=== PATIENT | male | born 1955 | race Caucasian/White ===

== ENCOUNTER 2016-10-01 14:26 | Emergency (ER) | payer MEDICARE ==
--- NOTE | 2016-10-01 15:13 | ED ---
General Adult HPI - General Chief complaint: Psychiatric Symptoms Stated complaint: Mental Health sent by PCP Time Seen by Provider: 10/01/16 14:55 Source: patient, family, RN notes reviewed Mode of arrival: ambulatory Limitations: no limitations - History of Present Illness Initial comments: Chief complaint and history of present illness this is a 61-year-old male here with his nephew. The patient reports he was sent here by his family doctor because of depression and thoughts of suicide. He also has a swollen left leg which is been recurrent this been ongoing for 1 week she's had multiple times in the past. Also had what appears to be some cellulitis on the anterior tibial surface. Denies significant pain or fever. - Related Data Home Medications Medication Instructions Recorded Confirmed Atorvastatin [Lipitor] 20 mg PO HS 10/01/16 10/01/16 Cephalexin [Keflex] 500 mg PO TID 10/01/16 10/01/16 Gabapentin [Neurontin] 300 mg PO TID 10/01/16 10/01/16 Insuln Asp Prt/Insulin Aspart 100 unit SQ DAILY@1500 10/01/16 10/01/16 [NovoLOG MIX 70-30 VIAL] Losartan Potassium [Cozaar] 100 mg PO DAILY 10/01/16 10/01/16 Metolazone [Zaroxolyn] 5 mg PO QAM 10/01/16 10/01/16 Potassium Chloride ER [K-Dur 10] 10 meq PO DAILY 10/01/16 10/01/16 Sertraline [Zoloft] 100 mg PO HS 10/01/16 10/01/16 Torsemide [Demadex] 20 mg PO DAILY 10/01/16 10/01/16 metFORMIN HCL [Metformin HCl] 500 mg PO TID 10/01/16 10/01/16 Previous Rx's Medication Instructions Recorded Sulfamethox-Tmp 800-160Mg [Bactrim 2 each PO Q12HR #56 tab 10/01/16 DS 800-160 mg] Allergies Allergy/AdvReac Type Severity Reaction Status Date / Time No Known Allergies Allergy Verified 10/01/16 14:38 Review of Systems ROS Statement: Those systems with pertinent positive or pertinent negative responses have been documented in the HPI. Review of systems no complaint of any headache or visual acuity changes no chest pain or shortness of breath denies any abdominal pain no nausea no vomiting no diarrhea. Does report that he is depressed and has been thinking about suicide no specific plan his reports he would probably never do it. No neuro deficits. All systems are reviewed. Past medical problems significant for insulin-dependent diabetes mellitus, [place] 7 years ago, orthopedic surgery includes right wrist plate which is been removed. Also quite bypass. Family history mother had breast cancer multiple family members have diabetes. Patient has seasonal ALLERGIES. Denies smoking denies drinking. Denies doing any drugs. He has been some time in psychiatric unit because of depression. States he used to see a psychiatrist because of the expense he could not follow- up. He does take a blood pressure pill. ROS Other: All systems not noted in ROS Statement are negative. Past Medical History Past Medical History: Diabetes Mellitus, Myocardial Infarction ([place]) Additional Past Medical History / Comment(s): Quad bipass History of Any Multi-Drug Resistant Organisms: None Reported Past Surgical History: Orthopedic Surgery Additional Past Surgical History / Comment(s): Quad Bipass Past Psychological History: No Psychological Hx Reported Smoking Status: Never smoker Past Alcohol Use History: None Reported Past Drug Use History: None Reported General Exam - General Exam Comments Initial Comments: General: The patient is awake and alert, in no distress, and does not appear acutely ill. Eye: Pupils are equal, round and reactive to light, extra-ocular movements are intact ; there is normal conjunctiva bilaterally. No signs of icterus. Ears, nose, mouth and throat: There are moist mucous membranes and no oral lesions. Neck: The neck is supple, there is no tenderness . Cardiovascular: There is a regular rate and rhythm. No murmur, rub or gallop is appreciated. Respiratory: Lungs are clear to auscultation, respirations are non-labored, breath sounds are equal. No wheezes, stridor, rales, or rhonchi. Gastrointestinal: Soft, non-distended, non-tender abdomen without masses or organomegaly noted. There is no rebound or guarding present. No CVA tenderness. Bowel sounds are unremarkable. Back: Musculoskeletal: Normal ROM, no tenderness,swollen left leg, cellulitis anterior surface, areas where he has scratched . Neurological: CN II-XII intact, There are no obvious motor or sensory deficits. Coordination appears grossly intact. Speech is normal. Skin: cellulitis ti ant left tibial surface. Psychiatric: Cooperative, appropriate mood & affect, states he is depressed but without a plan. Limitations: no limitations Course Vital Signs 10/01/16 14:35 Temperature 97.7 F Pulse Rate 96 Respiratory 20 Rate Blood Pressure 167/77 O2 Sat by Pulse 95 Oximetry Medical Decision Making - Medical Decision Making Medical decision-making. Patient's white count 8.8 hemoglobin 15 hematocrit 44 with a potassium 3.1. This will be supplemented orally. BUN 18 creatinine 1.06 with a GFR greater than 60. Glucose 212. Urine toxicology screen negative for drugs of abuse. Breath alcohol was 0. Ultrasound to rule out DVT was negative per administrative dietitian. The patient will be started on Bactrim 2 tablets twice a day for 2 weeks for cellulitis left lower extremity and potassium tablets 20 mEq The patient was evaluated by psychiatric nurse. She discussed the situation with the psychiatrist and the plan this size with the patient be discharged home to the care of his nephew. Also with referrals to outpatient [facility]. Patient will be advised to continue with his home potassium which did not take today. Also he'll be placed on Bactrim DS 2 tablets twice day for 14 days. Told to follow-up with his family physician. If the rash or cellulitis gets worse on his leg he is to return emergency room. - Lab Data Result diagrams: 10/01/16 15:15 10/01/16 15:15 Lab Results 10/01/16 10/01/16 10/01/16 Range/Units 15:15 15:15 15:15 WBC 8.8 (3.8-10.6) k/uL RBC 5.12 (4.30-5.90) m/uL Hgb 15.3 (13.0-17.5) gm/dL Hct 44.0 (39.0-53.0) % MCV 85.8 (80.0-100.0) fL MCH 29.9 (25.0-35.0) pg MCHC 34.9 (31.0-37.0) g/dL RDW 15.1 (11.5-15.5) % Plt Count 191 (150-450) k/uL Neutrophils % 78 % Lymphocytes % 15 % Monocytes % 4 % Eosinophils % 2 % Basophils % 1 % Neutrophils # 6.8 (1.3-7.7) k/uL Lymphocytes # 1.3 (1.0-4.8) k/uL Monocytes # 0.3 (0-1.0) k/uL Eosinophils # 0.2 (0-0.7) k/uL Basophils # 0.1 (0-0.2) k/uL Sodium 140 (137-145) mmol/L Potassium 3.1 L (3.5-5.1) mmol/L Chloride 100 (98-107) mmol/L Carbon Dioxide 28 (22-30) mmol/L Anion Gap 12 mmol/L BUN 18 (9-20) mg/dL Creatinine 1.06 (0.66-1.25) mg/dL Est GFR (MDRD) Af Amer >60 (>60 ml/min/1.73 sqM) Est GFR (MDRD) Non-Af >60 (>60 ml/min/1.73 sqM) Glucose 212 H (74-99) mg/dL Calcium 9.4 (8.4-10.2) mg/dL Total Bilirubin 0.7 (0.2-1.3) mg/dL AST 34 (17-59) U/L ALT 40 (21-72) U/L Alkaline Phosphatase 92 (38-126) U/L Total Protein 7.0 (6.3-8.2) g/dL Albumin 4.0 (3.5-5.0) g/dL Urine Opiates Screen Not Detected (NotDetected) Ur Oxycodone Screen Not Detected (NotDetected) Urine Methadone Screen Not Detected (NotDetected) Ur Propoxyphene Screen Not Detected (NotDetected) Ur Barbiturates Screen Not Detected (NotDetected) U Tricyclic Antidepress Not Detected (NotDetected) Ur Phencyclidine Scrn Not Detected (NotDetected) Ur Amphetamines Screen Not Detected (NotDetected) U Methamphetamines Scrn Not Detected (NotDetected) U Benzodiazepines Scrn Not Detected (NotDetected) Urine Cocaine Screen Not Detected (NotDetected) U Marijuana (THC) Screen Not Detected (NotDetected) Disposition Clinical Impression: Depression, Cellulitis of left leg without foot Disposition: HOME SELF-CARE Condition: Fair Instructions: Depression (ED), Cellulitis (ED) Additional Instructions: Keep legs elevated. Take Bactrim 2 tablets twice daily for 14 days. Return emergency room if the cellulitis gets worse. Follow-up family physician. Call or evaluation by community mental health. Continue with home medications including potassium daily. Prescriptions: Sulfamethox-Tmp 800-160Mg [Bactrim DS 800-160 mg] 2 each PO Q12HR #56 tab Referrals: None,Stated [REFERRING] - 1-2 days Time of Disposition: 17:25
[2016-10-01 15:32] LABS: Basophils # (A) 0.1 k/uL (0-0.2); Basophils % (A) 1 %; CH 31.1; CHCM 36.4; Eosinophils # (A) 0.2 k/uL (0-0.7); Eosinophils % (A) 2 %; HDW 3.24; HGB 15.3 gm/dL (13.0-17.5); Luc # (Auto) 0.13; Luc % (Auto) 1; Lymphocytes # (A) 1.3 k/uL (1.0-4.8); Lymphocytes % (A) 15 %; MCH 29.9 pg (25.0-35.0); MCHC 34.9 g/dL (31.0-37.0); MCV 85.8 fL (80.0-100.0); Mean Platelet Volume 8.5; Monocytes # (A) 0.3 k/uL (0-1.0); Monocytes % (A) 4 %; Neutrophils # (A) 6.8 k/uL (1.3-7.7); Neutrophils % (A) 78 %; RBC 5.12 m/uL (4.30-5.90); RDW 15.1 % (11.5-15.5); WBC 8.8 k/uL (3.8-10.6); WBC (Perox) 8.61
[2016-10-01 15:42] LABS: ALT 40 U/L (21-72); AST 34 U/L (17-59); Alkaline Phosphatase 92 U/L (38-126); Anion Gap 12 mmol/L; Blood Urea Nitrogen 18 mg/dL (9-20); Calcium 9.4 mg/dL (8.4-10.2); Carbon Dioxide 28 mmol/L (22-30); Chloride 100 mmol/L (98-107); Glucose 212 mg/dL (74-99); Non-African American GFR(MDRD) >60 (>60 ml/min/1.73 sqM); Potassium 3.1 mmol/L (3.5-5.1); Sodium 140 mmol/L (137-145); Total Bilirubin 0.7 mg/dL (0.2-1.3)
[2016-10-01] MEDS ORDERED: POTASSIUM CHLORIDE ER 20 MEQ TAB.ER PO STA (16:18)
[2016-10-01] MEDS ORDERED: SULFAMETH-TMP DS STARTER PACK 2 TAB BTL PO STA (16:19)
--- NOTE | 2016-10-01 16:19 | US ---
EXAMINATION TYPE: US venous doppler duplex LE LT DATE OF EXAM: 10/01/2016 3:55 PM COMPARISON: NONE CLINICAL HISTORY: Recurrent swelling left leg. Intermittent left leg edema SIDE PERFORMED: Left TECHNIQUE: The lower extremity deep venous system is examined utilizing real time linear array sonog nadine with graded compression, doppler sonography and color-flow sonography. VESSELS IMAGED: External Iliac Vein (EIV) Common Femoral Vein Deep Femoral Vein Greater Saphenous Vein * Femoral Vein Popliteal Vein Small Saphenous Vein * Proximal Calf Veins (* superficial vessels) Left Leg: No evidence of DVT IMPRESSION: Grayscale, color doppler, spectral doppler imaging performed of the deep veins of the lo wer extremities. There is normal flow, compressibility, vascular waveforms bilaterally. There is no evident deep venous thrombosis at or above the knee
[2016-10-01 17:39] VITALS: BP 155/89; PULSE 93; RESP 18; TEMP 97.9
== END 2016-10-01 17:39 | disposition home or self-care (01) ==
LOC: EC 14:26
DX: L03.116 Cellulitis of left lower limb (principal); F32.9 Major depressive disorder, single episode, unspecified; E11.9 Type 2 diabetes mellitus without complications; Z79.4 Long term (current) use of insulin; Z79.899 Other long term (current) drug therapy
CPT/HCPCS: 36415; 80053; 80306; 82075; 85025; 99284

== ENCOUNTER → 2017-03-03 | Outpatient (CLI) | payer MEDICARE, OTHER ==
[2017-03-03 10:57] LABS: CH 28.7; CHCM 34.6; HCT 41.4 % (39.0-53.0); HDW 3.34; HGB 14.2 gm/dL (13.0-17.5); MCH 28.5 pg (25.0-35.0); MCHC 34.2 g/dL (31.0-37.0); MCV 83.3 fL (80.0-100.0); Mean Platelet Volume 8.1; RBC 4.97 m/uL (4.30-5.90); RDW 15.4 % (11.5-15.5)
[2017-03-03 11:11] LABS: ALT 32 U/L (21-72); AST 25 U/L (17-59); Alkaline Phosphatase 66 U/L (38-126); Anion Gap 12 mmol/L; Blood Urea Nitrogen 24 mg/dL (9-20); Carbon Dioxide 33 mmol/L (22-30); Chloride 98 mmol/L (98-107); Glucose 116 mg/dL (74-99); Non-African American GFR(MDRD) >60 (>60 ml/min/1.73 sqM); Potassium 3.3 mmol/L (3.5-5.1); Sodium 143 mmol/L (137-145); Total Bilirubin 0.4 mg/dL (0.2-1.3); Total Protein 7.3 g/dL (6.3-8.2)
--- NOTE | 2017-03-03 15:26 | US ---
EXAMINATION TYPE: US venous doppler duplex LE BI DATE OF EXAM: 03/03/2017 1:30 PM COMPARISON: NONE CLINICAL HISTORY: 61-year-old male M79.604 PAIN IN RT LEG. 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 No DVT or SVT is noted . EIV Common Femoral Vein Deep Femoral Vein Femoral Vein Popliteal Vein Proximal Calf Veins Greater Saph Vein Upper Small Saph Vein 2) There is venous reflux noted at the following venous levels: right small saphenous vein, left femoral vein lower, left popliteal vein mid, left popliteal vein lower, left small saphenous vei n IMPRESSION: 1. No evidence for DVT within the bilateral lower extremities imaged from the groin to the upper calv es. 2. Venous reflux noted within the deep venous system on the left as outlined above and within the rig ht small saphenous vein.
--- NOTE | 2017-03-05 10:04 | P.ARTDOP ---
Arterial Doppler LOWER EXTREMITY ARTERIAL DOPPLER: DATE OF SERVICE: 03/03/2017 Reason for study: Preop CABG. Doppler waveforms: Multiphasic bilaterally throughout. Pulse volume recording: Blunting on the digital area on the right.. Pressure gradients: Only at the foot level. Ankle-brachial indices: . Cannot be occluded on either side.. Toe pressures: 70 on the right, 88 on the left Impression: Fairly normal flow bilaterally proximally. Low toe pressures and mild blunting, probably secondary to distal disease. Tissue perfusion probably adequate for healing. Clinical correlation recommended..
== END | disposition home or self-care (01) ==
LOC: RADUSWWP 10:15
PROVIDERS: ATTEND Thoracic Surgery (Cardiothoracic Vascular Surgery)
DX: I87.2 Venous insufficiency (chronic) (peripheral) (principal); E13.621 Other specified diabetes mellitus with foot ulcer; M79.604 Pain in right leg
CPT/HCPCS: 36415; 80053; 83036; 84134; 85027; 93923; 93970

== ENCOUNTER 2019-06-14 14:10 | Inpatient (IN) | payer MEDICARE, OTHER ==
[2019-06-14] MEDS ORDERED: FUROSEMIDE 10 MG/ML 4 ML VIAL IV STA (15:01)
[2019-06-14] MEDS ORDERED: IPRATROPIUM-ALBUTEROL 3 ML NEB INHALATION STA (15:01)
--- NOTE | 2019-06-14 15:19 | ED ---
General Adult HPI - General Chief complaint: Shortness of Breath Stated complaint: leg swelling/SOB Time Seen by Provider: 06/14/19 14:57 Source: patient, family, RN notes reviewed Mode of arrival: ambulatory Limitations: no limitations - History of Present Illness Initial comments: Patient is a pleasant 63-year-old male presenting to the emergency Department with complaints of dyspnea. Patient has had leg swelling for the past couple of weeks. Patient admits to being off his Lasix recently because it makes him feel dry. Patient has had progressive dyspnea over the past several days or weeks. Patient does have occasional cough with occasional clear sputum. No chest pain. Patient is easily fatigued and short of breath with exertion. Dyspnea also worsens with lying down - Related Data Home Medications Medication Instructions Recorded Confirmed Gabapentin [Neurontin] 300 mg PO TID 10/01/16 06/14/19 Insuln Asp Prt/Insulin Aspart 60 unit SQ DAILY 10/01/16 06/14/19 [NovoLOG MIX 70-30 VIAL] Metolazone [Zaroxolyn] 5 mg PO QAM 10/01/16 06/14/19 Sertraline [Zoloft] 100 mg PO HS 10/01/16 06/14/19 Acetaminophen-Codeine 300-30mg 1 tab PO Q6H PRN 02/20/17 06/14/19 [Tylenol #3] Allergies Allergy/AdvReac Type Severity Reaction Status Date / Time acetaminophen [From Vicodin] AdvReac Hallucinati Verified 06/14/19 16:19 ons hydrocodone [From Vicodin] AdvReac Hallucinati Verified 06/14/19 16:19 ons Review of Systems ROS Statement: Those systems with pertinent positive or pertinent negative responses have been documented in the HPI. ROS Other: All systems not noted in ROS Statement are negative. Constitutional: Denies: fever Eyes: Denies: eye pain ENT: Denies: ear pain Respiratory: Reports: cough, dyspnea Cardiovascular: Denies: chest pain Endocrine: Reports: fatigue Gastrointestinal: Denies: abdominal pain Genitourinary: Denies: dysuria Musculoskeletal: Denies: back pain Skin: Denies: rash Neurological: Denies: weakness 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 History of Any Multi-Drug Resistant Organisms: None Reported Past Surgical History: Coronary Bypass/CABG, Orthopedic Surgery Additional Past Surgical History / Comment(s): amputation toe rt foot, Past Anesthesia/Blood Transfusion Reactions: No Reported Reaction Past Psychological History: Depression Smoking Status: Never smoker - Past Family History Mother Family Medical History: Unable to Obtain General Exam Limitations: no limitations General appearance: alert, in no apparent distress Head exam: Present: normocephalic Eye exam: Present: normal appearance, PERRL ENT exam: Present: mucous membranes dry Neck exam: Present: normal inspection Respiratory exam: Present: wheezes Cardiovascular Exam: Present: regular rate, normal rhythm GI/Abdominal exam: Present: soft. Absent: tenderness Extremities exam: Present: pedal edema. Absent: calf tenderness Neurological exam: Present: alert Psychiatric exam: Present: normal affect, normal mood Skin exam: Present: normal color Course Vital Signs 06/14/19 06/14/19 06/14/19 14:17 15:09 15:18 Temperature 97.4 F L Pulse Rate 92 85 86 Respiratory 18 Rate Blood Pressure 185/104 O2 Sat by Pulse 95 Oximetry EKG Findings - EKG Comments: EKG Findings:: Sinus rhythm 86. Premature complexes present. ID 186. QRS 120. QT 396. QT 06/15/1972. Normal axis. Poor R-wave progression. No acute ST change. Medical Decision Making - Medical Decision Making Patient reevaluated. Patient and family updated. Patient is getting some improvement with Lasix. Case discussed with Dr. Alegria, who will admit covering for hospital call. There is questionable pneumonia and patient will be covered with antibiotics. Patient does not meet sepsis criteria. - Lab Data Result diagrams: 06/14/19 14:35 06/14/19 14:35 Lab Results 06/14/19 06/14/19 06/14/19 Range/Units 14:35 14:35 14:35 WBC 6.2 (3.8-10.6) k/uL RBC 5.82 (4.30-5.90) m/uL Hgb 16.6 (13.0-17.5) gm/dL Hct 50.0 (39.0-53.0) % MCV 85.8 (80.0-100.0) fL MCH 28.5 (25.0-35.0) pg MCHC 33.2 (31.0-37.0) g/dL RDW 13.9 (11.5-15.5) % Plt Count 118 L (150-450) k/uL Neutrophils % 81 % Lymphocytes % 9 % Monocytes % 6 % Eosinophils % 0 % Basophils % 1 % Neutrophils # 5.0 (1.3-7.7) k/uL Lymphocytes # 0.6 L (1.0-4.8) k/uL Monocytes # 0.4 (0-1.0) k/uL Eosinophils # 0.0 (0-0.7) k/uL Basophils # 0.0 (0-0.2) k/uL PT 11.2 (9.0-12.0) sec INR 1.1 (<1.2) APTT 25.9 (22.0-30.0) sec Sodium 137 (137-145) mmol/L Potassium 3.5 (3.5-5.1) mmol/L Chloride 103 (98-107) mmol/L Carbon Dioxide 23 (22-30) mmol/L Anion Gap 11 mmol/L BUN 18 (9-20) mg/dL Creatinine 0.81 (0.66-1.25) mg/dL Est GFR (CKD-EPI)AfAm >90 (>60 ml/min/1.73 sqM) Est GFR (CKD-EPI)NonAf >90 (>60 ml/min/1.73 sqM) Glucose 107 H (74-99) mg/dL Calcium 8.5 (8.4-10.2) mg/dL Total Bilirubin 0.5 (0.2-1.3) mg/dL AST 216 H (17-59) U/L ALT 194 H (4-49) U/L Alkaline Phosphatase 106 (38-126) U/L Troponin I (0.000-0.034) ng/mL NT-Pro-B Natriuret Pep pg/mL Total Protein 6.2 L (6.3-8.2) g/dL Albumin 3.6 (3.5-5.0) g/dL 06/14/19 06/14/19 Range/Units 14:35 14:35 WBC (3.8-10.6) k/uL RBC (4.30-5.90) m/uL Hgb (13.0-17.5) gm/dL Hct (39.0-53.0) % MCV (80.0-100.0) fL MCH (25.0-35.0) pg MCHC (31.0-37.0) g/dL RDW (11.5-15.5) % Plt Count (150-450) k/uL Neutrophils % % Lymphocytes % % Monocytes % % Eosinophils % % Basophils % % Neutrophils # (1.3-7.7) k/uL Lymphocytes # (1.0-4.8) k/uL Monocytes # (0-1.0) k/uL Eosinophils # (0-0.7) k/uL Basophils # (0-0.2) k/uL PT (9.0-12.0) sec INR (<1.2) APTT (22.0-30.0) sec Sodium (137-145) mmol/L Potassium (3.5-5.1) mmol/L Chloride (98-107) mmol/L Carbon Dioxide (22-30) mmol/L Anion Gap mmol/L BUN (9-20) mg/dL Creatinine (0.66-1.25) mg/dL Est GFR (CKD-EPI)AfAm (>60 ml/min/1.73 sqM) Est GFR (CKD-EPI)NonAf (>60 ml/min/1.73 sqM) Glucose (74-99) mg/dL Calcium (8.4-10.2) mg/dL Total Bilirubin (0.2-1.3) mg/dL AST (17-59) U/L ALT (4-49) U/L Alkaline Phosphatase (38-126) U/L Troponin I 0.057 H* (0.000-0.034) ng/mL NT-Pro-B Natriuret Pep 2880 pg/mL Total Protein (6.3-8.2) g/dL Albumin (3.5-5.0) g/dL - Radiology Data Radiology results: image reviewed (Chest x-ray concerning for CHF. Chronic changes. Possible infiltrate bibasilar.) Disposition Clinical Impression: Congestive heart failure Disposition: ADMITTED IP TO THIS HOSP Is patient prescribed a controlled substance at d/c from ED?: No Referrals: Shauna Teague MD [Primary Care Provider] - 1-2 days Decision Time: 16:40
[2019-06-14 15:20] LABS: Basophils % (A) 1 %; Eosinophils % (A) 0 %; HGB 16.6 gm/dL (13.0-17.5); Lymphocytes # (A) 0.6 k/uL (1.0-4.8); Lymphocytes % (A) 9 %; MCH 28.5 pg (25.0-35.0); MCHC 33.2 g/dL (31.0-37.0); MCV 85.8 fL (80.0-100.0); Mean Platelet Volume 9.2; Monocytes # (A) 0.4 k/uL (0-1.0); Monocytes % (A) 6 %; Neutrophils % (A) 81 %; Platelet Count 118 k/uL (150-450); RBC 5.82 m/uL (4.30-5.90); RDW 13.9 % (11.5-15.5); WBC 6.2 k/uL (3.8-10.6)
[2019-06-14 15:23] LABS: ALT 194 U/L (4-49); AST 216 U/L (17-59); African American GFR (CKD) >90 (>60 ml/min/1.73 sqM); Albumin 3.6 g/dL (3.5-5.0); Alkaline Phosphatase 106 U/L (38-126); Anion Gap 11 mmol/L; Blood Urea Nitrogen 18 mg/dL (9-20); Calcium 8.5 mg/dL (8.4-10.2); Carbon Dioxide 23 mmol/L (22-30); Chloride 103 mmol/L (98-107); Glucose 107 mg/dL (74-99); Non-African American GFR(CKD) >90 (>60 ml/min/1.73 sqM); Potassium 3.5 mmol/L (3.5-5.1); Sodium 137 mmol/L (137-145); Total Bilirubin 0.5 mg/dL (0.2-1.3); Total Protein 6.2 g/dL (6.3-8.2)
[2019-06-14 15:28] LABS: INR 1.1 (<1.2); Partial Thromboplastin Time 25.9 sec (22.0-30.0); Prothrombin Time 11.2 sec (9.0-12.0)
--- NOTE | 2019-06-14 16:05 | XR ---
EXAMINATION TYPE: XR chest 2V DATE OF EXAM: 06/14/2019 COMPARISON: NONE HISTORY: Dyspnea. TECHNIQUE: Frontal and lateral views of the chest are obtained. FINDINGS: Overlying sternal wires and mediastinal clips are present. There is cardiomegaly with ather osclerotic thoracic aorta. Chronic parenchymal changes with by lateral lower lung opacities. Osseous structures are intact. IMPRESSION: Correlate for CHF exacerbation on background chronic parenchymal change as there is car diomegaly with suspected small to tiny bilateral pleural effusions and mild interstitial edema. In ad dition there is bibasilar acute infiltrate and atelectasis thought present. Underlying pneumonia avery ot be excluded.
[2019-06-14] MEDS ORDERED: ASPIRIN 325 MG TAB PO STA (16:42)
[2019-06-14] MEDS ORDERED: PNEUMONIA PROTOCOL UTILIZED 1 EACH MISC PO PRN (16:42)
[2019-06-14] MEDS ORDERED: IPRATROPIUM-ALBUTEROL 3 ML NEB INHALATION PRN (16:42)
[2019-06-14] MEDS ORDERED: AZITHROMYCIN 500 MG in SODIUM CHLORIDE 0.9% 250 ML IVPB STA (16:42)
[2019-06-14] MEDS ORDERED: NALOXONE 0.4 MG/ML 1 ML VIAL IV PRN (18:43)
--- NOTE | 2019-06-14 18:53 | P.HPIM ---
History of Present Illness H&P Date: 06/14/19 Chief Complaint: Shortness of breath 63-year-old male with PMH of hypertension, diabetes mellitus patient states that the shortness of breath started on when he had symptoms of a viral URI. Patient reported symptoms of cough productive of white and yellow sputum, r hinorrhea and sore throat on . His URI symptoms improved but his breathing progressively got worse which prompted the patient to come to the ED. Patient also reported lower extremity swelling of unknown duration. Patient otherwise has no complaints. He denies any headaches, nausea or vomiting, fever or chills, chest pain, palpitations, changes in urination or bowel habits. No changes in appetite or weight. Patient does report some lightheadedness on Friday or Friday when he was using the washroom when he fell and hit the back of his head. He did not seek medical attention at this time. He has not experienced any dizziness since then. In the ED, vital signs were stable except for BP of 185/104. CBC showed low platelet count of 118. Coagulation panel was negative. CMP showed glucose 107, AST 216, ALT 194. Troponin was 0.057, EKG showing sinus rhythm with fusion complexes and PACs. BNP was 2880, chest x-ray showing CHF exacerbation unable to exclude pneumonia. Patient is admitted for CHF exacerbation with cardiology consulted. Review of Systems Pertinent positives and negatives as discussed in HPI, a complete review of systems was performed and all other systems are negative. 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 History of Any Multi-Drug Resistant Organisms: None Reported Past Surgical History: Coronary Bypass/CABG, Orthopedic Surgery Additional Past Surgical History / Comment(s): amputation toe rt foot, Past Anesthesia/Blood Transfusion Reactions: No Reported Reaction Past Psychological History: Depression Smoking Status: Never smoker - Past Family History Mother Family Medical History: Unable to Obtain Medications and Allergies Home Medications Medication Instructions Recorded Confirmed Type Gabapentin [Neurontin] 300 mg PO TID 10/01/16 06/14/19 History Insuln Asp Prt/Insulin Aspart 60 unit SQ DAILY 10/01/16 06/14/19 History [NovoLOG MIX 70-30 VIAL] Metolazone [Zaroxolyn] 5 mg PO QAM 10/01/16 06/14/19 History Sertraline [Zoloft] 100 mg PO HS 10/01/16 06/14/19 History Acetaminophen-Codeine 300-30mg 1 tab PO Q6H PRN 02/20/17 06/14/19 History [Tylenol #3] Aspirin EC [Ecotrin Low Dose] 81 mg PO DAILY 06/14/19 06/14/19 History Atorvastatin Calcium [Lipitor] 40 mg PO DAILY 06/14/19 06/14/19 History Furosemide [Lasix] 40 mg PO DAILY 06/14/19 06/14/19 History Ibuprofen 600 mg PO Q6H PRN 06/14/19 06/14/19 History Losartan Potassium [Cozaar] 100 mg PO DAILY 06/14/19 06/14/19 History Potassium Chloride ER [K-Dur 20] 20 meq PO BID 06/14/19 06/14/19 History amLODIPine [Norvasc] 10 mg PO DAILY 06/14/19 06/14/19 History busPIRone HCL [Buspar] 7.5 mg PO BID 06/14/19 06/14/19 History metFORMIN HCL 1,000 mg PO BID 06/14/19 06/14/19 History Allergies Allergy/AdvReac Type Severity Reaction Status Date / Time acetaminophen [From Vicodin] AdvReac Hallucinati Verified 06/14/19 16:19 ons hydrocodone [From Vicodin] AdvReac Hallucinati Verified 06/14/19 16:19 ons Physical Exam Vitals: Vital Signs Temp Pulse Resp BP Pulse Ox 06/14/19 15:18 86 06/14/19 15:09 85 06/14/19 14:17 97.4 F L 92 18 185/104 95 Intake and Output 06/14/19 06/14/19 06/14/19 06:59 14:59 22:59 Other: Weight 124.738 kg General: [non toxic], [no distress], [appears at stated age] Derm: [warm], [dry] Head: [atraumatic], [normocephalic], [symmetric] Eyes: [EOMI], [no lid lag], [anicteric sclera] Mouth: [no lip lesion], [mucus membranes moist] Cardiovascular: [S1S2 reg], [no murmur], [positive DP pulse bilateral], Lungs: [Good air entry bilaterally], [crackles bilaterally] , [no accessory muscle use] Abdominal: [soft], [ nontender to palpation], [no guarding], [no appreciable organomegaly] Ext: [no gross muscle atrophy], [2+ pitting lower extremity edema left greater than right edema], [no contractures] Neuro: [ CN II-XI grossly intact], [no focal neuro deficits] Psych: [Alert], [oriented], [appropriate affect] Results CBC & Chem 7: 06/14/19 14:35 06/14/19 14:35 Labs: Abnormal Lab Results - Last 24 Hours (Table) 06/14/19 06/14/19 06/14/19 Range/Units 14:35 14:35 14:35 Plt Count 118 L (150-450) k/uL Lymphocytes # 0.6 L (1.0-4.8) k/uL Glucose 107 H (74-99) mg/dL AST 216 H (17-59) U/L ALT 194 H (4-49) U/L Troponin I 0.057 H* (0.000-0.034) ng/mL Total Protein 6.2 L (6.3-8.2) g/dL Assessment and Plan Assessment: Acute CHF exacerbation Hypertensive urgency Community acquired pneumonia Troponin elevation Transaminitis Diabetes mellitus Patient has an elevated BNP along with chest x-ray findings suggesting CHF exacerbation. Patient will be started on Lasix 40 mg IV 3 times a day. Strict intake and output will be ordered along with daily weights. Echocardiogram has been ordered and cardiology has been consulted. Patient was noted to have an elevated BP of 185/104 on admission. We will restart his antihypertensive medication of amlodipine and add Coreg 3.125 mg by mouth twice a day. Given his symptoms of productive cough, patient has been empirically started on antibiotics for community acquired pneumonia. He will be continued on Rocephin and azithromycin at this time. Sputum and blood cultures have been ordered. Patient has a mild troponin elevation of 0.057. This is likely a troponin leak from CHF. Regardless, 2 troponins/EKG will be trended to rule out ACS. He has been placed on telemetry monitoring. Patient noted to have elevated liver enzymes of unknown etiology. CMP will be repeated tomorrow morning. Lipid panel and acute hepatitis panel will be ordered as well. Patient will be started on insulin sliding scale along with regular Accu-Cheks and hypoglycemic precautions for his diabetes. DVT prophylaxis: [Heparin] Discussed with: [Patient] Anticipated discharge: [2-3 days] Anticipated discharge place: [Home] A total of [45] minutes was spent on the care of this complex patient more than 50% of the time was spent in counseling and care coordination. Patient names his sister Monica decision maker if he can't make decisions for himself. Patient would like to be full code.
[2019-06-14] MEDS: NITROGLYCERIN OINT 1 INCH/GM PACKET TOPICAL SCH ×2 (19:04→21:59)
[2019-06-14] MEDS: IPRATROPIUM-ALBUTEROL 3 ML NEB INHALATION SCH (19:34)
[2019-06-14 20:34] LABS: Glucose,Whole Blood 141 mg/dL (75-99)
[2019-06-14] MEDS: HEPARIN SODIUM,PORCINE 5,000 UNIT/ML 1 ML VIAL SQ SCH (21:59)
[2019-06-14] MEDS: busPIRone HCl 5 MG TAB PO SCH (22:00)
[2019-06-14] MEDS: SERTRALINE 100 MG TAB PO SCH (22:00)
[2019-06-14] MEDS: CARVEDILOL 3.125 MG TAB PO SCH (22:00)
[2019-06-14] MEDS: INSULIN ASPART (NovoLOG) 100 UNIT/ML VIAL SQ SCH (22:01)
[2019-06-14] MEDS: GABAPENTIN 300 MG CAP PO SCH (22:09)
[2019-06-15] MEDS: FUROSEMIDE 10 MG/ML 4 ML VIAL IV SCH ×4 (00:03→23:33)
[2019-06-15 02:52] LABS: Glucose,Whole Blood 67 mg/dL (75-99)
[2019-06-15 03:07] LABS: Glucose,Whole Blood 59 mg/dL (75-99)
[2019-06-15 03:18] LABS: Glucose,Whole Blood 87 mg/dL (75-99)
[2019-06-15 03:23] LABS: ALT 178 U/L (4-49); AST 162 U/L (17-59); African American GFR (CKD) >90 (>60 ml/min/1.73 sqM); Albumin 3.6 g/dL (3.5-5.0); Alkaline Phosphatase 92 U/L (38-126); Anion Gap 13 mmol/L; Blood Urea Nitrogen 17 mg/dL (9-20); Calcium 8.6 mg/dL (8.4-10.2); Carbon Dioxide 25 mmol/L (22-30); Chloride 106 mmol/L (98-107); Cholesterol 142 mg/dL (<200); Glucose 72 mg/dL (74-99); HDL Cholesterol 35 mg/dL (40-60); LDL Cholesterol,Calculated 93 mg/dL (0-99); Non-African American GFR(CKD) >90 (>60 ml/min/1.73 sqM); Potassium 2.9 mmol/L (3.5-5.1); Sodium 144 mmol/L (137-145); Total Bilirubin 0.7 mg/dL (0.2-1.3); Total Protein 6.1 g/dL (6.3-8.2); Triglycerides 70 mg/dL (<150)
[2019-06-15] MEDS: POTASSIUM CHLORIDE 10 MEQ in WATER FOR INJECTION 1 100ML.BAG IVPB SCH (05:58)
[2019-06-15 06:06] LABS: Glucose,Whole Blood 179 mg/dL (75-99)
[2019-06-15] MEDS: INSULIN ASPART (NovoLOG) 100 UNIT/ML VIAL SQ SCH ×4 (06:09→21:14)
[2019-06-15] MEDS: CARVEDILOL 3.125 MG TAB PO SCH ×2 (07:02→17:15)
--- NOTE | 2019-06-15 08:05 | US ---
EXAMINATION TYPE: US venous doppler duplex LE BI DATE OF EXAM: 06/15/2019 7:51 AM COMPARISON: US 2017 CLINICAL HISTORY: LE swelling. Bilateral leg swelling, exam done portable. SIDE PERFORMED: Bilateral TECHNIQUE: The lower extremity deep venous system is examined utilizing real time linear array sonog nadine with graded compression, doppler sonography and color-flow sonography. VESSELS IMAGED: External Iliac Vein (EIV) Common Femoral Vein Deep Femoral Vein Greater Saphenous Vein * Femoral Vein Popliteal Vein Small Saphenous Vein * Proximal Calf Veins (* superficial vessels) Grayscale, color doppler, spectral doppler imaging performed of the deep veins of the lower extremiti es. There is normal flow, compressibility, vascular waveforms. Right Leg: Appears negative for DVT Left Leg: Appears negative for DVT IMPRESSION: No sonographic evidence of deep venous thrombosis within either of the visualized bilate ral lower extremities.
--- NOTE | 2019-06-15 08:09 | XR ---
EXAMINATION TYPE: XR chest 2V DATE OF EXAM: 06/15/2019 COMPARISON: 06/14/2019 HISTORY: Follow-up for pneumonia. Shortness of breath. TECHNIQUE: Frontal and lateral views of the chest are obtained. FINDINGS: Persistent patchy right lower lung peripheral opacity is seen as well as right infrahilar opacity. Platelike left basilar atelectasis. Old healed lateral right rib fractures. Enlarged cardiac mediastinal silhouette with post CABG change. No sizable pneumothorax or pleural effusion. IMPRESSION: Persistent right basilar patchy opacity and right infrahilar opacity. Findings likely re present pneumonia although follow-up to resolution is recommended to exclude nodule.
[2019-06-15] MEDS: IPRATROPIUM-ALBUTEROL 3 ML NEB INHALATION SCH ×4 (08:33→19:30)
[2019-06-15] MEDS ORDERED: Potassium Replacement Protocol 1 EACH MISC MISCELLANE PRN (08:52)
--- NOTE | 2019-06-15 09:16 | P.CRDCN ---
History of Present Illness Consult date: 06/15/19 Requesting physician: Susan Powell Consult reason: congestive heart failure Chief complaint: Bilateral lower extremity edema and shortness of breath History of present illness: This is a pleasant 63-year-old gentleman with history of diabetes, hypertension, hyperlipidemia, coronary artery disease with prior bypass surgery. Patient's unsure of how long ago his surgery was, but he states that it was at [facility]. He does have some memory loss, initially when I asked him if he had any heart problems he said no, on examination I noticed a scar in his chest and patient states that he had a triple bypass surgery. He presents to the hospital on this occasion with symptoms of significant lower extremity edema, PND and orthopnea, exertional shortness of breath as well. His sister convinced him to come to the emergency room for further evaluation and treatment. Patient was initiated on IV Lasix on arrival here, he continues to have significant lower extremity edema but states that they're half the size they were when he presented yesterday. Chest x-ray on presentation here shows CHF exacerbation on the background of chronic parenchymal change, cardiomegaly, tiny bilateral pleural effusions. Possible infiltrate so underlying pneumonia cannot be excluded. His EKG on presentation here showed a normal sinus rhythm with PVCs. Venous duplex study negative for DVT in either lower extremity. Repeat chest x-ray was performed this morning which showed persistent right basilar patchy obesity in the right infrahilar obesity. Likely pneumonia although follow-up to resolution is recommended to exclude a nodule. Blood pressure 135/82, heart rate in the 70s, 97% on 2 L of oxygen. White blood cell count 6.2, hemoglobin 16.6, platelet count 118. Sodium 137 on admission with a potassium of 3.5, BUN 18, creatinine 0.8. BNP level 2880. Troponin 0.05, 0.06, 0.06. At the time of my examination this morning, the patient continues to feel short of breath although he states it's better than on presentation here. Continues to have 3+ bilateral peripheral edema, however improving as well from admission here. Past Medical History Past Medical History: Coronary Artery Disease (CAD), Diabetes Mellitus, Hyperlipidemia, Hypertension Additional Past Medical History / Comment(s): Left heel cracked/ History of Any Multi-Drug Resistant Organisms: None Reported Past Surgical History: Coronary Bypass/CABG, Orthopedic Surgery Additional Past Surgical History / Comment(s): amputation toe rt foot, Past Anesthesia/Blood Transfusion Reactions: No Reported Reaction Past Psychological History: Anxiety, Depression Smoking Status: Never smoker Past Alcohol Use History: None Reported Past Drug Use History: None Reported - Past Family History Mother Family Medical History: Diabetes Mellitus Father Family Medical History: Congestive Heart Failure (CHF) Brother(s) Family Medical History: Diabetes Mellitus Sister(s) Family Medical History: Diabetes Mellitus Medications and Allergies Home Medications Medication Instructions Recorded Confirmed Type Gabapentin [Neurontin] 300 mg PO TID 10/01/16 06/14/19 History Insuln Asp Prt/Insulin Aspart 60 unit SQ DAILY 10/01/16 06/14/19 History [NovoLOG MIX 70-30 VIAL] Metolazone [Zaroxolyn] 5 mg PO QAM 10/01/16 06/14/19 History Sertraline [Zoloft] 100 mg PO HS 10/01/16 06/14/19 History Acetaminophen-Codeine 300-30mg 1 tab PO Q6H PRN 02/20/17 06/14/19 History [Tylenol #3] Aspirin EC [Ecotrin Low Dose] 81 mg PO DAILY 06/14/19 06/14/19 History Atorvastatin Calcium [Lipitor] 40 mg PO DAILY 06/14/19 06/14/19 History Furosemide [Lasix] 40 mg PO DAILY 06/14/19 06/14/19 History Ibuprofen 600 mg PO Q6H PRN 06/14/19 06/14/19 History Losartan Potassium [Cozaar] 100 mg PO DAILY 06/14/19 06/14/19 History Potassium Chloride ER [K-Dur 20] 20 meq PO BID 06/14/19 06/14/19 History amLODIPine [Norvasc] 10 mg PO DAILY 06/14/19 06/14/19 History busPIRone HCL [Buspar] 7.5 mg PO BID 06/14/19 06/14/19 History metFORMIN HCL 1,000 mg PO BID 06/14/19 06/14/19 History Allergies Allergy/AdvReac Type Severity Reaction Status Date / Time acetaminophen [From Vicodin] AdvReac Hallucinati Verified 06/14/19 16:19 ons hydrocodone [From Vicodin] AdvReac Hallucinati Verified 06/14/19 16:19 ons Physical Exam Vitals: Vital Signs Temp Pulse Pulse Resp BP BP Pulse Ox 06/15/19 08:43 84 06/15/19 08:35 80 96 06/15/19 07:57 98.1 F 71 24 135/83 97 06/15/19 03:20 70 20 06/15/19 03:08 98.4 F 70 20 134/72 97 06/15/19 00:00 98.0 F 75 20 130/75 93 L 06/14/19 22:10 97.5 F L 83 24 143/78 95 06/14/19 21:03 97.5 F L 83 24 143/78 95 06/14/19 20:06 98.2 F 85 20 155/88 94 L 06/14/19 20:00 83 24 06/14/19 19:48 78 06/14/19 19:37 78 06/14/19 19:03 78 17 157/81 95 06/14/19 15:18 86 06/14/19 15:09 85 06/14/19 14:17 97.4 F L 92 18 185/104 95 Intake and Output 06/14/19 06/15/19 06/15/19 22:59 06:59 14:59 Output Total 400 Balance -400 Output: Urine 400 Other: # Voids 2 Weight 124.738 kg 104.9 kg PHYSICAL EXAMINATION: GENERAL: 63-year-old gentleman in no acute distress at the time of my examination HEENT: Head is atraumatic, normocephalic. Pupils equal, round. Sclera anicteric. Conjunctiva are clear. Mucous membranes of the mouth are moist. Neck is supple. There is elevated jugular venous pressure up to the angle of the jaw. No carotid bruit is heard. HEART EXAMINATION: Heart S1 and S2 1 systolic murmur is heard CHEST EXAMINATION: Lungs reveal diminished air entry to the bases bilaterally, bilateral rales heard ABDOMEN: Soft, obese, nontender. Bowel sounds are heard. No organomegaly noted. EXTREMITIES:[ 2+ peripheral pulses with 3+ evidence of peripheral edema, bilateral erythema NEUROLOGIC patient is awake, alert and oriented 3 . . Results 06/14/19 14:35 06/15/19 02:55 Cardiac Enzymes 06/14/19 06/14/19 06/14/19 Range/Units 14:35 14:35 21:40 AST 216 H (17-59) U/L Troponin I 0.057 H* 0.069 H* (0.000-0.034) ng/mL 06/15/19 06/15/19 Range/Units 02:55 02:55 AST 162 H (17-59) U/L Troponin I 0.068 H* (0.000-0.034) ng/mL Coagulation 06/14/19 Range/Units 14:35 PT 11.2 (9.0-12.0) sec APTT 25.9 (22.0-30.0) sec Lipids 06/15/19 Range/Units 02:55 Triglycerides 70 (<150) mg/dL Cholesterol 142 (<200) mg/dL HDL Cholesterol 35 L (40-60) mg/dL CBC 06/14/19 Range/Units 14:35 WBC 6.2 (3.8-10.6) k/uL RBC 5.82 (4.30-5.90) m/uL Hgb 16.6 (13.0-17.5) gm/dL Hct 50.0 (39.0-53.0) % Plt Count 118 L (150-450) k/uL Comprehensive Metabolic Panel 06/14/19 06/15/19 Range/Units 14:35 02:55 Sodium 137 144 (137-145) mmol/L Potassium 3.5 2.9 L (3.5-5.1) mmol/L Chloride 103 106 (98-107) mmol/L Carbon Dioxide 23 25 (22-30) mmol/L BUN 18 17 (9-20) mg/dL Creatinine 0.81 0.84 (0.66-1.25) mg/dL Glucose 107 H 72 L (74-99) mg/dL Calcium 8.5 8.6 (8.4-10.2) mg/dL AST 216 H 162 H (17-59) U/L ALT 194 H 178 H (4-49) U/L Alkaline Phosphatase 106 92 (38-126) U/L Total Protein 6.2 L 6.1 L (6.3-8.2) g/dL Albumin 3.6 3.6 (3.5-5.0) g/dL Current Medications Generic Name Dose Route Start Last Admin Trade Name Freq PRN Reason Stop Dose Admin Albuterol/Ipratropium 3 ml 06/14/19 20:00 06/15/19 08:33 Duoneb 0.5 Mg-3 Mg/3 Ml Soln INHALATION 3 ml RT-QID MARYANN Administration Albuterol/Ipratropium 3 ml 06/14/19 16:42 Duoneb 0.5 Mg-3 Mg/3 Ml Soln INHALATION RT-Q4H PRN shortness of breath Amlodipine Besylate 10 mg 06/15/19 09:00 Norvasc PO DAILY [facility] Aspirin 81 mg 06/15/19 09:00 Aspirin PO DAILY [facility] Atorvastatin Calcium 40 mg 06/15/19 09:00 Lipitor PO DAILY [facility] Azithromycin 500 mg 06/15/19 17:00 Zithromax PO Q24H [facility] Buspirone HCl 7.5 mg 06/14/19 21:00 06/14/19 22:00 Buspar PO 7.5 mg BID [facility] Administration Carvedilol 3.125 mg 06/14/19 19:00 06/15/19 07:02 Coreg PO 3.125 mg BID-W/MEALS [facility] Administration Furosemide 40 mg 06/15/19 00:00 06/15/19 00:03 Lasix IV 40 mg Q8H [facility] Administration Gabapentin 300 mg 06/14/19 22:00 06/14/19 22:09 Neurontin PO 300 mg TID [facility] Administration Heparin Sodium (Porcine) 5,000 unit 06/14/19 21:00 06/14/19 21:59 Heparin SQ 5,000 unit Q12HR [facility] Administration Ceftriaxone Sodium 1 gm/ 50 mls @ 100 mls/hr 06/15/19 16:00 Sodium Chloride IVPB 06/18/19 16:01 Q24H [facility] Insulin Aspart 0 unit 06/14/19 21:00 06/15/19 06:09 Novolog SQ Not Given ACHS [facility] Protocol Losartan Potassium 100 mg 06/15/19 09:00 Cozaar PO DAILY [facility] Metolazone 5 mg 06/15/19 09:00 Zaroxolyn PO QAM [facility] Miscellaneous Information 1 each 06/14/19 16:42 Pneumonia Protocol Utilized PO ONCE PRN Per Protocol Naloxone HCl 0.2 mg 06/14/19 18:43 Narcan IV Q2M PRN Opioid Reversal Nitroglycerin 1 inch 06/14/19 18:00 06/14/19 21:59 Nitro-Bid Oint TOPICAL 1 inch QID MARYANN Administration Sertraline HCl 100 mg 06/14/19 21:00 06/14/19 22:00 Zoloft PO 100 mg HS MARYANN Administration Sodium Chloride 10 ml 06/14/19 21:00 06/14/19 22:09 Saline Flush IV 10 ml BID MARYANN Administration Intake and Output 06/14/19 06/15/19 06/15/19 22:59 06:59 14:59 Output Total 400 Balance -400 Output: Urine 400 Other: # Voids 2 Weight 124.738 kg 104.9 kg 06/14/19 14:35 06/15/19 02:55 EKG Interpretations (text) EKG shows normal sinus rhythm with PVCs. Nonspecific ST-T wave changes Assessment and Plan Plan: Assessment and plan #1 systolic congestive heart failure acute on chronic #2 known history of coronary artery disease with prior bypass surgery, exact details unknown #3 hypertension #4 diabetes #5 hyperlipidemia #6 hypokalemia Plan We will continue to diurese the patient with IV Lasix. We will also check to see if the patient has coverage for Entresto, if he does, we will hold the angiotensin nicky and initiate Entresto. We will obtain an echocardiogram with Doppler study. Obtain records from [facility] on the patient's prior bypass surgery. Replace potassium. Continue to monitor intake and output along with daily weights and daily lytes BUN and creatinine. DNP note has been reviewed, I agree with a documented findings and plan of care. Patient was seen and examined.
[2019-06-15] MEDS: busPIRone HCl 5 MG TAB PO SCH ×2 (09:18→19:51)
[2019-06-15] MEDS: ATORVASTATIN 40 MG TAB PO SCH (09:18)
[2019-06-15] MEDS: HEPARIN SODIUM,PORCINE 5,000 UNIT/ML 1 ML VIAL SQ SCH ×2 (09:18→19:50)
[2019-06-15] MEDS: POTASSIUM CHLORIDE ER 20 MEQ TAB.ER PO SCH ×5 (09:18→16:34)
[2019-06-15] MEDS: GABAPENTIN 300 MG CAP PO SCH ×3 (09:18→21:14)
[2019-06-15] MEDS: ASPIRIN 81 MG PO SCH (09:18)
[2019-06-15] MEDS: METOLAZONE 5 MG TAB PO SCH (09:19)
[2019-06-15] MEDS: NITROGLYCERIN OINT 1 INCH/GM PACKET TOPICAL SCH ×4 (09:22→21:14)
[2019-06-15 12:06] LABS: Glucose,Whole Blood 163 mg/dL (75-99)
--- NOTE | 2019-06-15 12:21 | P.CN ---
Psychiatric Consult - . Consult date: 06/15/19 Consult:: IDENTIFYING DATA: He is a 63-year-old single developmentally disabled male admitted to medicine service with complaints of increasing shortness of breath. The hospitalist consulted psychiatry regarding evaluation of depre ssion. HISTORY OF PRESENT ILLNESS: I reviewed the medical record and interviewed the patient. He described feelings of depression, hopelessness and helplessness that has been present since she was diagnosed with diabetes. He has intermittent thoughts of but denied suicidal ideation, intent or plan. His description of the suicidal thoughts were suggestive of an obsession where he feels a need to make the utterance "I wish I were ". Afterwards he experiences a sense of release and a decrease of stress. He described some symptoms of depression but denied persistent anhedonia, guilt or insomnia. His predominant complaint when we talked about depression was his feeling "uselessness" and "boredom". He complained that he has "nothing to do" since he stopped working 2 years ago. He wishes to return to work but is unable to because of his multiple medical problems. He described a persistent sense of anxiety that fluctuates in intensity that he feels that he is unable to control. He denied experiencing periods of increased anxiety consistent with panic attack. He denied compulsions or other obsessions or intrusive thoughts or ideas. He denied psychotic symptoms such as hallucinations, paranoia, confusion or thought disturbances. He does not use alcohol and denied history use of drugs. His primary care provider was prescribed sertraline and use for the treatment of symptoms of depression and anxiety and recommended a referral to a psychiatrist. PAST PSYCHIATRIC HISTORY: He has no history of mental health treatment. He denied a history of suicide attempts or gestures. He has no psychiatric hospitalizations.. PAST MEDICAL HISTORY: He has multiple medical problems including coronary artery disease, congestive heart failure, diabetes mellitus, hyperlipidemia and hyper tension. ALLERGIES: Acetaminophen, hydrocodone. SUBSTANCE USE HISTORY: . FAMILY PSYCHIATRIC/SUBSTANCE USE HISTORY: He denied a family history of mental health or substance use problems. SOCIAL HISTORY: He has 1 sister and 1 brother. 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 He graduated from high school. 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 He lives with his sister in a rented home. He describes strong family support and enjoys the time with his family. He has limited hobbies or social activities outside of family. MENTAL STATUS EXAM: He presented as a moderately obese 63-year-old male with male pattern balding. He made eye contact and attended to the interview. He no distinguishing features or prominent physical abnormalities. He had a depressed facial expression but smiled intermittently during interview. He is alert and oriented to person, place and time. He showed psychomotor retardation but no abnormal movements. Speech was spontaneous with decreased rate and rhythm. His affect was depressed but reactive. He described intermittent thoughts of but denied suicidal ideation, intent or plan. He denied homicidal ideation. He expressed feelings of hopelessness and helplessness. He ruminated about his medical problems, his inability to work and his lack of activities. He did not express ideas reference, paranoid ideation or delusions. His thinking was concrete but his associations were coherent and logical. He denied hallucinations and did not appear to be responding to internal stimuli. Global impression of intellect is below average. He is aware of his mental health issues and need for treatment. IMPRESSIONS: He is a 63-year-old single male who has history of a developmental disability. He presented to Hospital for the treatment of shortness of breath and was diagnosed with congestive heart failure. He has a history of depression and anxiety for which his primary care provider prescribing Zoloft and BuSpar. He describes intermittent thoughts of but denied suicide intent or plan. There is no evidence of psychosis is no history of substance use problems. There is no indication for inpatient psychiatric treatment at this time. However, he would benefit from outpatient mental health and/or social service manager. DIAGNOSIS: Major depressive disorder in partial remission, developmental disability PLAN: Continue sertraline 100 mg per day and BuSpar 7.5 mg twice a day. Consult social work for assistance with referral to community mental health and/or consultation. Thank you for this consult. 06/15/19 11:56 06/15/19 12:18
[2019-06-15] MEDS: LOSARTAN 50 MG TAB PO SCH (12:23)
--- NOTE | 2019-06-15 13:06 | P.PN ---
Subjective Progress Note Date: 06/15/19 Principal diagnosis: CHF exacerbation Patient was seen and examined. No acute events overnight. Patient reports slight improvement in his breathing since admission. Continues to complain of cough productive of clear sputum. Continues to complain of lower charis swelling. He denies any chest pain or palpitations. No nausea or vomiting. No fever or chills. Objective - Vital Signs Vital signs: Vital Signs Temp 98.2 F 06/15/19 12:00 Pulse 87 06/15/19 12:52 Resp 24 06/15/19 12:00 BP 135/75 06/15/19 12:00 Pulse Ox 94 L 06/15/19 12:00 Intake & Output 06/14/19 06/15/19 06/15/19 18:59 06:59 18:59 Intake Total 240 Output Total 1150 Balance -910 Weight 124.738 kg 104.9 kg Intake: Oral 240 Output: Urine 1150 Other: # Voids 2 1 # Bowel Movements 1 - Exam General: [non toxic], [no distress], [appears at stated age] Derm: [warm], [dry] Head: [atraumatic], [normocephalic], [symmetric] Eyes: [EOMI], [no lid lag], [anicteric sclera] Mouth: [no lip lesion], [mucus membranes moist] Cardiovascular: [S1S2 reg], [no murmur], [positive DP pulse bilateral], Lungs: [Good air entry bilaterally], [crackles bilaterally] , [no accessory muscle use] Abdominal: [soft], [ nontender to palpation], [no guarding], [no appreciable organomegaly] Ext: [no gross muscle atrophy], [2+ pitting lower extremity edema left greater than right edema], [no contractures] Neuro: [no focal neuro deficits] Psych: [Alert], [oriented], [appropriate affect] - Labs CBC & Chem 7: 06/14/19 14:35 06/15/19 02:55 Labs: Abnormal Lab Results - Last 24 Hours (Table) 06/14/19 06/14/19 06/14/19 Range/Units 14:35 14:35 14:35 Plt Count 118 L (150-450) k/uL Lymphocytes # 0.6 L (1.0-4.8) k/uL Potassium (3.5-5.1) mmol/L Glucose 107 H (74-99) mg/dL POC Glucose (mg/dL) (75-99) mg/dL AST 216 H (17-59) U/L ALT 194 H (4-49) U/L Troponin I 0.057 H* (0.000-0.034) ng/mL Total Protein 6.2 L (6.3-8.2) g/dL HDL Cholesterol (40-60) mg/dL 06/14/19 06/14/19 06/15/19 Range/Units 20:33 21:40 02:49 Plt Count (150-450) k/uL Lymphocytes # (1.0-4.8) k/uL Potassium (3.5-5.1) mmol/L Glucose (74-99) mg/dL POC Glucose (mg/dL) 141 H 67 L (75-99) mg/dL AST (17-59) U/L ALT (4-49) U/L Troponin I 0.069 H* (0.000-0.034) ng/mL Total Protein (6.3-8.2) g/dL HDL Cholesterol (40-60) mg/dL 06/15/19 06/15/19 06/15/19 Range/Units 02:55 02:55 03:05 Plt Count (150-450) k/uL Lymphocytes # (1.0-4.8) k/uL Potassium 2.9 L (3.5-5.1) mmol/L Glucose 72 L (74-99) mg/dL POC Glucose (mg/dL) 59 L (75-99) mg/dL AST 162 H (17-59) U/L ALT 178 H (4-49) U/L Troponin I 0.068 H* (0.000-0.034) ng/mL Total Protein 6.1 L (6.3-8.2) g/dL HDL Cholesterol 35 L (40-60) mg/dL 06/15/19 06/15/19 Range/Units 06:05 11:45 Plt Count (150-450) k/uL Lymphocytes # (1.0-4.8) k/uL Potassium (3.5-5.1) mmol/L Glucose (74-99) mg/dL POC Glucose (mg/dL) 179 H 163 H (75-99) mg/dL AST (17-59) U/L ALT (4-49) U/L Troponin I (0.000-0.034) ng/mL Total Protein (6.3-8.2) g/dL HDL Cholesterol (40-60) mg/dL Assessment and Plan Assessment: Acute CHF exacerbation Hypokalemia Hypertensive urgency Lower extremity swelling Community acquired pneumonia Troponin elevation Transaminitis Diabetes mellitus Patient has an elevated BNP along with chest x-ray findings suggesting CHF exacerbation. Patient has lost 20 kg since admission. Patient will be started on Lasix 40 mg IV 3 times a day. Strict intake and output will be ordered along with daily weights. Echocardiogram has been ordered and cardiology is following. Potassium 2.9. This will be replaced via protocol. Patient was noted to have an elevated BP of 185/104 on admission. His BP this morning is 135/75. We will restart his antihypertensive medication of amlodipine and continue Coreg 3.125 mg by mouth twice a day. His lower extremity swelling is likely related to CHF. Vascular duplex ruled out DVT. Given his symptoms of productive cough, patient has been empirically started on antibiotics for community acquired pneumonia. He will be continued on Rocephin and azithromycin at this time. Sputum and blood cultures have been ordered. Patient has a mild troponin elevation of 0.057, 0.69, 0.68. This is likely a troponin leak from CHF. ACS has been ruled out. He has been placed on telemetry monitoring. Patient noted to have elevated liver enzymes of unknown etiology. CMP will be repeated tomorrow morning. Lipid panel is within normal limits and hepatitis panel is currently pending. Patient will be started on insulin sliding scale along with regular Accu-Cheks and hypoglycemic precautions for his diabetes. [Symptoms are improving. Echocardiogram ordered. Continue IV Lasix. Cardiology following. Likely DC in 2-3 days.]
[2019-06-15 14:59] LABS: Hepatitis A Antibody IgM Non-Reactive (Non-Reactive); Hepatitis B Core IgM Non-Reactive (Non-Reactive); Hepatitis B Surface Antigen Non-Reactive (Non-Reactive); Hepatitis C IgG Antibody Non-Reactive (Non-Reactive)
[2019-06-15] MEDS ORDERED: ASPIRIN 325 MG TAB PO SCH (16:00)
[2019-06-15] MEDS: amLODIPine 10 MG TAB PO SCH (16:34)
[2019-06-15 16:59] LABS: Glucose,Whole Blood 199 mg/dL (75-99)
[2019-06-15] MEDS: AZITHROMYCIN 500 MG TAB PO SCH (17:15)
--- NOTE | 2019-06-15 17:58 | ECHOF ---
Referral Reason:SOB MEASUREMENTS -------- HEIGHT: 165.1 cm WEIGHT: 104.8 kg BP: 134/72 RVIDd: 3.4 cm (< 3.3) IVSd: 1.1 cm (0.6 - 1.1) LVIDd: 5.6 cm (3.9 - 5.3) LVPWd: 1.2 cm (0.6 - 1.1) IVSs: 1.3 cm LVIDs: 4.9 cm LVPWs: 1.5 cm LAESV Index (A-L): 46.56 ml/m Ao Diam: 3.5 cm (2.0 - 3.7) AV Cusp: 2.2 cm (1.5 - 2.6) LA Diam: 4.1 cm (2.7 - 3.8) MV EXCURSION: 14.230 mm (> 18.000) MV EF SLOPE: 97 mm/s (70 - 150) EPSS: 1.8 cm MV E Lucho: 0.84 m/s MV DecT: 206 ms MV A Lucho: 0.52 m/s MV E/A Ratio: 1.62 AR PHT: 268 ms RAP: 5.00 mmHg RVSP: 10.41 mmHg FINDINGS -------- Sinus rhythm. This was a technically good study. The left ventricular size is normal. There is mild concentric left ventricular hypertrophy. There is severe global hypokinesis of LV . Overall left ventricular systolic function is severely impair ed with, an EF between 20 - 25 %. Increased LAP Grade 3 Diastolic Dysfunction. The right ventricle is mildly enlarged. LA is severely dilated >40 ml/m2 The right atrial size is normal. The aortic valve is trileaflet and appears structurally normal. Trace amount of aortic regurgitatio n. The mitral valve is normal. The mitral valve leaflets are mildly thickened. Mild mitral regurgita tion is present. The tricuspid valve appears structurally normal. Mild tricuspid regurgitation present. Unable to estimate RVSP due to inadequate TR jet spectral doppler profile. Trace/mild (physiologic) pulmonic regurgitation. The aortic root size is normal. Normal inferior vena cava with normal inspiratory collapse consistent with estimated right atrial pre ssure of 5 mmHg. There is no pericardial effusion. CONCLUSIONS -------- 1. Sinus rhythm. 2. This was a technically good study. 3. The left ventricular size is normal. 4. There is mild concentric left ventricular hypertrophy. 5. There is severe global hypokinesis of LV . 6. Overall left ventricular systolic function is severely impaired with, an EF between 20 - 25 %. 7. Increased LAP Grade 3 Diastolic Dysfunction. 8. The right ventricle is mildly enlarged. 9. LA is severely dilated >40 ml/m2 10. The right atrial size is normal. 11. The aortic valve is trileaflet and appears structurally normal. 12. Trace amount of aortic regurgitation. 13. The mitral valve is normal. 14. The mitral valve leaflets are mildly thickened. 15. Mild mitral regurgitation is present. 16. The tricuspid valve appears structurally normal. 17. Mild tricuspid regurgitation present. 18. Unable to estimate RVSP due to inadequate TR jet spectral doppler profile. 19. Trace/mild (physiologic) pulmonic regurgitation. 20. The aortic root size is normal. 21. Normal inferior vena cava with normal inspiratory collapse consistent with estimated right atrial pressure of 5 mmHg. 22. There is no pericardial effusion. HOSPICE LIAISON: Lynn Leahy RDCS
[2019-06-15] MEDS: SERTRALINE 100 MG TAB PO SCH (19:51)
[2019-06-15 20:46] LABS: Glucose,Whole Blood 220 mg/dL (75-99)
[2019-06-16 03:21] LABS: Glucose,Whole Blood 152 mg/dL (75-99)
[2019-06-16 06:01] LABS: Glucose,Whole Blood 125 mg/dL (75-99)
[2019-06-16] MEDS: INSULIN ASPART (NovoLOG) 100 UNIT/ML VIAL SQ SCH ×4 (06:05→21:47)
[2019-06-16] MEDS: CARVEDILOL 3.125 MG TAB PO SCH (06:27)
[2019-06-16 06:58] LABS: Calcium 8.8 mg/dL (8.4-10.2)
[2019-06-16] MEDS: IPRATROPIUM-ALBUTEROL 3 ML NEB INHALATION SCH ×4 (07:46→20:00)
[2019-06-16] MEDS: busPIRone HCl 5 MG TAB PO SCH ×2 (08:46→19:51)
[2019-06-16] MEDS: NITROGLYCERIN OINT 1 INCH/GM PACKET TOPICAL SCH (08:47)
[2019-06-16] MEDS: HEPARIN SODIUM,PORCINE 5,000 UNIT/ML 1 ML VIAL SQ SCH ×2 (08:47→19:50)
[2019-06-16] MEDS: LOSARTAN 50 MG TAB PO SCH (08:47)
[2019-06-16] MEDS: FUROSEMIDE 10 MG/ML 4 ML VIAL IV SCH ×2 (08:47→19:50)
[2019-06-16] MEDS: METOLAZONE 5 MG TAB PO SCH (08:48)
[2019-06-16] MEDS: ASPIRIN 81 MG PO SCH (08:48)
[2019-06-16] MEDS: amLODIPine 10 MG TAB PO SCH (08:48)
[2019-06-16] MEDS: ATORVASTATIN 40 MG TAB PO SCH (08:48)
[2019-06-16] MEDS: GABAPENTIN 300 MG CAP PO SCH ×3 (08:48→21:48)
[2019-06-16 10:29] VITALS: BMI 38.0
[2019-06-16 11:39] LABS: Glucose,Whole Blood 185 mg/dL (75-99)
--- NOTE | 2019-06-16 12:18 | P.PN ---
Subjective Progress Note Date: 06/16/19 This is a pleasant 63-year-old gentleman with history of diabetes, hypertension, hyperlipidemia, coronary artery disease with prior bypass surgery. Patient's unsure of how long ago his surgery was, but he states that it was at [facility]. He does have some memory loss, initially when I asked him if he had any heart problems he said no, on examination I noticed a scar in his chest and patient states that he had a triple bypass surgery. He presents to the hospital on this occasion with symptoms of significant lower extremity edema, PND and orthopnea, exertional shortness of breath as well. His sister convinced him to come to the emergency room for further evaluation and treatm ent. Patient was initiated on IV Lasix on arrival here, he continues to have significant lower extremity edema but states that they're half the size they were when he presented yesterday. Chest x-ray on presentation here shows CHF exacerbation on the background of chronic parenchymal change, cardiomegaly, tiny bilateral pleural effusions. Possible infiltrate so underlying pneumonia cannot be excluded. His EKG on presentation here showed a normal sinus rhythm with PVCs. Venous duplex study negative for DVT in either lower extremity. Repeat chest x-ray was performed this morning which showed persistent right basilar patchy obesity in the right infrahilar obesity. Likely pneumonia although follow-up to resolution is recommended to exclude a nodule. Blood pressure 135/82, heart rate in the 70s, 97% on 2 L of oxygen. White blood cell count 6.2, hemoglobin 16.6, platelet count 118. Sodium 137 on admission with a potassium of 3.5, BUN 18, creatinine 0.8. BNP level 2880. Troponin 0.05, 0.06, 0.06. At the time of my examination this morning, the patient continues to feel short of breath although he states it's better than on presentation here. Continues to have 3+ bilateral peripheral edema, however improving as well from admission here. 06/16/2019 Patient was seen and examined this morning, he diuresed well through the night last night. Sodium 140, potassium 4.0, BUN 26, creatinine 1.4. We will discontinue the Zaroxolyn, decrease the dose of IV Lasix. Increase the Coreg dose today. We will also hold the patient's angiotensin nicky and initiate Entresto. B/P110/60 heart rate in the 70's. Objective - Vital Signs Vital signs: Vital Signs Temp 97.2 F L 06/16/19 11:30 Pulse 73 06/16/19 11:30 Resp 18 06/16/19 11:30 BP 110/68 06/16/19 11:30 Pulse Ox 95 06/16/19 11:30 Intake & Output 06/15/19 06/16/19 06/16/19 18:59 06:59 18:59 Intake Total 480 360 240 Output Total 1150 300 Balance -670 60 240 Weight 103.5 kg 103.5 kg Intake: Oral 480 360 240 Output: Urine 1150 300 Other: # Voids 1 # Bowel Movements 1 - Exam PHYSICAL EXAMINATION: GENERAL: 63-year-old gentleman in no acute distress at the time of my examination HEENT: Head is atraumatic, normocephalic. Pupils equal, round. Sclera anicteric. Conjunctiva are clear. Mucous membranes of the mouth are moist. Nec k is supple. There is elevated jugular venous pressure up to the angle of the jaw. No carotid bruit is heard. HEART EXAMINATION: Heart S1 and S2 1 systolic murmur is heard CHEST EXAMINATION: Lungs reveal diminished air entry to the bases bilaterally, bilateral rales heard ABDOMEN: Soft, obese, nontender. Bowel sounds are heard. No organomegaly noted. EXTREMITIES:[ 2+ peripheral pulses with 1+ evidence of peripheral edema, bilateral erythema NEUROLOGIC patient is awake, alert and oriented 3 . - Labs CBC & Chem 7: 06/14/19 14:35 06/16/19 05:42 Labs: Abnormal Lab Results - Last 24 Hours (Table) 06/15/19 06/15/19 06/15/19 Range/Units 11:45 14:14 16:51 Potassium 3.2 L (3.5-5.1) mmol/L Carbon Dioxide (22-30) mmol/L BUN (9-20) mg/dL Creatinine (0.66-1.25) mg/dL Glucose (74-99) mg/dL POC Glucose (mg/dL) 163 H 199 H (75-99) mg/dL 06/15/19 06/16/19 06/16/19 Range/Units 20:45 03:20 05:42 Potassium (3.5-5.1) mmol/L Carbon Dioxide 32 H (22-30) mmol/L BUN 26 H (9-20) mg/dL Creatinine 1.41 H (0.66-1.25) mg/dL Glucose 132 H (74-99) mg/dL POC Glucose (mg/dL) 220 H 152 H (75-99) mg/dL 06/16/19 06/16/19 Range/Units 05:59 11:38 Potassium (3.5-5.1) mmol/L Carbon Dioxide (22-30) mmol/L BUN (9-20) mg/dL Creatinine (0.66-1.25) mg/dL Glucose (74-99) mg/dL POC Glucose (mg/dL) 125 H 185 H (75-99) mg/dL Microbiology - Last 24 Hours (Table) 06/14/19 17:40 Blood Culture - Preliminary Blood No Growth after 24 hours Assessment and Plan Plan: Assessment and plan #1 systolic congestive heart failure acute on chronic #2 known history of coronary artery disease with prior bypass surgery, exact details unknown #3 hypertension #4 diabetes #5 hyperlipidemia #6 hypokalemia Plan From cardiology's perspective, we will discontinue the Zaroxolyn, decrease the dose of IV Lasix. Increase the Coreg. Continue to monitor intake and output along with daily weights and daily lytes BUN and creatinine. Echocardiogram with Doppler study that was performed revealed an ejection fraction of 20-25%. 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 Patient may need a full workup with cardiac catheterization etc.,possible AICD implantation. DNP note has been reviewed, I agree with a documented findings and plan of care. Patient was seen and examined.
[2019-06-16] MEDS: AZITHROMYCIN 500 MG TAB PO SCH (16:25)
[2019-06-16] MEDS: CARVEDILOL 6.25 MG TAB PO SCH (16:25)
[2019-06-16] MEDS ORDERED: BENZOCAINE/MENTHOL LOZENG 1 EACH LOZENGE MUCOUS MEM PRN (16:28)
[2019-06-16] MEDS ORDERED: guaiFENesin SYRUP 100MG/5ML 200 MG/10 ML CUP PO PRN (16:30)
[2019-06-16] MEDS ORDERED: guaiFENesin SYRUP 100MG/5ML 200 MG/10 ML CUP PO STA (16:30)
[2019-06-16 16:32] LABS: Glucose,Whole Blood 228 mg/dL (75-99)
--- NOTE | 2019-06-16 16:45 | P.PN ---
Subjective Progress Note Date: 06/16/19 Principal diagnosis: CHF exacerbation Patient was seen and examined. No acute events overnight. Patient reports significant improvement in his breathing since admission. Continues to complain of cough productive of clear sputum. Continues to complain of lower extremity swelling. He denies any chest pain or palpitations. No nausea or vomiting. No fever or chills. Objective - Vital Signs Vital signs: Vital Signs Temp 97.2 F L 06/16/19 11:30 Pulse 80 06/16/19 15:25 Resp 18 06/16/19 11:30 BP 110/68 06/16/19 11:30 Pulse Ox 95 06/16/19 11:30 Intake & Output 06/15/19 06/16/19 06/16/19 18:59 06:59 18:59 Intake Total 480 360 600 Output Total 1150 300 250 Balance -670 60 350 Weight 103.5 kg 103.5 kg Intake: Oral 480 360 600 Output: Urine 1150 300 250 Other: # Voids 1 # Bowel Movements 1 - Exam General: [non toxic], [no distress], [appears at stated age] Derm: [warm], [dry] Head: [atraumatic], [normocephalic], [symmetric] Eyes: [EOMI], [no lid lag], [anicteric sclera] Mouth: [no lip lesion], [mucus membranes moist] Cardiovascular: [S1S2 reg], [no murmur], [positive DP pulse bilateral], Lungs: [Good air entry bilaterally], [crackles bilaterally, improved] , [no accessory muscle use] Abdominal: [soft], [ nontender to palpation], [no guarding], [no appreciable organomegaly] Ext: [no gross muscle atrophy], [2+ pitting lower extremity edema left greater than right edema], [no contractures] Neuro: [no focal neuro deficits] Psych: [Alert], [oriented], [appropriate affect] - Labs CBC & Chem 7: 06/14/19 14:35 06/16/19 05:42 Labs: Abnormal Lab Results - Last 24 Hours (Table) 06/15/19 06/15/19 06/16/19 Range/Units 16:51 20:45 03:20 Carbon Dioxide (22-30) mmol/L BUN (9-20) mg/dL Creatinine (0.66-1.25) mg/dL Glucose (74-99) mg/dL POC Glucose (mg/dL) 199 H 220 H 152 H (75-99) mg/dL 06/16/19 06/16/19 06/16/19 Range/Units 05:42 05:59 11:38 Carbon Dioxide 32 H (22-30) mmol/L BUN 26 H (9-20) mg/dL Creatinine 1.41 H (0.66-1.25) mg/dL Glucose 132 H (74-99) mg/dL POC Glucose (mg/dL) 125 H 185 H (75-99) mg/dL Microbiology - Last 24 Hours (Table) 06/14/19 17:40 Blood Culture - Preliminary Blood No Growth after 24 hours Assessment and Plan Assessment: Acute CHF exacerbation Acute kidney injury Hypertensive urgency Lower extremity swelling Community acquired pneumonia Troponin elevation Transaminitis Diabetes mellitus Patient has an elevated BNP along with chest x-ray findings suggesting CHF exacerbation. Echocardiogram shows EF 20-25% with grade 3 diastolic dysfunction and global hypokinesis. Patient has lost 20 kg since admission. Decrease Lasix from 40 mg IV 3 times a day to twice a day. Strict intake and output will be ordered along with daily weights. 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 Creatinine 1.41. Likely due to Lasix. We will attempt to avoid further nephrotoxins and repeat BMP tomorrow morning. Patient was noted to have an elevated BP of 185/104 on admission. His BP this morning is 135/75. We will restart his antihypertensive medication of amlodipine. Coreg has been increased from 3.125-6.25 mg by mouth twice a day. His lower extremity swelling is likely related to CHF. Vascular duplex ruled out DVT. Given his symptoms of productive cough, patient has been empirically started on antibiotics for community acquired pneumonia. Blood cultures are negative at 24 hours. He will be continued on Rocephin and azithromycin at this time. Sputum and blood cultures have been ordered. Patient has a mild troponin elevation of 0.057, 0.69, 0.68. This is likely a troponin leak from CHF. ACS has been ruled out. He has been placed on telemetry monitoring. Patient noted to have elevated liver enzymes of unknown etiology. CMP will be repeated tomorrow morning. Lipid panel is within normal limits and hepatitis panel is negative. Patient will be started on insulin sliding scale along with regular Accu-Cheks and hypoglycemic precautions for his diabetes. [Symptoms are improving. Continue IV Lasix. Cardiology following, will need to obtain records from primary fiberglass boat assembly supervisor . Likely DC in 1-2 days.]
[2019-06-16] MEDS: SERTRALINE 100 MG TAB PO SCH (19:51)
[2019-06-16 20:31] LABS: Glucose,Whole Blood 289 mg/dL (75-99)
[2019-06-16 21:47] LABS: Glucose,Whole Blood 266 mg/dL (75-99)
[2019-06-17 02:31] LABS: Glucose,Whole Blood 171 mg/dL (75-99)
[2019-06-17 05:56] LABS: Glucose,Whole Blood 209 mg/dL (75-99)
[2019-06-17] MEDS: INSULIN ASPART (NovoLOG) 100 UNIT/ML VIAL SQ SCH ×4 (06:29→21:40)
[2019-06-17 06:30] LABS: Calcium 8.7 mg/dL (8.4-10.2); Magnesium 1.9 mg/dL (1.6-2.3); Potassium 4.1 mmol/L (3.5-5.1)
[2019-06-17] MEDS: CARVEDILOL 6.25 MG TAB PO SCH ×2 (06:30→16:04)
[2019-06-17] MEDS: IPRATROPIUM-ALBUTEROL 3 ML NEB INHALATION SCH ×4 (07:29→21:00)
[2019-06-17] MEDS: HEPARIN SODIUM,PORCINE 5,000 UNIT/ML 1 ML VIAL SQ SCH ×2 (09:02→21:38)
[2019-06-17] MEDS: FUROSEMIDE 10 MG/ML 4 ML VIAL IV SCH ×2 (09:02→21:39)
[2019-06-17] MEDS: busPIRone HCl 5 MG TAB PO SCH ×2 (09:03→21:39)
[2019-06-17] MEDS: GABAPENTIN 300 MG CAP PO SCH ×3 (09:03→21:39)
[2019-06-17] MEDS: SACUBITRIL/VALSARTAN 24 MG-26 MG TABLET PO SCH ×2 (09:03→21:38)
[2019-06-17] MEDS: ATORVASTATIN 40 MG TAB PO SCH (09:04)
[2019-06-17] MEDS: ASPIRIN 81 MG PO SCH (09:04)
[2019-06-17 11:55] LABS: Glucose,Whole Blood 199 mg/dL (75-99)
--- NOTE | 2019-06-17 12:35 | P.PN ---
Subjective Progress Note Date: 06/17/19 This is a pleasant 63-year-old gentleman with history of diabetes, hypertension, hyperlipidemia, coronary artery disease with prior bypass surgery. Patient's unsure of how long ago his surgery was, but he states that it was at [facility]. He does have some memory loss, initially when I asked him if he had any heart problems he said no, on examination I noticed a scar in his chest and patient states that he had a triple bypass surgery. He presents to the hospital on this occasion with symptoms of significant lower extremity edema, PND and orthopnea, exertional shortness of breath as well. His sister convinced him to come to the emergency room for further evaluation and treatm ent. Patient was initiated on IV Lasix on arrival here, he continues to have significant lower extremity edema but states that they're half the size they were when he presented yesterday. Chest x-ray on presentation here shows CHF exacerbation on the background of chronic parenchymal change, cardiomegaly, tiny bilateral pleural effusions. Possible infiltrate so underlying pneumonia cannot be excluded. His EKG on presentation here showed a normal sinus rhythm with PVCs. Venous duplex study negative for DVT in either lower extremity. Repeat chest x-ray was performed this morning which showed persistent right basilar patchy obesity in the right infrahilar obesity. Likely pneumonia although follow-up to resolution is recommended to exclude a nodule. Blood pressure 135/82, heart rate in the 70s, 97% on 2 L of oxygen. White blood cell count 6.2, hemoglobin 16.6, platelet count 118. Sodium 137 on admission with a potassium of 3.5, BUN 18, creatinine 0.8. BNP level 2880. Troponin 0.05, 0.06, 0.06. At the time of my examination this morning, the patient continues to feel short of breath although he states it's better than on presentation here. Continues to have 3+ bilateral peripheral edema, however improving as well from admission here. 06/16/2019 Patient was seen and examined this morning, he diuresed well through the night last night. Sodium 140, potassium 4.0, BUN 26, creatinine 1.4. We will discontinue the Zaroxolyn, decrease the dose of IV Lasix. Increase the Coreg dose today. We will also hold the patient's angiotensin nicky and initiate Entresto. B/P110/60 heart rate in the 70's. 06/17/2019 Patient was seen and examined this morning, continues to diurese well. Sodium 139, potassium 4.1, BUN 32, creatinine 1.3. Magnesium 1.9. Objective - Vital Signs Vital signs: Vital Signs Temp 97.4 F L 06/17/19 03:17 Pulse 78 06/17/19 11:23 Resp 18 06/17/19 07:15 BP 127/69 06/17/19 09:19 Pulse Ox 93 L 06/17/19 07:15 Intake & Output 06/16/19 06/17/19 06/17/19 18:59 06:59 18:59 Intake Total 840 360 120 Output Total 800 900 600 Balance 40 -540 -480 Weight 103.5 kg 102.9 kg Intake: Oral 840 360 120 Output: Urine 800 900 600 Other: Voiding Method Toilet Urinal # Voids 0 # Bowel Movements 1 - Exam PHYSICAL EXAMINATION: GENERAL: 63-year-old gentleman in no acute distress at the time of my examination HEENT: Head is atraumatic, normocephalic. Pupils equal, round. Sclera anicteric. Conjunctiva are clear. Mucous membranes of the mouth are moist. Neck is supple. There is elevated jugular venous pressure up to the angle of the jaw. No carotid bruit is heard. HEART EXAMINATION: Heart S1 and S2 1 systolic murmur is heard CHEST EXAMINATION: Lungs reveal diminished air entry to the bases bilaterally, bilateral rales heard ABDOMEN: Soft, obese, nontender. Bowel sounds are heard. No organomegaly noted. EXTREMITIES:[ 2+ peripheral pulses with 1+ evidence of peripheral edema, bilateral erythema NEUROLOGIC patient is awake, alert and oriented 3 . - Labs CBC & Chem 7: 06/14/19 14:35 06/17/19 05:50 Labs: Abnormal Lab Results - Last 24 Hours (Table) 06/16/19 06/16/19 06/16/19 Range/Units 16:30 20:30 21:45 Carbon Dioxide (22-30) mmol/L BUN (9-20) mg/dL Creatinine (0.66-1.25) mg/dL Glucose (74-99) mg/dL POC Glucose (mg/dL) 228 H 289 H 266 H (75-99) mg/dL 06/17/19 06/17/19 06/17/19 Range/Units 02:29 05:50 05:55 Carbon Dioxide 35 H (22-30) mmol/L BUN 32 H (9-20) mg/dL Creatinine 1.30 H (0.66-1.25) mg/dL Glucose 215 H (74-99) mg/dL POC Glucose (mg/dL) 171 H 209 H (75-99) mg/dL 06/17/19 Range/Units 11:53 Carbon Dioxide (22-30) mmol/L BUN (9-20) mg/dL Creatinine (0.66-1.25) mg/dL Glucose (74-99) mg/dL POC Glucose (mg/dL) 199 H (75-99) mg/dL Microbiology - Last 24 Hours (Table) 06/14/19 17:40 Blood Culture - Preliminary Blood No Growth after 48 hours Assessment and Plan Plan: Assessment and plan #1 systolic congestive heart failure acute on chronic #2 known history of coronary artery disease with prior bypass surgery, exact details unknown #3 hypertension #4 diabetes #5 hyperlipidemia #6 hypokalemia Plan We will continue current dose of Lasix, schedule the patient to undergo a Persantine Cardiolite tomorrow. DNP note has been reviewed, I agree with a documented findings and plan of care. Patient was seen and examined.
--- NOTE | 2019-06-17 14:14 | P.PN ---
Subjective Progress Note Date: 06/17/19 Principal diagnosis: CHF exacerbation Patient was seen and examined. No acute events overnight. Patient reports significant improvement in his breathing since admission. Continues to complain of cough productive of clear sputum. Continues to complain of lower extremity swelling. He denies any chest pain or palpitations. No nausea or vomiting. No fever or chills. Objective - Vital Signs Vital signs: Vital Signs Temp 97.4 F L 06/17/19 03:17 Pulse 78 06/17/19 11:23 Resp 18 06/17/19 07:15 BP 127/69 06/17/19 09:19 Pulse Ox 93 L 06/17/19 07:15 Intake & Output 06/16/19 06/17/19 06/17/19 18:59 06:59 18:59 Intake Total 840 360 240 Output Total 800 900 600 Balance 40 -540 -360 Weight 103.5 kg 102.9 kg Intake: Oral 840 360 240 Output: Urine 800 900 600 Other: Voiding Method Toilet Urinal # Voids 0 # Bowel Movements 1 - Exam General: [non toxic], [no distress], [appears at stated age] Derm: [warm], [dry] Head: [atraumatic], [normocephalic], [symmetric] Eyes: [EOMI], [no lid lag], [anicteric sclera] Mouth: [no lip lesion], [mucus membranes moist] Cardiovascular: [S1S2 reg], [no murmur], [positive DP pulse bilateral], Lungs: [Good air entry bilaterally], [crackles bilaterally, improved from yesterday] , [no accessory muscle use] Abdominal: [soft], [ nontender to palpation], [no guarding], [no appreciable organomegaly] Ext: [no gross muscle atrophy], [2+ pitting lower extremity edema left greater than right edema], [no contractures] Neuro: [no focal neuro deficits] Psych: [Alert], [oriented], [appropriate affect] - Labs CBC & Chem 7: 06/14/19 14:35 06/17/19 05:50 Labs: Abnormal Lab Results - Last 24 Hours (Table) 06/16/19 06/16/19 06/16/19 Range/Units 16:30 20:30 21:45 Carbon Dioxide (22-30) mmol/L BUN (9-20) mg/dL Creatinine (0.66-1.25) mg/dL Glucose (74-99) mg/dL POC Glucose (mg/dL) 228 H 289 H 266 H (75-99) mg/dL 06/17/19 06/17/19 06/17/19 Range/Units 02:29 05:50 05:55 Carbon Dioxide 35 H (22-30) mmol/L BUN 32 H (9-20) mg/dL Creatinine 1.30 H (0.66-1.25) mg/dL Glucose 215 H (74-99) mg/dL POC Glucose (mg/dL) 171 H 209 H (75-99) mg/dL 06/17/19 Range/Units 11:53 Carbon Dioxide (22-30) mmol/L BUN (9-20) mg/dL Creatinine (0.66-1.25) mg/dL Glucose (74-99) mg/dL POC Glucose (mg/dL) 199 H (75-99) mg/dL Microbiology - Last 24 Hours (Table) 06/14/19 17:40 Blood Culture - Preliminary Blood No Growth after 48 hours Assessment and Plan Assessment: Acute systolic CHF exacerbation Acute kidney injury Hypertensive urgency Lower extremity swelling Acute bronchitis Troponin elevation Transaminitis Diabetes mellitus Patient has an elevated BNP along with chest x-ray findings suggesting CHF exacerbation. Echocardiogram shows EF 20-25% with grade 3 diastolic dysfunction and global hypokinesis. Patient has lost 20 kg since admission. Decrease Lasix from 40 mg IV 3 times a day to twice a day. Strict intake and output will be ordered along with daily weights. 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 Plans for stress test tomorrow. Creatinine 1.30. Likely due to Lasix. We will attempt to avoid further nephrotoxins and repeat BMP tomorrow morning. Patient was noted to have an elevated BP of 185/104 on admission. His BP this morning is 127/69. We will restart his antihypertensive medication of amlodipine. Coreg has been increased from 3.125-6.25 mg by mouth twice a day. His lower extremity swelling is likely related to CHF. Vascular duplex ruled out DVT. Given his symptoms of productive cough, patient has been empirically started on antibiotics for community acquired pneumonia. Blood cultures are negative at 48 hours. Discontinue Rocephin and continue azithromycin for 1 more day to complete a total of 3 days. Sputum and blood cultures have been ordered. Patient has a mild troponin elevation of 0.057, 0.69, 0.68. This is likely a troponin leak from CHF. ACS has been ruled out. He has been placed on telemetry monitoring. Patient noted to have elevated liver enzymes of unknown etiology. CMP will be repeated tomorrow morning. Lipid panel is within normal limits and hepatitis panel is negative. Patient will be started on insulin sliding scale along with regular Accu-Cheks and hypoglycemic precautions for his diabetes. [Symptoms are improving. Continue IV Lasix. Cardiology following, will need to obtain records from primary flame brazing machine operator, plans for stress test tomorrow . Likely DC in 1-2 days.]
[2019-06-17] MEDS: AZITHROMYCIN 500 MG TAB PO SCH (16:04)
[2019-06-17 17:20] LABS: Glucose,Whole Blood 264 mg/dL (75-99)
[2019-06-17 20:10] LABS: Glucose,Whole Blood 341 mg/dL (75-99)
[2019-06-17] MEDS: SERTRALINE 100 MG TAB PO SCH (21:39)
[2019-06-18] MEDS ORDERED: CAFFEINE CITRATE 60 MG/3 ML VIAL IV PRN (06:00)
[2019-06-18] MEDS ORDERED: AMINOPHYLLINE 500 MG/20 ML VIAL IV PRN (06:00)
[2019-06-18 06:17] LABS: African American GFR (CKD) >90 (>60 ml/min/1.73 sqM); Anion Gap 4 mmol/L; Blood Urea Nitrogen 25 mg/dL (9-20); Calcium 8.9 mg/dL (8.4-10.2); Carbon Dioxide 34 mmol/L (22-30); Chloride 98 mmol/L (98-107); Glucose 210 mg/dL (74-99); Non-African American GFR(CKD) 89 (>60 ml/min/1.73 sqM); Sodium 136 mmol/L (137-145)
[2019-06-18 06:20] LABS: Glucose,Whole Blood 183 mg/dL (75-99)
[2019-06-18] MEDS: INSULIN ASPART (NovoLOG) 100 UNIT/ML VIAL SQ SCH ×4 (06:54→22:34)
[2019-06-18] MEDS: CARVEDILOL 6.25 MG TAB PO SCH ×2 (06:56→17:05)
[2019-06-18] MEDS ORDERED: Potassium Replacement Protocol 1 EACH MISC MISCELLANE PRN (07:27)
[2019-06-18] MEDS: POTASSIUM CHLORIDE 10 MEQ in WATER FOR INJECTION 1 100ML.BAG IVPB SCH ×6 (08:07→22:36)
[2019-06-18] MEDS: FUROSEMIDE 10 MG/ML 4 ML VIAL IV SCH ×3 (08:07→20:02)
[2019-06-18] MEDS: HEPARIN SODIUM,PORCINE 5,000 UNIT/ML 1 ML VIAL SQ SCH ×2 (08:07→20:02)
[2019-06-18] MEDS ORDERED: DIPYRIDAMOLE IV ONE (09:00)
[2019-06-18] MEDS ORDERED: SODIUM CHLORIDE 0.9% IV ONE (09:00)
[2019-06-18] MEDS: IPRATROPIUM-ALBUTEROL 3 ML NEB INHALATION SCH ×4 (09:17→21:28)
[2019-06-18] MEDS: ASPIRIN 81 MG PO SCH (11:09)
[2019-06-18] MEDS: ATORVASTATIN 40 MG TAB PO SCH (11:09)
[2019-06-18] MEDS: busPIRone HCl 5 MG TAB PO SCH ×3 (11:10→20:02)
[2019-06-18 11:44] LABS: Glucose,Whole Blood 198 mg/dL (75-99)
[2019-06-18] MEDS: GABAPENTIN 300 MG CAP PO SCH ×3 (11:46→20:02)
[2019-06-18] MEDS: SACUBITRIL/VALSARTAN 24 MG-26 MG TABLET PO SCH ×2 (11:47→20:02)
--- NOTE | 2019-06-18 12:10 | NM ---
EXAMINATION TYPE: NM stress persantine cardiolit DATE OF EXAM: 06/18/2019 COMPARISON: NONE HISTORY: Chest pain TECHNIQUE: After the intravenous administration of 10.6 mCi Tc 99m Sestamibi - Cardiolite resting SP ECT images acquired 90 minutes post injection. The patient received 58 mg Persantine, 27.3 mCi Tc 99m Sestamibi - Stress images obtained 30 minutes post injection . Patient was stressed with Yonis protocol. FINDINGS: There is diminished radiotracer accumulation along the distal inferior wall near the cardiac apex on the stress images. This is slightly improved on the resting images.. Polar maps suggest a more fixed type defect at the cardiac apex. Correlate for any EKG changes. There is global hypokinesia. The ejection fraction of 23% is low. There is some akinesia of the dista l anterior wall. IMPRESSION: 1. Fixed defect at the cardiac apex. Some conor-infarct stress-induced ischemic change may be present along the inferior wall near the cardiac apex. Correlate with EKG changes. 2. Very low ejection fraction of 23%. There is akinesia of the distal anterior wall and global hypoki nesia within the remaining bell.
--- NOTE | 2019-06-18 12:12 | EST ---
EXERCISE STRESS AGE: 63 SEX: M HT: 65" WT: 226 PROTOCOL: Persantine Cardiolite Stress Test HEART RATE REST: 67 BLOOD PRESSURE REST: 148/79 MAXIMUM HEART RATE ACHIEVED: 74 MAXIMUM BLOOD PRESSURE: 148/71 85% MPHR: 133 100% MPHR: 157 INDICATIONS: Chest pain. CLINICAL INFORMATION: Baseline EKG shows sinus rhythm with nonspecific ST wave changes. The patient was given intravenous Persantine as per protocol, did not have chest pain or diagnostic ST- segment depression. CONCLUSION: 1. Negative stress test by EKG criteria. 2. Cardiolite portion of the stress test will be reported separately. MMODL / IJN: [id number] /
--- NOTE | 2019-06-18 13:12 | P.PN ---
Subjective Progress Note Date: 06/18/19 Principal diagnosis: CHF exacerbation Patient was seen and examined. No acute events overnight. Patient reports significant improvement in his breathing since admission. He continues to complain of lower extremity swelling, unchanged from yesterday. He denies any chest pain or palpitations. No nausea or vomiting. No fever or chills. Objective - Vital Signs Vital signs: Vital Signs Temp 97.8 F 06/18/19 12:00 Pulse 74 06/18/19 12:00 Resp 20 06/18/19 12:00 BP 173/88 06/18/19 12:00 Pulse Ox 94 L 06/18/19 12:00 Intake & Output 06/17/19 06/18/19 06/18/19 18:59 06:59 18:59 Intake Total 240 400 550 Output Total 600 950 250 Balance -360 -550 300 Weight 102.9 kg 102.9 kg Intake: Oral 240 400 550 Output: Urine 600 950 250 Other: Voiding Method Toilet Urinal # Voids 2 2 # Bowel Movements 0 0 - Exam General: [non toxic], [no distress], [appears at stated age] Derm: [warm], [dry] Head: [atraumatic], [normocephalic], [symmetric] Eyes: [EOMI], [no lid lag], [anicteric sclera] Mouth: [no lip lesion], [mucus membranes moist] Cardiovascular: [S1S2 reg], [no murmur], [positive DP pulse bilateral], Lungs: [Good air entry bilaterally], [crackles bilaterally, improved from yesterday] , [no accessory muscle use] Abdominal: [soft], [ nontender to palpation], [no guarding], [no appreciable organomegaly] Ext: [no gross muscle atrophy], [2+ pitting lower extremity edema left greater than right edema], [no contractures] Neuro: [no focal neuro deficits] Psych: [Alert], [oriented], [appropriate affect] - Labs CBC & Chem 7: 06/14/19 14:35 06/18/19 05:38 Labs: Abnormal Lab Results - Last 24 Hours (Table) 06/17/19 06/17/19 06/18/19 Range/Units 17:19 20:09 05:38 Sodium 136 L (137-145) mmol/L Potassium 3.0 L (3.5-5.1) mmol/L Carbon Dioxide 34 H (22-30) mmol/L BUN 25 H (9-20) mg/dL Glucose 210 H (74-99) mg/dL POC Glucose (mg/dL) 264 H 341 H (75-99) mg/dL 06/18/19 06/18/19 Range/Units 06:18 11:42 Sodium (137-145) mmol/L Potassium (3.5-5.1) mmol/L Carbon Dioxide (22-30) mmol/L BUN (9-20) mg/dL Glucose (74-99) mg/dL POC Glucose (mg/dL) 183 H 198 H (75-99) mg/dL Microbiology - Last 24 Hours (Table) 06/14/19 17:40 Blood Culture - Preliminary Blood No Growth after 72 hours Assessment and Plan Assessment: Acute systolic CHF exacerbation Hypokalemia Hypertensive urgency Lower extremity swelling Acute bronchitis Troponin elevation Transaminitis Diabetes mellitus Patient has an elevated BNP along with chest x-ray findings suggesting CHF exacerbation. Echocardiogram shows EF 20-25% with grade 3 diastolic dysfunction and global hypokinesis. Patient has lost 20 kg since admission. Decrease Lasix from 40 mg IV 3 times a day to twice a day. CHELI wrap lower extremities. Strict intake and output will be ordered along with daily weights. Cardiology is follow ing. Stress test shows fixed defect with EF of 23%. Entresto has been started along with Aldactone. Potassium 3.0. Likely due to diuresis. Plans to replace via protocol. Repeat BMP tomorrow morning. Patient was noted to have an elevated BP of 185/104 on admission. His BP this morning is 173/88. Discontinue Amlodipine due to lower extremity swelling. Coreg has been increased from 3.125-6.25-12.5 mg by mouth twice a day. His lower extremity swelling is likely related to CHF. Vascular duplex ruled out DVT. Start CHELI wraps as above. Given his symptoms of productive cough, patient has been empirically started on antibiotics for community acquired pneumonia. Blood cultures are negative at 72 hours. Completed 3 days of Azithromycin. Sputum and blood cultures have been ordered. Patient has a mild troponin elevation of 0.057, 0.69, 0.68. This is likely a troponin leak from CHF. ACS has been ruled out. He has been placed on telemetry monitoring. Patient noted to have elevated liver enzymes of unknown etiology. CMP will be repeated tomorrow morning. Lipid panel is within normal limits and hepatitis panel is negative. Patient will be started on insulin sliding scale along with regular Accu-Cheks and hypoglycemic precautions for his diabetes. [Symptoms are improving. Continue IV Lasix. Cardiology following, Entresto and Aldactone added, Coreg increased. Will need AICD in outpatient setting. Likely DC in 1-2 days.]
[2019-06-18] MEDS: SPIRONOLACTONE 25 MG TAB PO SCH (14:15)
[2019-06-18 17:01] LABS: Glucose,Whole Blood 266 mg/dL (75-99)
[2019-06-18] MEDS: AZITHROMYCIN 500 MG TAB PO SCH (17:05)
[2019-06-18] MEDS: SERTRALINE 100 MG TAB PO SCH (20:02)
[2019-06-18 20:50] LABS: Glucose,Whole Blood 269 mg/dL (75-99)
--- NOTE | 2019-06-18 22:28 | PN ---
PROGRESS NOTE Mr. Bean is a 63-year-old male, status post coronary artery bypass grafting, severe ischemic cardiomyopathy, who presented with symptoms of congestive heart failure. He is feeling better overall. His breathing is better. He is denying any chest pain. No dizziness. No palpitations. He denies any nausea. I reviewed the report of his coronary artery bypass grafting. The patient had an ejection fraction of 25% presurgically. He continues on aspirin once a day, Lipitor 40 mg daily, Coreg 6.25 mg twice a day, Lasix 40 mg IV q.12 hours, Entresto 24-26 mg daily. PHYSICAL EXAMINATION: Blood pressure still running in the 130s to 170 with a heart rate in the 70s. LUNGS: Clear. HEART: Regular rate and rhythm. S1, S2. No S3, with systolic murmur. No diastolic murmur. ABDOMEN: Soft, nontender, obese. EXTREMITIES: Plus 2 to 3 edema bilaterally. LAB DATA: Lab data revealed BUN and creatinine of 25 and 0.91. Potassium is 3.0, sodium 136. IMAGING: He had myocardial perfusion imaging that revealed a predominantly fixed defect with severely impaired left ventricular systolic function consistent with his prior ischemic cardiomyopathy with no significant ischemia. IMPRESSION: 1. Congestive heart failure with severe ischemic cardiomyopathy. 2. Status post coronary artery bypass grafting. 3. Hyperlipidemia. 4. Diabetes. RECOMMENDATIONS: From the cardiac standpoint, I will continue IV Lasix. I will add spironolactone to his regimen. I will increase the dose of the Coreg. If needed, will give him metolazone, but will see his response. The patient will require an ICD implantation. That can be evaluated as an outpatient once he is stabilized. I have discussed with him those findings and recommendations. MMODL / IJN: [id number] /
[2019-06-19 06:12] LABS: Glucose,Whole Blood 210 mg/dL (75-99)
[2019-06-19 06:20] VITALS: RESP 18
[2019-06-19] MEDS: INSULIN ASPART (NovoLOG) 100 UNIT/ML VIAL SQ SCH ×2 (06:26→12:43)
[2019-06-19] MEDS: CARVEDILOL 6.25 MG TAB PO SCH (06:26)
[2019-06-19 06:40] LABS: African American GFR (CKD) >90 (>60 ml/min/1.73 sqM); Anion Gap 3 mmol/L; Blood Urea Nitrogen 18 mg/dL (9-20); Calcium 8.7 mg/dL (8.4-10.2); Carbon Dioxide 32 mmol/L (22-30); Chloride 99 mmol/L (98-107); Glucose 224 mg/dL (74-99); Non-African American GFR(CKD) >90 (>60 ml/min/1.73 sqM); Potassium 3.5 mmol/L (3.5-5.1); Sodium 134 mmol/L (137-145)
[2019-06-19] MEDS: FUROSEMIDE 10 MG/ML 4 ML VIAL IV SCH (08:17)
[2019-06-19] MEDS: ATORVASTATIN 40 MG TAB PO SCH (08:18)
[2019-06-19] MEDS: busPIRone HCl 5 MG TAB PO SCH (08:18)
[2019-06-19] MEDS: SACUBITRIL/VALSARTAN 24 MG-26 MG TABLET PO SCH (08:18)
[2019-06-19] MEDS: ASPIRIN 81 MG PO SCH (08:18)
[2019-06-19] MEDS: SPIRONOLACTONE 25 MG TAB PO SCH (08:18)
[2019-06-19] MEDS: HEPARIN SODIUM,PORCINE 5,000 UNIT/ML 1 ML VIAL SQ SCH (08:18)
[2019-06-19] MEDS: GABAPENTIN 300 MG CAP PO SCH (08:18)
[2019-06-19] MEDS: IPRATROPIUM-ALBUTEROL 3 ML NEB INHALATION SCH ×2 (08:26→12:10)
--- NOTE | 2019-06-19 10:15 | P.DS ---
Providers Date of admission: 06/14/19 16:42 Expected date of discharge: 06/19/19 Attending physician: Susan Poewll MD Consults: 06/14/19 16:42 Consult Physician Routine Consulting Provider: Aditya Jean Consult Reason/Comments: chf Do you want consulting provider notified?: Yes 06/15/19 00:58 Consult Physician Routine Consulting Provider: Mauricio Ulrich Consult Reason/Comments: depression Do you want consulting provider notified?: Yes, Notify in am Primary care physician: Shauna Teague MD Hospital Course: 63-year-old male with PMH of hypertension, diabetes mellitus patient states that the shortness of breath started on when he had symptoms of a viral URI. Patient reported symptoms of cough productive of white and yellow sputum, rhinorrhea and sore throat on . His URI symptoms improved but his breathing progressively got worse which prompted the patient to come to the ED. Patient also reported lower extremity swelling of unknown duration. Patient otherwise has no complaints. He denies any headaches, nausea or vomiting, fever or chills, chest pain, palpitations, changes in urination or bowel habits. No changes in appetite or weight. Patient does report some lightheadedness on Friday or Friday when he was using the washroom when he fell and hit the back of his head. He did not seek medical attention at this time. He has not experienced any dizziness since then. In the ED, vital signs were stable except for BP of 185/104. CBC showed low platelet count of 118. Coagulation panel was negative. CMP showed glucose 107, AST 216, ALT 194. Troponin was 0.057, EKG showing sinus rhythm with fusion complexes and PACs. BNP was 2880, chest x-ray showing CHF exacerbation unable to exclude pneumonia. Patient is admitted for CHF exacerbation with cardiology consulted. Patient had an elevated BNP along with chest x-ray findings suggesting CHF exacerbation. Patient will be started on Lasix 40 mg IV 3 times a day. Strict intake and output was ordered along with daily weights. Venous duplex was negative for DVT. Cardiology was consulted and recommended stress test. Stress test showed fixed wall defect with EF of 23%. Entresto and Aldactone was added to the patient's regimen. Patient was noted to have an elevated BP of 185/104 on admission. His antihypertensive medication of amlodipine was restarted and Coreg 3.125 mg by mouth twice a day was added. Coreg was titrated to 12.5 mg at the time of discharge, patient did also have runs of VTach during his hospitalization. Given his symptoms of productive cough, patient was treated with 4 days of Azithromycin. Blood cultures were negative at 96 hours. Patient has a mild troponin elevation of 0.057, 0.069, 0.068. This was thought to be likely a troponin leak from CHF. As noted above, stress test did show a fixed wall defect. Patient was seen and examined. No acute events overnight. Patient reports significant improvement in his breathing since admission. He also reports improvement in his lower extremity swelling since wrapped. He denies any chest pain or palpitations. No nausea or vomiting. No fever or chills. General: [non toxic], [no distress], [appears at stated age] Derm: [warm], [dry] Head: [atraumatic], [normocephalic], [symmetric] Eyes: [EOMI], [no lid lag], [anicteric sclera] Mouth: [no lip lesion], [mucus membranes moist] Cardiovascular: [S1S2 reg], [no murmur], [positive DP pulse bilateral], Lungs: [Good air entry bilaterally], [no rales or ronchi] , [no accessory muscle use] Abdominal: [soft], [ nontender to palpation], [no guarding], [no appreciable organomegaly] Ext: [no gross muscle atrophy], [1+ pitting lower extremity edema CHELI wrapped], [no contractures] Neuro: [no focal neuro deficits] Psych: [Alert], [oriented], [appropriate affect] Acute systolic CHF exacerbation Vtach Hypertensive urgency Lower extremity swelling Acute bronchitis Troponin elevation Transaminitis Diabetes mellitus Patient has an elevated BNP along with chest x-ray findings suggesting CHF exacerbation. Echocardiogram shows EF 20-25% with grade 3 diastolic dysfunction and global hypokinesis. Patient has lost 20 kg since admission. Decrease Lasix from 40 mg IV 3 times a day to twice a day, will change to oral on discharge. CHELI wrap lower extremities. Strict intake and output will be ordered along with daily weights. Cardiology is following. Stress test shows fixed defect with EF of 23%. Entresto has been started along with Aldactone. As seen on Telemetry strip. We have increased Coreg and will continue Telemetry monitoring. He will need AICD placed in the outpatient setting as per Cardiology, discussed with Dr. Jean. Patient was noted to have an elevated BP of 185/104 on admission. His BP this morning is 129/59. Discontinue Amlodipine due to lower extremity swelling. Coreg has been increased from 3.125-6.25-12.5 mg by mouth twice a day. His lower extremity swelling is likely related to CHF. Vascular duplex ruled out DVT. Start CHELI wraps as above. Given his symptoms of productive cough, patient has been empirically started on antibiotics for community acquired pneumonia. Blood cultures are negative at 96 hours. Completed 3 days of Azithromycin. Sputum and blood cultures have been ordered. Patient has a mild troponin elevation of 0.057, 0.69, 0.68. This is likely a troponin leak from CHF. ACS has been ruled out. He has been placed on telemetry monitoring. Patient noted to have elevated liver enzymes of unknown etiology. CMP will be repeated tomorrow morning. Lipid panel is within normal limits and hepatitis panel is negative. Patient will be started on insulin sliding scale along with regular Accu-Cheks and hypoglycemic precautions for his diabetes. [Symptoms are improving. Will need AICD in outpatient setting. DC today if cleared by Cardiology.] Pertinent Studies: Chest x-ray, stress test, echocardiogram Patient Condition at Discharge: Stable Plan - Discharge Summary Discharge Rx Participant: Yes New Discharge Prescriptions: New Spironolactone [Aldactone] 25 mg PO DAILY #30 tab Carvedilol [Coreg] 12.5 mg PO BID-W/MEALS #120 tab Sacubitril/Valsartan [Entresto 24 mg-26 mg Tablet] 1 each PO BID #60 tablet Furosemide [Lasix] 40 mg PO BID #60 tablet Continue Sertraline [Zoloft] 100 mg PO HS Gabapentin [Neurontin] 300 mg PO TID Insuln Asp Prt/Insulin Aspart [NovoLOG MIX 70-30 VIAL] 60 unit SQ DAILY Acetaminophen-Codeine 300-30mg [Tylenol w/codeine #3] 1 tab PO Q6H PRN PRN Reason: Pain busPIRone HCL [Buspar] 7.5 mg PO BID Ibuprofen 600 mg PO Q6H PRN PRN Reason: Pain metFORMIN HCL 1,000 mg PO BID Potassium Chloride ER [K-Dur 20] 20 meq PO BID Aspirin EC [Ecotrin Low Dose] 81 mg PO DAILY #30 tab Atorvastatin Calcium [Lipitor] 40 mg PO DAILY #30 tab Discontinued Metolazone [Zaroxolyn] 5 mg PO QAM amLODIPine [Norvasc] 10 mg PO DAILY Furosemide [Lasix] 40 mg PO DAILY Losartan Potassium [Cozaar] 100 mg PO DAILY Discharge Medication List Gabapentin [Neurontin] 300 mg PO TID 10/01/16 [History] Insuln Asp Prt/Insulin Aspart [NovoLOG MIX 70-30 VIAL] 60 unit SQ DAILY 10/01/16 [History] Sertraline [Zoloft] 100 mg PO HS 10/01/16 [History] Acetaminophen-Codeine 300-30mg [Tylenol w/codeine #3] 1 tab PO Q6H PRN 02/20/17 [History] Ibuprofen 600 mg PO Q6H PRN 06/14/19 [History] Potassium Chloride ER [K-Dur 20] 20 meq PO BID 06/14/19 [History] busPIRone HCL [Buspar] 7.5 mg PO BID 06/14/19 [History] metFORMIN HCL 1,000 mg PO BID 06/14/19 [History] Aspirin EC [Ecotrin Low Dose] 81 mg PO DAILY #30 tab 06/19/19 [Rx] Atorvastatin Calcium [Lipitor] 40 mg PO DAILY #30 tab 06/19/19 [Rx] Carvedilol [Coreg] 12.5 mg PO BID-W/MEALS #120 tab 06/19/19 [Rx] Furosemide [Lasix] 40 mg PO BID #60 tablet 06/19/19 [Rx] Sacubitril/Valsartan [Entresto 24 mg-26 mg Tablet] 1 each PO BID #60 tablet 06/19/19 [Rx] Spironolactone [Aldactone] 25 mg PO DAILY #30 tab 06/19/19 [Rx] Follow up Appointment(s)/Referral(s): Aditya Jean MD [STAFF PHYSICIAN] - 1 Week (Office will call with a follow up appointment. ) Shauna Teague MD [Primary Care Provider] - 06/25/19 9:[address] [facility], [NON-STAFF] - Patient Instructions/Handouts: Heart Failure (DC), Heart Healthy Diet (DC), Nuclear Stress Test (DC) Activity/Diet/Wound Care/Special Instructions: Entresto filled at [facility] with free 30 day coupon - copay after that will be $9.95/month Discharge Disposition: HOME SELF-CARE Care Plan Goals (MU): CHF 1. Weigh yourself every morning after you urinate. If you gain 2-3 pounds overnight or 5 pounds in one week, call your primary physician for guidance on your medications. Keep a log of your weights. 2. Avoid salt, or foods with hidden salt. Extra salt makes your heart work harder and traps the fluid in your body for longer. 3. Take all of your medications as directed, especially your water pills. NEVER skip a dose. 4. Elevate your legs when you are not up moving around to help with circulation and prevent swelling. 5. Call your physician if you notice any extra swelling in your legs, ankles, feet or abdomen, if you have a new dry cough, if your shortness of breath worsens with activity or at rest, or if you feel more fatigued.
[2019-06-19 11:09] VITALS: BP 116/77; TEMP 98
[2019-06-19 11:55] LABS: Glucose,Whole Blood 228 mg/dL (75-99)
[2019-06-19 12:19] VITALS: PULSE 76
--- NOTE | 2019-06-19 12:58 | P.PN ---
Subjective This is a pleasant 63-year-old male past medical history significant for coronary artery disease status post bypass grafting and severe ischemic cardiomyopathy. He is seen and examined sitting up in the chair in no acute distress. He states his breathing has greatly improved since admission. He denies any chest pain, dizziness or palpitations. Laboratory data reviewed, sodium 134, potassium 3.5, creatinine 0.8. Blood pressure 129/59 heart rate 69 afebrile maintaining oxygen saturation on room air. Currently maintained on aspirin 81 mg daily, atorvastatin 40 mg daily, carvedilol 12.5 mg twice a day, Lasix 40 mg IV twice a day, entresto 24/26 mg daily and Aldactone 25 mg daily. Telemetry tracings reviewed and unremarkable. Significant artifact but no ventricular tachycardia. GENERAL: Well-appearing, well-nourished and in no acute distress. NECK: Supple without JVD or thyromegaly. LUNGS: Breath sounds clear to auscultation bilaterally. Respiration equal and unlabored. No wheezes, rales or rhonchi. HEART: Regular rate and rhythm with soft sytolic ejection murmur at the left sternal border, no rubs or gallops. S1 and S2 heard. EXTREMITIES: Normal range of motion, ongoing bilateral lower extremity edema with CHELI wraps in place. No clubbing or cyanosis. Peripheral pulses intact. ASSESSMENT Acute on chronic systolic heart failure History of coronary artery disease status post bypass grafting Dyslipidemia Hypertension PLAN Stable for discharge from a cardiac perspective. Follow-up in the office with Dr. Jean in 2 weeks. ICD consideration as an outpatient. Nurse Practitioner note has been reviewed, I agree with a documented findings and plan of care. Patient was seen and examined. Objective - Vital Signs Vital signs: Vital Signs Temp 97.7 F 06/19/19 08:00 Pulse 70 06/19/19 08:43 Resp 18 06/19/19 08:00 BP 129/59 06/19/19 08:00 Pulse Ox 93 L 06/19/19 08:29 Intake & Output 06/18/19 06/19/19 06/19/19 18:59 06:59 18:59 Intake Total 780 600 720 Output Total 950 720 Balance -170 -120 720 Weight 102.9 kg 102.9 kg Intake: Intake, IV Titration 100 Amount Potassium Chloride 10 meq 100 In Water For Injection 1 100ml.bag @ 100 mls/hr IVPB Q1HR [facility], [facility] Rx#: [id number] Oral 780 500 720 Output: Urine 950 720 Other: Voiding Method Toilet Urinal # Voids 1 1 1 - Labs CBC & Chem 7: 06/14/19 14:35 06/19/19 05:41 Labs: Abnormal Lab Results - Last 24 Hours (Table) 06/18/19 06/18/19 06/18/19 Range/Units 11:42 16:59 20:49 Sodium (137-145) mmol/L Carbon Dioxide (22-30) mmol/L Glucose (74-99) mg/dL POC Glucose (mg/dL) 198 H 266 H 269 H (75-99) mg/dL 06/19/19 06/19/19 Range/Units 05:41 06:11 Sodium 134 L (137-145) mmol/L Carbon Dioxide 32 H (22-30) mmol/L Glucose 224 H (74-99) mg/dL POC Glucose (mg/dL) 210 H (75-99) mg/dL Microbiology - Last 24 Hours (Table) 06/14/19 17:40 Blood Culture - Preliminary Blood No Growth after 96 hours
== END 2019-06-19 13:52 | disposition home health service (06) | DRG 291 ==
LOC: EC 14:10 → 3SCARD 16:42
PROVIDERS: ADMIT Internal Medicine; ATTEND Internal Medicine
DX: I11.0 Hypertensive heart disease with heart failure (principal); J18.9 Pneumonia, unspecified organism; N17.9 Acute kidney failure, unspecified; I47.2 Ventricular tachycardia; I50.23 Acute on chronic systolic (congestive) heart failure; E11.649 Type 2 diabetes mellitus with hypoglycemia without coma; I25.10 Atherosclerotic heart disease of native coronary artery without angina pectoris; E78.5 Hyperlipidemia, unspecified; F32.9 Major depressive disorder, single episode, unspecified; I16.0 Hypertensive urgency; R74.0 Nonspecific elevation of levels of transaminase and lactic acid dehydrogenase [LDH]; E66.9 Obesity, unspecified; F41.9 Anxiety disorder, unspecified; E87.6 Hypokalemia; J20.9 Acute bronchitis, unspecified; R79.89 Other specified abnormal findings of blood chemistry; I25.5 Ischemic cardiomyopathy; R74.8 Abnormal levels of other serum enzymes; F79 Unspecified intellectual disabilities; T50.1X5A Adverse effect of loop [high-ceiling] diuretics, initial encounter; Z68.37 Body mass index [BMI] 37.0-37.9, adult; Z79.899 Other long term (current) drug therapy; Z79.82 Long term (current) use of aspirin; Z79.4 Long term (current) use of insulin; Z95.1 Presence of aortocoronary bypass graft; Z89.421 Acquired absence of other right toe(s); Z91.81 History of falling; Z88.6 Allergy status to analgesic agent; Z88.5 Allergy status to narcotic agent; Z83.3 Family history of diabetes mellitus; Z82.49 Family history of ischemic heart disease and other diseases of the circulatory system
CPT/HCPCS: 36415; 71046; 78452; 80048; 80053; 80061; 80074; 83735; 83880; 84132; 84484; 85025; 85610; 85730; 87040; 93005; 93017; 93306; 93970; 94640; 94760; 96365; 96367; 96375; 99285

== ENCOUNTER 2023-03-19 14:40 | Inpatient (IN) | payer MEDICARE, OTHER ==
[2023-03-19] MEDS: SODIUM CHLORIDE 0.9% 500 ML 500 ML IV SCH ×2 (15:50→16:20)
--- NOTE | 2023-03-19 16:05 | ED ---
General Adult HPI - General Chief complaint: Recheck/Abnormal Lab/Rx Stated complaint: right wet gangrene foot-brought down from woundcar Time Seen by Provider: 03/19/23 14:55 Source: patient, RN notes reviewed, old records reviewed Mode of arrival: ambulatory Limitations: no limitations - History of Present Illness Initial comments: This is a 67-year-old male who has had multiple toes amputated on his right foot. The areas become necrotic and black. He went to the wound care center today and they sent him down to the emergency department to get him admitted for IV antibiotics and consult to Dr. Solorzano. Dr. Spears saw the patient in the wound care center. Patient denies any fever chills. Patient states she's only noticed it recently. Patient denies any fever chills per patient denies any shortness of breath or difficulty breathing. Patient denies chest pain. Patient denies any headache patient denies numbness weakness - Related Data Home Medications Medication Instructions Recorded Confirmed Sacubitril/Valsartan [Entresto 49 1 tab PO BID 09/23/19 03/19/23 mg-51 mg Tablet] ARIPiprazole [Abilify] 20 mg PO DAILY 03/19/23 03/19/23 Amoxic-Pot Clav 875-125Mg 1 tab PO BID 03/19/23 03/19/23 [Augmentin 875-125] Clopidogrel [Plavix] 75 mg PO DAILY 03/19/23 03/19/23 Doxycycline Monohydrate 100 mg PO BID 03/19/23 03/19/23 FLUoxetine HCL [PROzac] 40 mg PO DAILY 03/19/23 03/19/23 Finasteride [Proscar] 5 mg PO DAILY 03/19/23 03/19/23 Insulin Aspart [NovoLOG Flexpen] 5 units SQ AC-TID 03/19/23 03/19/23 Insulin Glargine,Hum.rec.anlog 35 units SQ HS 03/19/23 03/19/23 [Lantus Solostar Pen] Potassium Chloride ER [K-Dur 20] 20 meq PO BID 03/19/23 03/19/23 Semaglutide [Rybelsus] 7 mg PO DAILY 03/19/23 03/19/23 Tamsulosin HCl [Flomax] 0.4 mg PO DAILY 03/19/23 03/19/23 Previous Rx's Medication Instructions Recorded Atorvastatin Calcium [Lipitor] 40 mg PO DAILY #30 tab 06/19/19 Furosemide [Lasix] 40 mg PO BID #60 tablet 06/19/19 Allergies Allergy/AdvReac Type Severity Reaction Status Date / Time acetaminophen [From Vicodin] AdvReac Hallucinati Verified 03/19/23 18:48 ons hydrocodone [From Vicodin] AdvReac Hallucinati Verified 03/19/23 18:48 ons Review of Systems ROS Statement: Those systems with pertinent positive or pertinent negative responses have been documented in the HPI. ROS Other: All systems not noted in ROS Statement are negative. Past Medical History Past Medical History: Coronary Artery Disease (CAD), Diabetes Mellitus, Hyperlipidemia, Hypertension Additional Past Medical History / Comment(s): Left heel cracked/ History of Any Multi-Drug Resistant Organisms: None Reported Past Surgical History: Coronary Bypass/CABG, Orthopedic Surgery Additional Past Surgical History / Comment(s): amputation toe rt foot, Past Anesthesia/Blood Transfusion Reactions: No Reported Reaction Past Psychological History: Anxiety, Depression Past Alcohol Use History: None Reported Past Drug Use History: None Reported - Past Family History Mother Family Medical History: Diabetes Mellitus Father Family Medical History: Congestive Heart Failure (CHF) Brother(s) Family Medical History: Diabetes Mellitus Sister(s) Family Medical History: Diabetes Mellitus General Exam - General Exam Comments Initial Comments: GENERAL: Patient is well-developed and well-nourished. Patient is nontoxic and well- hydrated and is in mild distress. ENT: Neck is soft and supple. No significant lymphadenopathy is noted. Oropharynx is clear. Moist mucous membranes. Neck has full range of motion without eliciting any pain. EYES: The sclera were anicteric and conjunctiva were pink and moist. Extraocular movements were intact and pupils were equal round and reactive to light. Eyelids were unremarkable. PULMONARY: Unlabored respirations. Good breath sounds bilaterally. No audible rales rhonchi or wheezing was noted. CARDIOVASCULAR: There is a regular rate and rhythm without any murmurs gallops or rubs. ABDOMEN: Soft and nontender with normal bowel sounds. SKIN: She has an open wound on the where the second toe used to be. Patient also has a necrotic fifth toe. NEUROLOGIC: Patient is alert and oriented x3. Cranial nerves II through XII are grossly intact. Motor and sensory are also intact. Normal speech, volume and content. Symmetrical smile. MUSCULOSKELETAL: Normal extremities with adequate strength and full range of motion. No lower extremity swelling or edema. No calf tenderness. LYMPHATICS: No significant lymphadenopathy is noted PSYCHIATRIC: Normal psychiatric evaluation. Limitations: no limitations Course Vital Signs 03/19/23 03/19/23 14:44 19:27 Temperature 97.8 F 97.9 F Pulse Rate 82 68 Respiratory 16 18 Rate Blood Pressure 161/95 154/80 O2 Sat by Pulse 96 98 Oximetry Medical Decision Making - Medical Decision Making EKG interpreted by myself. EKG shows a paced rhythm at 66 bpm GA interval 200 9706 270 Q-T intervals 486 QTC is 500. Patient's EKG shows no ST segment elevation or depression Was pt. sent in by a medical professional or institution (, PA, [employer], urgent care, hospital, or residential...) When possible be specific @ -Patient was sent in by Dr. Spears Did you speak to anyone other than the patient for history (EMS, parent, family, police, friend...)? What history was obtained from this source @ -No Did you review nursing and triage notes (agree or disagree)? Why? @ -I reviewed and agree with nursing and triage notes Were old charts reviewed (outside hosp., previous admission, EMS record, old EKG, old radiological studies, urgent care reports/EKG's, residential records)? Report findings @ -I reviewed old charts or old lab work on this patient Differential Diagnosis (chest pain, altered mental status, abdominal pain women, abdominal pain men, vaginal bleeding, weakness, fever, dyspnea, syncope, headache, dizziness, GI bleed, back pain, seizure, CVA, palpatations, mental health, musculoskeletal)? @ -not applicable EKG interpreted by me (3pts min.). @ -As above X-rays interpreted by me (1pt min.). @ -The foot shows probable osteomyelitis at the second metatarsal CT interpreted by me (1pt min.). @ -None done U/S interpreted by me (1pt. min.). @ -None done What testing was considered but not performed or refused? (CT, X-rays, U/S, labs)? Why? @ -None What meds were considered but not given or refused? Why? @ -None Did you discuss the management of the patient with other professionals (professionals i.e. DrFred, PA, [employer], lab, RT, psych nurse, social media community manager, family practice doctor, teacher, officer captain, rn case mgr)? Give summary @ -I spoke with [facility] hospitalist and they agreed to admit the patient. Was smoking cessation discussed for >3mins.? @ -No Was critical care preformed (if so, how long)? @ -No Were there social determinants of health that impacted care today? How? (Homelessness, low income, unemployed, alcoholism, drug addiction, transportation, low edu. Level, literacy, decrease access to med. care, half-way, rehab)? @ -No Was there de-escalation of care discussed even if they declined (Discuss DNR or withdrawal of care, Hospice)? DNR status @ -No What co-morbidities impacted this encounter? (DM, HTN, Smoking, COPD, CAD, Cancer, CVA, ARF, Chemo, Hep., AIDS, mental health diagnosis, sleep apnea, morbid obesity)? @ -None Was patient admitted / discharged? Hospital course, mention meds given and route, prescriptions, significant lab abnormalities, going to OR and other pertinent info. @ -Patient came in with a necrotic fifth toe and an opened wound at the distal aspect of the second metatarsal area did look infected. X-ray showed osteomyelitis. Patient was started on vancomycin and Rocephin. [facility] spitalist agreed to admit the patient wrote admitting orders I consulted Dr. Solorzano and vascular surgery Undiagnosed new problem with uncertain prognosis? @ -No Drug Therapy requiring intensive monitoring for toxicity (Heparin, Nitro, Insulin, Cardizem)? @ -No Were any procedures done? @ -No Diagnosis/symptom? @ -Osteomyelitis metatarsal Acute, or Chronic, or Acute on Chronic? @ -Acute Uncomplicated (without systemic symptoms) or Complicated (systemic symptoms)? @ -Complicated Side effects of treatment? @ -No Exacerbation, Progression, or Severe Exacerbation? @ -No Poses a threat to life or bodily function? How? (Chest pain, [place], VA, pneumonia, PE, COPD, DKA, ARF, appy, cholecystitis, CVA, Diverticulitis, Homicidal, Suicidal, threat to staff... and all critical care pts) @ -Yes this could lead to sepsis - Lab Data Result diagrams: 03/19/23 15:43 03/19/23 15:43 Lab Results 03/19/23 03/19/23 03/19/23 Range/Units 15:43 15:43 15:43 WBC 5.7 (3.8-10.6) k/uL RBC 4.69 (4.30-5.90) m/uL Hgb 13.2 (13.0-17.5) gm/dL Hct 39.6 (39.0-53.0) % MCV 84.5 (80.0-100.0) fL MCH 28.1 (25.0-35.0) pg MCHC 33.3 (31.0-37.0) g/dL RDW 16.2 H (11.5-15.5) % Plt Count 142 L (150-450) k/uL MPV 8.6 Neutrophils % 80 % Lymphocytes % 14 % Monocytes % 4 % Eosinophils % 1 % Basophils % 0 % Neutrophils # 4.6 (1.3-7.7) k/uL Lymphocytes # 0.8 L (1.0-4.8) k/uL Monocytes # 0.2 (0-1.0) k/uL Eosinophils # 0.1 (0-0.7) k/uL Basophils # 0.0 (0-0.2) k/uL Anisocytosis Slight PT 12.3 (10.0-12.5) sec INR 1.2 H (<1.2) APTT 27.1 (22.0-30.0) sec Sodium 140 (137-145) mmol/L Potassium 3.8 (3.5-5.1) mmol/L Chloride 101 (98-107) mmol/L Carbon Dioxide 27 (22-30) mmol/L Anion Gap 12 mmol/L BUN 14 (9-20) mg/dL Creatinine 0.85 (0.66-1.25) mg/dL Est GFR (CKD-EPI)AfAm >90 (>60 ml/min/1.73 sqM) Est GFR (CKD-EPI)NonAf >90 (>60 ml/min/1.73 sqM) Glucose 143 H (74-99) mg/dL Lactic Ac Sepsis Rflx Plasma Lactic Acid Ludin (0.7-2.0) mmol/L Calcium 8.8 (8.4-10.2) mg/dL Total Bilirubin 0.6 (0.2-1.3) mg/dL AST 24 (17-59) U/L ALT 18 (4-49) U/L Alkaline Phosphatase 89 (38-126) U/L Total Protein 6.9 (6.3-8.2) g/dL Albumin 3.7 (3.5-5.0) g/dL 03/19/23 03/19/23 Range/Units 15:43 16:55 WBC (3.8-10.6) k/uL RBC (4.30-5.90) m/uL Hgb (13.0-17.5) gm/dL Hct (39.0-53.0) % MCV (80.0-100.0) fL MCH (25.0-35.0) pg MCHC (31.0-37.0) g/dL RDW (11.5-15.5) % Plt Count (150-450) k/uL MPV Neutrophils % % Lymphocytes % % Monocytes % % Eosinophils % % Basophils % % Neutrophils # (1.3-7.7) k/uL Lymphocytes # (1.0-4.8) k/uL Monocytes # (0-1.0) k/uL Eosinophils # (0-0.7) k/uL Basophils # (0-0.2) k/uL Anisocytosis PT (10.0-12.5) sec INR (<1.2) APTT (22.0-30.0) sec Sodium (137-145) mmol/L Potassium (3.5-5.1) mmol/L Chloride (98-107) mmol/L Carbon Dioxide (22-30) mmol/L Anion Gap mmol/L BUN (9-20) mg/dL Creatinine (0.66-1.25) mg/dL Est GFR (CKD-EPI)AfAm (>60 ml/min/1.73 sqM) Est GFR (CKD-EPI)NonAf (>60 ml/min/1.73 sqM) Glucose (74-99) mg/dL Lactic Ac Sepsis Rflx Y Plasma Lactic Acid Ludin 2.1 H* (0.7-2.0) mmol/L Calcium (8.4-10.2) mg/dL Total Bilirubin (0.2-1.3) mg/dL AST (17-59) U/L ALT (4-49) U/L Alkaline Phosphatase (38-126) U/L Total Protein (6.3-8.2) g/dL Albumin (3.5-5.0) g/dL Disposition Clinical Impression: Osteomyelitis of metatarsal Disposition: ADMITTED IP TO THIS [facility] Time of Disposition: 17:51
[2023-03-19 16:08] LABS: Anisocytosis Slight; Basophils % (A) 0 %; Eosinophils # (A) 0.1 k/uL (0-0.7); Eosinophils % (A) 1 %; HCT 39.6 % (39.0-53.0); HGB 13.2 gm/dL (13.0-17.5); Lymphocytes # (A) 0.8 k/uL (1.0-4.8); Lymphocytes % (A) 14 %; MCH 28.1 pg (25.0-35.0); MCHC 33.3 g/dL (31.0-37.0); MCV 84.5 fL (80.0-100.0); Mean Platelet Volume 8.6; Monocytes # (A) 0.2 k/uL (0-1.0); Monocytes % (A) 4 %; Neutrophils # (A) 4.6 k/uL (1.3-7.7); Neutrophils % (A) 80 %; Platelet Count 142 k/uL (150-450); RBC 4.69 m/uL (4.30-5.90); RDW 16.2 % (11.5-15.5); WBC 5.7 k/uL (3.8-10.6)
--- NOTE | 2023-03-19 16:22 | XR ---
EXAMINATION TYPE: XR foot complete RT DATE OF EXAM: 03/19/2023 CLINICAL HISTORY: Osteomyelitis. TECHNIQUE: Frontal, lateral, and oblique images of the right foot are obtained. COMPARISON: None FINDINGS: Amputation defect involving second through fourth toes is seen. There is suspicious lucency an ill definition involving the second metatarsal head. This area concerning for acute osteomyelitis . Vascular calcification overlying soft tissue is seen. Joint spaces at midfoot and hindfoot level ar e maintained. IMPRESSION: There is suspected acute osteomyelitis involving the head of the second metatarsal. Cons ider MRI follow-up to evaluate extent and possibility of involvement in the adjacent metatarsal heads .
[2023-03-19 16:25] LABS: ALT 18 U/L (4-49); AST 24 U/L (17-59); African American GFR (CKD) >90 (>60 ml/min/1.73 sqM); Albumin 3.7 g/dL (3.5-5.0); Alkaline Phosphatase 89 U/L (38-126); Anion Gap 12 mmol/L; Blood Urea Nitrogen 14 mg/dL (9-20); Calcium 8.8 mg/dL (8.4-10.2); Carbon Dioxide 27 mmol/L (22-30); Chloride 101 mmol/L (98-107); Glucose 143 mg/dL (74-99); Non-African American GFR(CKD) >90 (>60 ml/min/1.73 sqM); Potassium 3.8 mmol/L (3.5-5.1); Sodium 140 mmol/L (137-145); Total Bilirubin 0.6 mg/dL (0.2-1.3); Total Protein 6.9 g/dL (6.3-8.2)
[2023-03-19 16:37] LABS: INR 1.2 (<1.2); Partial Thromboplastin Time 27.1 sec (22.0-30.0); Prothrombin Time 12.3 sec (10.0-12.5)
[2023-03-19] MEDS ORDERED: VANCOMYCIN IV PER PHARMACY 1 EACH MISC MISCELLANE PRN (17:39)
[2023-03-19] MEDS ORDERED: SODIUM CHLORIDE 0.9% 1,000 ML IV ONE (17:51)
[2023-03-19] MEDS ORDERED: cefTRIAXone IN SWFI 1,000 MG/10 ML SYRINGE IVP STA (17:54)
[2023-03-19] MEDS ORDERED: VANCOMYCIN 1,500 MG in SODIUM CHLORIDE 0.9% 500 ML 500 ML IVPB ONE (18:00)
[2023-03-20] MEDS ORDERED: DEXTROSE 50% SYRINGE 50 ML IVP PRN ×2 (04:40)
[2023-03-20] MEDS: VANCOMYCIN 1,500 MG in SODIUM CHLORIDE 0.9% 500 ML 500 ML IVPB SCH ×2 (06:17→18:23)
[2023-03-20] MEDS: INSULIN ASPART (NovoLOG) 100 UNIT/ML VIAL SQ SCH ×7 (07:57→21:24)
[2023-03-20 07:58] LABS: Glucose,Whole Blood 106 mg/dL (70-110)
[2023-03-20] MEDS: FLUoxetine HCL 20 MG CAP PO SCH (09:24)
[2023-03-20] MEDS: POTASSIUM CHLORIDE ER 20 MEQ TAB.ER PO SCH ×2 (09:24→21:24)
[2023-03-20] MEDS: FINASTERIDE 5 MG TAB PO SCH (09:24)
[2023-03-20] MEDS: FUROSEMIDE 40 MG TAB PO SCH ×2 (09:24→21:24)
[2023-03-20] MEDS: TAMSULOSIN 0.4 MG CAP.ER.24H PO SCH (09:24)
[2023-03-20] MEDS: ATORVASTATIN 40 MG TAB PO SCH (09:24)
[2023-03-20] MEDS: SACUBITRIL/VALSARTAN 49 MG-51 MG TABLET PO SCH ×2 (09:35→21:24)
[2023-03-20] MEDS: NON FORMULARY DRUG (Semaglutide [Rybelsus] 7 MG Tablet) PO SCH (09:42)
[2023-03-20 11:31] LABS: Glucose,Whole Blood 131 mg/dL (70-110)
[2023-03-20 11:54] LABS: African American GFR (CKD) >90 (>60 ml/min/1.73 sqM); Anion Gap 9 mmol/L; Blood Urea Nitrogen 10 mg/dL (9-20); Calcium 8.7 mg/dL (8.4-10.2); Carbon Dioxide 30 mmol/L (22-30); Chloride 103 mmol/L (98-107); Glucose 121 mg/dL (74-99); Non-African American GFR(CKD) 90 (>60 ml/min/1.73 sqM); Potassium 3.6 mmol/L (3.5-5.1); Sodium 142 mmol/L (137-145)
[2023-03-20 16:33] LABS: Glucose,Whole Blood 98 mg/dL (70-110)
[2023-03-20 19:36] LABS: Glucose,Whole Blood 243 mg/dL (70-110)
[2023-03-20 20:08] LABS: Glucose,Whole Blood 189 mg/dL (70-110)
[2023-03-20] MEDS: INSULIN DETEMIR (LEVEMIR) 100 UNIT/ML SYR SQ SCH (21:24)
--- NOTE | 2023-03-20 21:55 | P.CONS ---
History of Present Illness - Reason for Consult Consult date: 03/20/23 Osteomyelitis Requesting physician: Flaquito Braswell - Chief Complaint Discoloration of right foot and fifth toe x few days - History of Present Illness Patient is a 67-year-old male with a past medical history significant for coronary disease diabetes mellitus hypertension hyperlipidemia patient did have a previous history of diabetic foot infection and amputation presented to hospital with areas of swelling black discoloration on the last hospital of the right foot and right fifth toe patient mention his symptom has been going on for the last few weeks denies any history of any trauma patient did have diabetic neuropathy denies significant pain to the right foot to feel some pressure patient mention did have associated swelling redness but no foul-smelling drainage and denies high-grade fever patient did went to the wound care patient was subsequently sent to the hospital for admission and IV antibiotic therapy patient on presentation to the hospital was afebrile and no fever has been called subsequently patient was not tachycardic hypotensive or hypoxic patient did have a white count of 5.7 creatinine 0.86 liver enzymes are normal lactic acid was high cultures obtained which are currently pending patient was started on ceftriaxone and vancomycin infectious disease was consulted for further management of antibiotic therapy Review of Systems Positive point and negatives has been mentioned in the HPI, complete review of systems was performed and all other systems are negative Past Medical History Past Medical History: Coronary Artery Disease (CAD), Diabetes Mellitus, Hyperlipidemia, Hypertension Additional Past Medical History / Comment(s): Left heel cracked/ History of Any Multi-Drug Resistant Organisms: None Reported Past Surgical History: Coronary Bypass/CABG, Orthopedic Surgery Additional Past Surgical History / Comment(s): amputation toe rt foot, Past Anesthesia/Blood Transfusion Reactions: No Reported Reaction Past Psychological History: Anxiety, Depression Past Alcohol Use History: None Reported Past Drug Use History: None Reported - Past Family History Mother Family Medical History: Diabetes Mellitus Father Family Medical History: Congestive Heart Failure (CHF) Brother(s) Family Medical History: Diabetes Mellitus Sister(s) Family Medical History: Diabetes Mellitus Medications and Allergies Home Medications Medication Instructions Recorded Confirmed Type Atorvastatin Calcium [Lipitor] 40 mg PO DAILY #30 tab 06/19/19 03/19/23 Rx Furosemide [Lasix] 40 mg PO BID #60 tablet 06/19/19 03/19/23 Rx Sacubitril/Valsartan [Entresto 49 1 tab PO BID 09/23/19 03/19/23 History mg-51 mg Tablet] ARIPiprazole [Abilify] 20 mg PO DAILY 03/19/23 03/19/23 History Amoxic-Pot Clav 875-125Mg 1 tab PO BID 03/19/23 03/19/23 History [Augmentin 875-125] Clopidogrel [Plavix] 75 mg PO DAILY 03/19/23 03/19/23 History Doxycycline Monohydrate 100 mg PO BID 03/19/23 03/19/23 History FLUoxetine HCL [PROzac] 40 mg PO DAILY 03/19/23 03/19/23 History Finasteride [Proscar] 5 mg PO DAILY 03/19/23 03/19/23 History Insulin Aspart [NovoLOG Flexpen] 5 units SQ AC-TID 03/19/23 03/19/23 History Insulin Glargine,Hum.rec.anlog 35 units SQ HS 03/19/23 03/19/23 History [Lantus Solostar Pen] Potassium Chloride ER [K-Dur 20] 20 meq PO BID 03/19/23 03/19/23 History Semaglutide [Rybelsus] 7 mg PO DAILY 03/19/23 03/19/23 History Tamsulosin HCl [Flomax] 0.4 mg PO DAILY 03/19/23 03/19/23 History Allergies Allergy/AdvReac Type Severity Reaction Status Date / Time acetaminophen [From Vicodin] AdvReac Hallucinati Verified 03/19/23 18:48 ons hydrocodone [From Vicodin] AdvReac Hallucinati Verified 03/19/23 18:48 ons Physical Exam Vitals: Vital Signs Temp Pulse Pulse Resp BP BP Pulse Ox 03/20/23 09:20 83 18 174/92 95 03/20/23 06:00 173/90 03/20/23 03:00 97.7 F 97 18 149/94 98 03/19/23 20:51 98.2 F 61 20 150/72 98 03/19/23 19:27 97.9 F 68 18 154/80 98 03/19/23 14:44 97.8 F 82 16 161/95 96 GENERAL DESCRIPTION: Elderly male lying in bed, no distress. No tachypnea or accessory muscle of respiration use. HEENT: Shows Pallor , no scleral icterus. Oral mucous membrane is dry. No pharyngeal erythema or thrush NECK: Trachea central, no thyromegaly. LUNGS: Unlabored breathing. Clear to auscultation anteriorly. No wheeze or crackle. HEART: S1, S2, regular rate and rhythm. No loud murmur ABDOMEN: Soft, no tenderness , guarding or rigidity, no organomegaly EXTREMITIES: Right foot did have necrotic wounds on the dorsal aspect is some swelling redness and right fifth toe is necrotic SKIN: No rash, no masses palpable. NEUROLOGICAL: The patient is awake, alert, oriented x3, mood and affect normal. Results CBC & Chem 7: 03/19/23 15:43 03/20/23 11:15 Labs: Abnormal Lab Results - Last 24 Hours (Table) 03/19/23 03/19/23 03/19/23 Range/Units 15:43 15:43 15:43 RDW 16.2 H (11.5-15.5) % Plt Count 142 L (150-450) k/uL Lymphocytes # 0.8 L (1.0-4.8) k/uL INR 1.2 H (<1.2) Glucose 143 H (74-99) mg/dL Plasma Lactic Acid Ludin (0.7-2.0) mmol/L 03/19/23 Range/Units 15:43 RDW (11.5-15.5) % Plt Count (150-450) k/uL Lymphocytes # (1.0-4.8) k/uL INR (<1.2) Glucose (74-99) mg/dL Plasma Lactic Acid Ludin 2.1 H* (0.7-2.0) mmol/L Microbiology - Last 24 Hours (Table) 03/19/23 15:43 Gram Stain - Preliminary Foot - Right Assessment and Plan (1) Gangrene of right foot Current Visit: Yes Status: Acute Code(s): I96 - GANGRENE, NOT ELSEWHERE CLASSIFIED SNOMED Code(s): 60938739468552659 (2) 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, with necrosis of bone Current Visit: No Status: Acute Code(s): E11.621 - TYPE 2 DIABETES MELLITUS WITH FOOT ULCER; L97.514 - NON-PRS CHRONIC ULCER OTH PRT RIGHT FOOT W NECROSIS OF BONE SNOMED Code(s): 65644269718131570 Plan: 1-Patient presented to hospital with discoloration swelling and redness to the right foot and did have a discoloration of the right fifth toe did have evidence of diabetic foot infection with gangrene and associated cellulitis we will need to cover for both gram-positive skin anne as well as gram-negative pathogen 2-await vascular surgery evaluation for debridement and deep culture 3-patient to continue vancomycin watching his kidney function closely along with Rocephin We will follow on clinical condition and cultures to further adjust medication if needed Thank you for this consultation we will follow the patient along with you Dictation was produced using [employer] dictation software. please excuse any gra mmatical, word or spelling errors. Time with Patient: Greater than 30
--- NOTE | 2023-03-21 00:06 | P.HPIM ---
History of Present Illness H&P Date: 03/20/23 Chief Complaint: Discoloration of the toes Patient is a 67-year-old male with a known history of peripheral vascular disease with prior history of right foot toe amputation, diabetes type 2 insulin-dependent, hypertension, coronary artery disease with prior history of CABG at [facility], chronic CHF with systolic function, ischemic cardiomyopathy, hyperlipidemia and history of bilateral lower extremity vascular procedure/angio plasty by Dr. Castillo at [facility] was sent from wound care center to ER where she presented with discoloration of the right fourth and fifth toe and dark discoloration on the dorsum of the foot. Patient was seen by Dr. Rivera at the wound care center. Patient otherwise denies any complaints of fever or chills. He did have some surrounding redness around the necrotic area. No complaints of chest pain or shortness of breath. No complaints or leg swelling. Denies any recent trauma. Laboratory data showed WBC 5.7 hemoglobin 13.1 platelets 142 Sodium 140 potassium 3.8 chloride 101 bicarb is 27 BUN 14 and creatinine 0.85 and lactic acid 2.1 X-ray foot showed osteomyelitis/acute involving the head of the second metatarsal Review of Systems Constitutional: Patient denies any fever or chills . no Generalized weakness. Abdomen: Patient denied any nausea or vomiting or abd. pain Cardiovascular: Patient denies any chest pain or short of breath no palpitations. Respiratory: patient denied any cough . no sputum production. No shortness of breath Neurologic: Patient denied any numbness or tingling or headache. Musculoskeletal: Patient denies any complaints of joint swelling or deformity. Discoloration of the toes. Skin: Negative Psychiatric: Negative Endocrine: No heat or cold intolerance. No recent weight gain. Genitourinary: No dysuria or hematuria. All other 14 point ROS negative except the above Past Medical History Past Medical History: Coronary Artery Disease (CAD), Diabetes Mellitus, Hyperlipidemia, Hypertension Additional Past Medical History / Comment(s): Left heel cracked/ History of Any Multi-Drug Resistant Organisms: None Reported Past Surgical History: Coronary Bypass/CABG, Orthopedic Surgery Additional Past Surgical History / Comment(s): amputation toe rt foot, Past Anesthesia/Blood Transfusion Reactions: No Reported Reaction Past Psychological History: Anxiety, Depression Past Alcohol Use History: None Reported Past Drug Use History: None Reported - Past Family History Mother Family Medical History: Diabetes Mellitus Father Family Medical History: Congestive Heart Failure (CHF) Brother(s) Family Medical History: Diabetes Mellitus Sister(s) Family Medical History: Diabetes Mellitus Medications and Allergies Home Medications Medication Instructions Recorded Confirmed Type Atorvastatin Calcium [Lipitor] 40 mg PO DAILY #30 tab 06/19/19 03/19/23 Rx Furosemide [Lasix] 40 mg PO BID #60 tablet 06/19/19 03/19/23 Rx Sacubitril/Valsartan [Entresto 49 1 tab PO BID 09/23/19 03/19/23 History mg-51 mg Tablet] ARIPiprazole [Abilify] 20 mg PO DAILY 03/19/23 03/19/23 History Amoxic-Pot Clav 875-125Mg 1 tab PO BID 03/19/23 03/19/23 History [Augmentin 875-125] Clopidogrel [Plavix] 75 mg PO DAILY 03/19/23 03/19/23 History Doxycycline Monohydrate 100 mg PO BID 03/19/23 03/19/23 History FLUoxetine HCL [PROzac] 40 mg PO DAILY 03/19/23 03/19/23 History Finasteride [Proscar] 5 mg PO DAILY 03/19/23 03/19/23 History Insulin Aspart [NovoLOG Flexpen] 5 units SQ AC-TID 03/19/23 03/19/23 History Insulin Glargine,Hum.rec.anlog 35 units SQ HS 03/19/23 03/19/23 History [Lantus Solostar Pen] Potassium Chloride ER [K-Dur 20] 20 meq PO BID 03/19/23 03/19/23 History Semaglutide [Rybelsus] 7 mg PO DAILY 03/19/23 03/19/23 History Tamsulosin HCl [Flomax] 0.4 mg PO DAILY 03/19/23 03/19/23 History Allergies Allergy/AdvReac Type Severity Reaction Status Date / Time acetaminophen [From Vicodin] AdvReac Hallucinati Verified 03/19/23 18:48 ons hydrocodone [From Vicodin] AdvReac Hallucinati Verified 03/19/23 18:48 ons Physical Exam Vitals: Vital Signs Temp Pulse Pulse Resp BP BP Pulse Ox 03/20/23 09:20 83 18 174/92 95 03/20/23 06:00 173/90 03/20/23 03:00 97.7 F 97 18 149/94 98 03/19/23 20:51 98.2 F 61 20 150/72 98 03/19/23 19:27 97.9 F 68 18 154/80 98 03/19/23 14:44 97.8 F 82 16 161/95 96 PHYSICAL EXAMINATION: Patient is lying in the bed comfortably, no acute distress, awake alert and oriented.. HEENT: Normocephalic. Neck is supple. Pupils reactive. Nostrils clear. Oral cavity is moist. Neck reveals no JVD, carotid bruits, or thyromegaly. CHEST EXAMINATION: Trachea is central. Symmetrical expansion. Lung stevens clear to auscultation and percussion. CARDIAC: Normal S1, S2 with no gallops. No murmurs ABDOMEN: Soft. Bowel sounds present. Nontender. No organomegaly. No abdominal bruits. Extremities: reveal no edema. Patient has gangrenous changes to the fifth right toe with surrounding redness and dark gangrenous patch over the dorsum of the foot. No clubbing or cyanosis Neurologically awake, alert, oriented x3 with well-coordinated movements. No focal deficits noted Skin: No rash or skin lesions. Psychiatric: Coperative. Nonsuicidal, Musculoskeletal: No joint swelling or deformity. Normal range of motion. Results CBC & Chem 7: 03/21/23 05:23 03/23/23 05:35 Labs: Abnormal Lab Results - Last 24 Hours (Table) 03/19/23 03/19/23 03/19/23 Range/Units 15:43 15:43 15:43 RDW 16.2 H (11.5-15.5) % Plt Count 142 L (150-450) k/uL Lymphocytes # 0.8 L (1.0-4.8) k/uL INR 1.2 H (<1.2) Glucose 143 H (74-99) mg/dL POC Glucose (mg/dL) (70-110) mg/dL Plasma Lactic Acid Ludin (0.7-2.0) mmol/L 03/19/23 03/20/23 03/20/23 Range/Units 15:43 11:15 11:30 RDW (11.5-15.5) % Plt Count (150-450) k/uL Lymphocytes # (1.0-4.8) k/uL INR (<1.2) Glucose 121 H (74-99) mg/dL POC Glucose (mg/dL) 131 H (70-110) mg/dL Plasma Lactic Acid Ludin 2.1 H* (0.7-2.0) mmol/L Microbiology - Last 24 Hours (Table) 03/19/23 15:43 Gram Stain - Preliminary Foot - Right Thrombosis Risk Factor Assmnt - DVT/VTE Prophylaxis DVT/VTE Prophylaxis: Pharmacologic Prophylaxis ordered Assessment and Plan Assessment: Right 5th toe dry gangrene with surrounding cellulitis/diabetic foot infection Possible acute osteomyelitis involving the head of the second metatarsal Diabetes type 2 insulin-dependent Coronary artery disease with history of CABG Chronic HFrEF Peripheral vascular disease with history of bilateral lower extremity balloon angioplasty Anxiety/depression BPH DVT prophylaxis with heparin subcu Plan: Patient will be continued on antibiotics, vancomycin and ceftriaxone. Follow-up wound cultures. ID and vascular surgery is on board. Continue with home medications including insulin regimen and titrate dose as needed. Follow-up closely. Continue pain management. Time with Patient: Greater than 30
[2023-03-21] MEDS: HEPARIN SODIUM,PORCINE 5,000 UNIT/ML 1 ML VIAL SQ SCH ×4 (00:17→23:45)
[2023-03-21] MEDS: VANCOMYCIN 1,500 MG in SODIUM CHLORIDE 0.9% 500 ML 500 ML IVPB SCH ×2 (05:38→18:31)
[2023-03-21 05:51] LABS: African American GFR (CKD) >90 (>60 ml/min/1.73 sqM); Anion Gap 11 mmol/L; Blood Urea Nitrogen 11 mg/dL (9-20); Carbon Dioxide 26 mmol/L (22-30); Chloride 105 mmol/L (98-107); Non-African American GFR(CKD) >90 (>60 ml/min/1.73 sqM); Potassium 3.2 mmol/L (3.5-5.1); Sodium 142 mmol/L (137-145)
[2023-03-21 06:50] LABS: Glucose 46 mg/dL (74-99)
[2023-03-21 06:54] LABS: Glucose,Whole Blood 65 mg/dL (70-110)
[2023-03-21 07:14] LABS: Glucose,Whole Blood 59 mg/dL (70-110)
[2023-03-21 07:45] LABS: Glucose,Whole Blood 113 mg/dL (70-110)
[2023-03-21 08:36] LABS: Basophils # (A) 0.07 X 10*3/uL (0.00-0.10); Eosinophils # (A) 0.21 X 10*3/uL (0.04-0.35); HCT 41.1 % (39.6-50.0); HGB 13.4 g/dL (13.0-17.0); Lymphocytes # (A) 1.51 X 10*3/uL (0.90-5.00); Lymphocytes % (A) 21.9 %; MCH 27.9 pg (27.0-32.0); MCHC 32.6 g/dL (32.0-37.0); MCV 85.6 FL (80.0-97.0); Mean Platelet Volume 11.1 FL (9.5-12.2); Monocytes # (A) 0.52 X 10*3/uL (0.20-1.00); Monocytes % (A) 7.5 %; NRBC Per 100 WBC 0 X 10*3/uL (0.00-0.01); Neutrophils # (A) 4.57 X 10*3/uL (1.80-7.70); Neutrophils % (A) 66.3 %; Platelet Count 155 X 10*3/uL (140-440); RDW 16.2 % (11.5-14.5)
[2023-03-21] MEDS: INSULIN ASPART (NovoLOG) 100 UNIT/ML VIAL SQ SCH ×7 (09:03→20:59)
[2023-03-21] MEDS: NON FORMULARY DRUG (Semaglutide [Rybelsus] 7 MG Tablet) PO SCH (09:55)
[2023-03-21] MEDS: FLUoxetine HCL 20 MG CAP PO SCH (09:57)
[2023-03-21] MEDS: TAMSULOSIN 0.4 MG CAP.ER.24H PO SCH (09:57)
[2023-03-21] MEDS: POTASSIUM CHLORIDE ER 20 MEQ TAB.ER PO SCH ×2 (09:57→19:59)
[2023-03-21] MEDS: FUROSEMIDE 40 MG TAB PO SCH ×2 (09:57→19:59)
[2023-03-21] MEDS: FINASTERIDE 5 MG TAB PO SCH (09:57)
[2023-03-21] MEDS: ATORVASTATIN 40 MG TAB PO SCH (09:57)
[2023-03-21] MEDS: SACUBITRIL/VALSARTAN 49 MG-51 MG TABLET PO SCH ×2 (09:57→19:59)
[2023-03-21 11:57] LABS: Glucose,Whole Blood 126 mg/dL (70-110)
[2023-03-21 17:07] LABS: Glucose,Whole Blood 130 mg/dL (70-110)
[2023-03-21 20:31] LABS: Glucose,Whole Blood 197 mg/dL (70-110)
[2023-03-21] MEDS: INSULIN DETEMIR (LEVEMIR) 100 UNIT/ML SYR SQ SCH (20:59)
[2023-03-22] MEDS ORDERED: VANCOMYCIN TROUGH DUE 1 EACH MISC MISCELLANE ONE (05:00)
[2023-03-22] MEDS: VANCOMYCIN 1,500 MG in SODIUM CHLORIDE 0.9% 500 ML 500 ML IVPB SCH ×2 (05:29→17:51)
[2023-03-22 06:51] LABS: African American GFR (CKD) >90 (>60 ml/min/1.73 sqM); Anion Gap 9 mmol/L; Blood Urea Nitrogen 15 mg/dL (9-20); Calcium 8.4 mg/dL (8.4-10.2); Carbon Dioxide 26 mmol/L (22-30); Chloride 106 mmol/L (98-107); Glucose 87 mg/dL (74-99); Non-African American GFR(CKD) 84 (>60 ml/min/1.73 sqM); Potassium 3.8 mmol/L (3.5-5.1); Sodium 141 mmol/L (137-145)
[2023-03-22 07:39] LABS: Glucose,Whole Blood 131 mg/dL (70-110)
[2023-03-22] MEDS: TAMSULOSIN 0.4 MG CAP.ER.24H PO SCH (09:36)
[2023-03-22] MEDS: POTASSIUM CHLORIDE ER 20 MEQ TAB.ER PO SCH ×2 (09:36→20:19)
[2023-03-22] MEDS: SACUBITRIL/VALSARTAN 49 MG-51 MG TABLET PO SCH ×2 (09:36→20:19)
[2023-03-22] MEDS: INSULIN ASPART (NovoLOG) 100 UNIT/ML VIAL SQ SCH ×7 (09:36→20:24)
[2023-03-22] MEDS: FLUoxetine HCL 20 MG CAP PO SCH (09:37)
[2023-03-22] MEDS: FUROSEMIDE 40 MG TAB PO SCH ×2 (09:37→20:19)
[2023-03-22] MEDS: ATORVASTATIN 40 MG TAB PO SCH (09:37)
[2023-03-22] MEDS: HEPARIN SODIUM,PORCINE 5,000 UNIT/ML 1 ML VIAL SQ SCH ×3 (09:37→23:34)
[2023-03-22] MEDS: FINASTERIDE 5 MG TAB PO SCH (09:37)
[2023-03-22] MEDS: NON FORMULARY DRUG (Semaglutide [Rybelsus] 7 MG Tablet) PO SCH (09:38)
[2023-03-22 11:39] LABS: Glucose,Whole Blood 93 mg/dL (70-110)
[2023-03-22 17:43] LABS: Glucose,Whole Blood 101 mg/dL (70-110)
[2023-03-22] MEDS: INSULIN DETEMIR (LEVEMIR) 100 UNIT/ML SYR SQ SCH (20:19)
[2023-03-22 20:23] LABS: Glucose,Whole Blood 167 mg/dL (70-110)
--- NOTE | 2023-03-23 00:24 | P.PN ---
Subjective Progress Note Date: 03/21/23 Patient is a 67-year-old male with a known history of peripheral vascular disease with prior history of right foot toe amputation, diabetes type 2 insulin-dependent, hypertension, coronary artery disease with prior history of CABG at [facility], chronic CHF with systolic function, ischemic cardio myopathy, hyperlipidemia and history of bilateral lower extremity vascular procedure/angio plasty by Dr. Castillo at [facility] was sent from wound care center to ER where she presented with discoloration of the right fourth and fifth toe and dark discoloration on the dorsum of the foot. Patient was seen by Dr. Rivera at the wound care center. Patient otherwise denies any complaints of fever or chills. He did have some surrounding redness around the necrotic area. No complaints of chest pain or shortness of breath. No complaints or leg swelling. Denies any recent trauma. Laboratory data showed WBC 5.7 hemoglobin 13.1 platelets 142 Sodium 140 potassium 3.8 chloride 101 bicarb is 27 BUN 14 and creatinine 0.85 and lactic acid 2.1 X-ray foot showed osteomyelitis/acute involving the head of the second metatarsal 03/21/2023 Patient is currently sitting in the recliner. Awake alert and oriented x 3. States that his right foot pain is better and is also swelling is also improving. Patient is maintained on IV antibiotics Zosyn. ID is on board. Afebrile. Patient would like to follow-up with vascular surgery in the area. Patient was following vascular surgeon was at [facility]. Otherwise denies any chest pain or shortness of breath. No nausea vomiting abdominal pain or diarrhea. No cough or sputum production. Laboratory data reviewed. Patient did have episode of hypoglycemia this morning at 59. Will lower insulin dose to 27 units at bedtime from 35 units. Continue with insulin sliding scale. Current medications reviewed. Objective - Vital Signs Vital signs: Vital Signs Temp 97.3 F L 03/21/23 19:11 Pulse 71 03/21/23 19:11 Resp 16 03/21/23 19:11 BP 146/77 03/21/23 19:11 Pulse Ox 99 03/21/23 19:11 FiO2 Intake & Output 03/21/23 03/21/23 03/22/23 06:59 18:59 06:59 Intake Total 2120 Balance 212 Weight 95.254 kg Intake: Intake, IV Titration 1041 Amount Sodium Chloride 0.9% 1, 875 000 ml @ 75 mls/hr IV . [id number] Rx#:[id number] Vancomycin 1,500 mg In 166 Sodium Chloride 0.9% 500 ml 500 ml @ 167 mls/hr IVPB Q12H [facility] Rx#: [id number] Oral 1080 Other: Voiding Method Toilet Toilet Urinal Urinal # Voids 2 1 # Bowel Movements 1 - Exam PHYSICAL EXAMINATION: Patient is lying in the bed comfortably, no acute distress, awake alert and oriented.. HEENT: Normocephalic. Neck is supple. Pupils reactive. Nostrils clear. Oral cavity is moist. Neck reveals no JVD, carotid bruits, or thyromegaly. CHEST EXAMINATION: Trachea is central. Symmetrical expansion. Lung stevens clear to auscultation and percussion. CARDIAC: Normal S1, S2 with no gallops. No murmurs ABDOMEN: Soft. Bowel sounds present. Nontender. No organomegaly. No abdominal bruits. Extremities: reveal no edema. Patient has gangrenous changes to the fourth and fifth right toes with surrounding redness and dark gangrenous patch over the dorsum of the foot. No clubbing or cyanosis Neurologically awake, alert, oriented x3 with well-coordinated movements. No focal deficits noted Skin: No rash or skin lesions. Psychiatric: Coperative. Nonsuicidal, Musculoskeletal: No joint swelling or deformity. Normal range of motion. - Labs CBC & Chem 7: 03/21/23 05:23 03/22/23 06:16 Labs: Abnormal Lab Results - Last 24 Hours (Table) 03/21/23 03/21/23 03/21/23 Range/Units 05:23 05:23 05:23 RDW 16.2 H (11.5-14.5) % Potassium 3.2 L (3.5-5.1) mmol/L Glucose 46 L* (74-99) mg/dL POC Glucose (mg/dL) (70-110) mg/dL Hemoglobin A1c 6.5 H (<=6.0) % 03/21/23 03/21/23 03/21/23 Range/Units 06:53 07:12 07:43 RDW (11.5-14.5) % Potassium (3.5-5.1) mmol/L Glucose (74-99) mg/dL POC Glucose (mg/dL) 65 L 59 L 113 H (70-110) mg/dL Hemoglobin A1c (<=6.0) % 03/21/23 03/21/23 03/21/23 Range/Units 11:56 17:05 20:29 RDW (11.5-14.5) % Potassium (3.5-5.1) mmol/L Glucose (74-99) mg/dL POC Glucose (mg/dL) 126 H 130 H 197 H (70-110) mg/dL Hemoglobin A1c (<=6.0) % Microbiology - Last 24 Hours (Table) 03/19/23 15:43 Gram Stain - Final Foot - Right Wound Culture - Final 03/19/23 15:30 Blood Culture - Preliminary Blood 03/19/23 15:45 Blood Culture - Preliminary Blood Assessment and Plan Assessment: Right second and fourth toe dry gangrene with surrounding cellulitis/diabetic foot infection Possible acute osteomyelitis involving the head of the second metatarsal Diabetes type 2 insulin-dependent Coronary artery disease with history of CABG Chronic HFrEF Peripheral vascular disease with history of bilateral lower extremity balloon a ngioplasty Anxiety/depression BPH DVT prophylaxis with heparin subcu Plan: Patient will be continued on antibiotics, vancomycin and ceftriaxone. Follow-up wound cultures. ID and vascular surgery is on board. Continue with home medications including insulin regimen and titrate dose as needed. Follow-up closely. Continue pain management. Time with Patient: Greater than 30
--- NOTE | 2023-03-23 00:25 | P.PN ---
Subjective Progress Note Date: 03/22/23 Patient is a 67-year-old male with a known history of peripheral vascular disease with prior history of right foot toe amputation, diabetes type 2 insulin-dependent, hypertension, coronary artery disease with prior history of CABG at [facility], chronic CHF with systolic function, ischemic cardio myopathy, hyperlipidemia and history of bilateral lower extremity vascular procedure/angio plasty by Dr. Castillo at [facility] was sent from wound care center to ER where she presented with discoloration of the right fourth and fifth toe and dark discoloration on the dorsum of the foot. Patient was seen by Dr. Rivera at the wound care center. Patient otherwise denies any complaints of fever or chills. He did have some surrounding redness around the necrotic area. No complaints of chest pain or shortness of breath. No complaints or leg swelling. Denies any recent trauma. Laboratory data showed WBC 5.7 hemoglobin 13.1 platelets 142 Sodium 140 potassium 3.8 chloride 101 bicarb is 27 BUN 14 and creatinine 0.85 and lactic acid 2.1 X-ray foot showed osteomyelitis/acute involving the head of the second metatarsal 03/21/2023 Patient is currently sitting in the recliner. Awake alert and oriented x 3. States that his right foot pain is better and is also swelling is also improving. Patient is maintained on IV antibiotics Zosyn. ID is on board. Afebrile. Patient would like to follow-up with vascular surgery in the area. Patient was following vascular surgeon was at [facility]. Otherwise denies any chest pain or shortness of breath. No nausea vomiting abdominal pain or diarrhea. No cough or sputum production. Laboratory data reviewed. Patient did have episode of hypoglycemia this morning at 59. Will lower insulin dose to 27 units at bedtime from 35 units. Continue with insulin sliding scale. 03/22/2023 Patient is sitting in the chair. Awake alert and oriented x 3. Currently on room air. Right foot pain and swelling is much improved. Continue IV antibiotics. Vascular surgery and ID is on board. Arterial duplex was ordered. Wound cultures showed moderate normal skin anne. Patient has been afebrile. No complaints of chest pain or shortness of breath. No headache.. Blood sugar is fairly controlled. Current medications reviewed. Objective - Vital Signs Vital signs: Vital Signs Temp 97.6 F 03/22/23 11:35 Pulse 73 12/09/23 11:35 Resp 16 03/22/23 08:35 BP 146/79 03/22/23 11:35 Pulse Ox 98 03/22/23 11:35 FiO2 Intake & Output 03/22/23 03/22/23 03/23/23 06:59 18:59 06:59 Intake Total 1146 240 Output Total 400 Balance 1146 -160 Intake: Intake, IV Titration 166 Amount Vancomycin 1,500 mg In 166 Sodium Chloride 0.9% 500 ml 500 ml @ 167 mls/hr IVPB Q12H [facility] Rx#: [id number] Oral 980 240 Output: Urine 400 Other: Voiding Method Toilet Toilet Urinal Urinal # Voids 2 # Bowel Movements 1 - Exam PHYSICAL EXAMINATION: Patient is lying in the bed comfortably, no acute distress, awake alert and oriented.. HEENT: Normocephalic. Neck is supple. Pupils reactive. Nostrils clear. Oral cavity is moist. Neck reveals no JVD, carotid bruits, or thyromegaly. CHEST EXAMINATION: Trachea is central. Symmetrical expansion. Lung stevens clear to auscultation and percussion. CARDIAC: Normal S1, S2 with no gallops. No murmurs ABDOMEN: Soft. Bowel sounds present. Nontender. No organomegaly. No abdominal bruits. Extremities: reveal no edema. Patient has gangrenous changes to the fifth right toe with surrounding redness and dark gangrenous patch over the dorsum of the foot. No clubbing or cyanosis Neurologically awake, alert, oriented x3 with well-coordinated movements. No focal deficits noted Skin: No rash or skin lesions. Psychiatric: Coperative. Nonsuicidal, Musculoskeletal: No joint swelling or deformity. Normal range of motion. - Labs CBC & Chem 7: 03/21/23 05:23 03/23/23 05:35 Labs: Abnormal Lab Results - Last 24 Hours (Table) 03/22/23 03/22/23 Range/Units 07:25 20:16 POC Glucose (mg/dL) 131 H 167 H (70-110) mg/dL Microbiology - Last 24 Hours (Table) 03/19/23 15:30 Blood Culture - Preliminary Blood 03/19/23 15:45 Blood Culture - Preliminary Blood 03/19/23 15:43 Gram Stain - Final Foot - Right Wound Culture - Final Assessment and Plan Assessment: Right 5th toe dry gangrene with surrounding cellulitis/diabetic foot infection Possible acute osteomyelitis involving the head of the second metatarsal Diabetes type 2 insulin-dependent Coronary artery disease with history of CABG Chronic HFrEF Peripheral vascular disease with history of bilateral lower extremity balloon angioplasty Anxiety/depression BPH DVT prophylaxis with heparin subcu Plan: Patient will be continued on antibiotics, vancomycin and ceftriaxone. Follow-up wound cultures. ID and vascular surgery is on board. Continue with home medications including insulin regimen and titrate dose as needed. Follow-up closely. Continue pain management.
[2023-03-23] MEDS ORDERED: VANCOMYCIN TROUGH DUE 1 EACH MISC MISCELLANE ONE (05:00)
[2023-03-23] MEDS: VANCOMYCIN 1,500 MG in SODIUM CHLORIDE 0.9% 500 ML 500 ML IVPB SCH ×2 (05:39→20:42)
[2023-03-23 06:52] LABS: African American GFR (CKD) >90 (>60 ml/min/1.73 sqM); Non-African American GFR(CKD) >90 (>60 ml/min/1.73 sqM)
[2023-03-23 07:29] LABS: Glucose,Whole Blood 61 mg/dL (70-110)
[2023-03-23 07:54] LABS: Glucose,Whole Blood 82 mg/dL (70-110)
[2023-03-23] MEDS: FLUoxetine HCL 20 MG CAP PO SCH (09:31)
[2023-03-23] MEDS: TAMSULOSIN 0.4 MG CAP.ER.24H PO SCH (09:31)
[2023-03-23] MEDS: FUROSEMIDE 40 MG TAB PO SCH ×2 (09:31→20:41)
[2023-03-23] MEDS: HEPARIN SODIUM,PORCINE 5,000 UNIT/ML 1 ML VIAL SQ SCH ×2 (09:31→16:47)
[2023-03-23] MEDS: FINASTERIDE 5 MG TAB PO SCH (09:31)
[2023-03-23] MEDS: POTASSIUM CHLORIDE ER 20 MEQ TAB.ER PO SCH ×2 (09:31→20:41)
[2023-03-23] MEDS: ATORVASTATIN 40 MG TAB PO SCH (09:31)
[2023-03-23] MEDS: SACUBITRIL/VALSARTAN 49 MG-51 MG TABLET PO SCH ×2 (09:32→20:41)
[2023-03-23] MEDS: INSULIN ASPART (NovoLOG) 100 UNIT/ML VIAL SQ SCH ×7 (09:33→20:41)
[2023-03-23] MEDS: NON FORMULARY DRUG (Semaglutide [Rybelsus] 7 MG Tablet) PO SCH (09:39)
--- NOTE | 2023-03-23 10:58 | US ---
EXAMINATION TYPE: US arterial LE single level DATE OF EXAM: 03/22/2023 4:24 PM CLINICAL INDICATION: Male, 67 years old with history of PVD; patient poor historian. Wounds right sowmya t. pacemaker History of: Smoker: no Hypertension: no Diabetic: yes Hyperlipidemia: no TIA/CVA: no Previous Vascular Surgery: yes [place]: no Vascular Ulcers: yes Claudication: no Doppler Waveforms: Right: Multiphasic Left: Multiphasic Right Brachial Pressure: 133 Left Brachial Pressure: deferred due to IV Ankle-Brachial Indices: Right: 1.24 Left: Noncompressible Toe Brachial Indices: Right: 0.35 Left: 0.71 IMPRESSION: There is evidence of moderate to severe peripheral vascular disease by toe brachial inde x. Normal right ankle-brachial indices. Noncompressibility on the left.
[2023-03-23 11:44] LABS: Glucose,Whole Blood 85 mg/dL (70-110)
--- NOTE | 2023-03-23 12:34 | P.GSCN ---
History of Present Illness Consult date: 03/23/23 Reason for Consult: Diabetic foot wound. History of present illness: Patient is a 67-year-old male with a long-standing history of diabetes mellitus who is status post amputation of second, third and fourth toes of the right foot. This was performed approximately 2-3 weeks ago at a facility in [facility]. Patient recently moved to this area. In follow-up after surgery the patient's operating surgeon indicated he felt the patient would be best served by hospitalization and further therapy. Patient recently moved to the [facility] and instead of being admitted due to a facility near or in the [facility] elected to present to the emergency room at [facility]. Patient denies any ischemic rest pain type symptoms. There is no history of tobacco use. Past Medical History Past Medical History: Coronary Artery Disease (CAD), Diabetes Mellitus, Hyperlipidemia, Hypertension Additional Past Medical History / Comment(s): Left heel cracked/ History of Any Multi-Drug Resistant Organisms: None Reported Past Surgical History: Coronary Bypass/CABG, Orthopedic Surgery Additional Past Surgical History / Comment(s): amputation toe rt foot, Past Anesthesia/Blood Transfusion Reactions: No Reported Reaction Past Psychological History: Anxiety, Depression Past Alcohol Use History: None Reported Past Drug Use History: None Reported - Past Family History Mother Family Medical History: Diabetes Mellitus Father Family Medical History: Congestive Heart Failure (CHF) Brother(s) Family Medical History: Diabetes Mellitus Sister(s) Family Medical History: Diabetes Mellitus Medications and Allergies Home Medications Medication Instructions Recorded Confirmed Type Atorvastatin Calcium [Lipitor] 40 mg PO DAILY #30 tab 06/19/19 03/19/23 Rx Furosemide [Lasix] 40 mg PO BID #60 tablet 06/19/19 03/19/23 Rx Sacubitril/Valsartan [Entresto 49 1 tab PO BID 09/23/19 03/19/23 History mg-51 mg Tablet] ARIPiprazole [Abilify] 20 mg PO DAILY 03/19/23 03/19/23 History Amoxic-Pot Clav 875-125Mg 1 tab PO BID 03/19/23 03/19/23 History [Augmentin 875-125] Clopidogrel [Plavix] 75 mg PO DAILY 03/19/23 03/19/23 History Doxycycline Monohydrate 100 mg PO BID 03/19/23 03/19/23 History FLUoxetine HCL [PROzac] 40 mg PO DAILY 03/19/23 03/19/23 History Finasteride [Proscar] 5 mg PO DAILY 03/19/23 03/19/23 History Insulin Aspart [NovoLOG Flexpen] 5 units SQ AC-TID 03/19/23 03/19/23 History Insulin Glargine,Hum.rec.anlog 35 units SQ HS 03/19/23 03/19/23 History [Lantus Solostar Pen] Potassium Chloride ER [K-Dur 20] 20 meq PO BID 03/19/23 03/19/23 History Semaglutide [Rybelsus] 7 mg PO DAILY 03/19/23 03/19/23 History Tamsulosin HCl [Flomax] 0.4 mg PO DAILY 03/19/23 03/19/23 History Allergies Allergy/AdvReac Type Severity Reaction Status Date / Time acetaminophen [From Vicodin] AdvReac Hallucinati Verified 03/19/23 18:48 ons hydrocodone [From Vicodin] AdvReac Hallucinati Verified 03/19/23 18:48 ons Surgical - Exam Osteopathic Statement: *. No significant issues noted on an osteopathic structural exam other than those noted in the History and Physical/Consult. Vital Signs Temp Pulse Resp BP Pulse Ox 97.8 F 82 16 161/95 96 03/19/23 14:44 03/19/23 14:44 03/19/23 14:44 03/19/23 14:44 03/19/23 14:44 - Cardiovascular Rhythm: regular Heart Sounds: normal: S1 Examination lower extremity demonstrates femoral popliteal pulses are intact bilaterally. I cannot appreciate DP or PT pulses on either lower extremity. The right foot is status post amputation of the second, third and fourth toes. Esch R is identified on the anterior medial aspect of the right foot. Small piece of the sessile was removed revealing normal healthy-appearing/healing tissue. The second third and fourth toe amputation site demonstrates approximately a 1 cm skin edge dehiscence medially. The middle and lateral aspects of this incision and healed normally. There is a large Esch R over the fifth toe which was removed revealing good healthy-appearing tissue and brisk bleeding characteristics. The plantar surface of the wound demonstrates no evidence of deep space abscess. There is no evidence of cellulitis. Results - Labs 03/21/23 05:23 03/23/23 05:35 Abnormal Lab Results - Last 24 Hours (Table) 03/22/23 03/23/23 Range/Units 20:16 07:13 POC Glucose (mg/dL) 167 H 61 L (70-110) mg/dL Microbiology - Last 24 Hours (Table) 03/19/23 15:30 Blood Culture - Preliminary Blood 03/19/23 15:45 Blood Culture - Preliminary Blood Diabetes panel 03/23/23 Range/Units 05:35 Creatinine 0.83 (0.66-1.25) mg/dL Pituitary panel 03/23/23 Range/Units 05:35 Creatinine 0.83 (0.66-1.25) mg/dL Adrenal panel 03/23/23 Range/Units 05:35 Creatinine 0.83 (0.66-1.25) mg/dL - Imaging Additional studies: Arterial Doppler study as well as radiographs of the right foot were reviewed. Assessment and Plan Assessment: 1: Diabetic vascular disease. 2: Status post transmetatarsal amputation second third fourth digits right foot. 3: Healing wound right foot anterior medial area. 4: Healing right fifth toe. Plan: 1: The /necrotic tissue was removed at bedside revealing the fifth toe to be pink and healthy with good bleeding characteristics. 2: The transmetatarsal amputation wound was debrided of loose tissue. It is anticipated this wound she'll also be able to heal without significant issue. 3: Arterial Doppler study reviewed. I do anticipate the wound to be able to heal with local wound care appropriately administered. Time with Patient: Greater than 30
[2023-03-23 17:08] LABS: Glucose,Whole Blood 121 mg/dL (70-110)
[2023-03-23 20:23] LABS: Glucose,Whole Blood 181 mg/dL (70-110)
[2023-03-23] MEDS: INSULIN DETEMIR (LEVEMIR) 100 UNIT/ML SYR SQ SCH (20:41)
--- NOTE | 2023-03-23 22:45 | P.PN ---
Subjective Progress Note Date: 03/23/23 Patient is a 67-year-old male with a known history of peripheral vascular disease with prior history of right foot toe amputation, diabetes type 2 insulin-dependent, hypertension, coronary artery disease with prior history of CABG at [facility], chronic CHF with systolic function, ischemic cardio myopathy, hyperlipidemia and history of bilateral lower extremity vascular procedure/angio plasty by Dr. Castillo at [facility] was sent from wound care center to ER where she presented with discoloration of the right fourth and fifth toe and dark discoloration on the dorsum of the foot. Patient was seen by Dr. Rivera at the wound care center. Patient otherwise denies any complaints of fever or chills. He did have some surrounding redness around the necrotic area. No complaints of chest pain or shortness of breath. No complaints or leg swelling. Denies any recent trauma. Laboratory data showed WBC 5.7 hemoglobin 13.1 platelets 142 Sodium 140 potassium 3.8 chloride 101 bicarb is 27 BUN 14 and creatinine 0.85 and lactic acid 2.1 X-ray foot showed osteomyelitis/acute involving the head of the second metatarsal 03/21/2023 Patient is currently sitting in the recliner. Awake alert and oriented x 3. States that his right foot pain is better and is also swelling is also improving. Patient is maintained on IV antibiotics Zosyn. ID is on board. Afebrile. Patient would like to follow-up with vascular surgery in the area. Patient was following vascular surgeon was at [facility]. Otherwise denies any chest pain or shortness of breath. No nausea vomiting abdominal pain or diarrhea. No cough or sputum production. Laboratory data reviewed. Patient did have episode of hypoglycemia this morning at 59. Will lower insulin dose to 27 units at bedtime from 35 units. Continue with insulin sliding scale. 03/22/2023 Patient is sitting in the chair. Awake alert and oriented x 3. Currently on room air. Right foot pain and swelling is much improved. Continue IV antibiotics. Vascular surgery and ID is on board. Arterial duplex was ordered. Wound cultures showed moderate normal skin anne. Patient has been afebrile. No complaints of chest pain or shortness of breath. No headache.. Blood sugar is fairly controlled. 03/23/2023 Patient is sitting in the chair. Awake alert and oriented x 3. No complaints of chest pain or shortness of breath. Leg swelling is much improved. No headache or dizziness or lightheadedness. Patient is being current on antibiotics ceftriaxone and vancomycin. Was seen by vascular surgery and is status post debridement of the necrotic tissue over the right fifth toe and dorsum of the foot. Lower extremity arterial duplex showed there is evidence of moderate to severe peripheral vascular disease by toe brachial index. Normal right ankle-brachial indicis. Noncompressibility on the left. Current medications reviewed. Objective - Vital Signs Vital signs: Vital Signs Temp 97.4 F L 03/23/23 11:18 Pulse 72 03/23/23 11:18 Resp 16 03/23/23 11:18 BP 153/74 03/23/23 11:18 Pulse Ox 98 03/23/23 11:18 FiO2 Intake & Output 03/22/23 03/23/23 03/23/23 18:59 06:59 18:59 Intake Total 240 Output Total 400 3 Balance -160 -3 Intake: Oral 240 Output: Urine 400 3 Other: Voiding Method Toilet Toilet Toilet Urinal Urinal Urinal - Exam PHYSICAL EXAMINATION: Patient is lying in the bed comfortably, no acute distress, awake alert and cornelia ented.. HEENT: Normocephalic. Neck is supple. Pupils reactive. Nostrils clear. Oral cavity is moist. Neck reveals no JVD, carotid bruits, or thyromegaly. CHEST EXAMINATION: Trachea is central. Symmetrical expansion. Lung stevens clear to auscultation and percussion. CARDIAC: Normal S1, S2 with no gallops. No murmurs ABDOMEN: Soft. Bowel sounds present. Nontender. No organomegaly. No abdominal bruits. Extremities: reveal no edema. Patient has gangrenous changes to the fifth right toe with surrounding redness and dark gangrenous patch over the dorsum of the foot. No clubbing or cyanosis Neurologically awake, alert, oriented x3 with well-coordinated movements. No focal deficits noted Skin: No rash or skin lesions. Psychiatric: Coperative. Nonsuicidal, Musculoskeletal: No joint swelling or deformity. Normal range of motion. - Labs CBC & Chem 7: 03/21/23 05:23 03/23/23 05:35 Labs: Abnormal Lab Results - Last 24 Hours (Table) 12/09/23 12/10/23 Range/Units 20:16 07:13 POC Glucose (mg/dL) 167 H 61 L (70-110) mg/dL Microbiology - Last 24 Hours (Table) 03/19/23 15:30 Blood Culture - Preliminary Blood 03/19/23 15:45 Blood Culture - Preliminary Blood Assessment and Plan Assessment: Right 5th toe dry gangrene with surrounding cellulitis/diabetic foot infection. Status post debridement. Possible acute osteomyelitis involving the head of the second metatarsal Diabetes type 2 insulin-dependent Coronary artery disease with history of CABG Chronic HFrEF Peripheral vascular disease with history of bilateral lower extremity balloon angioplasty Anxiety/depression BPH DVT prophylaxis with heparin subcu Plan: Patient will be continued on antibiotics, vancomycin and ceftriaxone. Follow-up wound cultures. ID and vascular surgery is on board. Patient is status post debridement on the fifth toe and wound on the dorsum of the foot. Normal ankle-brachial indicis as per arterial duplex. Wound should be able to heal without issues as per vascular surgery recommendations. Anticipate discharge with final ID recommendations. Continue with home medications including insulin regimen and titrate dose as needed. Follow-up closely. Continue pain management. Time with Patient: Greater than 30
[2023-03-24] MEDS: HEPARIN SODIUM,PORCINE 5,000 UNIT/ML 1 ML VIAL SQ SCH ×4 (00:22→23:43)
[2023-03-24 07:20] LABS: Glucose,Whole Blood 58 mg/dL (70-110)
[2023-03-24] MEDS: INSULIN ASPART (NovoLOG) 100 UNIT/ML VIAL SQ SCH ×5 (07:36→20:18)
[2023-03-24 07:41] LABS: African American GFR (CKD) >90 (>60 ml/min/1.73 sqM); Anion Gap 8 mmol/L; Blood Urea Nitrogen 17 mg/dL (9-20); Calcium 8.6 mg/dL (8.4-10.2); Carbon Dioxide 29 mmol/L (22-30); Chloride 105 mmol/L (98-107); Non-African American GFR(CKD) 86 (>60 ml/min/1.73 sqM); Potassium 3.6 mmol/L (3.5-5.1); Sodium 142 mmol/L (137-145)
[2023-03-24 08:44] LABS: Glucose 48 mg/dL (74-99)
[2023-03-24 08:50] LABS: Glucose,Whole Blood 137 mg/dL (70-110)
[2023-03-24] MEDS: ATORVASTATIN 40 MG TAB PO SCH (10:12)
[2023-03-24] MEDS: TAMSULOSIN 0.4 MG CAP.ER.24H PO SCH (10:13)
[2023-03-24] MEDS: FINASTERIDE 5 MG TAB PO SCH (10:13)
[2023-03-24] MEDS: SACUBITRIL/VALSARTAN 49 MG-51 MG TABLET PO SCH ×2 (10:13→20:16)
[2023-03-24] MEDS: NON FORMULARY DRUG (Semaglutide [Rybelsus] 7 MG Tablet) PO SCH (10:13)
[2023-03-24] MEDS: POTASSIUM CHLORIDE ER 20 MEQ TAB.ER PO SCH ×2 (10:13→20:16)
[2023-03-24] MEDS: FLUoxetine HCL 20 MG CAP PO SCH (10:13)
[2023-03-24] MEDS: FUROSEMIDE 40 MG TAB PO SCH ×2 (10:21→20:16)
[2023-03-24 11:03] LABS: Basophils # (A) 0.04 X 10*3/uL (0.00-0.10); Basophils % (A) 0.8 %; Eosinophils # (A) 0.15 X 10*3/uL (0.04-0.35); Eosinophils % (A) 2.8 %; HCT 38.6 % (39.6-50.0); HGB 12.2 g/dL (13.0-17.0); Lymphocytes # (A) 0.99 X 10*3/uL (0.90-5.00); Lymphocytes % (A) 18.7 %; MCH 27.4 pg (27.0-32.0); MCHC 31.6 g/dL (32.0-37.0); MCV 86.5 FL (80.0-97.0); Mean Platelet Volume 11.2 FL (9.5-12.2); Monocytes # (A) 0.35 X 10*3/uL (0.20-1.00); Monocytes % (A) 6.6 %; NRBC Per 100 WBC 0 X 10*3/uL (0.00-0.01); Neutrophils # (A) 3.75 X 10*3/uL (1.80-7.70); Neutrophils % (A) 70.9 %; Platelet Count 125 X 10*3/uL (140-440); RBC 4.46 X 10*6/uL (4.40-5.60); RDW 16.7 % (11.5-14.5); WBC 5.29 X 10*3/uL (4.50-10.00)
[2023-03-24 12:04] LABS: Glucose,Whole Blood 108 mg/dL (70-110)
--- NOTE | 2023-03-24 12:47 | P.CONS ---
History of Present Illness - Reason for Consult Consult date: 03/24/23 wound care - History of Present Illness This is a 67-year-old patient who was seen in the wound care center last week and sent to the emergency department for evaluation of foot gangrene. Patient underwent a surgical debridement resulting in a nonhealing ulceration to the left fifth digit. Patient has eschar nonviable tissue and slough present with minimal granulation. Patient also has open ulcerations to the second and third digit of previously amputation. Original cause of wound was Not Known. The date acquired was: 02/12/2023. The wound is currently classified as a Unable to visualize wound bed wound with etiology of Diabetic Wound/Ulcer of the Lower Extremity and is located on the Right,Medial Foot. The wound measures 3.8cm length x 4.1cm width x 0.1cm depth; 12.237cm^2 area and 1.224cm^3 volume. There is no tunneling or undermining noted. There is a medium amount of drainage noted. The wound margin is distinct with the outline attached to the wound base. There is small (1-33%) granulation within the wound bed. There is a large (67- 100%) amount of necrotic tissue within the wound bed including Eschar. The periwound skin appearance exhibited: Dry/Scaly, Erythema. The periwound skin appearance did not exhibit: Callus, Crepitus, Induration, Rash, Scarring, Maceration, Atrophie [place], Cyanosis, Ecchymosis, Hemosiderin Staining, Mottled, Pallor, Rubor. The surrounding wound skin color is noted with erythema. Periwound temperature was noted as No Abnormality.Original cause of wound was Not Known. The date acquired was: 02/12/2023. The wound is currently classified as a Unable to visualize wound bed wound with etiology of Diabetic Wound/Ulcer of the Lower Extremity and is located on the Right,Distal,Medial Foot. The wound measures 2.3cm length x 2.3cm width x 0.1cm depth; 4.155cm^2 area and 0.415cm^3 volume. There is no tunneling or undermining noted. There is a medium amount of drainage noted. The wound margin is indistinct and nonvisible. There is no granulation within the wound bed. There is a large (67-100%) amount of necrotic tissue within the wound bed including Eschar. The periwound skin appearance exhibited: Dry/Scaly, Erythema. The periwound skin appearance did not exhibit: Callus, Crepitus, Excoriation, Induration, Rash, Scarring, Maceration, Atrophie [place], Cyanosis, Ecchymosis, Hemosiderin Staining, Mottled, Pallor, Rubor. The surrounding wound skin color is noted with erythema. Periwound temperature was noted as No Abnormality.Original cause of wound was Gradually Appeared. The date acquired was: 02/12/2023. The wound is currently classified as a Partial Thickness wound with etiology of Abrasion and is located on the Right,Medial Ankle. The wound measures 1cm length x 1.9cm width x 0.1cm depth; 1.492cm^2 area and 0.149cm^3 volume. There is no tunneling or undermining noted. There is a medium amount of drainage noted. The wound margin is distinct with the outline attached to the wound base. There is no granulation within the wound bed. There is a small (1-33%) amount of necrotic tissue within the wound bed including Eschar. The periwound skin appearance exhibited: Dry/Scaly. The periwound skin appearance did not exhibit: Callus, Crepitus, Excoriation, Induration, Rash, Scarring, Maceration, Atrophie [place], Cyanosis, Ecchymosis, Hemosiderin Staining, Mottled, Pallor, Rubor, Erythema. Periwound temperature was noted as No Abnormality. Original cause of wound was Gradually Appeared. The date acquired was: 03/12/2023. The wound is currently classified as a Full Thickness With Exposed Support Structures wound with etiology of Arterial Insufficiency Ulcer and is located on the Right Toe Second. The wound measures 2.3cm length x 1.6cm width x 0.3cm depth; 2.89cm^2 area and 0.867cm^3 volume. There is no tunneling or undermining noted. There is a medium amount of drainage noted. The wound margin is distinct with the outline attached to the wound base. There is small (1-33%) granulation within the wound bed. There is a large (67-100%) amount of necrotic tissue within the wound bed including Adherent Slough. The periwound skin appearance exhibited: Dry/Scaly, Erythema. The periwound skin appearance did not exhibit: Callus, Crepitus, Excoriation, Induration, Rash, Scarring, Maceration, Atrophie [place], Cyanosis, Ecchymosis, Hemosiderin [place], Mottled, Pallor, Rubor. The surrounding wound skin color is noted with erythema. Periwound temperature was noted as No Abnormality. Original cause of wound was Surgical Injury. The date acquired was: 03/05/2023. The wound is currently classified as a Unclassifiable wound with etiologies of Arterial Insufficiency Ulcer and Open Surgical Wound and is located on the Right Toe - Web between 4th and 5th. The wound measures 4.1cm length x 4.3cm width x 0.1cm depth; 13.847cm^2 area and 1.385cm^3 volume. There is no tunneling or undermining noted. There is a medium amount of drainage noted. The wound margin is indistinct and nonvisible. There is no granulation within the wound bed. There is a large (67-100%) amount of necrotic tissue within the wound bed including Eschar. The periwound skin appearance exhibited: Dry/Scaly, Ecchymosis, Erythema. The periwound skin appearance did not exhibit: Callus, Crepitus, Excoriation, Induration, Rash, Scarring, Maceration, Atrophie [place], Cyanosis, Hemosiderin Staining, Mottled, Pallor, Rubor. The surrounding wound skin color is noted with erythema. Periwound temperature was noted as No Abnormality. Review Of Systems: Constitutional: No fever, no chills, no night sweats. No weight change. No weakness, fatigue or lethargy. No daytime sleepiness. Integumentary:reports wounds, no lesions. No rash or pruritus. No unusual bruising. No change in hair or nails. Physical exam: General Appearance: Alert, cooperative, no distress, appears stated age. Skin: See HPI all other Skin color, texture, tugor normal, no rashes or lesions. Neurologic: Alert oriented x3 Assessment: 1. 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 Osteomyelitis 3. Type 2 diabetes mellitus with foot ulcer 4. Atherosclerosis of [place] arteries of right leg with ulceration of other part of foot Plan: 1. Apply Santyl, saline moistened gauze, dry gauze, rolled gauze and secure with paper tape. Change daily. Patient returned to the wound care center on March 26 at 1:15. Thank you for the consultation any questions to contact the wound care center DNP note has been reviewed and discussed with Dr. Spears and the impression and plan of care has been directed as dictated. Past Medical History Past Medical History: Coronary Artery Disease (CAD), Diabetes Mellitus, Hyperlip idemia, Hypertension Additional Past Medical History / Comment(s): Left heel cracked/ History of Any Multi-Drug Resistant Organisms: None Reported Past Surgical History: Coronary Bypass/CABG, Orthopedic Surgery Additional Past Surgical History / Comment(s): amputation toe rt foot, Past Anesthesia/Blood Transfusion Reactions: No Reported Reaction Past Psychological History: Anxiety, Depression Past Alcohol Use History: None Reported Past Drug Use History: None Reported - Past Family History Mother Family Medical History: Diabetes Mellitus Father Family Medical History: Congestive Heart Failure (CHF) Brother(s) Family Medical History: Diabetes Mellitus Sister(s) Family Medical History: Diabetes Mellitus Medications and Allergies Home Medications Medication Instructions Recorded Confirmed Type Atorvastatin Calcium [Lipitor] 40 mg PO DAILY #30 tab 06/19/19 03/19/23 Rx Furosemide [Lasix] 40 mg PO BID #60 tablet 06/19/19 03/19/23 Rx Sacubitril/Valsartan [Entresto 49 1 tab PO BID 09/23/19 03/19/23 History mg-51 mg Tablet] ARIPiprazole [Abilify] 20 mg PO DAILY 03/19/23 03/19/23 History Amoxic-Pot Clav 875-125Mg 1 tab PO BID 03/19/23 03/19/23 History [Augmentin 875-125] Clopidogrel [Plavix] 75 mg PO DAILY 03/19/23 03/19/23 History Doxycycline Monohydrate 100 mg PO BID 03/19/23 03/19/23 History FLUoxetine HCL [PROzac] 40 mg PO DAILY 03/19/23 03/19/23 History Finasteride [Proscar] 5 mg PO DAILY 03/19/23 03/19/23 History Insulin Aspart [NovoLOG Flexpen] 5 units SQ AC-TID 03/19/23 03/19/23 History Insulin Glargine,Hum.rec.anlog 35 units SQ HS 03/19/23 03/19/23 History [Lantus Solostar Pen] Potassium Chloride ER [K-Dur 20] 20 meq PO BID 03/19/23 03/19/23 History Semaglutide [Rybelsus] 7 mg PO DAILY 03/19/23 03/19/23 History Tamsulosin HCl [Flomax] 0.4 mg PO DAILY 03/19/23 03/19/23 History Allergies Allergy/AdvReac Type Severity Reaction Status Date / Time acetaminophen [From Vicodin] AdvReac Hallucinati Verified 03/19/23 18:48 ons hydrocodone [From Vicodin] AdvReac Hallucinati Verified 03/19/23 18:48 ons Physical Exam Vitals: Vital Signs Temp Pulse Resp BP Pulse Ox 03/24/23 07:14 97.6 F 61 16 147/89 98 03/24/23 00:48 97.5 F L 68 15 146/75 96 03/23/23 20:00 18 03/23/23 19:08 97.5 F L 71 18 144/77 97 Intake and Output 03/23/23 03/24/23 03/24/23 22:59 06:59 14:59 Intake Total 684 240 Output Total 600 400 Balance 84 240 -400 Intake: Oral 684 240 Output: Urine 600 400 Other: Voiding Method Toilet Urinal # Voids 2 Results CBC & Chem 7: 03/24/23 05:40 03/24/23 05:40 Labs: Abnormal Lab Results - Last 24 Hours (Table) 03/23/23 03/23/23 03/24/23 Range/Units 17:03 20:21 05:40 Hgb (13.0-17.0) g/dL Hct (39.6-50.0) % MCHC (32.0-37.0) g/dL RDW (11.5-14.5) % Plt Count (140-440) X 10*3/uL Glucose 48 L* (74-99) mg/dL POC Glucose (mg/dL) 121 H 181 H (70-110) mg/dL 03/24/23 03/24/23 03/24/23 Range/Units 05:40 07:18 08:38 Hgb 12.2 L (13.0-17.0) g/dL Hct 38.6 L (39.6-50.0) % MCHC 31.6 L (32.0-37.0) g/dL RDW 16.7 H (11.5-14.5) % Plt Count 125 L (140-440) X 10*3/uL Glucose (74-99) mg/dL POC Glucose (mg/dL) 58 L 137 H (70-110) mg/dL Assessment and Plan (1) Non-pressure chronic ulcer of other part of right foot with necrosis of bone Current Visit: Yes Status: Acute Code(s): L97.514 - NON-PRS CHRONIC ULCER OTH PRT RIGHT FOOT W NECROSIS OF BONE SNOMED Code(s): 33596936356967521 (2) Type 2 diabetes mellitus with foot ulcer Current Visit: Yes Status: Acute Code(s): E11.621 - TYPE 2 DIABETES MELLITUS WITH FOOT ULCER; L97.509 - NON-PRESSURE CHRONIC ULCER OTH PRT UNSP FOOT W UNSP SEVERITY SNOMED Code(s): 492015909 (3) Osteomyelitis of metatarsal Current Visit: Yes Status: Acute Code(s): M86.9 - OSTEOMYELITIS, UNSPECIFIED SNOMED Code(s): 414334864
[2023-03-24] MEDS: COLLAGENASE 250 UNIT/GM OINTMENT 30 GM TUBE TOPICAL SCH (13:35)
[2023-03-24] MEDS: VANCOMYCIN 1,500 MG in SODIUM CHLORIDE 0.9% 500 ML 500 ML IVPB SCH (14:24)
[2023-03-24 14:51] VITALS: BMI 36.0
--- NOTE | 2023-03-24 15:16 | P.PN ---
Subjective Progress Note Date: 03/24/23 Principal diagnosis: Right foot wounds Patient seen and examined today as a follow-up for right foot wounds. No acute changes through the night. No acute changes through the night. Objective - Vital Signs Vital signs: Vital Signs Temp 97.6 F 03/24/23 07:14 Pulse 61 03/24/23 07:14 Resp 16 03/24/23 07:14 BP 147/89 03/24/23 07:14 Pulse Ox 98 03/24/23 07:14 FiO2 Intake & Output 03/23/23 03/24/23 03/24/23 18:59 06:59 18:59 Intake Total 240 684 Output Total 600 Balance -360 684 Intake: Oral 240 684 Output: Urine 600 Other: Voiding Method Toilet Toilet Urinal Urinal # Voids 2 - Exam General appearance: The patient is alert, oriented, appears in no acute distress. HET: Head is normocephalic and atraumatic. Pupils are equal and reactive. Neck: Supple. Extremities: Areas of eschar on medial and lateral side of right foot. Second, third and fourth toe amputation. Fifth toe with pink viable skin with bleeding noted with dressing change. Neurological: No focal deficits. - Labs CBC & Chem 7: 03/24/23 05:40 03/24/23 05:40 Labs: Abnormal Lab Results - Last 24 Hours (Table) 03/23/23 03/23/23 03/24/23 Range/Units 17:03 20:21 05:40 Glucose 48 L* (74-99) mg/dL POC Glucose (mg/dL) 121 H 181 H (70-110) mg/dL 03/24/23 03/24/23 Range/Units 07:18 08:38 Glucose (74-99) mg/dL POC Glucose (mg/dL) 58 L 137 H (70-110) mg/dL Assessment and Plan Assessment: 1. Right foot diabetic wounds 2. Status post transmetatarsal amputation second, third, fourth digits right foot 3. Diabetic vascular disease 4. Plan: 1. Consult to wound clinic 2. There is no need for surgical debridement at this time. Local wound care per recommendations from wound clinic 3. Patient can follow-up with vascular surgery in 2 weeks Thank you for this consultation, we will sign off at this time. The impression and plan of care has been dictated as directed. I performed a history and examination of this patient, discussed the same with the dictator. I agree with the dictator's note ,documented as a scribe. Any additional findings or plans will be noted.
[2023-03-24 17:13] LABS: Glucose,Whole Blood 161 mg/dL (70-110)
[2023-03-24 20:08] LABS: Glucose,Whole Blood 197 mg/dL (70-110)
[2023-03-24] MEDS ORDERED: INSULIN DETEMIR (LEVEMIR) 100 UNIT/ML SYR SQ SCH (21:00)
[2023-03-25] MEDS: VANCOMYCIN 1,500 MG in SODIUM CHLORIDE 0.9% 500 ML 500 ML IVPB SCH (05:26)
--- NOTE | 2023-03-25 05:29 | P.PN ---
Subjective Progress Note Date: 03/24/23 Patient is a 67-year-old male with a known history of peripheral vascular disease with prior history of right foot toe amputation, diabetes type 2 insulin-dependent, hypertension, coronary artery disease with prior history of CABG at [facility], chronic CHF with systolic function, ischemic card iomyopathy, hyperlipidemia and history of bilateral lower extremity vascular procedure/angio plasty by Dr. Castillo at [facility] was sent from wound care center to ER where she presented with discoloration of the right fourth and fifth toe and dark discoloration on the dorsum of the foot. Patient was seen by Dr. Rivera at the wound care center. Patient otherwise denies any complaints of fever or chills. He did have some surrounding redness around the necrotic area. No complaints of chest pain or shortness of breath. No complaints or leg swelling. Denies any recent trauma. Laboratory data showed WBC 5.7 hemoglobin 13.1 platelets 142 Sodium 140 potassium 3.8 chloride 101 bicarb is 27 BUN 14 and creatinine 0.85 and lactic acid 2.1 X-ray foot showed osteomyelitis/acute involving the head of the second metatarsal 03/21/2023 Patient is currently sitting in the recliner. Awake alert and oriented x 3. States that his right foot pain is better and is also swelling is also improving. Patient is maintained on IV antibiotics Zosyn. ID is on board. Afebrile. Patient would like to follow-up with vascular surgery in the area. Patient was following vascular surgeon was at [facility]. Otherwise denies any chest pain or shortness of breath. No nausea vomiting abdominal pain or diarrhea. No cough or sputum production. Laboratory data reviewed. Patient did have episode of hypoglycemia this morning at 59. Will lower insulin dose to 27 units at bedtime from 35 units. Continue with insulin sliding scale. 03/22/2023 Patient is sitting in the chair. Awake alert and oriented x 3. Currently on room air. Right foot pain and swelling is much improved. Continue IV antibiotics. Vascular surgery and ID is on board. Arterial duplex was ordered. Wound cultures showed moderate normal skin anne. Patient has been afebrile. No complaints of chest pain or shortness of breath. No headache.. Blood sugar is fairly controlled. 03/23/2023 Patient is sitting in the chair. Awake alert and oriented x 3. No complaints of chest pain or shortness of breath. Leg swelling is much improved. No headache or dizziness or lightheadedness. Patient is being current on antibiotics ceftriaxone and vancomycin. Was seen by vascular surgery and is status post debridement of the necrotic tissue over the right fifth toe and dorsum of the foot. Lower extremity arterial duplex showed there is evidence of moderate to severe peripheral vascular disease by toe brachial index. Normal right ankle-brachial indicis. Noncompressibility on the left. 03/24/2023 Patient is seen in follow-up today vascular surgery and infectious disease following. Vascular surgery no plans for surgical intervention and underwent debridement of the necrotic tissue recommending wound care evaluation. Patient is continued on antibiotics with infectious disease following an wounds appear to be improved status post debridement with no cultures obtained. Will discuss further with infectious disease on discharge planning about antibiotics patient will be requiring IV. Patient with significant weakness will have PT/OT therapy evaluated the patient as patient would likely benefit from rehab. Social work to follow this patient would like to return home with his brother. Patient is afebrile denies any chest pain or shortness of breath. Blood sugars have been on the lower side and will adjust the dosing and discontinue pre-meal insulin. Encouraged oral intake and encouraged to increase activity as tolerated. Patient also instructed to elevate lower extremity swelling rest. Review of systems: Constitutional: No reports of fatigue, fever, or chills Cardiovascular: No reports of chest pain or palpitations Respiratory: No reports of shortness of breath or cough GI: No reports of nausea, vomiting, or diarrhea : No reports of dysuria or retention Neurovascular: reports of generalized weakness All medications have been reviewed Current medications reviewed. PHYSICAL EXAMINATION: Patient is sitting up in the chair, no acute distress, awake alert and orient ed.. Elderly-appearing HEENT: Normocephalic. Neck is supple. Pupils reactive. Nostrils clear. Oral c avity is moist. Neck reveals no JVD, carotid bruits, or thyromegaly. CHEST EXAMINATION: Trachea is central. Symmetrical expansion. Lung stevens clear to auscultation and percussion. CARDIAC: Normal S1, S2 with no gallops. No murmurs ABDOMEN: Soft. Bowel sounds present. Nontender. No organomegaly. No abdominal bruits. Extremities: reveal no edema. Patient had gangrenous changes to the fifth right toe with surrounding redness and dark gangrenous patch over the dorsum of the foot and is status post debridement at bedside, appears improved No clubbing or cyanosis Neurologically awake, alert, oriented x3 with well-coordinated movements. No focal deficits noted. Diffusely weak Skin: No rash or skin lesions. Psychiatric: Cooperative. Non-suicidal, Musculoskeletal: No joint swelling or deformity. Normal range of motion. Assessment: Right 5th toe dry gangrene with surrounding cellulitis/diabetic foot infection. Status post debridement with vascular surgery at bedside Possible acute osteomyelitis involving the head of the second metatarsal Diabetes type 2 insulin-dependent, uncontrolled with hyper and hypoglycemia Coronary artery disease with history of CABG Chronic HFrEF Peripheral vascular disease with history of bilateral lower extremity balloon angioplasty Anxiety/depression Generalized weakness BPH DVT prophylaxis with heparin subcu Plan: Patient will be continued on antibiotics, vancomycin and ceftriaxone. Follow-up wound cultures. ID and vascular surgery following his patient is status post debridement at the bedside and recommend wound care consult which is pending Patient is status post debridement on the fifth toe and wound on the dorsum of the foot. Normal ankle-brachial indicis as per arterial duplex. Wound should be able to heal without issues as per vascular surgery recommendations. Patient with significant weakness will have PT/OT therapy evaluate patient. Social work consulted in the event patient may need ECF. Patient would like to return home with family and have home care. Will await PT/OT therapy evaluation Discuss further with infectious disease about discharge planning with antibiotics as there were no cultures obtained Continue monitoring blood sugars closely as blood sugars have been on the lower side and will adjust the doses and discontinue pre-meal insulins. Encouraged oral intake Possible discharge in the next 24-48 hours The impression and plan of care has been dictated by Inez Means, Nurse Pr actitioner as directed. Dr. Joyce MD I have performed a history and examination and MDM of this patient, discussed the same with the dictator, and agree with the dictator's assessment and plan as written ,documented as a scribe. Based on total visit time, I have performed more than 50% of the visit. Objective - Vital Signs Vital signs: Vital Signs Temp 97.6 F 03/24/23 07:14 Pulse 61 03/24/23 07:14 Resp 16 03/24/23 07:14 BP 147/89 03/24/23 07:14 Pulse Ox 98 03/24/23 07:14 FiO2 Intake & Output 03/23/23 03/24/23 03/24/23 18:59 06:59 18:59 Intake Total 240 684 Output Total 600 Balance -360 684 Intake: Oral 240 684 Output: Urine 600 Other: Voiding Method Toilet Toilet Urinal Urinal # Voids 2 - Labs CBC & Chem 7: 03/24/23 05:40 03/24/23 05:40 Labs: Abnormal Lab Results - Last 24 Hours (Table) 03/23/23 03/23/23 03/24/23 Range/Units 17:03 20:21 05:40 Glucose 48 L* (74-99) mg/dL POC Glucose (mg/dL) 121 H 181 H (70-110) mg/dL 03/24/23 03/24/23 Range/Units 07:18 08:38 Glucose (74-99) mg/dL POC Glucose (mg/dL) 58 L 137 H (70-110) mg/dL
[2023-03-25 07:31] LABS: Glucose,Whole Blood 132 mg/dL (70-110)
[2023-03-25 07:33] LABS: African American GFR (CKD) >90 (>60 ml/min/1.73 sqM); Anion Gap 10 mmol/L; Blood Urea Nitrogen 18 mg/dL (9-20); Calcium 8.6 mg/dL (8.4-10.2); Carbon Dioxide 28 mmol/L (22-30); Chloride 104 mmol/L (98-107); Glucose 137 mg/dL (74-99); Magnesium 1.8 mg/dL (1.6-2.3); Non-African American GFR(CKD) >90 (>60 ml/min/1.73 sqM); Potassium 3.4 mmol/L (3.5-5.1); Sodium 142 mmol/L (137-145)
[2023-03-25] MEDS: INSULIN ASPART (NovoLOG) 100 UNIT/ML VIAL SQ SCH ×2 (07:33→12:20)
[2023-03-25 07:42] VITALS: RESP 17
[2023-03-25] MEDS: ATORVASTATIN 40 MG TAB PO SCH (08:44)
[2023-03-25] MEDS: FUROSEMIDE 40 MG TAB PO SCH (08:44)
[2023-03-25] MEDS: FINASTERIDE 5 MG TAB PO SCH (08:44)
[2023-03-25] MEDS: FLUoxetine HCL 20 MG CAP PO SCH (08:44)
[2023-03-25] MEDS: TAMSULOSIN 0.4 MG CAP.ER.24H PO SCH (08:44)
[2023-03-25] MEDS: HEPARIN SODIUM,PORCINE 5,000 UNIT/ML 1 ML VIAL SQ SCH (08:44)
[2023-03-25] MEDS: POTASSIUM CHLORIDE ER 20 MEQ TAB.ER PO SCH ×4 (08:44→14:25)
[2023-03-25] MEDS: COLLAGENASE 250 UNIT/GM OINTMENT 30 GM TUBE TOPICAL SCH (08:45)
[2023-03-25] MEDS: SACUBITRIL/VALSARTAN 49 MG-51 MG TABLET PO SCH (08:45)
[2023-03-25] MEDS: NON FORMULARY DRUG (Semaglutide [Rybelsus] 7 MG Tablet) PO SCH (08:45)
[2023-03-25] MEDS ORDERED: MAGNESIUM SULFATE-D5W PMX 1 GM in DEXTROSE/WATER 1 100ML.BAG IVPB ONE (09:58)
[2023-03-25] MEDS ORDERED: Potassium Replacement Protocol 1 EACH MISC MISCELLANE PRN (09:58)
[2023-03-25] MEDS ORDERED: Magnesium Replacement Protocol 1 EACH MISC MISCELLANE PRN (09:58)
[2023-03-25 11:19] LABS: Basophils # (A) 0.05 X 10*3/uL (0.00-0.10); Eosinophils # (A) 0.17 X 10*3/uL (0.04-0.35); Eosinophils % (A) 3.2 %; HCT 39.6 % (39.6-50.0); HGB 12.6 g/dL (13.0-17.0); Lymphocytes # (A) 0.94 X 10*3/uL (0.90-5.00); Lymphocytes % (A) 17.9 %; MCH 27.1 pg (27.0-32.0); MCHC 31.8 g/dL (32.0-37.0); MCV 85.2 FL (80.0-97.0); Monocytes # (A) 0.35 X 10*3/uL (0.20-1.00); Monocytes % (A) 6.7 %; NRBC Per 100 WBC 0 X 10*3/uL (0.00-0.01); Neutrophils # (A) 3.71 X 10*3/uL (1.80-7.70); Neutrophils % (A) 70.8 %; Platelet Count 118 X 10*3/uL (140-440); RBC 4.65 X 10*6/uL (4.40-5.60); WBC 5.24 X 10*3/uL (4.50-10.00)
[2023-03-25 12:15] LABS: Glucose,Whole Blood 120 mg/dL (70-110)
[2023-03-25] MEDS ORDERED: MAGNESIUM OXIDE 400 MG TAB PO STA (12:53)
[2023-03-25 14:51] VITALS: BP 154/78; PULSE 67; TEMP 97.4
[2023-03-25] MEDS ORDERED: INSULIN DETEMIR (LEVEMIR) 100 UNIT/ML SYR SQ SCH (21:00)
== END 2023-03-25 15:52 | disposition home health service (06) | DRG 300 ==
LOC: EC 14:40 → SUPCPDRO 14:40 → 5NMEDONC 17:56
PROVIDERS: ADMIT Hospitalist; ATTEND Hospitalist
DX: E11.52 Type 2 diabetes mellitus with diabetic peripheral angiopathy with gangrene (principal); I50.22 Chronic systolic (congestive) heart failure; I70.261 Atherosclerosis of native arteries of extremities with gangrene, right leg; M86.171 Other acute osteomyelitis, right ankle and foot; E11.621 Type 2 diabetes mellitus with foot ulcer; E11.628 Type 2 diabetes mellitus with other skin complications; E11.649 Type 2 diabetes mellitus with hypoglycemia without coma; E78.5 Hyperlipidemia, unspecified; F32.A Depression, unspecified; F41.9 Anxiety disorder, unspecified; I11.0 Hypertensive heart disease with heart failure; I25.10 Atherosclerotic heart disease of native coronary artery without angina pectoris; T87.81 Dehiscence of amputation stump; I25.5 Ischemic cardiomyopathy; L03.031 Cellulitis of right toe; L97.514 Non-pressure chronic ulcer of other part of right foot with necrosis of bone; N40.0 Benign prostatic hyperplasia without lower urinary tract symptoms; Z79.02 Long term (current) use of antithrombotics/antiplatelets; Z79.4 Long term (current) use of insulin; Z79.899 Other long term (current) drug therapy; Z82.49 Family history of ischemic heart disease and other diseases of the circulatory system; Z83.3 Family history of diabetes mellitus; Z89.421 Acquired absence of other right toe(s); Z95.1 Presence of aortocoronary bypass graft; Z98.62 Peripheral vascular angioplasty status
CPT/HCPCS: 36415; 80048; 80053; 80202; 82565; 83036; 83605; 83735; 85025; 85610; 85730; 87040; 87070; 87205; 93005; 93922; 96365; 96366; 96368; 99285

== ENCOUNTER 2023-04-17 17:28 | Emergency (ER) | payer MEDICARE, OTHER ==
[2023-04-17 18:17] VITALS: BP 157/92; PULSE 84; RESP 18; TEMP 97.2
--- NOTE | 2023-04-17 18:34 | ED ---
General Adult HPI - General Chief complaint: Psychiatric Symptoms Stated complaint: Mental Health Time Seen by Provider: 04/17/23 17:37 Source: patient, RN notes reviewed, old records reviewed Mode of arrival: EMS - History of Present Illness Initial comments: Patient is a 67-year-old male presents emergency department for psychiatric evaluation. Patient does have a history of toe amputations and sees wound care clinic for this. Endorses a history of diabetes, psychiatric history including recurrent suicidal thoughts presents emergency department for suicidal ideations. Has noticed this is occurring more frequently. States he currently is not having clots but on mostly daily basis for the last few weeks he has been having increased thoughts of wanting to hurt himself. Home nursing called EMS and had him brought here for further evaluation. States he currently does not have these thoughts. Denies any thoughts of wanting to hurt others. Denies any hallucinations. His no other acute complaints at this time. - Related Data Home Medications Medication Instructions Recorded Confirmed Sacubitril/Valsartan [Entresto 49 1 tab PO BID 09/23/19 03/19/23 mg-51 mg Tablet] ARIPiprazole [Abilify] 20 mg PO DAILY 03/19/23 03/19/23 Clopidogrel [Plavix] 75 mg PO DAILY 03/19/23 03/19/23 Doxycycline Monohydrate 100 mg PO BID 03/19/23 03/19/23 FLUoxetine HCL [PROzac] 40 mg PO DAILY 03/19/23 03/19/23 Finasteride [Proscar] 5 mg PO DAILY 03/19/23 03/19/23 Insulin Aspart [NovoLOG Flexpen] 5 units SQ AC-TID 03/19/23 03/19/23 Potassium Chloride ER [K-Dur 20] 20 meq PO BID 03/19/23 03/19/23 Semaglutide [Rybelsus] 7 mg PO DAILY 03/19/23 03/19/23 Tamsulosin HCl [Flomax] 0.4 mg PO DAILY 03/19/23 03/19/23 Previous Rx's Medication Instructions Recorded Atorvastatin Calcium [Lipitor] 40 mg PO DAILY #30 tab 06/19/19 Furosemide [Lasix] 40 mg PO BID #60 tablet 06/19/19 Amoxic-Pot Clav 875-125Mg 1 tab PO BID 10 Days #20 tab 03/25/23 [Augmentin 875-125] Collagenase [Santyl Ointment] 1 applic TOPICAL DAILY 30 Days #1 03/25/23 each Insulin Glargine,Hum.rec.anlog 15 units SQ HS #0 03/25/23 [Lantus Solostar Pen] traZODone HCL [Desyrel] 50 mg PO HS 7 Days #7 tab 04/17/23 Allergies Allergy/AdvReac Type Severity Reaction Status Date / Time acetaminophen [From Vicodin] AdvReac Hallucinati Verified 03/19/23 18:48 ons hydrocodone [From Vicodin] AdvReac Hallucinati Verified 03/19/23 18:48 ons Review of Systems ROS Statement: Those systems with pertinent positive or pertinent negative responses have been documented in the HPI. Review of Systems: CONST: Denies fever EYES: Denies blurry vision ENT: Denies nasal congestion C/V: Denies Chest pain RESP: Denies shortness of breath GI: Denies abdominal pain : Denies dysuria SKIN: Denies rash. MSK: Denies joint pain. NEURO: Denies headache ROS Other: All systems not noted in ROS Statement are negative. Past Medical History Past Medical History: Coronary Artery Disease (CAD), Diabetes Mellitus, Hyperlipidemia, Hypertension Additional Past Medical History / Comment(s): Left heel cracked/ History of Any Multi-Drug Resistant Organisms: None Reported Past Surgical History: Coronary Bypass/CABG, Orthopedic Surgery Additional Past Surgical History / Comment(s): amputation toe rt foot, Past Anesthesia/Blood Transfusion Reactions: No Reported Reaction Past Psychological History: Anxiety, Depression Smoking Status: Never smoker - Past Family History Mother Family Medical History: Diabetes Mellitus Father Family Medical History: Congestive Heart Failure (CHF) Brother(s) Family Medical History: Diabetes Mellitus Sister(s) Family Medical History: Diabetes Mellitus General Exam - General Exam Comments Initial Comments: General: Appears in no acute distress. HEAD: Normal with no signs of head trauma. EYES: EOMI ENT: Hearing grossly intact, normal oropharynx. RESPIRATORY: Clear breath sounds bilaterally. No wheezes, rales, or rhonchi. C/V: Regular rate and rhythm. S1 and S2 auscultated, peripheral pulses 2+ and intact throughout ABD: Abd is soft, nontender, nondistended EXT: Normal range of motion, no obvious deformity SKIN: No rashes or lesions observed on exposed skin. NEURO: Alert and oriented x 4. Course Vital Signs 04/17/23 17:45 Temperature 97.2 F L Pulse Rate 84 Respiratory 18 Rate Blood Pressure 157/92 O2 Sat by Pulse 99 Oximetry Medical Decision Making - Medical Decision Making Was pt. sent in by a medical professional or institution (, PA, TOP LIFT TRIMMER, urgent care, hospital, or care home...) When possible be specific @ -No Did you speak to anyone other than the patient for history (EMS, parent, family, police, friend...)? What history was obtained from this source @ -No Did you review nursing and triage notes (agree or disagree)? Why? @ -I reviewed and agree with nursing and triage notes Were old charts reviewed (outside hosp., previous admission, EMS record, old EKG, old radiological studies, urgent care reports/EKG's, care home records)? Report findings @ -Old charts revealed Differential Diagnosis (chest pain, altered mental status, abdominal pain women, abdominal pain men, vaginal bleeding, weakness, fever, dyspnea, syncope, headache, dizziness, GI bleed, back pain, seizure, CVA, palpatations, mental health, musculoskeletal)? @ -Differential Mental Health Depression, anxiety, bipolar, psychosis, schizophrenia, borderline personality, situational depression, adjustment disorder, behavioral disorder, brain tumor, malingering, substance abuse, encephalopathy, medication reaction, dementia, hypothyroidism, degenerative neurologic disorder, lupus.... This is not meant to be all-inclusive list EKG interpreted by me (3pts min.). @ -As above X-rays interpreted by me (1pt min.). @ -None done CT interpreted by me (1pt min.). @ -None done U/S interpreted by me (1pt. min.). @ -None done What testing was considered but not performed or refused? (CT, X-rays, U/S, labs)? Why? @ -None What meds were considered but not given or refused? Why? @ -None Did you discuss the management of the patient with other professionals (professionals i.e. , RUDDY, TOP LIFT TRIMMER, lab, RT, psych nurse, social research assistant, refinery operator alkylation, teacher, banking officer, case advocate)? Give summary @ -EPS notified of the consult Was smoking cessation discussed for >3mins.? @ -No Was critical care preformed (if so, how long)? @ -No Were there social determinants of health that impacted care today? How? (Homelessness, low income, unemployed, alcoholism, drug addiction, transportation, low edu. Level, literacy, decrease access to med. care, snf, rehab)? @ -No Was there de-escalation of care discussed even if they declined (Discuss DNR or withdrawal of care, Hospice)? DNR status @ -No What co-morbidities impacted this encounter? (DM, HTN, Smoking, COPD, CAD, Cancer, CVA, ARF, Chemo, Hep., AIDS, mental health diagnosis, sleep apnea, morbid obesity)? @ -None Was patient admitted / discharged? Hospital course, mention meds given and route, prescriptions, significant lab abnormalities, going to OR and other pertinent info. @ -Based on the patient's presentation and physical exam, presents emergency Department complaining of suicidal ideations. Patient is placed in a green gown, sitter was ordered., Suicide precautions ordered. Due to his age, we will obtain a screening EKG and basic labs. Patient was in agreement this plan. BAT is 0. UDS is pending. Vital signs within acceptable limits. EKG shows no signs of acute ischemia. Patient's laboratory studies unremarkable. Patient is cleared for EPS evaluation. Disposition pending psychiatric evaluation. Patient is medically cleared. EPS evaluated the patient, determined that he is stable for discharge home. I'm in agreement this plan. He'll be given a short-term prescription for trazodone. Patient discharged with a safety plan. Undiagnosed new problem with uncertain prognosis? @ -No Drug Therapy requiring intensive monitoring for toxicity (Heparin, Nitro, In sulin, Cardizem)? @ -No Were any procedures done? @ -No Diagnosis/symptom? @ -Encounter for psychiatric evaluation Acute, or Chronic, or Acute on Chronic? @ -Acute Uncomplicated (without systemic symptoms) or Complicated (systemic symptoms)? @ -uncomplicated Side effects of treatment? @ -none Exacerbation, Progression, or Severe Exacerbation] @ -no Poses a threat to life or bodily function? @ -no - Lab Data Result diagrams: 04/17/23 18:54 04/17/23 18:54 Lab Results 04/17/23 04/17/23 Range/Units 18:54 18:54 WBC 5.4 (3.8-10.6) k/uL RBC 4.70 (4.30-5.90) m/uL Hgb 13.3 (13.0-17.5) gm/dL Hct 40.9 (39.0-53.0) % MCV 86.9 (80.0-100.0) fL MCH 28.3 (25.0-35.0) pg MCHC 32.6 (31.0-37.0) g/dL RDW 16.8 H (11.5-15.5) % Plt Count 199 (150-450) k/uL MPV 8.2 Neutrophils % 76 % Lymphocytes % 13 % Monocytes % 8 % Eosinophils % 1 % Basophils % 0 % Neutrophils # 4.1 (1.3-7.7) k/uL Lymphocytes # 0.7 L (1.0-4.8) k/uL Monocytes # 0.4 (0-1.0) k/uL Eosinophils # 0.1 (0-0.7) k/uL Basophils # 0.0 (0-0.2) k/uL Hypochromasia Slight Anisocytosis Slight Sodium 141 (137-145) mmol/L Potassium 3.6 (3.5-5.1) mmol/L Chloride 106 (98-107) mmol/L Carbon Dioxide 20 L (22-30) mmol/L Anion Gap 15 mmol/L BUN 17 (9-20) mg/dL Creatinine 0.76 (0.66-1.25) mg/dL Est GFR (CKD-EPI)AfAm >90 (>60 ml/min/1.73 sqM) Est GFR (CKD-EPI)NonAf >90 (>60 ml/min/1.73 sqM) Glucose 81 (74-99) mg/dL Calcium 8.9 (8.4-10.2) mg/dL - EKG Data -: EKG Interpreted by Me EKG Comments: 12-lead Electrocardiogram Interpretation Note EKG was reviewed and interpreted by myself. 12-lead ECG performed at 1910 is interpreted by me as revealing ventricular paced rhythm at a rate of at 72 beats per minute. Right axis deviation. HI interval is 199 ms, QRS duration is 176 seconds, EDC is 483 ms.. There were no obvious acute ST or T wave abnormalities to suggest myocardial ischemia or injury. . By my interpretation this EKG is non-diagnostic for acute ischemia. Disposition Clinical Impression: Encounter for psychiatric assessment Disposition: HOME SELF-CARE Condition: Good Additional Instructions: follow safety plan. Prescriptions: traZODone HCL [Desyrel] 50 mg PO HS 7 Days #7 tab Is patient prescribed a controlled substance at d/c from ED?: No Referrals: Fracisco Claros [Primary Care Provider] - 1-2 days Time of Disposition: 21:35
[2023-04-17 19:42] LABS: Anisocytosis Slight; Basophils % (A) 0 %; Eosinophils # (A) 0.1 k/uL (0-0.7); Eosinophils % (A) 1 %; HCT 40.9 % (39.0-53.0); HGB 13.3 gm/dL (13.0-17.5); Hypochromasia Slight; Lymphocytes # (A) 0.7 k/uL (1.0-4.8); Lymphocytes % (A) 13 %; MCH 28.3 pg (25.0-35.0); MCHC 32.6 g/dL (31.0-37.0); MCV 86.9 fL (80.0-100.0); Mean Platelet Volume 8.2; Monocytes # (A) 0.4 k/uL (0-1.0); Monocytes % (A) 8 %; Neutrophils # (A) 4.1 k/uL (1.3-7.7); Neutrophils % (A) 76 %; Platelet Count 199 k/uL (150-450); RDW 16.8 % (11.5-15.5); WBC 5.4 k/uL (3.8-10.6)
[2023-04-17 19:54] LABS: African American GFR (CKD) >90 (>60 ml/min/1.73 sqM); Anion Gap 15 mmol/L; Blood Urea Nitrogen 17 mg/dL (9-20); Calcium 8.9 mg/dL (8.4-10.2); Carbon Dioxide 20 mmol/L (22-30); Chloride 106 mmol/L (98-107); Glucose 81 mg/dL (74-99); Non-African American GFR(CKD) >90 (>60 ml/min/1.73 sqM); Sodium 141 mmol/L (137-145)
[2023-04-17 19:57] LABS: Potassium 3.6 mmol/L (3.5-5.1)
== END 2023-04-17 22:51 | disposition home or self-care (01) ==
LOC: EC 17:28
DX: Z13.39 Encounter for screening examination for other mental health and behavioral disorders (principal); E11.9 Type 2 diabetes mellitus without complications; I10 Essential (primary) hypertension; I25.10 Atherosclerotic heart disease of native coronary artery without angina pectoris; F32.A Depression, unspecified; F41.9 Anxiety disorder, unspecified; Z79.4 Long term (current) use of insulin; Z79.84 Long term (current) use of oral hypoglycemic drugs; Z79.899 Other long term (current) drug therapy; Z88.5 Allergy status to narcotic agent; Z88.6 Allergy status to analgesic agent; Z95.1 Presence of aortocoronary bypass graft
CPT/HCPCS: 36415; 80048; 82075; 85025; 93005; 99285

== ENCOUNTER 2023-04-23 14:08 | Inpatient (IN) | payer MEDICARE, OTHER ==
--- NOTE | 2023-04-23 14:49 | ED ---
General Adult HPI - General Source: patient Mode of arrival: ambulatory Limitations: no limitations <Fuad Oliveira - Last Filed: 04/23/23 14:56> - General Source: RN notes reviewed, old records reviewed <Flaquito Gold - Last Filed: 05/03/23 18:07> - General Chief complaint: Skin/Abscess/Foreign Body Stated complaint: Cellulitis in both Legs, pcp wants ADMIT Time Seen by Provider: 04/23/23 14:22 - History of Present Illness Initial comments: Dictation was produced using [employer] dictation software. please excuse any grammatical, word or spelling errors. Chief Complaint: 67-year-old male presents to emergency part for one clinic for admission for inpatient care of wound History of Present Illness: 67-year-old male recently admitted to the hospital for leg wound. He was seen at wound care clinic by Dr. Spears. Dr. Spears did notify me states that patient has a wound to his leg that he's not been caring for. Patient allegedly has very poor social situation. Pearly is not been taking his antibiotics. Patient states he lives at home with his siblings. He does not have any assistance. Patient otherwise denies any fever chills or night sweats. The ROS documented in this emergency department record has been reviewed and confirmed by me. Those systems with pertinent positive or negative responses h ave been documented in the HPI. All other systems are other negative and/or noncontributory. (Fuad Oliveira) - Related Data Home Medications Medication Instructions Recorded Confirmed Sacubitril/Valsartan [Entresto 49 1 tab PO BID 09/23/19 04/23/23 mg-51 mg Tablet] ARIPiprazole [Abilify] 20 mg PO DAILY 03/19/23 04/23/23 Clopidogrel [Plavix] 75 mg PO DAILY 03/19/23 04/23/23 FLUoxetine HCL [PROzac] 40 mg PO DAILY 03/19/23 04/23/23 Finasteride [Proscar] 5 mg PO DAILY 03/19/23 04/23/23 Insulin Aspart [NovoLOG Flexpen] 5 units SQ AC-TID 03/19/23 04/23/23 Potassium Chloride ER [K-Dur 20] 20 meq PO BID 03/19/23 04/23/23 Semaglutide [Rybelsus] 7 mg PO DAILY 03/19/23 04/23/23 Aspirin EC [Ecotrin Low Dose] 81 mg PO DAILY 04/23/23 04/23/23 Previous Rx's Medication Instructions Recorded Atorvastatin Calcium [Lipitor] 40 mg PO DAILY #30 tab 06/19/19 Furosemide [Lasix] 40 mg PO BID #60 tablet 06/19/19 Collagenase [Santyl Ointment] 1 applic TOPICAL DAILY 30 Days #1 03/25/23 each Insulin Glargine,Hum.rec.anlog 15 units SQ HS #0 03/25/23 [Lantus Solostar Pen] Ampicillin-Sulbactam [Unasyn 3 gm 3 gm IVPB Q6HR #112 each 04/30/23 vial] amLODIPine [Norvasc] 2.5 mg PO DAILY tab 05/01/23 Allergies Allergy/AdvReac Type Severity Reaction Status Date / Time hydrocodone AdvReac Hallucinati Verified 04/23/23 15:37 ons Review of Systems ROS Other: All systems not noted in ROS Statement are negative. <Fuad Oliveira - Last Filed: 04/23/23 14:56> ROS Other: All systems not noted in ROS Statement are negative. <Flaquito Gold - Last Filed: 05/03/23 18:07> ROS Statement: Those systems with pertinent positive or pertinent negative responses have been documented in the HPI. Past Medical History Past Medical History: Coronary Artery Disease (CAD), Diabetes Mellitus, Hyperlipidemia, Hypertension Additional Past Medical History / Comment(s): Left heel cracked/ History of Any Multi-Drug Resistant Organisms: None Reported Past Surgical History: Coronary Bypass/CABG, Orthopedic Surgery Additional Past Surgical History / Comment(s): amputation toe rt foot, Past Anesthesia/Blood Transfusion Reactions: No Reported Reaction Past Psychological History: Anxiety, Depression Smoking Status: Never smoker - Past Family History Mother Family Medical History: Diabetes Mellitus Father Family Medical History: Congestive Heart Failure (CHF) Brother(s) Family Medical History: Diabetes Mellitus Sister(s) Family Medical History: Diabetes Mellitus <Fuad Oliveira - Last Filed: 04/23/23 14:56> General Exam Limitations: no limitations <Fuad Oliveira - Last Filed: 04/23/23 14:56> General appearance: alert, in no apparent distress Head exam: Present: atraumatic, normocephalic, normal inspection Eye exam: Present: normal appearance, PERRL, EOMI. Absent: scleral icterus, conjunctival injection, periorbital swelling ENT exam: Present: normal exam, mucous membranes moist Neck exam: Present: normal inspection. Absent: tenderness, meningismus, lymphadenopathy Respiratory exam: Present: normal lung sounds bilaterally. Absent: respiratory distress, wheezes, rales, rhonchi, stridor Cardiovascular Exam: Present: regular rate, normal rhythm, normal heart sounds. Absent: systolic murmur, diastolic murmur, rubs, gallop, clicks GI/Abdominal exam: Present: soft, normal bowel sounds. Absent: distended, tenderness, guarding, rebound, rigid Extremities exam: Present: normal inspection, full ROM, normal capillary refill. Absent: tenderness, pedal edema, joint swelling, calf tenderness Back exam: Present: normal inspection Neurological exam: Present: alert, oriented X3, CN II-XII intact Psychiatric exam: Present: normal affect, normal mood Skin exam: Present: warm, dry, intact, normal color. Absent: rash <Flaquito Gold - Last Filed: 05/03/23 18:07> - General Exam Comments Initial Comments: PHYSICAL EXAM: General Impression: Alert and oriented x3, not in acute distress HEENT: Normocephalic atraumatic, extra-ocular movements intact, pupils equal and reactive to light bilaterally, mucous membranes moist. Cardiovascular: Heart regular rate and rhythm Chest: Able to complete full sentences, no retractions, no tachypnea Abdomen: abdomen soft, non-tender, non-distended, no organomegaly Musculoskeletal: Pulses present and equal in all extremities, no peripheral edema Motor: no focal deficits noted Neurological: CN II-XII grossly intact, no focal motor or sensory deficits noted Skin: Multiple erythematous ulcerative wounds to the right lower leg Psych: Normal affect and mood (Fuad Oliveira) Course <Fuad Oliveira - Last Filed: 04/23/23 14:56> <Flaquito Gold - Last Filed: 05/03/23 18:07> Vital Signs 04/23/23 04/23/23 04/23/23 14:17 18:10 19:05 Temperature 97.7 F Pulse Rate 90 68 89 Respiratory 18 18 17 Rate Blood Pressure 186/87 141/82 156/86 O2 Sat by Pulse 97 97 96 Oximetry - Reevaluation(s) Reevaluation #1: 04/23/23 14:49 Chart review was performed. Discharge summary from 03/25/2023 was reviewed showing the patient was diagnosed osteomyelitis. At time he did get a debridement of the right fifth toe. (Fuad Oliveira) Reevaluation #2: 04/23/23 20:57 Patient has no change in symptoms here in the ER (Flaquito Gold) Reevaluation #3: 04/23/23 20:57 Patient informed results and questions answered (Flaquito Gold) - Consultations Consultation #1: [facility] agrees to admit this patient (Flaquito Gold) Medical Decision Making <Fuad Oliveira - Last Filed: 04/23/23 14:56> - Lab Data Result diagrams: 04/30/23 04:19 05/01/23 05:22 - Radiology Data Radiology results: report reviewed (X-ray left foot is negative for significant acute disease), image reviewed <Flaquito Gold - Last Filed: 05/03/23 18:07> - Medical Decision Making Was pt. sent in by a medical professional or institution (RUDDY Desir, MECHANICAL PRODUCT ENGINEER, urgent care, hospital, or usp...) When possible be specific @ -No Did you speak to anyone other than the patient for history (EMS, parent, family, police, friend...)? What history was obtained from this source @ -No Did you review nursing and triage notes (agree or disagree)? Why? @ -I reviewed and agree with nursing and triage notes Were old charts reviewed (outside hosp., previous admission, EMS record, old EKG, old radiological studies, urgent care reports/EKG's, usp records)? Report findings @ -See above Differential Diagnosis (chest pain, altered mental status, abdominal pain women, abdominal pain men, vaginal bleeding, musculoskeletal, weakness, fever, dyspnea, syncope, headache, dizziness, GI bleed, back pain, seizure, CVA, palpatations, mental health)? @ -not applicable EKG interpreted by me (3pts min.). @ -None done X-rays interpreted by me (1pt min.). @ -None done CT interpreted by me (1pt min.). @ -None done U/S interpreted by me (1pt. min.). @ -None done What testing was considered but not performed or refused? (CT, X-rays, U/S, labs)? Why? @ -None What meds were considered but not given or refused? Why? @ -None Did you discuss the management of the patient with other professionals (pr ofessionals i.e. , PA, MECHANICAL PRODUCT ENGINEER, lab, RT, psych nurse, geriatric social work professor, ash kier boiler, teacher, agricultural extension officer, outpatient case manager)? Give summary @ -No Was smoking cessation discussed for >3mins.? @ -No Was critical care preformed (if so, how long)? @ -No Were there social determinants of health that impacted care today? How? (Homelessness, low income, unemployed, alcoholism, drug addiction, transport ation, low edu. Level, literacy, decrease access to med. care, care home, rehab)? @ -No Was there de-escalation of care discussed even if they declined (Discuss DNR or withdrawal of care, Hospice)? DNR status @ -No What co-morbidities impacted this encounter? (DM, HTN, Smoking, COPD, CAD, Cancer, CVA, ARF, Chemo, Hep., AIDS, mental health diagnosis, sleep apnea, morbid obesity)? @ -None Was patient admitted / discharged? Hospital course, mention meds given and route, prescriptions, significant lab abnormalities, going to OR and other pertinent info. @ -67-year-old male with chronic wound to the right lower extremity. Is recently diagnosed with osteomyelitis along with cellulitis. Vital signs stable. According to art therapy specialist patient has not been receiving care. Apparently he has a poor social situation and will require inpatient treatment and likely usp rehab placement. And imaging studies ordered. Patient's signout to Dr. Sorensen At 3:00 PM (Fuad Oliveira) 67 male from wound. Patient will be admitted for right lower extremity cellulitis with possible increasing osteomyelitis and need for IV antibiotics (Flaquito Gold) - Lab Data Lab Results 04/23/23 04/23/23 04/23/23 Range/Units 16:03 16:03 16:03 WBC 7.2 (3.8-10.6) k/uL RBC 5.08 (4.30-5.90) m/uL Hgb 14.1 (13.0-17.5) gm/dL Hct 43.8 (39.0-53.0) % MCV 86.2 (80.0-100.0) fL MCH 27.7 (25.0-35.0) pg MCHC 32.1 (31.0-37.0) g/dL RDW 16.3 H (11.5-15.5) % Plt Count 191 (150-450) k/uL MPV 7.9 Neutrophils % 84 % Lymphocytes % 9 % Monocytes % 5 % Eosinophils % 1 % Basophils % 1 % Neutrophils # 6.1 (1.3-7.7) k/uL Lymphocytes # 0.6 L (1.0-4.8) k/uL Monocytes # 0.4 (0-1.0) k/uL Eosinophils # 0.0 (0-0.7) k/uL Basophils # 0.0 (0-0.2) k/uL Hypochromasia Slight Anisocytosis Slight Sodium 144 (137-145) mmol/L Potassium 3.4 L (3.5-5.1) mmol/L Chloride 101 (98-107) mmol/L Carbon Dioxide 33 H (22-30) mmol/L Anion Gap 10 mmol/L BUN 14 (9-20) mg/dL Creatinine 0.81 (0.66-1.25) mg/dL Est GFR (CKD-EPI)AfAm >90 (>60 ml/min/1.73 sqM) Est GFR (CKD-EPI)NonAf >90 (>60 ml/min/1.73 sqM) Glucose 154 H (74-99) mg/dL Plasma Lactic Acid Ludin 1.0 (0.7-2.0) mmol/L Calcium 9.0 (8.4-10.2) mg/dL Magnesium 1.6 (1.6-2.3) mg/dL Disposition <Fuad Oliveira - Last Filed: 04/23/23 14:56> Is patient prescribed a controlled substance at d/c from ED?: No Time of Disposition: 17:00 <Flaquito Gold - Last Filed: 05/03/23 18:07> Clinical Impression: Osteomyelitis of metatarsal, Type 2 diabetes mellitus with foot ulcer, 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
--- NOTE | 2023-04-23 15:36 | XR ---
EXAMINATION TYPE: XR foot complete RT DATE OF EXAM: 04/23/2023 COMPARISON: 03/19/2023 HISTORY: 67-year-old male follow-up wounds right foot TECHNIQUE: 3 views FINDINGS: Amputation of the second through fourth toes. There appears to be a worsening wound along t he medial midfoot. Hammertoe of the fifth toe. Diffuse soft tissue swelling persists. Vascular calcif ications suggest underlying diabetes and her chronic kidney disease. Bipartite tibial sesamoid. Focal marginal erosions on either side of the second metatarsal head are more defined now. Small eros ion at the third metatarsal head are unchanged. IMPRESSION: 1. Previous amputations of the second through fourth toes. 2. Wound at the stump soft tissues. Additional deepening wound medial midfoot. 3. Focal erosions at the second metatarsal head appear to have deepened compared to 03/19/2023. Unable to exclude contiguous osteomyelitis here.
[2023-04-23 16:26] LABS: Anisocytosis Slight; Basophils % (A) 1 %; Eosinophils % (A) 1 %; HCT 43.8 % (39.0-53.0); HGB 14.1 gm/dL (13.0-17.5); Hypochromasia Slight; Lymphocytes # (A) 0.6 k/uL (1.0-4.8); Lymphocytes % (A) 9 %; MCH 27.7 pg (25.0-35.0); MCHC 32.1 g/dL (31.0-37.0); MCV 86.2 fL (80.0-100.0); Mean Platelet Volume 7.9; Monocytes # (A) 0.4 k/uL (0-1.0); Monocytes % (A) 5 %; Neutrophils # (A) 6.1 k/uL (1.3-7.7); Neutrophils % (A) 84 %; Platelet Count 191 k/uL (150-450); RBC 5.08 m/uL (4.30-5.90); RDW 16.3 % (11.5-15.5); WBC 7.2 k/uL (3.8-10.6)
[2023-04-23 16:42] LABS: African American GFR (CKD) >90 (>60 ml/min/1.73 sqM); Anion Gap 10 mmol/L; Blood Urea Nitrogen 14 mg/dL (9-20); Carbon Dioxide 33 mmol/L (22-30); Chloride 101 mmol/L (98-107); Glucose 154 mg/dL (74-99); Magnesium 1.6 mg/dL (1.6-2.3); Non-African American GFR(CKD) >90 (>60 ml/min/1.73 sqM); Potassium 3.4 mmol/L (3.5-5.1); Sodium 144 mmol/L (137-145)
[2023-04-23] MEDS ORDERED: MORPHINE SULFATE 4 MG/ML SYRINGE IV PRN (16:43)
[2023-04-23] MEDS ORDERED: NALOXONE 0.4 MG/ML 1 ML VIAL IV PRN (16:43)
[2023-04-23] MEDS ORDERED: ONDANSETRON 4 MG/2 ML VIAL IVP PRN (16:43)
[2023-04-23] MEDS ORDERED: VANCOMYCIN IV PER PHARMACY 1 EACH MISC MISCELLANE PRN (16:46)
[2023-04-23] MEDS ORDERED: VANCOMYCIN 1,750 MG in SODIUM CHLORIDE 0.9% 500 ML 500 ML IVPB STA (16:53)
[2023-04-23] MEDS: SODIUM CHLORIDE 0.9% 1,000 ML IV SCH (18:02)
[2023-04-23 22:09] LABS: Glucose,Whole Blood 178 mg/dL (70-110)
[2023-04-24] MEDS: SODIUM CHLORIDE 0.9% 1,000 ML IV SCH ×3 (00:30→16:58)
[2023-04-24 05:42] LABS: Glucose,Whole Blood 200 mg/dL (70-110)
[2023-04-24] MEDS ORDERED: VANCOMYCIN 1,750 MG in SODIUM CHLORIDE 0.9% 500 ML 500 ML IVPB SCH (06:00)
[2023-04-24 09:09] LABS: ALT 47 U/L (10-49); AST 63 U/L (14-35); Albumin/Globulin Ratio 1.48 Ratio (1.60-3.17); Alkaline Phosphatase 178 U/L (41-126); BUN/Creat Ratio 13.18 Ratio (12.00-20.00); Blood Urea Nitrogen 14.5 mg/dL (9.0-27.0); Calcium 9.3 mg/dL (8.7-10.3); Carbon Dioxide 26.2 mmol/L (21.6-31.8); Chloride 103 mmol/L (96-109); Globulin 2.7 g/dL (1.6-3.3); Glucose 215 mg/dL (70-110); Magnesium 1.7 mg/dL (1.5-2.4); Phosphorus 2.9 mg/dL (2.4-5.1); Potassium 3.7 mmol/L (3.5-5.5); Sodium 144 mmol/L (135-145); Total Bilirubin 0.6 mg/dL (0.3-1.2); Total Protein 6.7 g/dL (6.2-8.2)
[2023-04-24 09:25] LABS: Basophils # (A) 0.05 X 10*3/uL (0.00-0.10); Basophils % (A) 0.5 %; Eosinophils # (A) 0.08 X 10*3/uL (0.04-0.35); Eosinophils % (A) 0.8 %; HCT 45.3 % (39.6-50.0); Lymphocytes # (A) 0.95 X 10*3/uL (0.90-5.00); Lymphocytes % (A) 8.9 %; MCH 26.8 pg (27.0-32.0); MCHC 30.9 g/dL (32.0-37.0); MCV 86.6 FL (80.0-97.0); Mean Platelet Volume 10.9 FL (9.5-12.2); Monocytes # (A) 0.73 X 10*3/uL (0.20-1.00); Monocytes % (A) 6.8 %; NRBC Per 100 WBC 0 X 10*3/uL (0.00-0.01); Neutrophils # (A) 8.79 X 10*3/uL (1.80-7.70); Neutrophils % (A) 82.4 %; Platelet Count 212 X 10*3/uL (140-440); RBC 5.23 X 10*6/uL (4.40-5.60); RDW 16.3 % (11.5-14.5); WBC 10.66 X 10*3/uL (4.50-10.00)
[2023-04-24] MEDS ORDERED: DEXTROSE 50% SYRINGE 50 ML IVP PRN ×2 (10:01)
[2023-04-24 11:52] LABS: Glucose,Whole Blood 159 mg/dL (70-110)
[2023-04-24] MEDS: INSULIN ASPART (NovoLOG) 100 UNIT/ML VIAL SQ SCH ×3 (12:08→20:56)
--- NOTE | 2023-04-24 13:26 | P.GSCN ---
History of Present Illness Consult date: 04/24/23 Reason for Consult: right foot wounds Requesting physician: Lokesh Hogan History of present illness: This is a 67-year-old male who presented to the emergency department for right foot wounds. He was recently seen last month on 03/23/2023 by vascular surgery with the foot wounds and recommended outpatient follow-up with wound care. He states he has been seen here at our [facility] wound care clinic. HE was seen yes terday in the clinic by Dr. Spears and was sent here for further evaluation. He had increased redness to his right foot, not taking his antibiotics as scheduled. Patient has poor social history. No good support. He has a past medical history of coronary artery disease status post CABG, diabetes mellitus, hyperlipidemia, hypertension, chronic wound with amputation of second through third toes of the right foot, anxiety and depression. During his last admission he had ABIs with good waveforms and patient should be able to heal wounds without any vascular intervention. Foot x-ray during this admission which reported previous amputation, wound at the stump soft tissues, additional deepen ing wound medial midfoot focal erosions at the second metatarsal head appeared to have deep and compared to 03/19/2023. Unable to exclude contagious osteomyelitis. Patient's admitted with leukocytosis, he is afebrile. Vascular surgery consulted for right foot wounds. Patient apparently has not been taking care of his wound at home or taking his antibiotics as prescribed. Review of Systems A 14 point review systems was completed all pertinent positives and negatives as stated in the HPI. Past Medical History Past Medical History: Coronary Artery Disease (CAD), Diabetes Mellitus, Hyperlipidemia, Hypertension Additional Past Medical History / Comment(s): Left heel cracked/ History of Any Multi-Drug Resistant Organisms: None Reported Past Surgical History: Coronary Bypass/CABG, Orthopedic Surgery, Pacemaker Additional Past Surgical History / Comment(s): amputation 3 medial toes rt foot, one toe amp on left Past Anesthesia/Blood Transfusion Reactions: No Reported Reaction Type of Cardiac Device: Unknown Device Placement Date:: unknown Past Psychological History: Anxiety, Depression Smoking Status: Never smoker Past Alcohol Use History: None Reported Past Drug Use History: None Reported - Past Family History Mother Family Medical History: Diabetes Mellitus Father Family Medical History: Congestive Heart Failure (CHF) Brother(s) Family Medical History: Diabetes Mellitus Sister(s) Family Medical History: Diabetes Mellitus Medications and Allergies Home Medications Medication Instructions Recorded Confirmed Type Atorvastatin Calcium [Lipitor] 40 mg PO DAILY #30 tab 06/19/19 04/23/23 Rx Furosemide [Lasix] 40 mg PO BID #60 tablet 06/19/19 04/23/23 Rx Sacubitril/Valsartan [Entresto 49 1 tab PO BID 09/23/19 04/23/23 History mg-51 mg Tablet] ARIPiprazole [Abilify] 20 mg PO DAILY 03/19/23 04/23/23 History Clopidogrel [Plavix] 75 mg PO DAILY 03/19/23 04/23/23 History FLUoxetine HCL [PROzac] 40 mg PO DAILY 03/19/23 04/23/23 History Finasteride [Proscar] 5 mg PO DAILY 03/19/23 04/23/23 History Insulin Aspart [NovoLOG Flexpen] 5 units SQ AC-TID 03/19/23 04/23/23 History Potassium Chloride ER [K-Dur 20] 20 meq PO BID 03/19/23 04/23/23 History Semaglutide [Rybelsus] 7 mg PO DAILY 03/19/23 04/23/23 History Collagenase [Santyl Ointment] 1 applic TOPICAL DAILY 30 Days #1 03/25/23 0 04/23/23 Rx each Insulin Glargine,Hum.rec.anlog 15 units SQ HS #0 03/25/23 04/23/23 Rx [Lantus Solostar Pen] Aspirin EC [Ecotrin Low Dose] 81 mg PO DAILY 04/23/23 04/23/23 History Allergies Allergy/AdvReac Type Severity Reaction Status Date / Time hydrocodone AdvReac Hallucinati Verified 04/23/23 15:37 ons Surgical - Exam Vital Signs Temp Pulse Resp BP Pulse Ox 97.7 F 90 18 186/87 97 04/23/23 14:17 04/23/23 14:17 04/23/23 14:17 04/23/23 14:17 04/23/23 14:17 General appearance: The patient is alert, oriented, appears in no acute distress. HET: Head is normocephalic and atraumatic. Pupils are equal and reactive. Neck: Supple. Heart: Regular. Lungs: Equal expansion, normal respiratory effort. Abdomen: Soft, nontender, nondistended. Extremities: Right foot with multiple wounds with eschar including dorsal aspect of foot, medial apsect and fifth toe. Edema to the right foot, cellulitis. Area of increased redness on the plantar surface as well. Neurological: No focal deficits. Results - Labs 04/24/23 05:20 04/24/23 05:20 Abnormal Lab Results - Last 24 Hours (Table) 04/23/23 04/23/23 04/23/23 Range/Units 16:03 16:03 22:07 WBC (4.50-10.00) X 10*3/uL MCH (27.0-32.0) pg MCHC (32.0-37.0) g/dL RDW 16.3 H (11.5-15.5) % Immature Gran # (0.00-0.04) X 10*3/uL Neutrophils # (1.80-7.70) X 10*3/uL Lymphocytes # 0.6 L (1.0-4.8) k/uL Potassium 3.4 L (3.5-5.1) mmol/L Carbon Dioxide 33 H (22-30) mmol/L Anion Gap (4.00-12.00) mmol/L Glucose 154 H (74-99) mg/dL POC Glucose (mg/dL) 178 H (70-110) mg/dL AST (14-35) U/L Alkaline Phosphatase (41-126) U/L Albumin/Globulin Ratio (1.60-3.17) Ratio 04/24/23 04/24/23 04/24/23 Range/Units 05:20 05:20 05:40 WBC 10.66 H (4.50-10.00) X 10*3/uL MCH 26.8 L (27.0-32.0) pg MCHC 30.9 L (32.0-37.0) g/dL RDW 16.3 H (11.5-15.5) % Immature Gran # 0.06 H (0.00-0.04) X 10*3/uL Neutrophils # 8.79 H (1.80-7.70) X 10*3/uL Lymphocytes # (1.0-4.8) k/uL Potassium (3.5-5.1) mmol/L Carbon Dioxide (22-30) mmol/L Anion Gap 14.80 H (4.00-12.00) mmol/L Glucose 215 H (74-99) mg/dL POC Glucose (mg/dL) 200 H (70-110) mg/dL AST 63 H (14-35) U/L Alkaline Phosphatase 178 H (41-126) U/L Albumin/Globulin Ratio 1.48 L (1.60-3.17) Ratio 04/24/23 Range/Units 11:50 WBC (4.50-10.00) X 10*3/uL MCH (27.0-32.0) pg MCHC (32.0-37.0) g/dL RDW (11.5-15.5) % Immature Gran # (0.00-0.04) X 10*3/uL Neutrophils # (1.80-7.70) X 10*3/uL Lymphocytes # (1.0-4.8) k/uL Potassium (3.5-5.1) mmol/L Carbon Dioxide (22-30) mmol/L Anion Gap (4.00-12.00) mmol/L Glucose (74-99) mg/dL POC Glucose (mg/dL) 159 H (70-110) mg/dL AST (14-35) U/L Alkaline Phosphatase (41-126) U/L Albumin/Globulin Ratio (1.60-3.17) Ratio Diabetes panel 04/23/23 04/24/23 Range/Units 16:03 05:20 Sodium 144 144 (137-145) mmol/L Potassium 3.4 L 3.7 (3.5-5.1) mmol/L Chloride 101 103 (98-107) mmol/L Carbon Dioxide 33 H 26.2 (22-30) mmol/L BUN 14 14.5 (9-20) mg/dL Creatinine 0.81 1.1 (0.66-1.25) mg/dL Glucose 154 H 215 H (74-99) mg/dL Calcium 9.0 9.3 (8.4-10.2) mg/dL AST 63 H (14-35) U/L ALT 47 (10-49) U/L Alkaline Phosphatase 178 H (41-126) U/L Total Protein 6.7 (6.2-8.2) g/dL Albumin 4.0 (3.8-4.9) g/dL Calcium panel 04/23/23 04/24/23 Range/Units 16:03 05:20 Calcium 9.0 9.3 (8.4-10.2) mg/dL Phosphorus 2.9 (2.4-5.1) mg/dL Albumin 4.0 (3.8-4.9) g/dL Pituitary panel 04/23/23 04/24/23 Range/Units 16:03 05:20 Sodium 144 144 (137-145) mmol/L Potassium 3.4 L 3.7 (3.5-5.1) mmol/L Chloride 101 103 (98-107) mmol/L Carbon Dioxide 33 H 26.2 (22-30) mmol/L BUN 14 14.5 (9-20) mg/dL Creatinine 0.81 1.1 (0.66-1.25) mg/dL Glucose 154 H 215 H (74-99) mg/dL Calcium 9.0 9.3 (8.4-10.2) mg/dL Adrenal panel 04/23/23 04/24/23 Range/Units 16:03 05:20 Sodium 144 144 (137-145) mmol/L Potassium 3.4 L 3.7 (3.5-5.1) mmol/L Chloride 101 103 (98-107) mmol/L Carbon Dioxide 33 H 26.2 (22-30) mmol/L BUN 14 14.5 (9-20) mg/dL Creatinine 0.81 1.1 (0.66-1.25) mg/dL Glucose 154 H 215 H (74-99) mg/dL Calcium 9.0 9.3 (8.4-10.2) mg/dL Total Bilirubin 0.6 (0.3-1.2) mg/dL AST 63 H (14-35) U/L ALT 47 (10-49) U/L Alkaline Phosphatase 178 H (41-126) U/L Total Protein 6.7 (6.2-8.2) g/dL Albumin 4.0 (3.8-4.9) g/dL Assessment and Plan Assessment: 1. Chronic right foot wounds 2. Cellulitis 3. History of coronary artery disease status post CABG 4. Medical noncompliance Plan: 1. CT right foot, rule out abscess 2. Continue antibiotic recommendations from infectious disease 3. Keep nothing by mouth after midnight for possible intervention 4. Continue local wound care 5. Consult to rn social work to evaluate home situation and financial resources 6. Further recommendations forthcoming based on clinical course Thank you for this consultation, we will continue to follow. The impression and plan of care has been dictated as directed. I performed a history and examination of this patient, discussed the same with the dictator. I agree with the dictator's note ,documented as a scribe. Any additional findings or plans will be noted.
[2023-04-24] MEDS ORDERED: ACETAMINOPHEN TAB 325 MG TAB PO PRN (16:20)
[2023-04-24] MEDS ORDERED: ONDANSETRON 4 MG/2 ML VIAL IVP PRN (16:20)
--- NOTE | 2023-04-24 16:26 | P.HPIM ---
History of Present Illness H&P Date: 04/24/23 This is a very pleasant 67-year-old male who presented to the emergency department for cellulitis of bilateral lower extremities. Patient was evaluated by Dr. Spears in the outpatient setting as he has chronic lower extremity wounds and has failed to follow-up with any providers in the outpatient setting. Patient was recently admitted and hospitalized with concerns of osteomyelitis of the right lower extremity and was sent home on antibiotics and per patient along with brother does not currently have a primary care provider. Patient has a significant past medical history of coronary artery disease, diabetes mellitus, hyperlipidemia, hypertension, previous CABG with pacemaker, previous amputation of the medial toes on the right foot and one toe indication on the left with also history of anxiety and depression. Patient had imaging in the ER including x-ray of the right foot showing previous amputations along with wounds at the stump with additional deepening wound along with focal erosions at the second metatarsal head that appeared to be worse than previous and Ben. ID consulted and appreciate input and recommendations. Vascular surgery consulted for further evaluation as well. On admission patient denied any fevers although did report having some increased redness and swelling to his right lower extremity that has been traveling up his leg. White count this morning shows 10.66 with hemoglobin of 14.0 and platelets are 212, sodium is 144 with a potassium of 3.7 and current creatinine is 1.1. Magnesium 1.7 and blood sugars 150s- 200s. Patient is insulin-dependent and reports he checks his blood sugars and provides insulin to himself. Patient has a severely poor social support and lives with brother in the home. Patient was admitted for bilateral lower extremity cellulitis. Review Of Systems: Constitutional: No fever, no chills, no night sweats. No weight change. No weakness, fatigue or lethargy. No daytime sleepiness. EENT: No headache. No blurred vision or double vision, no loss of vision. No loss of Hearing, no ringing in the ears, no dizziness. No nasal drainage or congestion. No epistaxis. No sore throat. Lungs: No shortness of breath, cough, no sputum production. No wheezing. Cardiovascular: No chest pain, no lower extremity edema. No palpitations. No paroxysmal nocturnal dyspnea. No orthopnea. No lightheadedness or dizziness. No syncopal episodes. Abdominal: No abdominal pain. No nausea, vomiting. No diarrhea. No c onstipation. No bloody or tarry stools.. No loss of appetite. Genitourinary: No dysuria, increased frequency, urgency. No urinary retention. Musculoskeletal: No myalgias. No muscle weakness, no gait dysfunction, no frequent falls. No back pain. No neck pain. Integumentary: No wounds, no lesions. No rash or pruritus. No unusual bruising. No change in hair or nails. Neurologic: No aphasia. No facial droop. No change in mentation. No head injury. No headache. No paralysis. No paresthesia. Psychiatric: No depression. No anxiety. No mood swings. Endocrine: No abnormal blood sugars. No weight change. No excessive sweating or thirst. No cold intolerance. PHYSICAL EXAMINATION: GENERAL: The patient is alert and oriented x4, Well developed, well nourished. HEENT: Pupils are round and equally reacting to light. EOMI. no scleral icterus. No conjunctival pallor. Normocephalic, atraumatic. No pharyngeal erythema. No thyromegaly. CARDIOVASCULAR: S1 and S2 muffled PULMONARY: diminished breath sounds bilaterally with no wheezing or rhonchi noted. ABDOMEN: soft. Nontender on exam. obese. non-distended, normoactive bowel sounds. No palpable organomegaly. MUSCULOSKELETAL: No joint swelling or deformity. EXTREMITIES: No cyanosis, clubbing, or pedal edema. NEUROLOGICAL: Gross neurological examination did not reveal any focal deficits. Diffuse weakness SKIN: No rashes. Assessment: Chronic right foot wounds with history of osteomyelitis Bilateral lower extremity cellulitis, present on admission Mild leukocytosis, secondary to above diabetes mellitus, insulin-dependent, uncontrolled with hyper and hypoglycemia history of coronary artery disease with CABG Gait dysfunction Poor social support History of hyperlipidemia History of hypertension history of anxiety/depression GI prophylaxis DVT prophylaxis Full code Plan: Recommend to continue with current medications and management and will continue on antibiotic therapy with infectious disease following appreciate input and recommendations. Vascular surgery was consulted and CT foot ordered Continue monitoring Accu-Cheks before meals and at bedtime as well as 2 AM as patient is a brittle diabetic and experiences hypo-glycemia frequently. Home medications reviewed and resumed as appropriate PT/OT therapy consulted Case management consulted as well this patient would likely benefit from ECF for continued wound care with possible need for antibiotics. Patient has an extremely poor social support and lives with brother and is not providing adequate care and is noncompliant with medications and follow-up. Patient currently has no primary care provider and has been instructed to establish with one on previous visits. Will provide resources on discharge is as well. The impression and plan of care has been dictated by Inez Means nurse practitioner as directed. Dr. Joyce MD I have performed a history and examination and MDM of this patient, discussed the same with the dictator, and agree with the dictator's assessment and plan as written ,documented as a scribe. Based on total visit time, I have performed more than 50% of the visit. Any additional findings or plans will be noted. Past Medical History Past Medical History: Coronary Artery Disease (CAD), Diabetes Mellitus, Hyperlipidemia, Hypertension Additional Past Medical History / Comment(s): Left heel cracked/ History of Any Multi-Drug Resistant Organisms: None Reported Past Surgical History: Coronary Bypass/CABG, Orthopedic Surgery, Pacemaker Additional Past Surgical History / Comment(s): amputation 3 medial toes rt foot, one toe amp on left Past Anesthesia/Blood Transfusion Reactions: No Reported Reaction Type of Cardiac Device: Unknown Device Placement Date:: unknown Past Psychological History: Anxiety, Depression Smoking Status: Never smoker Past Alcohol Use History: None Reported Past Drug Use History: None Reported - Past Family History Mother Family Medical History: Diabetes Mellitus Father Family Medical History: Congestive Heart Failure (CHF) Brother(s) Family Medical History: Diabetes Mellitus Sister(s) Family Medical History: Diabetes Mellitus Medications and Allergies Home Medications Medication Instructions Recorded Confirmed Type Atorvastatin Calcium [Lipitor] 40 mg PO DAILY #30 tab 06/19/19 04/23/23 Rx Furosemide [Lasix] 40 mg PO BID #60 tablet 06/19/19 04/23/23 Rx Sacubitril/Valsartan [Entresto 49 1 tab PO BID 09/23/19 04/23/23 History mg-51 mg Tablet] ARIPiprazole [Abilify] 20 mg PO DAILY 03/19/23 04/23/23 History Clopidogrel [Plavix] 75 mg PO DAILY 03/19/23 04/23/23 History FLUoxetine HCL [PROzac] 40 mg PO DAILY 03/19/23 04/23/23 History Finasteride [Proscar] 5 mg PO DAILY 03/19/23 04/23/23 History Insulin Aspart [NovoLOG Flexpen] 5 units SQ AC-TID 03/19/23 04/23/23 History Potassium Chloride ER [K-Dur 20] 20 meq PO BID 03/19/23 04/23/23 History Semaglutide [Rybelsus] 7 mg PO DAILY 03/19/23 04/23/23 History Collagenase [Santyl Ointment] 1 applic TOPICAL DAILY 30 Days #1 03/25/23 04/23/23 Rx each Insulin Glargine,Hum.rec.anlog 15 units SQ HS #0 03/25/23 04/23/23 Rx [Lantus Solostar Pen] Aspirin EC [Ecotrin Low Dose] 81 mg PO DAILY 04/23/23 04/23/23 History Allergies Allergy/AdvReac Type Severity Reaction Status Date / Time hydrocodone AdvReac Hallucinati Verified 04/23/23 15:37 ons Physical Exam Vitals: Vital Signs Temp Pulse Pulse Resp BP BP Pulse Ox 04/24/23 07:16 97.9 F 94 18 167/97 93 L 04/24/23 01:22 97.4 F L 85 18 179/99 94 L 04/23/23 19:05 89 17 156/86 96 04/23/23 18:10 68 18 141/82 97 04/23/23 14:17 97.7 F 90 18 186/87 97 Intake and Output 04/23/23 04/24/23 04/24/23 22:59 06:59 14:59 Other: # Voids 3 # Bowel Movements 1 Weight 106.141 kg Results CBC & Chem 7: 04/24/23 05:20 04/24/23 05:20 Labs: Abnormal Lab Results - Last 24 Hours (Table) 04/23/23 04/23/23 04/23/23 Range/Units 16:03 16:03 22:07 WBC (4.50-10.00) X 10*3/uL MCH (27.0-32.0) pg MCHC (32.0-37.0) g/dL RDW 16.3 H (11.5-15.5) % Immature Gran # (0.00-0.04) X 10*3/uL Neutrophils # (1.80-7.70) X 10*3/uL Lymphocytes # 0.6 L (1.0-4.8) k/uL Potassium 3.4 L (3.5-5.1) mmol/L Carbon Dioxide 33 H (22-30) mmol/L Anion Gap (4.00-12.00) mmol/L Glucose 154 H (74-99) mg/dL POC Glucose (mg/dL) 178 H (70-110) mg/dL AST (14-35) U/L Alkaline Phosphatase (41-126) U/L Albumin/Globulin Ratio (1.60-3.17) Ratio 04/24/23 04/24/23 04/24/23 Range/Units 05:20 05:20 05:40 WBC 10.66 H (4.50-10.00) X 10*3/uL MCH 26.8 L (27.0-32.0) pg MCHC 30.9 L (32.0-37.0) g/dL RDW 16.3 H (11.5-15.5) % Immature Gran # 0.06 H (0.00-0.04) X 10*3/uL Neutrophils # 8.79 H (1.80-7.70) X 10*3/uL Lymphocytes # (1.0-4.8) k/uL Potassium (3.5-5.1) mmol/L Carbon Dioxide (22-30) mmol/L Anion Gap 14.80 H (4.00-12.00) mmol/L Glucose 215 H (74-99) mg/dL POC Glucose (mg/dL) 200 H (70-110) mg/dL AST 63 H (14-35) U/L Alkaline Phosphatase 178 H (41-126) U/L Albumin/Globulin Ratio 1.48 L (1.60-3.17) Ratio Thrombosis Risk Factor Assmnt - DVT/VTE Prophylaxis DVT/VTE Prophylaxis: Mechanical Prophylaxis ordered - Choose All That Apply Any of the Below Risk Factors Present?: Yes Each Factor Represents 1 point: Heart failure (<1month), Obesity (BMI >25) Each Risk Factor Represents 2 Points: Age 61-74 years Thrombosis Risk Factor Assessment Total Risk Factor Score: 4 Thrombosis Risk Factor Assessment Level: Moderate Risk Assessment and Plan Time with Patient: Greater than 30
[2023-04-24 16:53] LABS: Glucose,Whole Blood 187 mg/dL (70-110)
[2023-04-24 20:18] LABS: Glucose,Whole Blood 187 mg/dL (70-110)
[2023-04-24] MEDS: VANCOMYCIN 1,750 MG in SODIUM CHLORIDE 0.9% 500 ML 500 ML IVPB SCH (20:56)
--- NOTE | 2023-04-24 21:06 | CT ---
EXAMINATION TYPE: CT foot RT w con CT DLP: 296.5 mGycm, Automated exposure control for dose reduction was used. DATE OF EXAM: 04/24/2023 1:43 PM COMPARISON: . Extremity radiograph 04/23/2023. CLINICAL INDICATION:Male, 67 years old with history of right foot wound, evaluate for abscess; PHH, r ight foot pain TECHNIQUE: Axial images were obtained of the right foot after IV contrast administration . Additiona l coronal and sagittal reformatted images in soft tissue and bone window were obtained for review. 3- D reconstruction was created on a separate workstation. Contrast used:100 mL of Isovue 300 with IV Contrast, Oral contrast used: None FINDINGS: Osseous structures appear intact and normally aligned. Mild chronic degenerative changes throughout t he foot. Status post amputation of the second third and fourth digits distal to the metatarsal heads. These metatarsal heads have a somewhat wavy appearance but appear rather well-corticated, favoring c hronic deformities (either from trauma, surgery, or previous osteomyelitis) however superimposed acut e or smoldering ongoing infection cannot be absolutely excluded. No clearly acute appearing osseous e rosive/destructive change, periostitis, fracture or dislocation. Review of soft tissues shows diffuse atherosclerotic calcifications throughout the calf with multifoc al narrowings and at least a two-vessel runoff to the level of the ankle. There is diffuse soft tissu e edema throughout the visualized leg and foot, with loss of the normal tissue planes. No focal fluid collection is seen to suggest abscess. No soft tissue gas or radiopaque foreign body. Additional ext ensive arterial vascular calcifications throughout the foot. IMPRESSION: 1. Edema and cellulitis throughout the soft tissues of the leg and foot. No focal collection demonst rated to suggest abscess. 2. Moderate chronic/degenerative changes as described above. 3. No convincing radiographic evidence of osteomyelitis. If there is persistent clinical concern, fu rther evaluation with MRI over 3 phase bone scan would be recommended. 4. Extensive arterial vascular calcifications, nonspecific but often seen in diabetics.
[2023-04-25] MEDS: MELATONIN 5 MG TABLET PO PRN ×2 (00:19→20:45)
[2023-04-25 02:12] LABS: Glucose,Whole Blood 122 mg/dL (70-110)
[2023-04-25 06:22] LABS: Glucose,Whole Blood 133 mg/dL (70-110)
[2023-04-25] MEDS: INSULIN ASPART (NovoLOG) 100 UNIT/ML VIAL SQ SCH ×4 (06:24→20:45)
[2023-04-25 07:17] LABS: African American GFR (CKD) >90 (>60 ml/min/1.73 sqM); Anion Gap 9 mmol/L; Blood Urea Nitrogen 16 mg/dL (9-20); Calcium 8.5 mg/dL (8.4-10.2); Carbon Dioxide 25 mmol/L (22-30); Chloride 107 mmol/L (98-107); Glucose 131 mg/dL (74-99); Magnesium 1.6 mg/dL (1.6-2.3); Non-African American GFR(CKD) >90 (>60 ml/min/1.73 sqM); Potassium 3.5 mmol/L (3.5-5.1); Sodium 141 mmol/L (137-145)
[2023-04-25] MEDS: SODIUM CHLORIDE 0.9% 1,000 ML IV SCH ×2 (07:48→23:12)
--- NOTE | 2023-04-25 09:19 | P.CONS ---
History of Present Illness - Reason for Consult Consult date: 04/24/23 Cellulitis lower extremity Requesting physician: Inez Means - Chief Complaint Worsening right foot wound x days - History of Present Illness Patient is a 67-year-old male with a past medical history significant for diabetes mellitus hypertension hyperlipidemia coronary artery disease patient did have a right foot wound that was debrided at the bedside last month by vascular surgery at the patient was advised to follow-up in the wound care center with the patient has been following patient was noticed to have increased redness to the right foot and worsening of the wound and more necrotic changes for the patient was advised to go to the hospital patient denies any high-grade fever or any chills he had diabetic neuropathy has denies significant pain to the right foot wound area more of a pressure-like and some dull sensation patient did have multiple wounds to the right foot with some foul-smelling drainage patient on presentation to the hospital was afebrile and no fever has been recorded subsequently patient did have a white count of 10.66 with a left shift creatinine is normal liver enzymes are normal patient did have a x-ray of the foot previous amputation of second through fourth toes wound at the stump soft tissue focal erosion at the second metatarsal head appears to have developed unable to exclude osteomyelitis patient was admitted to the hospital infectious disease was consulted for further management of antibiotic therapy Review of Systems Positive point and negatives has been mentioned in the HPI, complete review of systems was performed and all other systems are negative Past Medical History Past Medical History: Coronary Artery Disease (CAD), Diabetes Mellitus, Hyperlipidemia, Hypertension Additional Past Medical History / Comment(s): Left heel cracked/ History of Any Multi-Drug Resistant Organisms: None Reported Past Surgical History: Coronary Bypass/CABG, Orthopedic Surgery, Pacemaker Additional Past Surgical History / Comment(s): amputation 3 medial toes rt foot, one toe amp on left Past Anesthesia/Blood Transfusion Reactions: No Reported Reaction Type of Cardiac Device: Unknown Device Placement Date:: unknown Past Psychological History: Anxiety, Depression Smoking Status: Never smoker Past Alcohol Use History: None Reported Past Drug Use History: None Reported - Past Family History Mother Family Medical History: Diabetes Mellitus Father Family Medical History: Congestive Heart Failure (CHF) Brother(s) Family Medical History: Diabetes Mellitus Sister(s) Family Medical History: Diabetes Mellitus Medications and Allergies Home Medications Medication Instructions Recorded Confirmed Type Atorvastatin Calcium [Lipitor] 40 mg PO DAILY #30 tab 06/19/19 04/23/23 Rx Furosemide [Lasix] 40 mg PO BID #60 tablet 06/19/19 04/23/23 Rx Sacubitril/Valsartan [Entresto 49 1 tab PO BID 09/23/19 04/23/23 History mg-51 mg Tablet] ARIPiprazole [Abilify] 20 mg PO DAILY 03/19/23 04/23/23 History Clopidogrel [Plavix] 75 mg PO DAILY 03/19/23 04/23/23 History FLUoxetine HCL [PROzac] 40 mg PO DAILY 03/19/23 04/23/23 History Finasteride [Proscar] 5 mg PO DAILY 03/19/23 04/23/23 History Insulin Aspart [NovoLOG Flexpen] 5 units SQ AC-TID 03/19/23 04/23/23 History Potassium Chloride ER [K-Dur 20] 20 meq PO BID 03/19/23 04/23/23 History Semaglutide [Rybelsus] 7 mg PO DAILY 03/19/23 04/23/23 History Collagenase [Santyl Ointment] 1 applic TOPICAL DAILY 30 Days #1 03/25/23 04/23/23 Rx each Insulin Glargine,Hum.rec.anlog 15 units SQ HS #0 03/25/23 04/23/23 Rx [Lantus Solostar Pen] Aspirin EC [Ecotrin Low Dose] 81 mg PO DAILY 04/23/23 04/23/23 History Ampicillin-Sulbactam [Unasyn 3 gm 3 gm IVPB Q6HR #112 each 04/30/23 Rx vial] amLODIPine [Norvasc] 2.5 mg PO DAILY tab 05/01/23 Rx Allergies Allergy/AdvReac Type Severity Reaction Status Date / Time hydrocodone AdvReac Hallucinati Verified 04/23/23 15:37 ons Physical Exam Vitals: Vital Signs Temp Pulse Pulse Resp BP BP Pulse Ox 04/24/23 07:16 97.9 F 94 18 167/97 93 L 04/24/23 01:22 97.4 F L 85 18 179/99 94 L 04/23/23 19:05 89 17 156/86 96 04/23/23 18:10 68 18 141/82 97 04/23/23 14:17 97.7 F 90 18 186/87 97 Intake and Output 04/23/23 04/24/23 04/24/23 22:59 06:59 14:59 Other: # Voids 3 2 # Bowel Movements 1 Weight 106.141 kg GENERAL DESCRIPTION: Elderly male lying in bed, no distress. No tachypnea or accessory muscle of respiration use. HEENT: Shows Pallor , no scleral icterus. Oral mucous membrane is dry. No pharyngeal erythema or thrush NECK: Trachea central, no thyromegaly. LUNGS: Unlabored breathing. Clear to auscultation anteriorly. No wheeze or crackle. HEART: S1, S2, regular rate and rhythm. No loud murmur ABDOMEN: Soft, no tenderness , guarding or rigidity, no organomegaly EXTREMITIES: Right foot wound with some skin necrosis did have significant maceration and drainage along with redness SKIN: No rash, no masses palpable. NEUROLOGICAL: The patient is awake, alert, oriented x3, mood and affect normal. Results CBC & Chem 7: 04/30/23 04:19 05/01/23 05:22 Labs: Abnormal Lab Results - Last 24 Hours (Table) 04/23/23 04/23/23 04/23/23 Range/Units 16:03 16:03 22:07 WBC (4.50-10.00) X 10*3/uL MCH (27.0-32.0) pg MCHC (32.0-37.0) g/dL RDW 16.3 H (11.5-15.5) % Immature Gran # (0.00-0.04) X 10*3/uL Neutrophils # (1.80-7.70) X 10*3/uL Lymphocytes # 0.6 L (1.0-4.8) k/uL Potassium 3.4 L (3.5-5.1) mmol/L Carbon Dioxide 33 H (22-30) mmol/L Anion Gap (4.00-12.00) mmol/L Glucose 154 H (74-99) mg/dL POC Glucose (mg/dL) 178 H (70-110) mg/dL AST (14-35) U/L Alkaline Phosphatase (41-126) U/L Albumin/Globulin Ratio (1.60-3.17) Ratio 04/24/23 04/24/2304/24/24 Range/Units 05:20 05:20 05:40 WBC 10.66 H (4.50-10.00) X 10*3/uL MCH 26.8 L (27.0-32.0) pg MCHC 30.9 L (32.0-37.0) g/dL RDW 16.3 H (11.5-15.5) % Immature Gran # 0.06 H (0.00-0.04) X 10*3/uL Neutrophils # 8.79 H (1.80-7.70) X 10*3/uL Lymphocytes # (1.0-4.8) k/uL Potassium (3.5-5.1) mmol/L Carbon Dioxide (22-30) mmol/L Anion Gap 14.80 H (4.00-12.00) mmol/L Glucose 215 H (74-99) mg/dL POC Glucose (mg/dL) 200 H (70-110) mg/dL AST 63 H (14-35) U/L Alkaline Phosphatase 178 H (41-126) U/L Albumin/Globulin Ratio 1.48 L (1.60-3.17) Ratio Assessment and Plan (1) 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, with necrosis of bone Status: Acute Code(s): E11.621 - TYPE 2 DIABETES MELLITUS WITH FOOT ULCER; L97.514 - NON-PRS CHRONIC ULCER OTH PRT RIGHT FOOT W NECROSIS OF BONE SNOMED Code(s): 53407562403336690 Plan: 1patient with a right diabetic foot infection in this patient who did have a previous amputation of right 2nd-4th toe now with multiple wounds to the right foot with skin necrosis and also having cellulitis and foul-smelling drainage we will need to cover for the polymicrobial anne associated with diabetic foot infection, plain x-rays were also suspicious for osteomyelitis 2-local culture has been obtained to guide further antibiotic therapy 3-vascular surgery evaluation for debridement and deep culture 4-patient has been empirically started on vancomycin and Rocephin pending culture finalization We will follow on clinical condition and cultures to further adjust medication if needed Thank you for this consultation we will follow the patient along with you Dictation was produced using [employer] software. please excuse any grammatical, word or spelling errors. Time with Patient: Greater than 30
[2023-04-25 11:06] LABS: Basophils # (A) 0.06 X 10*3/uL (0.00-0.10); Basophils % (A) 0.9 %; Eosinophils # (A) 0.06 X 10*3/uL (0.04-0.35); Eosinophils % (A) 0.9 %; HCT 40.1 % (39.6-50.0); HGB 12.6 g/dL (13.0-17.0); Lymphocytes # (A) 0.87 X 10*3/uL (0.90-5.00); Lymphocytes % (A) 12.8 %; MCH 26.9 pg (27.0-32.0); MCHC 31.4 g/dL (32.0-37.0); MCV 85.7 FL (80.0-97.0); Mean Platelet Volume 10.3 FL (9.5-12.2); Monocytes # (A) 0.42 X 10*3/uL (0.20-1.00); Monocytes % (A) 6.2 %; NRBC Per 100 WBC 0 X 10*3/uL (0.00-0.01); Neutrophils # (A) 5.37 X 10*3/uL (1.80-7.70); Neutrophils % (A) 78.9 %; Platelet Count 171 X 10*3/uL (140-440); RBC 4.68 X 10*6/uL (4.40-5.60); RDW 16.3 % (11.5-14.5)
--- NOTE | 2023-04-25 11:38 | P.PN ---
Subjective Progress Note Date: 04/25/23 Principal diagnosis: Right foot wounds, cellulitis Patient seen and examined today as a follow-up. He had a CT of the right lower extremity that shows no evidence of abscess. No convincing radiographic evidence of osteomyelitis. He is without any acute changes through the night. He is afebrile. Objective - Vital Signs Vital signs: Vital Signs Temp 97.9 F 04/25/23 07:10 Pulse 71 04/25/23 07:10 Resp 17 04/25/23 07:10 BP 146/81 04/25/23 07:10 Pulse Ox 95 04/25/23 07:10 FiO2 Intake & Output 04/24/23 04/25/23 04/25/23 18:59 06:59 18:59 Other: # Voids 2 2 - Exam General appearance: The patient is alert, oriented, appears in no acute distress. HET: Head is normocephalic and atraumatic. Pupils are equal and reactive. Neck: Supple. Heart: Regular. Lungs: Equal expansion, normal respiratory effort. Abdomen: Soft, nontender, nondistended. Extremities: Right foot with multiple wounds with eschar including dorsal aspect of foot, medial apsect and fifth toe. Edema to the right foot, cellulitis. Area of increased redness on the plantar surface as well. The left lower extremity swelling, dry scaly skin. Venous stasis. Neurological: No focal deficits. Strength and sensation are grossly intact. - Labs CBC & Chem 7: 04/25/23 06:39 04/25/23 06:39 Labs: Abnormal Lab Results - Last 24 Hours (Table) 04/24/23 04/24/23 04/24/23 Range/Units 11:50 16:52 20:17 Hgb (13.0-17.0) g/dL MCH (27.0-32.0) pg MCHC (32.0-37.0) g/dL RDW (11.5-14.5) % Lymphocytes # (0.90-5.00) X 10*3/uL Glucose (74-99) mg/dL POC Glucose (mg/dL) 159 H 187 H 187 H (70-110) mg/dL 04/25/23 04/25/23 04/25/23 Range/Units 02:11 06:21 06:39 Hgb (13.0-17.0) g/dL MCH (27.0-32.0) pg MCHC (32.0-37.0) g/dL RDW (11.5-14.5) % Lymphocytes # (0.90-5.00) X 10*3/uL Glucose 131 H (74-99) mg/dL POC Glucose (mg/dL) 122 H 133 H (70-110) mg/dL 04/25/23 Range/Units 06:39 Hgb 12.6 L (13.0-17.0) g/dL MCH 26.9 L (27.0-32.0) pg MCHC 31.4 L (32.0-37.0) g/dL RDW 16.3 H (11.5-14.5) % Lymphocytes # 0.87 L (0.90-5.00) X 10*3/uL Glucose (74-99) mg/dL POC Glucose (mg/dL) (70-110) mg/dL Microbiology - Last 24 Hours (Table) 04/23/23 16:03 Blood Culture - Preliminary Blood Assessment and Plan Assessment: 1. Chronic right foot wounds 2. Cellulitis 3. History of coronary artery disease status post CABG 4. Medical noncompliance Plan: 1. CT right foot ordered and reviewed 2. Continue antibiotic recommendations from infectious disease 3. Keep nothing by mouth 4. Plan for excisional debridement this afternoon 5. Consult to social human services assistants to evaluate home situation and financial resources Thank you for this consultation, we will continue to follow. The impression and plan of care has been dictated as directed. Dr. Marrero I performed a history and examination of this patient, discussed the same with the dictator. I agree with the dictator's note ,documented as a scribe. Any additional findings or plans will be noted.
[2023-04-25 11:43] LABS: Glucose,Whole Blood 121 mg/dL (70-110)
--- NOTE | 2023-04-25 12:21 | XR ---
EXAM: XR chest 1V portable CLINICAL INDICATION:Male, 67 years old with history of shortness of breath; [facility] COMPARISON: 07/12/2019 TECHNIQUE: Chest single view. FINDINGS: Lines/tubes/devices: Left chest multilead AICD/pacemaker with lead tips over the RA, RV, coronary sin us. Multiple sternotomy wires. No indwelling support lines/tubes. Cardiomediastinum: Cardiac silhouette appears mildly enlarged. Atherosclerotic calcifications of the aorta with mild tortuosity. Vasculature: Mild central vascular congestion. Mildly increased interstitial markings. Lungs/pleura: Suspect small bilateral pleural effusions, with bibasilar opacities right more than left. No visualiz ed pneumothorax. Bones/soft tissues: No acute osseous abnormality seen. Regional soft tissues appear unremarkable. IMPRESSION: 1. Mild cardiomegaly with left chest AICD/pacemaker in place. 2. Mild central vascular congestion. Increased interstitial markings could relate to edema and/or ch ronic changes. 3. Small bilateral pleural effusions. Bibasilar opacities likely relate to atelectasis, with infecti ous process not excluded in the proper clinical scenario.
[2023-04-25] MEDS: AMPICILLIN-SULBACTAM 3 GM in SODIUM CHLORIDE 0.9% 100 ML IVPB SCH ×3 (12:31→23:12)
--- NOTE | 2023-04-25 15:10 | P.PN ---
Subjective Progress Note Date: 04/25/23 Principal diagnosis: Reason for follow-up is right diabetic foot wound and question of osteomyelitis Patient is a 67-year-old male with a past medical history significant for diabetes mellitus hypertension hyperlipidemia coronary artery disease patient did have a right foot wound, patient noticed to have worsening of his wound for the patient was advised to go to the hospital. On today's evaluation that is 04/25/2023, the patient denies having any fever or any chills, the patient is breathing comfortably on room air no chest pain shortness with or cough no nausea vomiting no abdominal pain and denies any worsening pain to his right foot wound. Patient white count of 6.80, creatinine 0.77 cultures currently pending Objective - Vital Signs Vital signs: Vital Signs Temp 97.9 F 04/25/23 07:10 Pulse 71 04/25/23 07:10 Resp 17 04/25/23 07:10 BP 146/81 04/25/23 07:10 Pulse Ox 95 04/25/23 07:10 FiO2 Intake & Output 04/24/23 04/25/23 04/25/23 18:59 06:59 18:59 Other: # Voids 2 2 - Exam GENERAL DESCRIPTION: An elderly male lying in bed in no distress RESPIRATORY SYSTEM: Unlabored breathing , decreased breath sounds at bases HEART: S1 S2 regular rate and rhythm , ABDOMEN: Soft , no tenderness EXTREMITIES: Right foot did have multiple wounds with some skin necrosis slough tissue redness slightly decreased - Labs CBC & Chem 7: 04/25/23 06:39 04/25/23 06:39 Labs: Abnormal Lab Results - Last 24 Hours (Table) 04/24/23 04/24/23 04/25/23 Range/Units 16:52 20:17 02:11 Hgb (13.0-17.0) g/dL MCH (27.0-32.0) pg MCHC (32.0-37.0) g/dL RDW (11.5-14.5) % Lymphocytes # (0.90-5.00) X 10*3/uL Glucose (74-99) mg/dL POC Glucose (mg/dL) 187 H 187 H 122 H (70-110) mg/dL Hemoglobin A1c (<=6.0) % 04/25/23 04/25/23 04/25/23 Range/Units 06:21 06:39 06:39 Hgb (13.0-17.0) g/dL MCH (27.0-32.0) pg MCHC (32.0-37.0) g/dL RDW (11.5-14.5) % Lymphocytes # (0.90-5.00) X 10*3/uL Glucose 131 H (74-99) mg/dL POC Glucose (mg/dL) 133 H (70-110) mg/dL Hemoglobin A1c 6.2 H (<=6.0) % 04/25/23 04/25/23 Range/Units 06:39 11:42 Hgb 12.6 L (13.0-17.0) g/dL MCH 26.9 L (27.0-32.0) pg MCHC 31.4 L (32.0-37.0) g/dL RDW 16.3 H (11.5-14.5) % Lymphocytes # 0.87 L (0.90-5.00) X 10*3/uL Glucose (74-99) mg/dL POC Glucose (mg/dL) 121 H (70-110) mg/dL Hemoglobin A1c (<=6.0) % Microbiology - Last 24 Hours (Table) 04/23/23 16:03 Blood Culture - Preliminary Blood Assessment and Plan (1) Non-pressure chronic ulcer of other part of right foot with necrosis of bone Current Visit: Yes Status: Acute Code(s): L97.514 - NON-PRS CHRONIC ULCER OTH PRT RIGHT FOOT W NECROSIS OF BONE SNOMED Code(s): 18684927058669121 (2) Osteomyelitis of metatarsal Current Visit: Yes Status: Acute Code(s): M86.9 - OSTEOMYELITIS, UNSPECIFIED SNOMED Code(s): 483301003 (3) 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, with necrosis of bone Current Visit: No Status: Acute Code(s): E11.621 - TYPE 2 DIABETES MELLITUS WITH FOOT ULCER; L97.514 - NON-PRS CHRONIC ULCER OTH PRT RIGHT FOOT W NECROSIS OF BONE SNOMED Code(s): 39618386865243958 Plan: 1patient with a right diabetic foot infection in this patient who did have a previous amputation of right 2nd-4th toe now with multiple wounds to the right foot with skin necrosis and also having cellulitis and foul-smelling drainage we will need to cover for the polymicrobial anne associated with diabetic foot infection, plain x-rays were also suspicious for osteomyelitis 2-local culture has been obtained to guide further antibiotic therapy 3-patient has been evaluated by vascular surgery currently waiting for debridement and deep culture 4-patient to continue with vancomycin, will switch Rocephin to Unasyn while waiting for the culture to finalize Dictation was produced using [employer] dictation software. please excuse any grammatical, word or spelling errors. Time with Patient: Less than 30
[2023-04-25] MEDS: VANCOMYCIN 1,750 MG in SODIUM CHLORIDE 0.9% 500 ML 500 ML IVPB SCH (15:37)
[2023-04-25 16:26] LABS: Glucose,Whole Blood 160 mg/dL (70-110)
[2023-04-25 20:30] LABS: Glucose,Whole Blood 130 mg/dL (70-110)
[2023-04-26 05:03] LABS: Glucose,Whole Blood 148 mg/dL (70-110)
[2023-04-26] MEDS: INSULIN ASPART (NovoLOG) 100 UNIT/ML VIAL SQ SCH ×4 (05:05→20:17)
[2023-04-26] MEDS ORDERED: VANCOMYCIN TROUGH DUE 1 EACH MISC MISCELLANE ONE (05:30)
[2023-04-26] MEDS: AMPICILLIN-SULBACTAM 3 GM in SODIUM CHLORIDE 0.9% 100 ML IVPB SCH ×3 (05:48→17:10)
[2023-04-26] MEDS: VANCOMYCIN 1,750 MG in SODIUM CHLORIDE 0.9% 500 ML 500 ML IVPB SCH ×2 (06:33→21:07)
--- NOTE | 2023-04-26 06:37 | P.PN ---
Subjective Progress Note Date: 04/25/23 This is a very pleasant 67-year-old male who presented to the emergency department for cellulitis of bilateral lower extremities. Patient was evaluated by Dr. Spears in the outpatient setting as he has chronic lower extremity wounds and has failed to follow-up with any providers in the outpatient setting. Patient was recently admitted and hospitalized with concerns of osteomyelitis of the right lower extremity and was sent home on antibiotics and per patient along with brother does not currently have a primary care provider. Patient has a significant past medical history of coronary artery disease, diabetes mellitus, hyperlipidemia, hypertension, previous CABG with pacemaker, previous amputation of the medial toes on the right foot and one toe indication on the left with also history of anxiety and depression. Patient had imaging in the ER including x-ray of the right foot showing previous amputations along with wounds at the stump with additional deepening wound along with focal erosions at the second metatarsal head that appeared to be worse than previous and March. ID consulted and appreciate input and recommendations. Vascular surgery consulted for further evaluation as well. On admission patient denied any fevers although did report having some increased redness and swelling to his right lower extremity that has been traveling up his leg. White count this morning shows 10.66 with hemoglobin of 14.0 and platelets are 212, sodium is 144 with a potassium of 3.7 and current creatinine is 1.1. Magnesium 1.7 and blood sugars 150s- 200s. Patient is insulin-dependent and reports he checks his blood sugars and provides insulin to himself. Patient has a severely poor social support and lives with brother in the home. Patient was admitted for bilateral lower extrem ity cellulitis. 04/25/2023 Patient is seen and evaluated in follow-up currently sitting up in the chair. Patient continued on antibiotics with infectious disease following and vascular surgery has been consulted. There is some purulent drainage noted on the right foot upper aspect with a large wound noted as well as purulent drainage and swelling with redness noted at the previous amputation site and fifth digit. Vascular surgery with plans to debride the area. Hopefully for deep cultures to determine appropriate discharge antibiotics. Patient is a diabetic and poorly controlled recommend Accu-Cheks before meals and at bedtime and will continue current regimen. Discussed with nursing staff about monitoring blood sugars closely especially in the evening as patient does have history of being hypoglycemic as well. Patient was continued on large dose of IV fluids and we'll decrease the rate is patient is reporting some shortness of breath. Patient is maintaining oxygen saturations above 90% on room air. Patient does have a component of anxiety as well. Will have PT/OT therapy follow the patient and also discussed with case management and discharge planning this patient would benefit from ECF for continued wound care and medication compliance. Patient currently lives with brother at the home and reports he manages his medications by himself. Review of systems: Constitutional: No reports of fatigue, fever, or chills Cardiovascular: No reports of chest pain or palpitations Respiratory: reports of mild shortness of breath GI: No reports of nausea, vomiting, or diarrhea : No reports of dysuria or retention Neurovascular: No reports of weakness or numbness PHYSICAL EXAMINATION: GENERAL: The patient is alert and oriented x3, Well developed, well nourished. Obese HEENT: Pupils are round and equally reacting to light. EOMI. no scleral icterus. No conjunctival pallor. Normocephalic, atraumatic. No pharyngeal erythema. No thyromegaly. CARDIOVASCULAR: S1 and S2 muffled PULMONARY: diminished breath sounds bilaterally with no wheezing or rhonchi noted. ABDOMEN: soft. Nontender on exam. obese. non-distended, normoactive bowel sounds. No palpable organomegaly. MUSCULOSKELETAL: No joint swelling or deformity. EXTREMITIES: No cyanosis, clubbing, or pedal edema. Right foot with purulent drainage noted with some mild redness and swelling noted as well NEUROLOGICAL: Gross neurological examination did not reveal any focal deficits. Diffuse weakness SKIN: No rashes. Assessment: Chronic right foot wounds with history of osteomyelitis Bilateral lower extremity cellulitis, present on admission, more so on the right Mild leukocytosis, secondary to above diabetes mellitus, insulin-dependent, uncontrolled with hyper and hypoglycemia history of coronary artery disease with CABG Gait dysfunction Poor social support History of hyperlipidemia History of hypertension history of anxiety/depression GI prophylaxis DVT prophylaxis Full code Plan: Recommend to continue with current medications and management and will continue on antibiotic therapy with infectious disease following Vascular surgery following an underwent foot CT with no obvious signs of osteomyelitis. Patient to undergo debridement of the right foot and hopeful for deep tissue cultures Continue monitoring Accu-Cheks before meals and at bedtime as well as 2 AM as patient is a brittle diabetic and experiences hypo-glycemia frequently. Home medications reviewed and resumed as appropriate Patient was continued on normal saline at 130 mL per hour per ED and patient reporting some shortness of breath. Chest x-ray obtained showing some mild pulmonary congestion and will resume Lasix and decrease the rate of normal saline. PT/OT therapy to evaluate Case management consulted as well this patient would likely benefit from ECF for continued wound care with possible need for IV antibiotics. Patient has an extremely poor social support and lives with brother and is not providing adequate care and is noncompliant with medications and follow-up. Patient currently has no primary care provider and has been instructed to establish with one on previous visits. Will provide resources on discharge is as well. Will await surgical report and finalized cultures to determine discharge antibiotics The impression and plan of care has been dictated by Inez Means, nurse practitioner as directed. Dr. Joyce MD I have performed a history and examination and MDM of this patient, discussed the same with the dictator, and agree with the dictator's assessment and plan as written ,documented as a scribe. Based on total visit time, I have performed more than 50% of the visit. Any additional findings or plans will be noted. Objective - Vital Signs Vital signs: Vital Signs Temp 97.5 F L 04/26/23 01:25 Pulse 77 04/26/23 01:25 Resp 18 04/26/23 01:25 BP 174/95 04/26/23 01:25 Pulse Ox 96 04/26/23 01:25 FiO2 Intake & Output 04/25/23 04/25/23 04/26/23 06:59 18:59 06:59 Other: # Voids 2 3 3 - Labs CBC & Chem 7: 04/25/23 06:39 04/25/23 06:39 Labs: Abnormal Lab Results - Last 24 Hours (Table) 04/25/23 04/25/23 04/25/23 Range/Units 06:21 06:39 06:39 Hgb (13.0-17.0) g/dL MCH (27.0-32.0) pg MCHC (32.0-37.0) g/dL RDW (11.5-14.5) % Lymphocytes # (0.90-5.00) X 10*3/uL Glucose 131 H (74-99) mg/dL POC Glucose (mg/dL) 133 H (70-110) mg/dL Hemoglobin A1c 6.2 H (<=6.0) % 04/25/23 04/25/23 04/25/23 Range/Units 06:39 11:42 16:25 Hgb 12.6 L (13.0-17.0) g/dL MCH 26.9 L (27.0-32.0) pg MCHC 31.4 L (32.0-37.0) g/dL RDW 16.3 H (11.5-14.5) % Lymphocytes # 0.87 L (0.90-5.00) X 10*3/uL Glucose (74-99) mg/dL POC Glucose (mg/dL) 121 H 160 H (70-110) mg/dL Hemoglobin A1c (<=6.0) % 04/25/23 04/26/23 Range/Units 20:29 05:02 Hgb (13.0-17.0) g/dL MCH (27.0-32.0) pg MCHC (32.0-37.0) g/dL RDW (11.5-14.5) % Lymphocytes # (0.90-5.00) X 10*3/uL Glucose (74-99) mg/dL POC Glucose (mg/dL) 130 H 148 H (70-110) mg/dL Hemoglobin A1c (<=6.0) % Microbiology - Last 24 Hours (Table) 04/23/23 16:03 Blood Culture - Preliminary Blood 04/24/23 13:00 Gram Stain - Preliminary Foot - Right
[2023-04-26 06:53] LABS: African American GFR (CKD) >90 (>60 ml/min/1.73 sqM); Anion Gap 14 mmol/L; Blood Urea Nitrogen 17 mg/dL (9-20); C Reactive Protein 0.7 mg/dL (<1.0); Calcium 8.9 mg/dL (8.4-10.2); Carbon Dioxide 21 mmol/L (22-30); Chloride 106 mmol/L (98-107); Glucose 147 mg/dL (74-99); Non-African American GFR(CKD) >90 (>60 ml/min/1.73 sqM); Sodium 141 mmol/L (137-145)
[2023-04-26 06:59] LABS: NT-Pro-B-Type Natriuretic Pept 9830 pg/mL
[2023-04-26 07:19] LABS: Potassium 3.2 mmol/L (3.5-5.1)
[2023-04-26 07:53] LABS: Magnesium 1.7 mg/dL (1.6-2.3)
[2023-04-26] MEDS: FLUoxetine HCL 20 MG CAP PO SCH (08:42)
[2023-04-26] MEDS: SACUBITRIL/VALSARTAN 49 MG-51 MG TABLET PO SCH ×2 (08:43→19:41)
[2023-04-26] MEDS: POTASSIUM CHLORIDE ER 20 MEQ TAB.ER PO SCH ×2 (08:43→19:41)
[2023-04-26] MEDS: FINASTERIDE 5 MG TAB PO SCH (08:43)
[2023-04-26] MEDS: ATORVASTATIN 40 MG TAB PO SCH (08:43)
[2023-04-26] MEDS: FUROSEMIDE 40 MG TAB PO SCH ×2 (08:44→15:25)
[2023-04-26] MEDS: Semaglutide [Rybelsus] 7 MG Tablet PO SCH ×2 (08:45→09:08)
[2023-04-26 11:41] LABS: Glucose,Whole Blood 123 mg/dL (70-110)
[2023-04-26] MEDS: SODIUM CHLORIDE 0.9% 1,000 ML IV SCH (11:49)
--- NOTE | 2023-04-26 12:18 | P.PN ---
Subjective Progress Note Date: 04/26/23 Principal diagnosis: Reason for follow-up is right diabetic foot wound and question of osteomyelitis Patient is a 67-year-old male with a past medical history significant for diabetes mellitus hypertension hyperlipidemia coronary artery disease patient did have a right foot wound, patient noticed to have worsening of his wound for the patient was advised to go to the hospital. On today's evaluation that is 04/26/2023, the patient remains to be afebrile, the patient is breathing comfortably on room air, the patient denies chest pain shortness with or cough, no nausea vomiting no abdominal pain and the patient pain to his right foot wound is currently controlled. Patient white count of 6.80 as of yesterday, creatinine 0.78 cultures currently pending Objective - Vital Signs Vital signs: Vital Signs Temp 97.2 F L 04/26/23 07:24 Pulse 78 04/26/23 07:24 Resp 18 04/26/23 07:24 BP 181/93 04/26/23 07:24 Pulse Ox 93 L 04/26/23 07:24 FiO2 Intake & Output 04/25/23 04/26/23 04/26/23 18:59 06:59 18:59 Other: # Voids 3 3 1 # Bowel Movements 1 - Exam GENERAL DESCRIPTION: An elderly male lying in bed in no distress RESPIRATORY SYSTEM: Unlabored breathing , decreased breath sounds at bases HEART: S1 S2 regular rate and rhythm , ABDOMEN: Soft , no tenderness EXTREMITIES: Right foot did have multiple wounds with some skin necrosis slough tissue redness slightly decreased - Labs CBC & Chem 7: 04/25/23 06:39 04/26/23 05:42 Labs: Abnormal Lab Results - Last 24 Hours (Table) 04/25/23 04/25/23 04/26/23 Range/Units 16:25 20:29 05:02 Potassium (3.5-5.1) mmol/L Carbon Dioxide (22-30) mmol/L Glucose (74-99) mg/dL POC Glucose (mg/dL) 160 H 130 H 148 H (70-110) mg/dL 04/26/23 04/26/23 Range/Units 05:42 11:40 Potassium 3.2 L (3.5-5.1) mmol/L Carbon Dioxide 21 L (22-30) mmol/L Glucose 147 H (74-99) mg/dL POC Glucose (mg/dL) 123 H (70-110) mg/dL Microbiology - Last 24 Hours (Table) 04/23/23 16:03 Blood Culture - Preliminary Blood 04/24/23 13:00 Gram Stain - Preliminary Foot - Right Assessment and Plan (1) Non-pressure chronic ulcer of other part of right foot with necrosis of bone Current Visit: Yes Status: Acute Code(s): L97.514 - NON-PRS CHRONIC ULCER OTH PRT RIGHT FOOT W NECROSIS OF BONE SNOMED Code(s): 26544597215857973 (2) Osteomyelitis of metatarsal Current Visit: Yes Status: Acute Code(s): M86.9 - OSTEOMYELITIS, UNSPECIFIED SNOMED Code(s): 497755173 (3) 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, with necrosis of bone Current Visit: No Status: Acute Code(s): E11.621 - TYPE 2 DIABETES MELLITUS WITH FOOT ULCER; L97.514 - NON-PRS CHRONIC ULCER OTH PRT RIGHT FOOT W NECROSIS OF BONE SNOMED Code(s): 99139055426784703 Plan: 1patient with a right diabetic foot infection in this patient who did have a previous amputation of right 2nd-4th toe now with multiple wounds to the right foot with skin necrosis and also having cellulitis and foul-smelling drainage we will need to cover for the polymicrobial anne associated with diabetic foot infection, plain x-rays were also suspicious for osteomyelitis 2-local culture has been obtained to guide further antibiotic therapy 3-patient has been evaluated by vascular surgery and is scheduled for debridement and deep culture this afternoon 4-patient to continue with vancomycin and Unasyn while waiting for the culture to finalize Dictation was produced using [employer] dictation software. please excuse any grammatical, word or spelling errors. Time with Patient: Less than 30
[2023-04-26] MEDS ORDERED: PROPOFOL 10 MG/ML 20 ML VIAL IV ONE (13:12)
[2023-04-26] MEDS ORDERED: KETAMINE HCL IN 0.9 % NACL 50 MG/5 ML SYRINGE ONE (13:12)
[2023-04-26] MEDS ORDERED: MIDAZOLAM 2 MG/2 ML VIAL ONE (13:12)
[2023-04-26] MEDS ORDERED: SODIUM CHLORIDE 0.9% 1,000 ML IV ONE (13:17)
--- NOTE | 2023-04-26 14:01 | P.OP ---
Date of Procedure: 04/26/23 Description of Procedure: Preoperative diagnosis: Right lower extremity wounds, previous toe amputations Postoperative diagnosis: Same Procedure: Sharp excisional debridement of right foot wounds Dorsal foot wound 3.9 x 2.5 x 0.3 cm to subcutaneous tissue Medial great toe wound 1.3 x 0.8 x 0.3 cm the subcutaneous tissue Second toe amputation site 2 x 1.0 x 0.4 cm to subcutaneous tissue Fifth toe and wound 5 x 2 x 0.3 cm to subcutaneous tissue Surgeon: Fariba Clemente D.O. EBL: 10 mL IV fluids: See records Urine output: Not measured Drains: None Complications: None immediately apparent Condition: Stable to recovery Operative indication and findings: Patient is a 67-year-old male with right lower extremity wounds and evidence of cellulitis and drainage from his fifth toe. History is undergone toe amputations and bedside debridements. His most recent ABIs showed multiphasic appearance in waveforms and likely inability to heal wounds. He is brought today for deep debridements. Risks and benefits were discussed. He seemingly understood and was willing to proceed. Procedure in detail: Patient was taken to the operative suite and placed in supine position. The right lower extremity is prepped and draped in usual sterile fashion. A preprocedure timeout was performed, all parties were in agreement. Using a scalpel the eschar of the wounds was excised. Scalpel and curet were used at all wound sites to debrided to healthy-appearing granulation tissue. At the level of fifth toe there was significant old drainage in appearance and a scrub was utilized throughout in order to improve the epidermal layer. Measurements at completion are as above. The wound was dressed and a compression wrap was placed in the lower extremity. The patient was transferred to recovery in stable condition having tolerated the procedure well.
--- NOTE | 2023-04-26 16:32 | P.PN ---
Subjective Progress Note Date: 04/26/23 * 67-year-old male who presented to the emergency department for cellulitis of bilateral lower extremities. Patient was evaluated by Dr. Spears in the outpatient setting as he has chronic lower extremity wounds and has failed to follow-up with any providers in the outpatient setting. Patient was recently admitted and hospitalized with concerns of osteomyelitis of the right lower extremity and was sent home on antibiotics and per patient along with brother does not currently have a primary care provider. Patient has a significant past medical history of coronary artery disease, diabetes mellitus, hyperlipidemia, hypertension, previous CABG with pacemaker, previous amputation of the medial toes on the right foot and one toe indication on the left with also history of anxiety and depression. Patient had imaging in the ER including x-ray of the right foot showing previous amputations along with wounds at the stump with additional deepening wound along with focal erosions at the second metatarsal head that appeared to be worse than previous and Ben. ID consulted and appreciate input and recommendations. Vascular surgery consulted for further evaluation as well. On admission patient denied any fevers although did report having some increased redness and swelling to his right lower extremity that has been traveling up his leg. White count this morning shows 10.66 with hemoglobin of 14.0 and platelets are 212, sodium is 144 with a potassium of 3.7 and current creatinine is 1.1. Magnesium 1.7 and blood sugars 150s- 200s. Patient is insulin-dependent and reports he checks his blood sugars and provides insulin to himself. Patient has a severely poor social support and lives with brother in the home. Patient was admitted for bilateral lower extremity cellulitis. * 04/25/2023 Patient is seen and evaluated in follow-up currently sitting up in the chair. Patient continued on antibiotics with infectious disease following and vascular surgery has been consulted. There is some purulent drainage noted on the right foot upper aspect with a large wound noted as well as puru lent drainage and swelling with redness noted at the previous amputation site and fifth digit. Vascular surgery with plans to debride the area. Hopefully for deep cultures to determine appropriate discharge antibiotics. Patient is a diabetic and poorly controlled recommend Accu-Cheks before meals and at bedtime and will continue current regimen. Discussed with nursing staff about monitoring blood sugars closely especially in the evening as patient does have history of being hypoglycemic as well. Patient was continued on large dose of IV fluids and we'll decrease the rate is patient is reporting some shortness of breath. Patient is maintaining oxygen saturations above 90% on room air. Patient does have a component of anxiety as well. Will have PT/OT therapy follow the patient and also discussed with case management and discharge planning this patient would benefit from ECF for continued wound care and medication compliance. Patient currently lives with brother at the home and r eports he manages his medications by himself. * 04/26/23: Patient was taken to overall patient patient has right lower extremity wound. Patient is status post excisional debridement of right foot wounds PHYSICAL EXAMINATION: GENERAL: The patient is alert and oriented x3, Well developed, well nourished. Obese HEENT: Pupils are round and equally reacting to light. EOMI. no scleral icterus. No conjunctival pallor. Normocephalic, atraumatic. No pharyngeal erythema. No thyromegaly. CARDIOVASCULAR: S1 and S2 muffled PULMONARY: diminished breath sounds bilaterally with no wheezing or rhonchi noted. ABDOMEN: soft. Nontender on exam. obese. non-distended, normoactive bowel sounds. No palpable organomegaly. MUSCULOSKELETAL: No joint swelling or deformity. EXTREMITIES: No cyanosis, clubbing, or pedal edema. Right foot bandage NEUROLOGICAL: Gross neurological examination did not reveal any focal deficits. Diffuse weakness SKIN: No rashes. Objective - Vital Signs Vital signs: Vital Signs Temp 97.2 F L 04/26/23 13:49 Pulse 70 04/26/23 14:49 Resp 16 04/26/23 14:49 BP 163/89 04/26/23 14:49 Pulse Ox 95 04/26/23 14:49 FiO2 Intake & Output 04/25/23 04/26/23 04/26/23 18:59 06:59 18:59 Intake Total 350 Output Total 502 Balance -152 Weight 106.141 kg Intake: IV 350 Output: Urine 500 Estimated Blood Loss 2 Other: # Voids 3 3 1 # Bowel Movements 1 - Labs CBC & Chem 7: 04/25/23 06:39 04/26/23 05:42 Labs: Abnormal Lab Results - Last 24 Hours (Table) 04/25/23 04/25/23 04/26/23 Range/Units 16:25 20:29 05:02 Potassium (3.5-5.1) mmol/L Carbon Dioxide (22-30) mmol/L Glucose (74-99) mg/dL POC Glucose (mg/dL) 160 H 130 H 148 H (70-110) mg/dL 04/26/23 04/26/23 Range/Units 05:42 11:40 Potassium 3.2 L (3.5-5.1) mmol/L Carbon Dioxide 21 L (22-30) mmol/L Glucose 147 H (74-99) mg/dL POC Glucose (mg/dL) 123 H (70-110) mg/dL Microbiology - Last 24 Hours (Table) 04/23/23 16:03 Blood Culture - Preliminary Blood 04/24/23 13:00 Gram Stain - Preliminary Foot - Right Assessment and Plan Assessment: Assessment: Diabetic foot ulcer with right lower extremity cellulitis Chronic right foot wounds with history of osteomyelitis Bilateral lower extremity cellulitis, present on admission, more so on the right diabetes mellitus, insulin-dependent, uncontrolled with hyper and hypoglycemia history of coronary artery disease with CABG Gait dysfunction History of hyperlipidemia History of hypertension history of anxiety/depression * In regards to diabetic foot ulcer with cellulitis, seen by surgery status post excisional debridement. Continue IV antibiotic * Vascular surgery following an underwent foot CT with no obvious signs of osteomyelitis. Patient to undergo debridement of the right foot and hopeful for deep tissue cultures * Case management consulted as well this patient would likely benefit from ECF for continued wound care with possible need for IV antibiotics. Patient has an extremely poor social support and lives with brother and is not providing adequate care and is noncompliant with medications and follow-up. * Infectious disease following, continue IV antibiotic * In regards to diabetes mellitus continue patient on correctional insulin
[2023-04-26 16:47] LABS: Glucose,Whole Blood 153 mg/dL (70-110)
[2023-04-26] MEDS: MELATONIN 5 MG TABLET PO PRN (19:41)
[2023-04-26 20:09] LABS: Glucose,Whole Blood 130 mg/dL (70-110)
[2023-04-27] MEDS: AMPICILLIN-SULBACTAM 3 GM in SODIUM CHLORIDE 0.9% 100 ML IVPB SCH ×5 (00:50→23:41)
[2023-04-27 05:17] LABS: African American GFR (CKD) >90 (>60 ml/min/1.73 sqM); Anion Gap 8 mmol/L; Blood Urea Nitrogen 15 mg/dL (9-20); C Reactive Protein 0.7 mg/dL (<1.0); Calcium 8.1 mg/dL (8.4-10.2); Carbon Dioxide 25 mmol/L (22-30); Chloride 108 mmol/L (98-107); Glucose 139 mg/dL (74-99); Non-African American GFR(CKD) 90 (>60 ml/min/1.73 sqM); Sodium 141 mmol/L (137-145)
[2023-04-27 05:22] LABS: Glucose,Whole Blood 123 mg/dL (70-110)
[2023-04-27] MEDS: SODIUM CHLORIDE 0.9% 1,000 ML IV SCH (05:37)
[2023-04-27] MEDS: INSULIN ASPART (NovoLOG) 100 UNIT/ML VIAL SQ SCH ×4 (05:37→20:29)
[2023-04-27] MEDS: POTASSIUM CHLORIDE ER 20 MEQ TAB.ER PO SCH ×2 (08:05→21:25)
[2023-04-27] MEDS: FINASTERIDE 5 MG TAB PO SCH (08:05)
[2023-04-27] MEDS: FLUoxetine HCL 20 MG CAP PO SCH (08:05)
[2023-04-27] MEDS: SACUBITRIL/VALSARTAN 49 MG-51 MG TABLET PO SCH ×2 (08:06→21:25)
[2023-04-27] MEDS: Semaglutide [Rybelsus] 7 MG Tablet PO SCH (08:06)
[2023-04-27] MEDS: FUROSEMIDE 40 MG TAB PO SCH ×3 (08:06→15:13)
[2023-04-27] MEDS: ATORVASTATIN 40 MG TAB PO SCH (08:06)
[2023-04-27] MEDS: POTASSIUM CHLORIDE 10 MEQ in WATER FOR INJECTION 1 100ML.BAG IVPB SCH ×2 (09:56→11:29)
[2023-04-27 10:03] LABS: HCT 37.8 % (39.6-50.0); HGB 12.1 g/dL (13.0-17.0); MCH 27.4 pg (27.0-32.0); MCV 85.5 FL (80.0-97.0); Mean Platelet Volume 11.1 FL (9.5-12.2); NRBC Per 100 WBC 0 X 10*3/uL (0.00-0.01); Platelet Count 178 X 10*3/uL (140-440); RBC 4.42 X 10*6/uL (4.40-5.60); RDW 16.2 % (11.5-14.5); WBC 6.05 X 10*3/uL (4.50-10.00)
[2023-04-27 11:39] LABS: Glucose,Whole Blood 164 mg/dL (70-110)
[2023-04-27] MEDS: VANCOMYCIN 1,750 MG in SODIUM CHLORIDE 0.9% 500 ML 500 ML IVPB SCH (14:24)
--- NOTE | 2023-04-27 14:29 | P.PN ---
Subjective Progress Note Date: 04/27/23 * 67-year-old male who presented to the emergency department for cellulitis of bilateral lower extremities. Patient was evaluated by Dr. Spears in the outpatient setting as he has chronic lower extremity wounds and has failed to follow-up with any providers in the outpatient setting. Patient was recently admitted and hospitalized with concerns of osteomyelitis of the right lower extremity and was sent home on antibiotics and per patient along with brother does not currently have a primary care provider. Patient has a significant past medical history of coronary artery disease, diabetes mellitus, hyperlipidemia, hypertension, previous CABG with pacemaker, previous amputation of the medial toes on the right foot and one toe indication on the left with also history of anxiety and depression. Patient had imaging in the ER including x-ray of the right foot showing previous amputations along with wounds at the stump with additional deepening wound along with focal erosions at the second metatarsal head that appeared to be worse than previous and Ben. ID consulted and appreciate input and recommendations. Vascular surgery consulted for further evaluation as well. On admission patient denied any fevers although did report having some increased redness and swelling to his right lower extremity that has been traveling up his leg. White count this morning shows 10.66 with hemoglobin of 14.0 and platelets are 212, sodium is 144 with a potassium of 3.7 and current creatinine is 1.1. Magnesium 1.7 and blood sugars 150s- 200s. Patient is insulin-dependent and reports he checks his blood sugars and provides insulin to himself. Patient has a severely poor social support and lives with brother in the home. Patient was admitted for bilateral lower extremity cellulitis. * 04/25/2023 Patient is seen and evaluated in follow-up currently sitting up in the chair. Patient continued on antibiotics with infectious disease following and vascular surgery has been consulted. There is some purulent drainage noted on the right foot upper aspect with a large wound noted as well as puru lent drainage and swelling with redness noted at the previous amputation site and fifth digit. Vascular surgery with plans to debride the area. Hopefully for deep cultures to determine appropriate discharge antibiotics. Patient is a diabetic and poorly controlled recommend Accu-Cheks before meals and at bedtime and will continue current regimen. Discussed with nursing staff about monitoring blood sugars closely especially in the evening as patient does have history of being hypoglycemic as well. Patient was continued on large dose of IV fluids and we'll decrease the rate is patient is reporting some shortness of breath. Patient is maintaining oxygen saturations above 90% on room air. Patient does have a component of anxiety as well. Will have PT/OT therapy follow the patient and also discussed with case management and discharge planning this patient would benefit from ECF for continued wound care and medication compliance. Patient currently lives with brother at the home and r eports he manages his medications by himself. * 04/26/23: Patient was taken to overall patient patient has right lower extremity wound. Patient is status post excisional debridement of right foot wounds * 04/27/2023: Patient is seen and evaluated bedside, right lower extremity has bandages, white cell count stable no bleeding episode noted, continue on current antibiotic continue with wound care PHYSICAL EXAMINATION: GENERAL: The patient is alert and oriented x3, Well developed, well nourished. Obese HEENT: Pupils are round and equally reacting to light. EOMI. no scleral icterus. No conjunctival pallor. Normocephalic, atraumatic. No pharyngeal erythema. No thyromegaly. CARDIOVASCULAR: S1 and S2 muffled PULMONARY: diminished breath sounds bilaterally with no wheezing or rhonchi no aiyana. ABDOMEN: soft. Nontender on exam. obese. non-distended, normoactive bowel sounds. No palpable organomegaly. MUSCULOSKELETAL: No joint swelling or deformity. EXTREMITIES: No cyanosis, clubbing, or pedal edema. Right foot bandage NEUROLOGICAL: Gross neurological examination did not reveal any focal deficits. Diffuse weakness SKIN: No rashes. Objective - Vital Signs Vital signs: Vital Signs Temp 97.5 F L 04/27/23 07:03 Pulse 67 04/27/23 07:03 Resp 18 04/27/23 07:03 BP 157/88 04/27/23 07:03 Pulse Ox 95 04/27/23 07:03 FiO2 Intake & Output 04/26/23 04/27/23 04/27/23 18:59 06:59 18:59 Intake Total 350 Output Total 502 Balance -152 Weight 106.141 kg Intake: IV 350 Output: Urine 500 Estimated Blood Loss 2 Other: # Voids 1 3 1 # Bowel Movements 1 1 - Labs CBC & Chem 7: 04/27/23 04:48 04/27/23 04:48 Labs: Abnormal Lab Results - Last 24 Hours (Table) 04/26/23 04/26/23 04/27/23 Range/Units 16:45 20:06 04:48 Hgb (13.0-17.0) g/dL Hct (39.6-50.0) % RDW (11.5-14.5) % Potassium 3.0 L (3.5-5.1) mmol/L Chloride 108 H (98-107) mmol/L Glucose 139 H (74-99) mg/dL POC Glucose (mg/dL) 153 H 130 H (70-110) mg/dL Calcium 8.1 L (8.4-10.2) mg/dL 04/27/23 04/27/23 04/27/23 Range/Units 04:48 05:21 11:38 Hgb 12.1 L (13.0-17.0) g/dL Hct 37.8 L (39.6-50.0) % RDW 16.2 H (11.5-14.5) % Potassium (3.5-5.1) mmol/L Chloride (98-107) mmol/L Glucose (74-99) mg/dL POC Glucose (mg/dL) 123 H 164 H (70-110) mg/dL Calcium (8.4-10.2) mg/dL Microbiology - Last 24 Hours (Table) 04/24/23 13:00 Anaerobic Culture - Preliminary Foot - Right 04/23/23 16:03 Blood Culture - Preliminary Blood Assessment and Plan Assessment: Assessment: Diabetic foot ulcer with right lower extremity cellulitis Chronic right foot wounds with history of osteomyelitis Bilateral lower extremity cellulitis, present on admission, more so on the right diabetes mellitus, insulin-dependent, uncontrolled with hyper and hypoglycemia history of coronary artery disease with CABG Gait dysfunction History of hyperlipidemia History of hypertension history of anxiety/depression * In regards to diabetic foot ulcer with cellulitis, seen by surgery status post excisional debridement. Continue IV antibiotic on Unasyn, vancomycin infectious disease following * Vascular surgery following an underwent foot CT with no obvious signs of osteomyelitis. Patient underwent debridement 04/26 unfortunately no cultures sent per report * Case management consulted as well this patient would likely benefit from ECF for continued wound care with possible need for IV antibiotics. Patient has an extremely poor social support and lives with brother and is not providing adequate care and is noncompliant with medications and follow-up. * Infectious disease following, continue IV antibiotic * In regards to diabetes mellitus continue patient on correctional insulin
[2023-04-27 16:34] LABS: Glucose,Whole Blood 105 mg/dL (70-110)
--- NOTE | 2023-04-27 17:12 | P.PN ---
Subjective Progress Note Date: 04/27/23 Principal diagnosis: Reason for follow-up is right diabetic foot wound and question of osteomyelitis Patient is a 67-year-old male with a past medical history significant for diabetes mellitus hypertension hyperlipidemia coronary artery disease patient did have a right foot wound, patient noticed to have worsening of his wound for the patient was advised to go to the hospital.Patient did have a sharp excisional debridement of his right foot wound completed by vascular surgery on 04/26/2023. On today's evaluation that is 04/27/2023, the patient remains to be afebrile, the patient is breathing comfortably on room air and the patient denies any shortness of breath, the patient denies chest pain or any cough , patient denies any nausea/vomiting abdominal pain or diarrhea, Pt denies any worsening pain to the right foot wound Patient did have white count of 6.05, creatinine 0.86 local cultures pending Objective - Vital Signs Vital signs: Vital Signs Temp 97.5 F L 04/27/23 07:03 Pulse 77 04/27/23 14:06 Resp 18 04/27/23 14:06 BP 159/81 04/27/23 14:06 Pulse Ox 97 04/27/23 14:06 FiO2 Intake & Output 04/26/23 04/27/23 04/27/23 18:59 06:59 18:59 Intake Total 350 Output Total 502 Balance -152 Weight 106.141 kg Intake: IV 350 Output: Urine 500 Estimated Blood Loss 2 Other: # Voids 1 3 1 # Bowel Movements 1 1 - Exam GENERAL DESCRIPTION: An elderly male lying in bed in no distress RESPIRATORY SYSTEM: Unlabored breathing , decreased breath sounds at bases HEART: S1 S2 regular rate and rhythm , ABDOMEN: Soft , no tenderness EXTREMITIES: Right foot did have multiple wounds with some skin necrosis slough tissue redness slightly decreased - Labs CBC & Chem 7: 04/27/23 04:48 04/27/23 04:48 Labs: Abnormal Lab Results - Last 24 Hours (Table) 04/26/23 04/27/23 04/27/23 Range/Units 20:06 04:48 04:48 Hgb 12.1 L (13.0-17.0) g/dL Hct 37.8 L (39.6-50.0) % RDW 16.2 H (11.5-14.5) % Potassium 3.0 L (3.5-5.1) mmol/L Chloride 108 H (98-107) mmol/L Glucose 139 H (74-99) mg/dL POC Glucose (mg/dL) 130 H (70-110) mg/dL Calcium 8.1 L (8.4-10.2) mg/dL 04/27/23 04/27/23 Range/Units 05:21 11:38 Hgb (13.0-17.0) g/dL Hct (39.6-50.0) % RDW (11.5-14.5) % Potassium (3.5-5.1) mmol/L Chloride (98-107) mmol/L Glucose (74-99) mg/dL POC Glucose (mg/dL) 123 H 164 H (70-110) mg/dL Calcium (8.4-10.2) mg/dL Microbiology - Last 24 Hours (Table) 04/24/23 13:00 Anaerobic Culture - Preliminary Foot - Right 04/23/23 16:03 Blood Culture - Preliminary Blood Assessment and Plan (1) Non-pressure chronic ulcer of other part of right foot with necrosis of bone Current Visit: Yes Status: Acute Code(s): L97.514 - NON-PRS CHRONIC ULCER OTH PRT RIGHT FOOT W NECROSIS OF BONE SNOMED Code(s): 76808810850276971 (2) Osteomyelitis of metatarsal Current Visit: Yes Status: Acute Code(s): M86.9 - OSTEOMYELITIS, UNSPECIFIED SNOMED Code(s): 659135627 (3) 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, with necrosis of bone Current Visit: No Status: Acute Code(s): E11.621 - TYPE 2 DIABETES MELLITUS WITH FOOT ULCER; L97.514 - NON-PRS CHRONIC ULCER OTH PRT RIGHT FOOT W NECROSIS OF BONE SNOMED Code(s): 70194412680874315 Plan: 1patient with a right diabetic foot infection in this patient who did have a previous amputation of right 2nd-4th toe now with multiple wounds to the right foot with skin necrosis and also having cellulitis and foul-smelling drainage we will need to cover for the polymicrobial anne associated with diabetic foot infection, plain x-rays were also suspicious for osteomyelitis 2-local culture has been obtained and are currently pending 3-patient has been evaluated by vascular surgery and is s/p sharp excisional debridement of his wound on the right foot no cultures were done 4-patient to continue with vancomycin and Unasyn while waiting for the culture to finalize to determine his discharge antibiotics will likely need PICC line for outpatient IV antibiotics Dictation was produced using [employer] dictation software. please excuse any grammatical, word or spelling errors. Time with Patient: Less than 30
[2023-04-27 20:09] LABS: Glucose,Whole Blood 137 mg/dL (70-110)
[2023-04-27] MEDS: MELATONIN 5 MG TABLET PO PRN (21:25)
[2023-04-28 03:37] LABS: Glucose,Whole Blood 133 mg/dL (70-110)
[2023-04-28] MEDS ORDERED: VANCOMYCIN TROUGH DUE 1 EACH MISC MISCELLANE ONE (05:00)
[2023-04-28 05:54] LABS: Glucose,Whole Blood 128 mg/dL (70-110)
[2023-04-28] MEDS: SODIUM CHLORIDE 0.9% 1,000 ML IV SCH ×2 (05:59→16:16)
[2023-04-28] MEDS: AMPICILLIN-SULBACTAM 3 GM in SODIUM CHLORIDE 0.9% 100 ML IVPB SCH ×3 (05:59→17:43)
[2023-04-28] MEDS: INSULIN ASPART (NovoLOG) 100 UNIT/ML VIAL SQ SCH ×4 (06:08→21:32)
[2023-04-28 06:35] LABS: African American GFR (CKD) >90 (>60 ml/min/1.73 sqM); Anion Gap 7 mmol/L; Blood Urea Nitrogen 15 mg/dL (9-20); Calcium 8.1 mg/dL (8.4-10.2); Carbon Dioxide 23 mmol/L (22-30); Chloride 114 mmol/L (98-107); Glucose 124 mg/dL (74-99); Non-African American GFR(CKD) >90 (>60 ml/min/1.73 sqM); Potassium 3.9 mmol/L (3.5-5.1); Sodium 144 mmol/L (137-145)
[2023-04-28 07:04] LABS: C Reactive Protein 0.8 mg/dL (<1.0)
[2023-04-28] MEDS: VANCOMYCIN 1,750 MG in SODIUM CHLORIDE 0.9% 500 ML 500 ML IVPB SCH ×2 (07:04→21:31)
[2023-04-28] MEDS: POTASSIUM CHLORIDE ER 20 MEQ TAB.ER PO SCH ×2 (09:32→21:32)
[2023-04-28] MEDS: FUROSEMIDE 40 MG TAB PO SCH ×2 (09:32→17:43)
[2023-04-28] MEDS: ATORVASTATIN 40 MG TAB PO SCH (09:32)
[2023-04-28] MEDS: FLUoxetine HCL 20 MG CAP PO SCH (09:32)
[2023-04-28] MEDS: FINASTERIDE 5 MG TAB PO SCH (09:32)
[2023-04-28] MEDS: Semaglutide [Rybelsus] 7 MG Tablet PO SCH (09:33)
[2023-04-28] MEDS: SACUBITRIL/VALSARTAN 49 MG-51 MG TABLET PO SCH ×2 (09:35→22:14)
[2023-04-28 09:37] LABS: Anisocytosis Slight; HCT 46.3 % (39.0-53.0); HGB 14.3 gm/dL (13.0-17.5); Hypochromasia Marked; MCH 27.7 pg (25.0-35.0); MCHC 30.9 g/dL (31.0-37.0); MCV 89.6 fL (80.0-100.0); Mean Platelet Volume 8.6; Platelet Count 160 k/uL (150-450); RBC 5.17 m/uL (4.30-5.90); RDW 16.3 % (11.5-15.5); WBC 7.2 k/uL (3.8-10.6)
--- NOTE | 2023-04-28 10:10 | P.PN ---
Subjective Progress Note Date: 04/28/23 Principal diagnosis: Right foot wounds, cellulitis Seen and examined today at the follow-up. He is status post excisional debridement of right foot wound. No acute changes through the night. Wound culture came back Staphylococcus aureus, currently on Unasyn and vancomycin. Objective - Vital Signs Vital signs: Vital Signs Temp 97.6 F 04/28/23 01:50 Pulse 68 04/28/23 01:50 Resp 18 04/28/23 01:50 BP 135/80 04/28/23 01:50 Pulse Ox 97 04/28/23 01:50 FiO2 Intake & Output 04/27/23 04/28/23 04/28/23 18:59 06:59 18:59 Other: Voiding Method Toilet # Voids 1 2 # Bowel Movements 1 3 - Exam General appearance: The patient is alert, oriented, appears in no acute distress. HET: Head is normocephalic and atraumatic. Pupils are equal and reactive. Neck: Supple. Abdomen: Soft, nondistended. Extremities: Right foot with dressing clean dry and intact, with Ollie wrap. Neurological: No focal deficits. Strength and sensation are grossly intact. - Labs CBC & Chem 7: 04/28/23 08:09 04/28/23 05:24 Labs: Abnormal Lab Results - Last 24 Hours (Table) 04/27/23 04/27/23 04/27/23 Range/Units 04:48 11:38 20:07 Hgb 12.1 L (13.0-17.0) g/dL Hct 37.8 L (39.6-50.0) % RDW 16.2 H (11.5-14.5) % Chloride (98-107) mmol/L Glucose (74-99) mg/dL POC Glucose (mg/dL) 164 H 137 H (70-110) mg/dL Calcium (8.4-10.2) mg/dL 04/28/23 04/28/23 04/28/23 Range/Units 03:36 05:24 05:53 Hgb (13.0-17.0) g/dL Hct (39.6-50.0) % RDW (11.5-14.5) % Chloride 114 H (98-107) mmol/L Glucose 124 H (74-99) mg/dL POC Glucose (mg/dL) 133 H 128 H (70-110) mg/dL Calcium 8.1 L (8.4-10.2) mg/dL Microbiology - Last 24 Hours (Table) 04/24/23 13:00 Gram Stain - Final Foot - Right Wound Culture - Final Staphylococcus aureus Assessment and Plan Assessment: 1. Chronic right foot wounds status post excisional debridement 2. Cellulitis 3. History of coronary artery disease status post CABG 4. Medical noncompliance Plan: 1. Patient is status post excisional debridement 2. Dressing change daily with Santyl, wet gauze, dry gauze, Kerlix 3. Continue antibiotic recommendations from infectious disease 4. Continue local wound care with [facility] wound care center 5. Patient is cleared by vascular surgery for discharge. We will sign off at this time. Thank you for this consultation, we will continue to follow. The impression and plan of care has been dictated as directed. Dr. Clemente I performed a history and examination of this patient, discussed the same with the dictator. I agree with the dictator's note ,documented as a scribe. Any additional findings or plans will be noted.
[2023-04-28 10:53] LABS: Glucose,Whole Blood 185 mg/dL (70-110)
[2023-04-28] MEDS: COLLAGENASE 250 UNIT/GM OINTMENT 30 GM TUBE TOPICAL SCH (11:20)
--- NOTE | 2023-04-28 13:01 | P.PN ---
Subjective Progress Note Date: 04/28/23 * 67-year-old male who presented to the emergency department for cellulitis of bilateral lower extremities. Patient was evaluated by Dr. Spears in the outpatient setting as he has chronic lower extremity wounds and has failed to follow-up with any providers in the outpatient setting. Patient was recently admitted and hospitalized with concerns of osteomyelitis of the right lower extremity and was sent home on antibiotics and per patient along with brother does not currently have a primary care provider. Patient has a significant past medical history of coronary artery disease, diabetes mellitus, hyperlipidemia, hypertension, previous CABG with pacemaker, previous amputation of the medial toes on the right foot and one toe indication on the left with also history of anxiety and depression. Patient had imaging in the ER including x-ray of the right foot showing previous amputations along with wounds at the stump with additional deepening wound along with focal erosions at the second metatarsal head that appeared to be worse than previous and Ben. ID consulted and appreciate input and recommendations. Vascular surgery consulted for further evaluation as well. On admission patient denied any fevers although did report having some increased redness and swelling to his right lower extremity that has been traveling up his leg. White count this morning shows 10.66 with hemoglobin of 14.0 and platelets are 212, sodium is 144 with a potassium of 3.7 and current creatinine is 1.1. Magnesium 1.7 and blood sugars 150s- 200s. Patient is insulin-dependent and reports he checks his blood sugars and provides insulin to himself. Patient has a severely poor social support and lives with brother in the home. Patient was admitted for bilateral lower extremity cellulitis. * 04/25/2023 Patient is seen and evaluated in follow-up currently sitting up in the chair. Patient continued on antibiotics with infectious disease following and vascular surgery has been consulted. There is some purulent drainage noted on the right foot upper aspect with a large wound noted as well as puru lent drainage and swelling with redness noted at the previous amputation site and fifth digit. Vascular surgery with plans to debride the area. Hopefully for deep cultures to determine appropriate discharge antibiotics. Patient is a diabetic and poorly controlled recommend Accu-Cheks before meals and at bedtime and will continue current regimen. Discussed with nursing staff about monitoring blood sugars closely especially in the evening as patient does have history of being hypoglycemic as well. Patient was continued on large dose of IV fluids and we'll decrease the rate is patient is reporting some shortness of breath. Patient is maintaining oxygen saturations above 90% on room air. Patient does have a component of anxiety as well. Will have PT/OT therapy follow the patient and also discussed with case management and discharge planning this patient would benefit from ECF for continued wound care and medication compliance. Patient currently lives with brother at the home and r eports he manages his medications by himself. * 04/26/23: Patient was taken to overall patient patient has right lower extremity wound. Patient is status post excisional debridement of right foot wounds * 04/27/2023: Patient is seen and evaluated bedside, right lower extremity has bandages, white cell count stable no bleeding episode noted, continue on current antibiotic continue with wound care * 04/28/2023: Patient seen and evaluated bedside, plan of care discussed in detail, he had continue IV antibiotics, patient will need a PICC line will coordinate with infectious disease, CBC remained stable. Will need discharge to subacute rehab PHYSICAL EXAMINATION: GENERAL: The patient is alert and oriented x3, Well developed, well nourished. Obese HEENT: Pupils are round and equally reacting to light. EOMI. no scleral icterus. No conjunctival pallor. Normocephalic, atraumatic. No pharyngeal erythema. No thyromegaly. CARDIOVASCULAR: S1 and S2 muffled PULMONARY: diminished breath sounds bilaterally with no wheezing or rhonchi noted. ABDOMEN: soft. Nontender on exam. obese. non-distended, normoactive bowel sounds. No palpable organomegaly. MUSCULOSKELETAL: No joint swelling or deformity. EXTREMITIES: No cyanosis, clubbing, or pedal edema. Right foot bandage NEUROLOGICAL: Gross neurological examination did not reveal any focal deficits. Diffuse weakness SKIN: Right lower extremity bandage Objective - Vital Signs Vital signs: Vital Signs Temp 97.3 F L 04/28/23 07:33 Pulse 69 04/28/23 07:33 Resp 20 04/28/23 07:33 BP 156/79 04/28/23 07:33 Pulse Ox 95 04/28/23 07:33 FiO2 Intake & Output 04/27/23 04/28/23 04/28/23 18:59 06:59 18:59 Other: Voiding Method Toilet Urinal # Voids 1 2 # Bowel Movements 1 3 - Labs CBC & Chem 7: 04/28/23 08:09 04/28/23 05:24 Labs: Abnormal Lab Results - Last 24 Hours (Table) 04/27/23 04/28/23 04/28/23 Range/Units 20:07 03:36 05:24 MCHC (31.0-37.0) g/dL RDW (11.5-15.5) % Chloride 114 H (98-107) mmol/L Glucose 124 H (74-99) mg/dL POC Glucose (mg/dL) 137 H 133 H (70-110) mg/dL Calcium 8.1 L (8.4-10.2) mg/dL 04/28/23 04/28/23 04/28/23 Range/Units 05:53 08:09 10:52 MCHC 30.9 L (31.0-37.0) g/dL RDW 16.3 H (11.5-15.5) % Chloride (98-107) mmol/L Glucose (74-99) mg/dL POC Glucose (mg/dL) 128 H 185 H (70-110) mg/dL Calcium (8.4-10.2) mg/dL Microbiology - Last 24 Hours (Table) 04/24/23 13:00 Gram Stain - Final Foot - Right Wound Culture - Final Staphylococcus aureus Assessment and Plan Assessment: Assessment: Diabetic foot ulcer with right lower extremity cellulitis Chronic right foot wounds with history of osteomyelitis Bilateral lower extremity cellulitis, present on admission, more so on the right diabetes mellitus, insulin-dependent, uncontrolled with hyper and hypoglycemia history of coronary artery disease with CABG Gait dysfunction History of hyperlipidemia History of hypertension history of anxiety/depression * In regards to diabetic foot ulcer with cellulitis, seen by surgery status post excisional debridement. Continue IV antibiotic on Unasyn, vancomycin infectious disease following, final antibiotic plan per infectious disease * Vascular surgery following an underwent foot CT with no obvious signs of osteomyelitis. Patient underwent debridement 04/26 unfortunately no cultures sent per report * Case management consulted as well this patient would likely benefit from ECF for continued wound care with possible need for IV antibiotics. Patient has an extremely poor social support and lives with brother and is not providing adequate care and is noncompliant with medications and follow-up. * Infectious disease following, continue IV antibiotic * In regards to diabetes mellitus continue patient on correctional insulin, HbA1c 6.2
[2023-04-28 17:08] LABS: Glucose,Whole Blood 138 mg/dL (70-110)
[2023-04-28 21:23] LABS: Glucose,Whole Blood 188 mg/dL (70-110)
[2023-04-28] MEDS: MELATONIN 5 MG TABLET PO PRN (21:33)
[2023-04-29] MEDS: AMPICILLIN-SULBACTAM 3 GM in SODIUM CHLORIDE 0.9% 100 ML IVPB SCH ×5 (00:58→23:42)
[2023-04-29 03:09] LABS: Glucose,Whole Blood 120 mg/dL (70-110)
[2023-04-29 05:26] LABS: Glucose,Whole Blood 129 mg/dL (70-110)
[2023-04-29] MEDS: INSULIN ASPART (NovoLOG) 100 UNIT/ML VIAL SQ SCH ×6 (06:07→21:09)
[2023-04-29] MEDS ORDERED: DEXAMETHASONE SOD PHOSPHATE 4 MG/ML 1 ML VIAL IV ONE (08:39)
[2023-04-29] MEDS ORDERED: ONDANSETRON 4 MG/2 ML VIAL IVP ONE (08:39)
[2023-04-29] MEDS ORDERED: HYDROmorphone 0.5 MG/0.5 ML SYRINGE IVP PRN (08:39)
[2023-04-29] MEDS: LACTATED RINGERS 1,000 ML IV SCH (08:58)
[2023-04-29] MEDS: SODIUM CHLORIDE 0.9% 1,000 ML IV SCH (08:58)
[2023-04-29] MEDS: FLUoxetine HCL 20 MG CAP PO SCH (09:29)
[2023-04-29] MEDS: FINASTERIDE 5 MG TAB PO SCH (09:29)
[2023-04-29] MEDS: ATORVASTATIN 40 MG TAB PO SCH (09:29)
[2023-04-29] MEDS: FUROSEMIDE 40 MG TAB PO SCH ×2 (09:29→15:40)
[2023-04-29] MEDS: POTASSIUM CHLORIDE ER 20 MEQ TAB.ER PO SCH ×2 (09:29→21:08)
[2023-04-29] MEDS: SACUBITRIL/VALSARTAN 49 MG-51 MG TABLET PO SCH ×2 (09:30→21:08)
[2023-04-29] MEDS: Semaglutide [Rybelsus] 7 MG Tablet PO SCH (09:30)
[2023-04-29] MEDS: COLLAGENASE 250 UNIT/GM OINTMENT 30 GM TUBE TOPICAL SCH (09:31)
[2023-04-29] MEDS: amLODIPine 2.5 MG TAB PO SCH (10:30)
[2023-04-29] MEDS: ASPIRIN 81 MG PO SCH (10:30)
[2023-04-29] MEDS: CLOPIDOGREL 75 MG TAB PO SCH (10:30)
[2023-04-29 10:50] LABS: HGB 13.6 g/dL (13.0-17.0); MCHC 30.9 g/dL (32.0-37.0); MCV 87.5 FL (80.0-97.0); Mean Platelet Volume 11.2 FL (9.5-12.2); NRBC Per 100 WBC 0 X 10*3/uL (0.00-0.01); Platelet Count 172 X 10*3/uL (140-440); RBC 5.03 X 10*6/uL (4.40-5.60); RDW 16.3 % (11.5-14.5)
[2023-04-29 11:16] LABS: Blood Urea Nitrogen 9.4 mg/dL (9.0-27.0); C Reactive Protein <0.30 mg/dL (0.00-0.80); Calcium 8.5 mg/dL (8.7-10.3); Carbon Dioxide 27.8 mmol/L (21.6-31.8); Chloride 106 mmol/L (96-109); Glucose 179 mg/dL (70-110); Potassium 3.8 mmol/L (3.5-5.5); Sodium 144 mmol/L (135-145)
[2023-04-29 12:00] LABS: Glucose,Whole Blood 156 mg/dL (70-110)
--- NOTE | 2023-04-29 13:03 | P.PN ---
Subjective Progress Note Date: 04/28/23 Principal diagnosis: Reason for follow-up is right diabetic foot wound and question of osteomyelitis Patient is a 67-year-old male with a past medical history significant for diabetes mellitus hypertension hyperlipidemia coronary artery disease patient did have a right foot wound, patient noticed to have worsening of his wound for the patient was advised to go to the hospital.Patient did have a sharp excisional debridement of his right foot wound completed by vascular surgery on 04/26/2023. On today's evaluation that is 04/27/2023, the patient remains to be afebrile, the patient is breathing comfortably on room air and the patient denies any shortness of breath, the patient denies chest pain or any cough , patient denies any nausea/vomiting abdominal pain or diarrhea, the patient denies pain to the right foot wound Patient did have white count of 7.2, creatinine 0.80 local cultures pending Objective - Vital Signs Vital signs: Vital Signs Temp 97.3 F L 04/28/23 07:33 Pulse 69 04/28/23 07:33 Resp 20 04/28/23 07:33 BP 156/79 04/28/23 07:33 Pulse Ox 95 04/28/23 07:33 FiO2 Intake & Output 04/27/23 04/28/23 04/28/23 18:59 06:59 18:59 Other: Voiding Method Toilet Urinal # Voids 1 2 # Bowel Movements 1 3 - Exam GENERAL DESCRIPTION: An elderly male lying in bed in no distress RESPIRATORY SYSTEM: Unlabored breathing , decreased breath sounds at bases HEART: S1 S2 regular rate and rhythm , ABDOMEN: Soft , no tenderness EXTREMITIES: Right foot did have multiple wounds with some skin necrosis slough tissue redness slightly decreased - Labs CBC & Chem 7: 04/29/23 08:14 04/29/23 08:14 Labs: Abnormal Lab Results - Last 24 Hours (Table) 04/27/23 04/28/23 04/28/23 Range/Units 20:07 03:36 05:24 MCHC (31.0-37.0) g/dL RDW (11.5-15.5) % Chloride 114 H (98-107) mmol/L Glucose 124 H (74-99) mg/dL POC Glucose (mg/dL) 137 H 133 H (70-110) mg/dL Calcium 8.1 L (8.4-10.2) mg/dL 04/28/23 04/28/23 04/28/23 Range/Units 05:53 08:09 10:52 MCHC 30.9 L (31.0-37.0) g/dL RDW 16.3 H (11.5-15.5) % Chloride (98-107) mmol/L Glucose (74-99) mg/dL POC Glucose (mg/dL) 128 H 185 H (70-110) mg/dL Calcium (8.4-10.2) mg/dL Microbiology - Last 24 Hours (Table) 04/24/23 13:00 Gram Stain - Final Foot - Right Wound Culture - Final Staphylococcus aureus Assessment and Plan (1) Non-pressure chronic ulcer of other part of right foot with necrosis of bone Current Visit: Yes Status: Acute Code(s): L97.514 - NON-PRS CHRONIC ULCER OTH PRT RIGHT FOOT W NECROSIS OF BONE SNOMED Code(s): 24265438620015433 (2) Osteomyelitis of metatarsal Current Visit: Yes Status: Acute Code(s): M86.9 - OSTEOMYELITIS, UNSPECIFIED SNOMED Code(s): 937834967 (3) 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, with necrosis of bone Current Visit: No Status: Acute Code(s): E11.621 - TYPE 2 DIABETES MELLITUS WITH FOOT ULCER; L97.514 - NON-PRS CHRONIC ULCER OTH PRT RIGHT FOOT W NECROSIS OF BONE SNOMED Code(s): 69786545374424667 Plan: 1patient with a right diabetic foot infection in this patient who did have a previous amputation of right 2nd-4th toe now with multiple wounds to the right foot with skin necrosis and also having cellulitis and foul-smelling drainage we will need to cover for the polymicrobial anne associated with diabetic foot infection, plain x-rays were also suspicious for osteomyelitis 2-local culture has been obtained and are currently pending 3-patient has been evaluated by vascular surgery and is s/p sharp excisional debridement of his wound on the right foot no cultures were done 4-patient did have some clinical improvement and will continue with vancomycin and Unasyn while waiting for the culture to finalize, continue local wound care per surgery Dictation was produced using [employer] dictation software. please excuse any grammatical, word or spelling errors. Time with Patient: Less than 30
--- NOTE | 2023-04-29 13:04 | P.PN ---
Subjective Progress Note Date: 04/29/23 Principal diagnosis: Reason for follow-up is right diabetic foot wound and question of osteomyelitis Patient is a 67-year-old male with a past medical history significant for diabetes mellitus hypertension hyperlipidemia coronary artery disease patient did have a right foot wound, patient noticed to have worsening of his wound for the patient was advised to go to the hospital.Patient did have a sharp excisional debridement of his right foot wound completed by vascular surgery on 04/26/2023. On today's evaluation that is 04/29/2023, the patient continues to be afebrile, the patient is breathing comfortably on room air patient denies having any chest pain shortness of breath or cough no nausea vomiting no abdominal pain and denies pain to the right foot Patient did have white count of 6.50, creatinine 1.0 local cultures MSSA Objective - Vital Signs Vital signs: Vital Signs Temp 97.5 F L 04/29/23 07:32 Pulse 66 04/29/23 10:15 Resp 20 04/29/23 10:15 BP 172/93 04/29/23 07:32 Pulse Ox 98 04/29/23 07:32 FiO2 Intake & Output 04/28/23 04/29/23 04/29/23 18:59 06:59 18:59 Other: Voiding Method Urinal Toilet Toilet Urinal Urinal # Voids 2 2 - Exam GENERAL DESCRIPTION: An elderly male lying in bed in no distress RESPIRATORY SYSTEM: Unlabored breathing , decreased breath sounds at bases HEART: S1 S2 regular rate and rhythm , ABDOMEN: Soft , no tenderness EXTREMITIES: Right foot did have multiple wounds with some skin necrosis slough tissue redness slightly decreased - Labs CBC & Chem 7: 04/29/23 08:14 04/29/23 08:14 Labs: Abnormal Lab Results - Last 24 Hours (Table) 04/28/23 04/28/23 04/29/23 Range/Units 17:06 21:21 03:07 MCHC (32.0-37.0) g/dL RDW (11.5-14.5) % BUN/Creatinine Ratio (12.00-20.00) Ratio Glucose (70-110) mg/dL POC Glucose (mg/dL) 138 H 188 H 120 H (70-110) mg/dL Calcium (8.7-10.3) mg/dL 04/29/23 04/29/23 04/29/23 Range/Units 05:24 08:14 08:14 MCHC 30.9 L (32.0-37.0) g/dL RDW 16.3 H (11.5-14.5) % BUN/Creatinine Ratio 9.40 L (12.00-20.00) Ratio Glucose 179 H (70-110) mg/dL POC Glucose (mg/dL) 129 H (70-110) mg/dL Calcium 8.5 L (8.7-10.3) mg/dL 04/29/23 Range/Units 11:58 MCHC (32.0-37.0) g/dL RDW (11.5-14.5) % BUN/Creatinine Ratio (12.00-20.00) Ratio Glucose (70-110) mg/dL POC Glucose (mg/dL) 156 H (70-110) mg/dL Calcium (8.7-10.3) mg/dL Microbiology - Last 24 Hours (Table) 04/23/23 16:03 Blood Culture - Final Blood 04/24/23 13:00 Anaerobic Culture - Final Foot - Right Assessment and Plan (1) Non-pressure chronic ulcer of other part of right foot with necrosis of bone Current Visit: Yes Status: Acute Code(s): L97.514 - NON-PRS CHRONIC ULCER OTH PRT RIGHT FOOT W NECROSIS OF BONE SNOMED Code(s): 35311097995283061 (2) Osteomyelitis of metatarsal Current Visit: Yes Status: Acute Code(s): M86.9 - OSTEOMYELITIS, UNSPECIFIED SNOMED Code(s): 405243576 (3) 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, with necrosis of bone Current Visit: No Status: Acute Code(s): E11.621 - TYPE 2 DIABETES MELLITUS WITH FOOT ULCER; L97.514 - NON-PRS CHRONIC ULCER OTH PRT RIGHT FOOT W NECROSIS OF BONE SNOMED Code(s): 99923897575658368 Plan: 1patient with a right diabetic foot infection in this patient who did have a previous amputation of right 2nd-4th toe now with multiple wounds to the right foot with skin necrosis and also having cellulitis and foul-smelling drainage we will need to cover for the polymicrobial anne associated with diabetic foot infection, plain x-rays were also suspicious for osteomyelitis 2-local culture has been obtained and finalized as MSSA 3-patient has been evaluated by vascular surgery and is s/p sharp excisional debridement of his wound on the right foot no cultures were done 4-patient did have some clinical improvement we will order the PICC line for outpatient diabetes mellitus continue with the Unasyn discontinue vancomycin Dictation was produced using [employer] dictation software. please excuse any grammatical, word or spelling errors. Time with Patient: Less than 30
--- NOTE | 2023-04-29 13:05 | P.PN ---
Subjective Progress Note Date: 04/29/23 * 67-year-old male who presented to the emergency department for cellulitis of bilateral lower extremities. Patient was evaluated by Dr. Spears in the outpatient setting as he has chronic lower extremity wounds and has failed to follow-up with any providers in the outpatient setting. Patient was recently admitted and hospitalized with concerns of osteomyelitis of the right lower extremity and was sent home on antibiotics and per patient along with brother does not currently have a primary care provider. Patient has a significant past medical history of coronary artery disease, diabetes mellitus, hyperlipidemia, hypertension, previous CABG with pacemaker, previous amputation of the medial toes on the right foot and one toe indication on the left with also history of anxiety and depression. Patient had imaging in the ER including x-ray of the right foot showing previous amputations along with wounds at the stump with additional deepening wound along with focal erosions at the second metatarsal head that appeared to be worse than previous and Ben. ID consulted and appreciate input and recommendations. Vascular surgery consulted for further evaluation as well. On admission patient denied any fevers although did report having some increased redness and swelling to his right lower extremity that has been traveling up his leg. White count this morning shows 10.66 with hemoglobin of 14.0 and platelets are 212, sodium is 144 with a potassium of 3.7 and current creatinine is 1.1. Magnesium 1.7 and blood sugars 150s- 200s. Patient is insulin-dependent and reports he checks his blood sugars and provides insulin to himself. Patient has a severely poor social support and lives with brother in the home. Patient was admitted for bilateral lower extremity cellulitis. * 04/25/2023 Patient is seen and evaluated in follow-up currently sitting up in the chair. Patient continued on antibiotics with infectious disease following and vascular surgery has been consulted. There is some purulent drainage noted on the right foot upper aspect with a large wound noted as well as puru lent drainage and swelling with redness noted at the previous amputation site and fifth digit. Vascular surgery with plans to debride the area. Hopefully for deep cultures to determine appropriate discharge antibiotics. Patient is a diabetic and poorly controlled recommend Accu-Cheks before meals and at bedtime and will continue current regimen. Discussed with nursing staff about monitoring blood sugars closely especially in the evening as patient does have history of being hypoglycemic as well. Patient was continued on large dose of IV fluids and we'll decrease the rate is patient is reporting some shortness of breath. Patient is maintaining oxygen saturations above 90% on room air. Patient does have a component of anxiety as well. Will have PT/OT therapy follow the patient and also discussed with case management and discharge planning this patient would benefit from ECF for continued wound care and medication compliance. Patient currently lives with brother at the home and r eports he manages his medications by himself. * 04/26/23: Patient was taken to overall patient patient has right lower extremity wound. Patient is status post excisional debridement of right foot wounds * 04/27/2023: Patient is seen and evaluated bedside, right lower extremity has bandages, white cell count stable no bleeding episode noted, continue on current antibiotic continue with wound care * 04/28/2023: Patient seen and evaluated bedside, plan of care discussed in detail, he had continue IV antibiotics, patient will need a PICC line will coordinate with infectious disease, CBC remained stable. Will need discharge to subacute rehab * 04/29/2023: Patient seen and evaluated bedside during my assessment patient is awake and alert, patient ambulating, patient will need IV antibiotics will nee d PICC line placement. Will coordinate with infectious disease regarding duration of antibiotic. has been started back on aspirin and Plavix CRP within normal limits, WBC within normal limits PHYSICAL EXAMINATION: GENERAL: The patient is alert and oriented x3, Well developed, well nourished. Obese HEENT: Pupils are round and equally reacting to light. EOMI. no scleral icterus. No conjunctival pallor. Normocephalic, atraumatic. No pharyngeal erythema. No thyromegaly. CARDIOVASCULAR: S1 and S2 muffled PULMONARY: diminished breath sounds bilaterally with no wheezing or rhonchi noted. ABDOMEN: soft. Nontender on exam. obese. non-distended, normoactive bowel sounds. No palpable organomegaly. MUSCULOSKELETAL: No joint swelling or deformity. EXTREMITIES: No cyanosis, clubbing, or pedal edema. Right foot bandage NEUROLOGICAL: Gross neurological examination did not reveal any focal deficits. Diffuse weakness SKIN: Right lower extremity bandage Objective - Vital Signs Vital signs: Vital Signs Temp 97.5 F L 04/29/23 07:32 Pulse 66 04/29/23 10:15 Resp 20 01/16/24 10:15 BP 172/93 04/29/23 07:32 Pulse Ox 98 04/29/23 07:32 FiO2 Intake & Output 04/28/23 04/29/23 04/29/23 18:59 06:59 18:59 Intake Total 300 Balance 300 Intake: Oral 300 Other: Voiding Method Urinal Toilet Toilet Urinal Urinal # Voids 2 2 - Labs CBC & Chem 7: 04/29/23 08:14 04/29/23 08:14 Labs: Abnormal Lab Results - Last 24 Hours (Table) 04/28/23 04/28/23 04/29/23 Range/Units 17:06 21:21 03:07 MCHC (32.0-37.0) g/dL RDW (11.5-14.5) % BUN/Creatinine Ratio (12.00-20.00) Ratio Glucose (70-110) mg/dL POC Glucose (mg/dL) 138 H 188 H 120 H (70-110) mg/dL Calcium (8.7-10.3) mg/dL 04/29/23 04/29/23 04/29/23 Range/Units 05:24 08:14 08:14 MCHC 30.9 L (32.0-37.0) g/dL RDW 16.3 H (11.5-14.5) % BUN/Creatinine Ratio 9.40 L (12.00-20.00) Ratio Glucose 179 H (70-110) mg/dL POC Glucose (mg/dL) 129 H (70-110) mg/dL Calcium 8.5 L (8.7-10.3) mg/dL 04/29/23 Range/Units 11:58 MCHC (32.0-37.0) g/dL RDW (11.5-14.5) % BUN/Creatinine Ratio (12.00-20.00) Ratio Glucose (70-110) mg/dL POC Glucose (mg/dL) 156 H (70-110) mg/dL Calcium (8.7-10.3) mg/dL Microbiology - Last 24 Hours (Table) 04/23/23 16:03 Blood Culture - Final Blood 04/24/23 13:00 Anaerobic Culture - Final Foot - Right Assessment and Plan Assessment: Assessment: Diabetic foot ulcer with right lower extremity cellulitis Chronic right foot wounds with history of osteomyelitis Bilateral lower extremity cellulitis, present on admission, more so on the right diabetes mellitus, insulin-dependent, uncontrolled with hyper and hypoglycemia history of coronary artery disease with CABG Gait dysfunction History of hyperlipidemia History of hypertension history of anxiety/depression * In regards to diabetic foot ulcer with cellulitis, seen by surgery status post excisional debridement. Continue IV antibiotic on Unasyn, vancomycin infectious disease following, final antibiotic plan per infectious disease * Vascular surgery following an underwent foot CT with no obvious signs of osteomyelitis. Patient underwent debridement 04/26 unfortunately no cultures sent per report * Case management consulted as well this patient would likely benefit from ECF for continued wound care with possible need for IV antibiotics. Patient has an extremely poor social support and lives with brother and is not providing adequate care and is noncompliant with medications and follow-up. * Infectious disease following, continue IV antibiotic * In regards to diabetes mellitus continue patient on correctional insulin, HbA1c 6.2 * In regards to history of coronary artery disease continue patient on aspirin and Plavix that has been resumed
[2023-04-29 16:35] LABS: Glucose,Whole Blood 208 mg/dL (70-110)
[2023-04-29 21:08] LABS: Glucose,Whole Blood 107 mg/dL (70-110)
[2023-04-29] MEDS: MELATONIN 5 MG TABLET PO PRN (21:08)
[2023-04-29] MEDS: INSULIN DETEMIR (LEVEMIR) 100 UNIT/ML SYR SQ SCH (21:08)
[2023-04-30] MEDS: SODIUM CHLORIDE 0.9% 1,000 ML IV SCH (01:06)
[2023-04-30 01:29] LABS: Glucose,Whole Blood 124 mg/dL (70-110)
[2023-04-30 05:17] LABS: African American GFR (CKD) 89 (>60 ml/min/1.73 sqM); Anion Gap 4 mmol/L; Blood Urea Nitrogen 12 mg/dL (9-20); C Reactive Protein 0.5 mg/dL (<1.0); Calcium 8.3 mg/dL (8.4-10.2); Carbon Dioxide 30 mmol/L (22-30); Chloride 105 mmol/L (98-107); Glucose 151 mg/dL (74-99); Non-African American GFR(CKD) 77 (>60 ml/min/1.73 sqM); Potassium 3.2 mmol/L (3.5-5.1); Sodium 139 mmol/L (137-145)
[2023-04-30 05:38] LABS: Glucose,Whole Blood 131 mg/dL (70-110)
[2023-04-30] MEDS: INSULIN ASPART (NovoLOG) 100 UNIT/ML VIAL SQ SCH ×7 (06:13→22:05)
[2023-04-30] MEDS: AMPICILLIN-SULBACTAM 3 GM in SODIUM CHLORIDE 0.9% 100 ML IVPB SCH ×4 (06:16→23:49)
[2023-04-30 08:41] LABS: HGB 13.2 g/dL (13.0-17.0); MCH 26.9 pg (27.0-32.0); MCHC 31.4 g/dL (32.0-37.0); MCV 85.7 FL (80.0-97.0); Mean Platelet Volume 10.9 FL (9.5-12.2); NRBC Per 100 WBC 0 X 10*3/uL (0.00-0.01); Platelet Count 171 X 10*3/uL (140-440); RDW 16.2 % (11.5-14.5); WBC 6.26 X 10*3/uL (4.50-10.00)
[2023-04-30] MEDS: LACTATED RINGERS 1,000 ML IV SCH (08:51)
[2023-04-30] MEDS: ASPIRIN 81 MG PO SCH (09:04)
[2023-04-30] MEDS: CLOPIDOGREL 75 MG TAB PO SCH (09:04)
[2023-04-30] MEDS: FINASTERIDE 5 MG TAB PO SCH (09:04)
[2023-04-30] MEDS: ATORVASTATIN 40 MG TAB PO SCH (09:04)
[2023-04-30] MEDS: FLUoxetine HCL 20 MG CAP PO SCH (09:04)
[2023-04-30] MEDS: COLLAGENASE 250 UNIT/GM OINTMENT 30 GM TUBE TOPICAL SCH (09:04)
[2023-04-30] MEDS: amLODIPine 2.5 MG TAB PO SCH (09:04)
[2023-04-30] MEDS: POTASSIUM CHLORIDE ER 20 MEQ TAB.ER PO SCH ×2 (09:05→22:06)
[2023-04-30] MEDS: FUROSEMIDE 40 MG TAB PO SCH ×2 (09:05→17:42)
[2023-04-30] MEDS: SACUBITRIL/VALSARTAN 49 MG-51 MG TABLET PO SCH ×2 (09:05→22:05)
[2023-04-30] MEDS: Semaglutide [Rybelsus] 7 MG Tablet PO SCH (09:15)
[2023-04-30 10:49] VITALS: BMI 38.9
[2023-04-30 12:01] LABS: Glucose,Whole Blood 112 mg/dL (70-110)
--- NOTE | 2023-04-30 12:33 | P.PN ---
Subjective Progress Note Date: 04/30/23 * 67-year-old male who presented to the emergency department for cellulitis of bilateral lower extremities. Patient was evaluated by Dr. Spears in the outpatient setting as he has chronic lower extremity wounds and has failed to follow-up with any providers in the outpatient setting. Patient was recently admitted and hospitalized with concerns of osteomyelitis of the right lower extremity and was sent home on antibiotics and per patient along with brother does not currently have a primary care provider. Patient has a significant past medical history of coronary artery disease, diabetes mellitus, hyperlipidemia, hypertension, previous CABG with pacemaker, previous amputation of the medial toes on the right foot and one toe indication on the left with also history of anxiety and depression. Patient had imaging in the ER including x-ray of the right foot showing previous amputations along with wounds at the stump with additional deepening wound along with focal erosions at the second metatarsal head that appeared to be worse than previous and Ben. ID consulted and appreciate input and recommendations. Vascular surgery consulted for further evaluation as well. On admission patient denied any fevers although did report having some increased redness and swelling to his right lower extremity that has been traveling up his leg. White count this morning shows 10.66 with hemoglobin of 14.0 and platelets are 212, sodium is 144 with a potassium of 3.7 and current creatinine is 1.1. Magnesium 1.7 and blood sugars 150s- 200s. Patient is insulin-dependent and reports he checks his blood sugars and provides insulin to himself. Patient has a severely poor social support and lives with brother in the home. Patient was admitted for bilateral lower extremity cellulitis. * 04/25/2023 Patient is seen and evaluated in follow-up currently sitting up in the chair. Patient continued on antibiotics with infectious disease following and vascular surgery has been consulted. There is some purulent drainage noted on the right foot upper aspect with a large wound noted as well as puru lent drainage and swelling with redness noted at the previous amputation site and fifth digit. Vascular surgery with plans to debride the area. Hopefully for deep cultures to determine appropriate discharge antibiotics. Patient is a diabetic and poorly controlled recommend Accu-Cheks before meals and at bedtime and will continue current regimen. Discussed with nursing staff about monitoring blood sugars closely especially in the evening as patient does have history of being hypoglycemic as well. Patient was continued on large dose of IV fluids and we'll decrease the rate is patient is reporting some shortness of breath. Patient is maintaining oxygen saturations above 90% on room air. Patient does have a component of anxiety as well. Will have PT/OT therapy follow the patient and also discussed with case management and discharge planning this patient would benefit from ECF for continued wound care and medication compliance. Patient currently lives with brother at the home and r eports he manages his medications by himself. * 04/26/23: Patient was taken to overall patient patient has right lower extremity wound. Patient is status post excisional debridement of right foot wounds * 04/27/2023: Patient is seen and evaluated bedside, right lower extremity has bandages, white cell count stable no bleeding episode noted, continue on current antibiotic continue with wound care * 04/28/2023: Patient seen and evaluated bedside, plan of care discussed in detail, he had continue IV antibiotics, patient will need a PICC line will coordinate with infectious disease, CBC remained stable. Will need discharge to subacute rehab * 04/29/2023: Patient seen and evaluated bedside during my assessment patient is awake and alert, patient ambulating, patient will need IV antibiotics will nee d PICC line placement. Will coordinate with infectious disease regarding duration of antibiotic. has been started back on aspirin and Plavix CRP within normal limits, WBC within normal limits * 04/30/2023: Patient seen and evaluated bedside patient did take a shower, waiting for PICC line. Plan to discharge to rehab pending insurance authorization PHYSICAL EXAMINATION: GENERAL: The patient is alert and oriented x3, Well developed, well nourished. Obese HEENT: Pupils are round and equally reacting to light. EOMI. no scleral icterus. No conjunctival pallor. Normocephalic, atraumatic. No pharyngeal erythema. No thyromegaly. CARDIOVASCULAR: S1 and S2 muffled PULMONARY: diminished breath sounds bilaterally with no wheezing or rhonchi noted. ABDOMEN: soft. Nontender on exam. obese. non-distended, normoactive bowel sounds. No palpable organomegaly. MUSCULOSKELETAL: No joint swelling or deformity. EXTREMITIES: No cyanosis, clubbing, or pedal edema. Right foot bandage NEUROLOGICAL: Gross neurological examination did not reveal any focal deficits. Diffuse weakness SKIN: Right lower extremity bandage Objective - Vital Signs Vital signs: Vital Signs Temp 97.5 F L 04/30/23 07:08 Pulse 67 04/30/23 07:08 Resp 20 04/30/23 10:20 BP 177/96 04/30/23 07:08 Pulse Ox 95 04/30/23 07:08 FiO2 Intake & Output 04/29/23 04/30/23 04/30/23 18:59 06:59 18:59 Intake Total 600 Balance 600 Weight 106.141 kg Intake: Oral 600 Other: Voiding Method Toilet Toilet Toilet Urinal Urinal Urinal # Voids 3 4 - Labs CBC & Chem 7: 04/30/23 04:19 04/30/23 04:19 Labs: Abnormal Lab Results - Last 24 Hours (Table) 04/29/23 04/30/23 04/30/23 Range/Units 16:34 01:25 04:19 MCH (27.0-32.0) pg MCHC (32.0-37.0) g/dL RDW (11.5-14.5) % Potassium 3.2 L (3.5-5.1) mmol/L Glucose 151 H (74-99) mg/dL POC Glucose (mg/dL) 208 H 124 H (70-110) mg/dL Calcium 8.3 L (8.4-10.2) mg/dL 04/30/23 04/30/23 04/30/23 Range/Units 04:19 05:36 12:00 MCH 26.9 L (27.0-32.0) pg MCHC 31.4 L (32.0-37.0) g/dL RDW 16.2 H (11.5-14.5) % Potassium (3.5-5.1) mmol/L Glucose (74-99) mg/dL POC Glucose (mg/dL) 131 H 112 H (70-110) mg/dL Calcium (8.4-10.2) mg/dL Assessment and Plan Assessment: Assessment: Diabetic foot ulcer with right lower extremity cellulitis Chronic right foot wounds with history of osteomyelitis Bilateral lower extremity cellulitis, present on admission, more so on the right diabetes mellitus, insulin-dependent, uncontrolled with hyper and hypoglycemia history of coronary artery disease with CABG Gait dysfunction History of hyperlipidemia History of hypertension history of anxiety/depression * In regards to diabetic foot ulcer with cellulitis, seen by surgery status post excisional debridement. Continue IV antibiotic on Unasyn, vancomycin discontinued, infectious disease following, final antibiotic plan per infectious disease * Vascular surgery following an underwent foot CT with no obvious signs of osteomyelitis. Patient underwent debridement 04/26 unfortunately no cultures sent per report * Case management consulted as well this patient would likely benefit from ECF for continued wound care with possible need for IV antibiotics. Patient has an extremely poor social support and lives with brother and is not providing adequate care and is noncompliant with medications and follow-up. * Infectious disease following, continue IV antibiotic * In regards to diabetes mellitus continue patient on correctional insulin, HbA1c 6.2 * In regards to history of coronary artery disease continue patient on aspirin and Plavix that has been resumed
[2023-04-30 17:05] LABS: Glucose,Whole Blood 135 mg/dL (70-110)
--- NOTE | 2023-04-30 17:26 | P.PN ---
Subjective Progress Note Date: 04/30/23 Principal diagnosis: Reason for follow-up is right diabetic foot wound and question of osteomyelitis Patient is a 67-year-old male with a past medical history significant for diabetes mellitus hypertension hyperlipidemia coronary artery disease patient did have a right foot wound, patient noticed to have worsening of his wound for the patient was advised to go to the hospital.Patient did have a sharp excisional debridement of his right foot wound completed by vascular surgery on 04/26/2023. On today's evaluation that is 04/30/2023, the patient continues to be afebrile patient is breathing comfortably on room air, no need for supplemental oxygen, patient denies any chest pain or cough no nausea no vomiting and no diarrhea has been reported, the patient has pain to his right foot wound Patient did have white count of 6.26, creatinine 1.01, local cultures MSSA Objective - Vital Signs Vital signs: Vital Signs Temp 97.5 F L 04/30/23 07:08 Pulse 67 04/30/23 07:08 Resp 20 04/30/23 10:20 BP 177/96 04/30/23 07:08 Pulse Ox 95 04/30/23 07:08 FiO2 Intake & Output 04/29/23 04/30/23 04/30/23 18:59 06:59 18:59 Intake Total 600 Balance 600 Weight 106.141 kg Intake: Oral 600 Other: Voiding Method Toilet Toilet Toilet Urinal Urinal Urinal # Voids 3 4 - Exam GENERAL DESCRIPTION: An elderly male lying in bed in no distress RESPIRATORY SYSTEM: Unlabored breathing , decreased breath sounds at bases HEART: S1 S2 regular rate and rhythm , ABDOMEN: Soft , no tenderness EXTREMITIES: Right foot did have multiple wounds with some skin necrosis slough tissue redness slightly decreased - Labs CBC & Chem 7: 04/30/23 04:19 04/30/23 04:19 Labs: Abnormal Lab Results - Last 24 Hours (Table) 04/29/23 04/30/23 04/30/23 Range/Units 16:34 01:25 04:19 MCH (27.0-32.0) pg MCHC (32.0-37.0) g/dL RDW (11.5-14.5) % Potassium 3.2 L (3.5-5.1) mmol/L Glucose 151 H (74-99) mg/dL POC Glucose (mg/dL) 208 H 124 H (70-110) mg/dL Calcium 8.3 L (8.4-10.2) mg/dL 04/30/23 04/30/23 04/30/23 Range/Units 04:19 05:36 12:00 MCH 26.9 L (27.0-32.0) pg MCHC 31.4 L (32.0-37.0) g/dL RDW 16.2 H (11.5-14.5) % Potassium (3.5-5.1) mmol/L Glucose (74-99) mg/dL POC Glucose (mg/dL) 131 H 112 H (70-110) mg/dL Calcium (8.4-10.2) mg/dL Assessment and Plan (1) Non-pressure chronic ulcer of other part of right foot with necrosis of bone Current Visit: Yes Status: Acute Code(s): L97.514 - NON-PRS CHRONIC ULCER OTH PRT RIGHT FOOT W NECROSIS OF BONE SNOMED Code(s): 87889732471908243 (2) Osteomyelitis of metatarsal Current Visit: Yes Status: Acute Code(s): M86.9 - OSTEOMYELITIS, UNSPECIFIED SNOMED Code(s): 198143021 (3) 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, with necrosis of bone Current Visit: No Status: Acute Code(s): E11.621 - TYPE 2 DIABETES MELLITUS WITH FOOT ULCER; L97.514 - NON-PRS CHRONIC ULCER OTH PRT RIGHT FOOT W NECROSIS OF BONE SNOMED Code(s): 73803817146423777 Plan: 1patient with a right diabetic foot infection in this patient who did have a previous amputation of right 2nd-4th toe now with multiple wounds to the right foot with skin necrosis and also having cellulitis and foul-smelling drainage we will need to cover for the polymicrobial anne associated with diabetic foot infection, plain x-rays were also suspicious for osteomyelitis 2-local culture has been obtained and finalized as MSSA 3-patient has been evaluated by vascular surgery and is s/p sharp excisional debridement of his wound on the right foot no cultures were done 4-patient did have some clinical improvement, keeping in mind the patient did have extensive infection and high risk of limb loss we will continue patient on Unasyn 3 g every 6 hours for 4 weeks local wound care to continue as ordered in the close outpatient follow-up Dictation was produced using [employer] dictation software. please excuse any grammatical, word or spelling errors.
[2023-04-30 20:49] LABS: Glucose,Whole Blood 235 mg/dL (70-110)
[2023-04-30] MEDS: INSULIN DETEMIR (LEVEMIR) 100 UNIT/ML SYR SQ SCH (22:05)
[2023-04-30] MEDS: MELATONIN 5 MG TABLET PO PRN (22:10)
[2023-05-01 02:29] LABS: Glucose,Whole Blood 95 mg/dL (70-110)
[2023-05-01 05:30] LABS: Glucose,Whole Blood 75 mg/dL (70-110)
[2023-05-01] MEDS: AMPICILLIN-SULBACTAM 3 GM in SODIUM CHLORIDE 0.9% 100 ML IVPB SCH ×2 (05:35→11:15)
[2023-05-01] MEDS: INSULIN ASPART (NovoLOG) 100 UNIT/ML VIAL SQ SCH ×4 (06:54→11:35)
[2023-05-01] MEDS: LACTATED RINGERS 1,000 ML IV SCH (07:20)
[2023-05-01] MEDS: FINASTERIDE 5 MG TAB PO SCH (07:38)
[2023-05-01] MEDS: FLUoxetine HCL 20 MG CAP PO SCH (07:38)
[2023-05-01] MEDS: POTASSIUM CHLORIDE ER 20 MEQ TAB.ER PO SCH (07:38)
[2023-05-01] MEDS: amLODIPine 2.5 MG TAB PO SCH (07:38)
[2023-05-01] MEDS: ASPIRIN 81 MG PO SCH (07:38)
[2023-05-01] MEDS: CLOPIDOGREL 75 MG TAB PO SCH (07:39)
[2023-05-01] MEDS: ATORVASTATIN 40 MG TAB PO SCH (07:39)
[2023-05-01] MEDS: COLLAGENASE 250 UNIT/GM OINTMENT 30 GM TUBE TOPICAL SCH (07:39)
[2023-05-01] MEDS: FUROSEMIDE 40 MG TAB PO SCH ×2 (07:39→17:07)
[2023-05-01] MEDS: Semaglutide [Rybelsus] 7 MG Tablet PO SCH (07:40)
[2023-05-01] MEDS: SACUBITRIL/VALSARTAN 49 MG-51 MG TABLET PO SCH (07:40)
[2023-05-01 11:30] LABS: Glucose,Whole Blood 127 mg/dL (70-110)
[2023-05-01 11:43] LABS: Calcium 8.7 mg/dL (8.7-10.3); Carbon Dioxide 27.6 mmol/L (21.6-31.8); Chloride 105 mmol/L (96-109); Glucose 63 mg/dL (70-110); Potassium 3.9 mmol/L (3.5-5.5); Sodium 144 mmol/L (135-145)
--- NOTE | 2023-05-01 12:55 | P.DS ---
Providers Date of admission: 04/23/23 17:19 Expected date of discharge: 05/01/23 Attending physician: Leyda Nascimento Consults: 04/23/23 15:21 Consult Physician Urgent Consulting Provider: Lokesh Hogan Consult Reason/Comments: cellulitis, lower extremity Do you want consulting provider notified?: Yes Primary care physician: Stated None Hospital Course: * 67-year-old male who presented to the emergency department for cellulitis of bilateral lower extremities. Patient was evaluated by Dr. Spears in the outpatient setting as he has chronic lower extremity wounds and has failed to follow-up with any providers in the outpatient setting. Patient was recently admitted and hospitalized with concerns of osteomyelitis of the right lower extremity and was sent home on antibiotics and per patient along with brother does not currently have a primary care provider. Patient has a significant past medical history of coronary artery disease, diabetes mellitus, hyperlipidemia, hypertension, previous CABG with pacemaker, previous amputation of the medial toes on the right foot and one toe indication on the left with also history of anxiety and depression. Patient had imaging in the ER including x-ray of the right foot showing previous amputations along with wounds at the stump with additional deepening wound along with focal erosions at the second metatarsal head that appeared to be worse than previous and Ben. ID consulted and appreciate input and recommendations. Vascular surgery consulted for further evaluation as well. On admission patient denied any fevers although did report having some increased redness and swelling to his right lower extremity that has been traveling up his leg. White count this morning shows 10.66 with hemoglobin of 14.0 and platelets are 212, sodium is 144 with a potassium of 3.7 and current creatinine is 1.1. Magnesium 1.7 and blood sugars 150s- 200s. Patient is insulin-dependent and reports he checks his blood sugars and provides insulin to himself. Patient has a severely poor social support and lives with brother in the home. Patient was admitted for bilateral lower extremity cellulitis. * 04/25/2023 Patient is seen and evaluated in follow-up currently sitting up in the chair. Patient continued on antibiotics with infectious disease following and vascular surgery has been consulted. There is some purulent drainage noted on the right foot upper aspect with a large wound noted as well as purulent drainage and swelling with redness noted at the previous amputation site and fifth digit. Vascular surgery with plans to debride the area. Hopefully for deep cultures to determine appropriate discharge antibiotics. Patient is a diabetic and poorly controlled recommend Accu-Cheks before meals and at bedtime and will continue current regimen. Discussed with nursing staff about monitoring blood sugars closely especially in the evening as patient does have history of being hypoglycemic as well. Patient was co ntinued on large dose of IV fluids and we'll decrease the rate is patient is reporting some shortness of breath. Patient is maintaining oxygen saturations above 90% on room air. Patient does have a component of anxiety as well. Will have PT/OT therapy follow the patient and also discussed with case management and discharge planning this patient would benefit from ECF for continued wound care and medication compliance. Patient currently lives with brother at the home and reports he manages his medications by himself. * 04/26/23: Patient was taken to overall patient patient has right lower ex tremity wound. Patient is status post excisional debridement of right foot wounds * 04/27/2023: Patient is seen and evaluated bedside, right lower extremity has bandages, white cell count stable no bleeding episode noted, continue on current antibiotic continue with wound care * 04/28/2023: Patient seen and evaluated bedside, plan of care discussed in detail, he had continue IV antibiotics, patient will need a PICC line will coordinate with infectious disease, CBC remained stable. Will need discharge to subacute rehab * 04/29/2023: Patient seen and evaluated bedside during my assessment patient is awake and alert, patient ambulating, patient will need IV antibiotics will need PICC line placement. Will coordinate with infectious disease regarding duration of antibiotic. has been started back on aspirin and Plavix CRP within normal limits, WBC within normal limits * 04/30/2023: Patient seen and evaluated bedside patient did take a shower, waiting for PICC line. Plan to discharge to rehab pending insurance authorization * 05/01/2023: Patient seen and evaluated bedside, on assessment patient is alert and oriented 4, blood work reviewed patient will need IV antibiotic prescription provided by infectious disease rest of the home medications resumed, while at subacute rehab patient will need wound care. weekly renal profile, CBC while on IV antibiotic, follow up with infectious disease PHYSICAL EXAMINATION: GENERAL: The patient is alert and oriented x3, Well developed, well nourished. Obese HEENT: Pupils are round and equally reacting to light. EOMI. no scleral icterus. No conjunctival pallor. Normocephalic, atraumatic. No pharyngeal erythema. No thyromegaly. CARDIOVASCULAR: S1 and S2 muffled PULMONARY: diminished breath sounds bilaterally with no wheezing or rhonchi noted. ABDOMEN: soft. Nontender on exam. obese. non-distended, normoactive bowel sounds. No palpable organomegaly. MUSCULOSKELETAL: No joint swelling or deformity. EXTREMITIES: No cyanosis, clubbing, or pedal edema. Right foot bandage NEUROLOGICAL: Gross neurological examination did not reveal any focal deficits. Diffuse weakness SKIN: Right lower extremity bandage Assessment: Assessment: Diabetic foot ulcer with right lower extremity cellulitis Chronic right foot wounds with history of osteomyelitis Bilateral lower extremity cellulitis, present on admission, more so on the right diabetes mellitus, insulin-dependent, uncontrolled with hyper and hypoglycemia history of coronary artery disease with CABG Gait dysfunction History of hyperlipidemia History of hypertension history of anxiety/depression * In regards to diabetic foot ulcer with cellulitis, seen by surgery status post excisional debridement. Continue IV antibiotic on Unasyn, vancomycin discontinued, infectious disease following, final antibiotic plan per infectious disease * Vascular surgery following an underwent foot CT with no obvious signs of os teomyelitis. Patient underwent debridement 04/26 unfortunately no cultures sent per report * Case management consulted as well this patient would likely benefit from ECF for continued wound care with possible need for IV antibiotics. Patient has an extremely poor social support and lives with brother and is not providing adequate care and is noncompliant with medications and follow-up. * Infectious disease following, continue IV antibiotic * In regards to diabetes mellitus continue patient on NovoLog and Lantus HbA1c 6.2 * In regards to history of coronary artery disease continue patient on aspirin and Plavix that has been resumed * Discharge to subacute rehab after PICC line placement Patient Condition at Discharge: Fair Plan - Discharge Summary Discharge Rx Participant: Yes New Discharge Prescriptions: New Ampicillin-Sulbactam [Unasyn 3 gm vial] 3 gm IVPB Q6HR #112 each amLODIPine [Norvasc] 2.5 mg PO DAILY tab Continue Furosemide [Lasix] 40 mg PO BID #60 tablet Atorvastatin Calcium [Lipitor] 40 mg PO DAILY #30 tab Sacubitril/Valsartan [Entresto 49 mg-51 mg Tablet] 1 tab PO BID FLUoxetine HCL [PROzac] 40 mg PO DAILY Clopidogrel [Plavix] 75 mg PO DAILY Insulin Aspart [NovoLOG Flexpen] 5 units SQ AC-TID Collagenase [Santyl Ointment] 1 applic TOPICAL DAILY 30 Days #1 each Insulin Glargine,Hum.rec.anlog [Lantus Solostar Pen] 15 units SQ HS #0 Aspirin EC [Ecotrin Low Dose] 81 mg PO DAILY Semaglutide [Rybelsus] 7 mg PO DAILY ARIPiprazole [Abilify] 20 mg PO DAILY Potassium Chloride ER [K-Dur 20] 20 meq PO BID Finasteride [Proscar] 5 mg PO DAILY Discharge Medication List Atorvastatin Calcium [Lipitor] 40 mg PO DAILY #30 tab 06/19/19 [Rx] Furosemide [Lasix] 40 mg PO BID #60 tablet 06/19/19 [Rx] Sacubitril/Valsartan [Entresto 49 mg-51 mg Tablet] 1 tab PO BID 09/23/19 [History] ARIPiprazole [Abilify] 20 mg PO DAILY 03/19/23 [History] Clopidogrel [Plavix] 75 mg PO DAILY 03/19/23 [History] FLUoxetine HCL [PROzac] 40 mg PO DAILY 03/19/23 [History] Finasteride [Proscar] 5 mg PO DAILY 03/19/23 [History] Insulin Aspart [NovoLOG Flexpen] 5 units SQ AC-TID 03/19/23 [History] Potassium Chloride ER [K-Dur 20] 20 meq PO BID 03/19/23 [History] Semaglutide [Rybelsus] 7 mg PO DAILY 03/19/23 [History] Collagenase [Santyl Ointment] 1 applic TOPICAL DAILY 30 Days #1 each 03/25/23 [Rx] Insulin Glargine,Hum.rec.anlog [Lantus Solostar Pen] 15 units SQ HS #0 03/25/23 [Rx] Aspirin EC [Ecotrin Low Dose] 81 mg PO DAILY 04/23/23 [History] Ampicillin-Sulbactam [Unasyn 3 gm vial] 3 gm IVPB Q6HR #112 each 04/30/23 [Rx] amLODIPine [Norvasc] 2.5 mg PO DAILY tab 05/01/23 [Rx] Follow up Appointment(s)/Referral(s): Kulwinder Johnson, [NON-STAFF] - As Needed None,Stated [Primary Care Provider] - 1 Week [facility] [NON-STAFF] - 1 Week Activity/Diet/Wound Care/Special Instructions: Patient home med Radhas is in pt med box in med room. Please give back medication to patient at discharge. Discharge/Stand Alone Forms: Area PCPs Discharge Disposition: TRANSFER TO SNF/ECF
[2023-05-01 15:26] VITALS: BP 148/80; PULSE 64; RESP 17; TEMP 98
--- NOTE | 2023-05-01 15:36 | P.PN ---
Subjective Progress Note Date: 05/01/23 Principal diagnosis: Reason for follow-up is right diabetic foot wound and question of osteomyelitis Patient is a 67-year-old male with a past medical history significant for diabetes mellitus hypertension hyperlipidemia coronary artery disease patient did have a right foot wound, patient noticed to have worsening of his wound for the patient was advised to go to the hospital.Patient did have a sharp excisional debridement of his right foot wound completed by vascular surgery on 04/26/2023. On today's evaluation that is 05/01/2023 the patient denies having any fever or any chills, the patient is breathing comfortably on room air, patient denies chest pain cough, the patient denies having any abdominal pain no nausea vomiting and no diarrhea, the patient denies pain to his right foot wound Patient did have white count of 6.26 as of yesterday, creatinine 1, local cultures MSSA Objective - Vital Signs Vital signs: Vital Signs Temp 97.6 F 05/01/23 06:55 Pulse 70 05/01/23 06:55 Resp 18 05/01/23 08:00 BP 171/79 05/01/23 06:55 Pulse Ox 94 L 05/01/23 06:55 FiO2 Intake & Output 04/30/23 05/01/23 05/01/23 18:59 06:59 18:59 Intake Total 920 300 Balance 920 300 Weight 106.141 kg Intake: Oral 920 300 Other: Voiding Method Toilet Toilet Urinal Urinal # Voids 2 3 - Exam GENERAL DESCRIPTION: An elderly male lying in bed in no distress RESPIRATORY SYSTEM: Unlabored breathing , decreased breath sounds at bases HEART: S1 S2 regular rate and rhythm , ABDOMEN: Soft , no tenderness EXTREMITIES: Right foot did have multiple wounds with some skin necrosis slough tissue redness slightly decreased - Labs CBC & Chem 7: 04/30/23 04:19 05/01/23 05:22 Labs: Abnormal Lab Results - Last 24 Hours (Table) 04/30/23 04/30/23 05/01/23 Range/Units 17:04 20:47 05:22 Glucose 63 L (70-110) mg/dL POC Glucose (mg/dL) 135 H 235 H (70-110) mg/dL 05/01/23 Range/Units 11:29 Glucose (70-110) mg/dL POC Glucose (mg/dL) 127 H (70-110) mg/dL Assessment and Plan (1) Non-pressure chronic ulcer of other part of right foot with necrosis of bone Current Visit: Yes Status: Acute Code(s): L97.514 - NON-PRS CHRONIC ULCER OTH PRT RIGHT FOOT W NECROSIS OF BONE SNOMED Code(s): 68215413407400601 (2) Osteomyelitis of metatarsal Current Visit: Yes Status: Acute Code(s): M86.9 - OSTEOMYELITIS, UNSPECIFIED SNOMED Code(s): 750595114 (3) 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, with necrosis of bone Current Visit: No Status: Acute Code(s): E11.621 - TYPE 2 DIABETES MELLITUS WITH FOOT ULCER; L97.514 - NON-PRS CHRONIC ULCER OTH PRT RIGHT FOOT W NECROSIS OF BONE SNOMED Code(s): 46601650929691681 Plan: 1patient with a right diabetic foot infection in this patient who did have a previous amputation of right 2nd-4th toe now with multiple wounds to the right foot with skin necrosis and also having cellulitis and foul-smelling drainage we will need to cover for the polymicrobial anne associated with diabetic foot infection, plain x-rays were also suspicious for osteomyelitis 2-local culture has been obtained and finalized as MSSA 3-patient has been evaluated by vascular surgery and is s/p sharp excisional debridement of his wound on the right foot no cultures were done 4-patient did have some clinical improvement, patient is currently waiting for PICC line placement, plan is Unasyn 3 g every 6 hours for 4 weeks local wound care to continue as ordered in the close outpatient follow-up Dictation was produced using [employer] dictation software. please excuse any grammatical, word or spelling errors. Time with Patient: Less than 30
[2023-05-01] MEDS ORDERED: LIDOCAINE 1% INJ 10MG/ML (20 ML MDV) SQ ONE (15:46)
--- NOTE | 2023-05-01 16:01 | P.OP ---
Date of Procedure: 05/01/23 Description of Procedure: Preoperative Diagnosis: Need for long-term IV antibiotic access. Postoperative Diagnosis: Same. Procedure(s) Performed: Ultrasound-guided cannulation right brachial vein. Insertion of peripherally inserted central catheter under fluoroscopic guidance. Anesthesia: local 1% lidocaine lidia Surgeon: Chyna Estimated Blood Loss (ml): 5 IV fluids (ml): 0 Urine output (ml): 0 Pathology: none sent Condition: stable Disposition: no change Indications for Procedure: Patient requires long-term IV antibiotics as an outpatient patient is offered a PICC line to allow for intravenous administration of antibiotics. Description of Procedure: Patient was brought to the special procedure suite. He has a left upper extremity port therefore the left side was avoided. The right upper extremity sterilely prepped and draped in usual manner. Ultrasound was utilized there was no identifiable cephalic vein. The basilic vein appeared very small therefore ultrasound was then utilized to identify the brachial vein which was normally compressible free of visible thrombus. Permenant image was stored. 1% Xylocaine was utilized for local anesthesia tissues overlying the vein. Through this anesthetized area and with the aid of ultrasound a micropuncture needle was utilized to cannulate the vein. Once cannulated, Softip guidewire was advanced into the vein. The needle was withdrawn and a micropuncture sheath and dilator advanced over the guidewire. The guidewire was withdrawn and exchanged for the PICC guidewire and measured 38cm to the cavoatrial junction. The catheter was cut to size and advanced into the cavoatrial junction without resistance. The sheath was peeled away. Blood was easily withdrawn through the catheter and the catheter was then flushed with heparinized saline solution and secured to the skin. Patient tolerated procedure well and was returned to their room in satisfactory and stable condition.
--- NOTE | 2023-05-01 23:29 | IR ---
PICC Insertion: EXAMINATION TYPE: IR cvc insert >=5 years Intraoperative/procedural fluoroscopic services were provid ed. CLINICAL INDICATION:Male, 67 years old with history of Abx, 0.4m/1.4137DAP, 4F 38cm rt brachial PICC line.; , [facility] Total fluoroscopy time is 0.4 min. DAP: 1.4137 Gycm2 Please see the operative/procedural note for further details.
== END 2023-05-01 16:56 | DRG 623 ==
LOC: EC 14:08 → 4SSUR 17:19
PROVIDERS: ADMIT Hospitalist; ATTEND Hospitalist
PROC: 0JBQ0ZZ Excision of Right Foot Subcutaneous Tissue and Fascia, Open Approach (ICD-10-PCS; principal; 2023-04-26 12:45)
PROC: 02HV33Z Insertion of Infusion Device into Superior Vena Cava, Percutaneous Approach (ICD-10-PCS; 2023-05-01)
DX: E11.621 Type 2 diabetes mellitus with foot ulcer (principal); L03.115 Cellulitis of right lower limb; L03.116 Cellulitis of left lower limb; L97.514 Non-pressure chronic ulcer of other part of right foot with necrosis of bone; E11.649 Type 2 diabetes mellitus with hypoglycemia without coma; E11.40 Type 2 diabetes mellitus with diabetic neuropathy, unspecified; B95.61 Methicillin susceptible Staphylococcus aureus infection as the cause of diseases classified elsewhere; E11.628 Type 2 diabetes mellitus with other skin complications; E11.65 Type 2 diabetes mellitus with hyperglycemia; Z89.429 Acquired absence of other toe(s), unspecified side; E78.5 Hyperlipidemia, unspecified; F32.A Depression, unspecified; F41.9 Anxiety disorder, unspecified; I10 Essential (primary) hypertension; I87.8 Other specified disorders of veins; I25.10 Atherosclerotic heart disease of native coronary artery without angina pectoris; R26.9 Unspecified abnormalities of gait and mobility; Z91.199 Patient's noncompliance with other medical treatment and regimen due to unspecified reason; Z91.148 Patient's other noncompliance with medication regimen for other reason; Z79.82 Long term (current) use of aspirin; Z79.02 Long term (current) use of antithrombotics/antiplatelets; Z79.4 Long term (current) use of insulin; Z79.899 Other long term (current) drug therapy; Z60.8 Other problems related to social environment; Z95.1 Presence of aortocoronary bypass graft; Z88.5 Allergy status to narcotic agent; Z83.3 Family history of diabetes mellitus
CPT/HCPCS: 36415; 36573; 71045; 80048; 80053; 80202; 83036; 83605; 83735; 83880; 84100; 85025; 85027; 85652; 86140; 87040; 87070; 87075; 87077; 87186; 87205; 96361; 96365; 96366; 96368; 99285

== ENCOUNTER 2023-05-15 20:15 | Emergency (ER) | payer MEDICARE, OTHER ==
[2023-05-15 20:55] VITALS: RESP 18; TEMP 97.8
[2023-05-15] MEDS ORDERED: GELATIN SPONGE,ABSORB (LARGE) 1 EACH SPONGE TOPICAL STA (21:38)
--- NOTE | 2023-05-15 21:41 | ED ---
General Adult HPI - General Source: patient, EMS Mode of arrival: EMS Limitations: no limitations <Campbell Dukes - Last Filed: 05/15/23 22:39> <Inez Rod - Last Filed: 05/15/23 22:54> - General Chief complaint: Wound/Laceration Stated complaint: Right foot bleeding Time Seen by Provider: 05/15/23 20:31 - History of Present Illness Initial comments: 67-year-old male with a past medical history significant for diabetes mellitus, coronary artery disease, hyperlipidemia, hypertension, and recent admission secondary to osteomyelitis presenting to the ED with a chief complaint of wound problem. Patient recently admitted to this facility secondary to osteomyelitis and had debridement performed by Dr. Clemente on 04/26/2023. Patient sent in by [facility] today due to concerns of bleeding from the wound site. Patient is currently on IV antibiotics. Patient denies any increased pain. No fever. Otherwise has no other complaints at this time. (Campbell Dukes) - Related Data Home Medications Medication Instructions Recorded Confirmed Sacubitril/Valsartan [Entresto 49 1 tab PO BID 09/23/19 04/23/23 mg-51 mg Tablet] ARIPiprazole [Abilify] 20 mg PO DAILY 03/19/23 04/23/23 Clopidogrel [Plavix] 75 mg PO DAILY 03/19/23 04/23/23 FLUoxetine HCL [PROzac] 40 mg PO DAILY 03/19/23 04/23/23 Finasteride [Proscar] 5 mg PO DAILY 03/19/23 04/23/23 Insulin Aspart [NovoLOG Flexpen] 5 units SQ AC-TID 03/19/23 04/23/23 Potassium Chloride ER [K-Dur 20] 20 meq PO BID 03/19/23 04/23/23 Semaglutide [Rybelsus] 7 mg PO DAILY 03/19/23 04/23/23 Aspirin EC [Ecotrin Low Dose] 81 mg PO DAILY 04/23/23 04/23/23 Previous Rx's Medication Instructions Recorded Atorvastatin Calcium [Lipitor] 40 mg PO DAILY #30 tab 06/19/19 Furosemide [Lasix] 40 mg PO BID #60 tablet 06/19/19 Collagenase [Santyl Ointment] 1 applic TOPICAL DAILY 30 Days #1 03/25/23 each Insulin Glargine,Hum.rec.anlog 15 units SQ HS #0 03/25/23 [Lantus Solostar Pen] Ampicillin-Sulbactam [Unasyn 3 gm 3 gm IVPB Q6HR #112 each 04/30/23 vial] amLODIPine [Norvasc] 2.5 mg PO DAILY tab 05/01/23 Allergies Allergy/AdvReac Type Severity Reaction Status Date / Time hydrocodone AdvReac Hallucinati Verified 04/23/23 15:37 ons Review of Systems ROS Other: All systems not noted in ROS Statement are negative. <Campbell Dukes - Last Filed: 05/15/23 22:39> ROS Other: All systems not noted in ROS Statement are negative. <Inez Rod - Last Filed: 05/15/23 22:54> ROS Statement: Those systems with pertinent positive or pertinent negative responses have been documented in the HPI. Past Medical History Past Medical History: Coronary Artery Disease (CAD), Diabetes Mellitus, Hyperlipidemia, Hypertension Additional Past Medical History / Comment(s): Left heel cracked/ History of Any Multi-Drug Resistant Organisms: None Reported Past Surgical History: Coronary Bypass/CABG, Orthopedic Surgery, Pacemaker Additional Past Surgical History / Comment(s): amputation 3 medial toes rt foot, one toe amp on left Past Anesthesia/Blood Transfusion Reactions: No Reported Reaction Type of Cardiac Device: Unknown Device Placement Date:: unknown Past Psychological History: Anxiety, Depression Smoking Status: Never smoker Past Alcohol Use History: None Reported Past Drug Use History: None Reported - Past Family History Mother Family Medical History: Diabetes Mellitus Father Family Medical History: Congestive Heart Failure (CHF) Brother(s) Family Medical History: Diabetes Mellitus Sister(s) Family Medical History: Diabetes Mellitus <Campbell Dukes - Last Filed: 05/15/23 22:39> General Exam Limitations: no limitations General appearance: alert, in no apparent distress Eye exam: Present: normal appearance Neck exam: Present: normal inspection Respiratory exam: Present: normal lung sounds bilaterally Cardiovascular Exam: Present: regular rate, normal rhythm GI/Abdominal exam: Present: soft Extremities exam: Present: other (Right foot with amputations of digits 2 through 5. Does have a open wound to the dorsal medial foot measuring approximately 2 cm with brisk bleeding. No significant tenderness to palpation. Does have some erythema of the right lower extremity.) Neurological exam: Present: alert, oriented X3 Skin exam: Present: warm, dry <Campbell Dukes - Last Filed: 05/15/23 22:39> Course Vital Signs 05/15/23 20:27 Temperature 97.8 F Pulse Rate 74 Respiratory 18 Rate Blood Pressure 163/84 O2 Sat by Pulse 98 Oximetry Medical Decision Making <Campbell Dukes - Last Filed: 05/15/23 22:39> - Medical Decision Making Was pt. sent in by a medical professional or institution (, [facility], [employer]PROFIT [employer]DRAISER, urgent care, hospital, or detention...) When possible be specific @ -[place] Did you speak to anyone other than the patient for history (EMS, parent, family, police, friend...)? What history was obtained from this source @ -No Did you review nursing and triage notes (agree or disagree)? Why? @ -I reviewed and agree with nursing and triage notes Were old charts reviewed (outside hosp., previous admission, EMS record, old EKG, old radiological studies, urgent care reports/EKG's, detention records)? Report findings @ -No old charts were reviewed Differential Diagnosis (chest pain, altered mental status, abdominal pain women, abdominal pain men, vaginal bleeding, weakness, fever, dyspnea, syncope, hea dache, dizziness, GI bleed, back pain, seizure, CVA, palpatations, mental health, musculoskeletal)? @ -Prior charts reviewed showing recent history of debridement. For further details please see HPI. EKG interpreted by me (3pts min.). @ -None X-rays interpreted by me (1pt min.). @ -None done CT interpreted by me (1pt min.). @ -None done U/S interpreted by me (1pt. min.). @ -None done What testing was considered but not performed or refused? (CT, X-rays, U/S, labs)? Why? @ -None What meds were considered but not given or refused? Why? @ -None Did you discuss the management of the patient with other professionals (professionals i.e. , [facility], [employer]PROFIT [employer]DRAIS[employer], lab, RT, psych nurse, licensed social worker, forestry fire aid, teacher, bank officer, egg caser)? Give summary @ -No Was smoking cessation discussed for >3mins.? @ -No Was critical care preformed (if so, how long)? @ -No Were there social determinants of health that impacted care today? How? (Homelessness, low income, unemployed, alcoholism, drug addiction, transportation, low edu. Level, literacy, decrease access to med. care, correction, rehab)? @ -No Was there de-escalation of care discussed even if they declined (Discuss DNR or withdrawal of care, Hospice)? DNR status @ -No What co-morbidities impacted this encounter? (DM, HTN, Smoking, COPD, CAD, Cancer, CVA, ARF, Chemo, Hep., AIDS, mental health diagnosis, sleep apnea, morbid obesity)? @ -Diabetes mellitus, coronary artery disease, hyperlipidemia, hypertension, recent osteomyelitis and debridement Was patient admitted / discharged? Hospital course, mention meds given and route, prescriptions, significant lab abnormalities, going to OR and other pertinent info. @ -Discharge 67-year-old male presenting to the ED sent from [facility] secondary to continued bleeding of an open wound to the top of his right foot status post debridement on 04/26/2023. Exam did show some brisk bleeding however no purulent discharge. Patient currently on IV antibiotics. Wound was covered with Gelfoam and dressed. Advised to follow-up with his specialist as scheduled. At this time vital signs stable afebrile. Discharged home in stable condition. Discussed return precautions patient verbalized agreement. Advised follow-up with the wound clinic as scheduled. Undiagnosed new problem with uncertain prognosis? @ -No Drug Therapy requiring intensive monitoring for toxicity (Heparin, Nitro, Insulin, Cardizem)? @ -No Were any procedures done? @ -No Diagnosis/symptom? @ -Wound check Acute, or Chronic, or Acute on Chronic? @ - acute Uncomplicated (without systemic symptoms) or Complicated (systemic symptoms)? @ -Uncomplicated Side effects of treatment? @ -No Exacerbation, Progression, or Severe Exacerbation? @ -No Poses a threat to life or bodily function? How? (Chest pain, USA, MS, pneumonia, PE, COPD, DKA, ARF, appy, cholecystitis, CVA, Diverticulitis, Homicidal, Suicidal, threat to staff... and all critical care pts) @ -No (Campbell Dukes) Disposition Is patient prescribed a controlled substance at d/c from ED?: No <Campbell Dukes - Last Filed: 05/15/23 22:39> <Inez Rod - Last Filed: 05/15/23 22:54> Clinical Impression: Visit for wound check Disposition: HOME SELF-CARE Condition: Good Additional Instructions: Please return to the Emergency Department if symptoms worsen or any other concerns. Follow-up with clinic as scheduled. Apply Gel-Foam (provided by ER) to the wound as needed to control bleeding. If bleeding is not controlled with Gel-Foam and direct pressure, please return to the ER for re-evaluation. Referrals: None,Stated [Primary Care Provider] - 1-2 days
[2023-05-15 23:15] VITALS: BP 151/84; PULSE 81
== END 2023-05-15 23:00 | disposition home or self-care (01) ==
LOC: EC 20:15
DX: Z48.00 Encounter for change or removal of nonsurgical wound dressing (principal); I25.10 Atherosclerotic heart disease of native coronary artery without angina pectoris; E11.9 Type 2 diabetes mellitus without complications; I10 Essential (primary) hypertension; F41.9 Anxiety disorder, unspecified; F32.A Depression, unspecified; Z79.899 Other long term (current) drug therapy; Z79.82 Long term (current) use of aspirin; Z79.4 Long term (current) use of insulin; Z79.84 Long term (current) use of oral hypoglycemic drugs; Z79.02 Long term (current) use of antithrombotics/antiplatelets; Z88.5 Allergy status to narcotic agent
CPT/HCPCS: 99284

== ENCOUNTER 2023-06-30 14:00 | Inpatient (IN) | payer MEDICARE, OTHER ==
--- NOTE | 2023-06-30 14:40 | ED ---
SOB HPI - General Chief Complaint: Shortness of Breath Stated Complaint: SOB Time Seen by Provider: 06/30/23 14:16 Source: patient Mode of arrival: ambulatory Limitations: no limitations - History of Present Illness Initial Comments: 67-year-old male with past medical history of congestive heart failure who presents to the emergency department under direction of his home care nurse. She found the patient to be short of breath with increased lower extremity swelling. Swelling extends up to the patient's testicles. Heart rate was also found to be elevated. She states that he does have a history of elevated heart rate because of anxiety however this was extremely out of the normal for the patient. Patient denies any chest pain. He has been taking all of his medications as directed. Denies history of DVT or PE. No other alleviating, precipitating or modifying factors - Related Data Home Medications Medication Instructions Recorded Confirmed Sacubitril/Valsartan [Entresto 49 1 tab PO BID 09/23/19 06/30/23 mg-51 mg Tablet] ARIPiprazole [Abilify] 20 mg PO DAILY 03/19/23 06/30/23 Clopidogrel [Plavix] 75 mg PO DAILY 03/19/23 06/30/23 FLUoxetine HCL [PROzac] 40 mg PO DAILY 03/19/23 06/30/23 Finasteride [Proscar] 5 mg PO DAILY 03/19/23 06/30/23 Insulin Aspart [NovoLOG Flexpen] 5 units SQ AC-TID 03/19/23 06/30/23 Potassium Chloride ER [K-Dur 20] 20 meq PO BID 03/19/23 06/30/23 Semaglutide [Rybelsus] 7 mg PO DAILY 03/19/23 06/30/23 Aspirin EC [Ecotrin Low Dose] 81 mg PO DAILY 04/23/23 06/30/23 Previous Rx's Medication Instructions Recorded Atorvastatin Calcium [Lipitor] 40 mg PO DAILY #30 tab 06/19/19 Furosemide [Lasix] 40 mg PO BID #60 tablet 06/19/19 Collagenase [Santyl Ointment] 1 applic TOPICAL DAILY 30 Days #1 03/25/23 each Insulin Glargine,Hum.rec.anlog 15 units SQ HS #0 03/25/23 [Lantus Solostar Pen] amLODIPine [Norvasc] 2.5 mg PO DAILY tab 05/01/23 Allergies Allergy/AdvReac Type Severity Reaction Status Date / Time hydrocodone AdvReac Hallucinati Verified 06/30/23 16:08 ons Review of Systems ROS Statement: Those systems with pertinent positive or pertinent negative responses have been documented in the HPI. ROS Other: All systems not noted in ROS Statement are negative. Past Medical History Past Medical History: Coronary Artery Disease (CAD), Diabetes Mellitus, Hyperlipidemia, Hypertension Additional Past Medical History / Comment(s): Left heel cracked/ History of Any Multi-Drug Resistant Organisms: None Reported Past Surgical History: Coronary Bypass/CABG, Orthopedic Surgery, Pacemaker Additional Past Surgical History / Comment(s): amputation 3 medial toes rt foot, one toe amp on left Past Anesthesia/Blood Transfusion Reactions: No Reported Reaction Type of Cardiac Device: Unknown Device Placement Date:: unknown Past Psychological History: Anxiety, Depression Smoking Status: Never smoker Past Alcohol Use History: None Reported Past Drug Use History: None Reported - Past Family History Mother Family Medical History: Diabetes Mellitus Father Family Medical History: Congestive Heart Failure (CHF) Brother(s) Family Medical History: Diabetes Mellitus Sister(s) Family Medical History: Diabetes Mellitus General Exam Limitations: no limitations General appearance: alert, in no apparent distress Head exam: Present: atraumatic, normocephalic, normal inspection Eye exam: Present: normal appearance, PERRL, EOMI. Absent: scleral icterus, conjunctival injection, periorbital swelling ENT exam: Present: normal exam, mucous membranes moist Neck exam: Present: normal inspection. Absent: tenderness, meningismus, lymphadenopathy Respiratory exam: Present: normal lung sounds bilaterally. Absent: respiratory distress, wheezes, rales, rhonchi, stridor Cardiovascular Exam: Present: normal rhythm, tachycardia, normal heart sounds. Absent: systolic murmur, diastolic murmur, rubs, gallop, clicks GI/Abdominal exam: Present: soft, normal bowel sounds. Absent: distended, tenderness, guarding, rebound, rigid Extremities exam: Present: full ROM, normal capillary refill, pedal edema, other (Patient has chronic wound to the right foot which is wrapped. Pedal edema where left is greater than right). Absent: tenderness, joint swelling, calf tenderness Back exam: Present: normal inspection Neurological exam: Present: alert, oriented X3, CN II-XII intact Psychiatric exam: Present: normal affect, normal mood Skin exam: Present: warm, dry, intact, normal color. Absent: rash Course Vital Signs 06/30/23 06/30/23 06/30/23 14:02 15:34 18:38 Temperature 97.9 F Pulse Rate 67 126 H 85 Respiratory 22 20 20 Rate Blood Pressure 126/81 123/94 O2 Sat by Pulse 97 92 L 98 Oximetry 06/30/23 20:15 Temperature Pulse Rate 80 Respiratory 19 Rate Blood Pressure 126/78 O2 Sat by Pulse 90 L Oximetry Medical Decision Making - Medical Decision Making Was pt. sent in by a medical professional or institution (, PA, INDUSTRIAL CHEMISTRY TEACHER, urgent care, hospital, or longterm...) When possible be specific @ -Patient sent in by his home care nurse Did you speak to anyone other than the patient for history (EMS, parent, family, police, friend...)? What history was obtained from this source @ -No Did you review nursing and triage notes (agree or disagree)? Why? @ -I reviewed and agree with nursing and triage notes Were old charts reviewed (outside hosp., previous admission, EMS record, old EKG, old radiological studies, urgent care reports/EKG's, longterm records)? Report findings @ -I reviewed patient's echo from 2020 Differential Diagnosis (chest pain, altered mental status, abdominal pain women, abdominal pain men, vaginal bleeding, weakness, fever, dyspnea, syncope, headache, dizziness, GI bleed, back pain, seizure, CVA, palpatations, mental health, musculoskeletal)? @ -Differential Dyspnea: Coronary syndrome, arrhythmia, tamponade, asthma, COPD, pulmonary embolism, pneumonia, pneumothorax, pulmonary effusion, anaphylaxis, diabetic ketoacidosis, flailed chest, pulmonary contusion, diaphragmatic rupture, anemia, neuromuscular, this is not meant to be an all-inclusive list. EKG interpreted by me (3pts min.). @ -Yes and demonstrates electronic ventricular pacemaker with a rate of 126. Pacemaker captures appropriately. NE interval 224. QRS 183. QTc of 483. No ST segment elevation or depression X-rays interpreted by me (1pt min.). @ -Yes and demonstrates pulmonary vascular congestion CT interpreted by me (1pt min.). @ -None done U/S interpreted by me (1pt. min.). @ -None done What testing was considered but not performed or refused? (CT, X-rays, U/S, labs)? Why? @ -None What meds were considered but not given or refused? Why? @ -None Did you discuss the management of the patient with other professionals (professionals i.e. , PA, INDUSTRIAL CHEMISTRY TEACHER, lab, RT, psych nurse, social studies teacher, kai[place], teacher, corporation officer, rifle case repairer)? Give summary @ -Spoke with Dr. Ervin for admission Was smoking cessation discussed for >3mins.? @ -No Was critical care preformed (if so, how long)? @ -33 minutes for NSTEMI with heparin management Were there social determinants of health that impacted care today? How? (Homelessness, low income, unemployed, alcoholism, drug addiction, transportation, low edu. Level, literacy, decrease access to med. care, half-way, rehab)? @ -No Was there de-escalation of care discussed even if they declined (Discuss DNR or withdrawal of care, Hospice)? DNR status @ -No What co-morbidities impacted this encounter? (DM, HTN, Smoking, COPD, CAD, Cancer, CVA, ARF, Chemo, Hep., AIDS, mental health diagnosis, sleep apnea, morbid obesity)? @ -CHF, diabetes Was patient admitted / discharged? Hospital course, mention meds given and route, prescriptions, significant lab abnormalities, going to OR and other pertinent info. @ -Upon arrival patient was placed into room 23. Thorough history and physical exam was performed. IV access was established. Laboratory studies are conducted. Chest x-ray was performed. Patient does have elevation in his BNP and troponin level. Patient was given an aspirin, started on heparin drip. Lasix is ordered. Recommended admission. Spoke with Dr. Ervin who accepted the patient. Cardiology will be placed on consult. Patient remained in stable condition chest pain-free and is awaiting transport to the floor Undiagnosed new problem with uncertain prognosis? @ -Yes Drug Therapy requiring intensive monitoring for toxicity (Heparin, Nitro, Insulin, Cardizem)? @ -Heparin Were any procedures done? @ -No Diagnosis/symptom? @ -Acute respiratory insufficiency, acute exacerbation of CHF, NSTEMI Acute, or Chronic, or Acute on Chronic? @ -Acute Uncomplicated (without systemic symptoms) or Complicated (systemic symptoms)? @ -Complicated Side effects of treatment? @ -No Exacerbation, Progression, or Severe Exacerbation? @ -No Poses a threat to life or bodily function? How? (Chest pain, USA, OR, pneumonia, PE, COPD, DKA, ARF, appy, cholecystitis, CVA, Diverticulitis, Homicidal, Suicidal, threat to staff... and all critical care pts) @ -Yes as patient has marked elevation in his heart enzyme - Lab Data Result diagrams: 06/30/23 14:22 06/30/23 14:22 Lab Results 06/30/23 06/30/23 06/30/23 Range/Units 14:22 14:22 14:22 WBC 7.7 (3.8-10.6) k/uL RBC 4.69 (4.30-5.90) m/uL Hgb 12.2 L (13.0-17.5) gm/dL Hct 38.4 L (39.0-53.0) % MCV 81.9 D (80.0-100.0) fL MCH 26.0 (25.0-35.0) pg MCHC 31.8 (31.0-37.0) g/dL RDW 15.3 (11.5-15.5) % Plt Count 159 (150-450) k/uL MPV 8.7 Neutrophils % 82 % Lymphocytes % 9 % Monocytes % 6 % Eosinophils % 1 % Basophils % 0 % Neutrophils # 6.3 (1.3-7.7) k/uL Lymphocytes # 0.7 L (1.0-4.8) k/uL Monocytes # 0.5 (0-1.0) k/uL Eosinophils # 0.1 (0-0.7) k/uL Basophils # 0.0 (0-0.2) k/uL Hypochromasia Moderate Poikilocytosis Slight PT 12.7 H (10.0-12.5) sec INR 1.2 H (<1.2) APTT 26.3 (22.0-30.0) sec D-Dimer <0.17 (<0.60) mg/L FEU Sodium 137 (137-145) mmol/L Potassium 4.0 (3.5-5.1) mmol/L Chloride 105 (98-107) mmol/L Carbon Dioxide 21 L (22-30) mmol/L Anion Gap 11 mmol/L BUN 21 H (9-20) mg/dL Creatinine 0.73 (0.66-1.25) mg/dL Est GFR (CKD-EPI)AfAm >90 (>60 ml/min/1.73 sqM) Est GFR (CKD-EPI)NonAf >90 (>60 ml/min/1.73 sqM) Glucose 180 H (74-99) mg/dL Plasma Lactic Acid Ludin (0.7-2.0) mmol/L Calcium 8.7 (8.4-10.2) mg/dL Total Bilirubin 0.8 (0.2-1.3) mg/dL AST 60 H (17-59) U/L ALT 41 (4-49) U/L Alkaline Phosphatase 141 H (38-126) U/L Troponin I (0.000-0.034) ng/mL NT-Pro-B Natriuret Pep 8410 pg/mL Total Protein 7.0 (6.3-8.2) g/dL Albumin 3.9 (3.5-5.0) g/dL 06/30/23 06/30/23 Range/Units 14:22 14:22 WBC (3.8-10.6) k/uL RBC (4.30-5.90) m/uL Hgb (13.0-17.5) gm/dL Hct (39.0-53.0) % MCV (80.0-100.0) fL MCH (25.0-35.0) pg MCHC (31.0-37.0) g/dL RDW (11.5-15.5) % Plt Count (150-450) k/uL MPV Neutrophils % % Lymphocytes % % Monocytes % % Eosinophils % % Basophils % % Neutrophils # (1.3-7.7) k/uL Lymphocytes # (1.0-4.8) k/uL Monocytes # (0-1.0) k/uL Eosinophils # (0-0.7) k/uL Basophils # (0-0.2) k/uL Hypochromasia Poikilocytosis PT (10.0-12.5) sec INR (<1.2) APTT (22.0-30.0) sec D-Dimer (<0.60) mg/L FEU Sodium (137-145) mmol/L Potassium (3.5-5.1) mmol/L Chloride (98-107) mmol/L Carbon Dioxide (22-30) mmol/L Anion Gap mmol/L BUN (9-20) mg/dL Creatinine (0.66-1.25) mg/dL Est GFR (CKD-EPI)AfAm (>60 ml/min/1.73 sqM) Est GFR (CKD-EPI)NonAf (>60 ml/min/1.73 sqM) Glucose (74-99) mg/dL Plasma Lactic Acid Ludin 1.2 (0.7-2.0) mmol/L Calcium (8.4-10.2) mg/dL Total Bilirubin (0.2-1.3) mg/dL AST (17-59) U/L ALT (4-49) U/L Alkaline Phosphatase (38-126) U/L Troponin I 0.576 H* (0.000-0.034) ng/mL NT-Pro-B Natriuret Pep pg/mL Total Protein (6.3-8.2) g/dL Albumin (3.5-5.0) g/dL Disposition Clinical Impression: Congestive heart failure, Tachycardia, NSTEMI (non-ST elevated myocardial infarction) Disposition: ADMITTED IP TO THIS [facility] Condition: Serious Is patient prescribed a controlled substance at d/c from ED?: No Time of Disposition: 15:47 Decision to Admit Reason: Admit from EC Decision Date: 06/30/23 Decision Time: 15:47
[2023-06-30 14:54] LABS: INR 1.2 (<1.2); Partial Thromboplastin Time 26.3 sec (22.0-30.0); Prothrombin Time 12.7 sec (10.0-12.5)
[2023-06-30 14:55] LABS: ALT 41 U/L (4-49); African American GFR (CKD) >90 (>60 ml/min/1.73 sqM); Anion Gap 11 mmol/L; Blood Urea Nitrogen 21 mg/dL (9-20); Calcium 8.7 mg/dL (8.4-10.2); Carbon Dioxide 21 mmol/L (22-30); Chloride 105 mmol/L (98-107); Glucose 180 mg/dL (74-99); Non-African American GFR(CKD) >90 (>60 ml/min/1.73 sqM); Sodium 137 mmol/L (137-145); Total Bilirubin 0.8 mg/dL (0.2-1.3)
[2023-06-30 14:56] LABS: Basophils % (A) 0 %; Eosinophils # (A) 0.1 k/uL (0-0.7); Eosinophils % (A) 1 %; HCT 38.4 % (39.0-53.0); HGB 12.2 gm/dL (13.0-17.5); Hypochromasia Moderate; Lymphocytes # (A) 0.7 k/uL (1.0-4.8); Lymphocytes % (A) 9 %; MCHC 31.8 g/dL (31.0-37.0); Mean Platelet Volume 8.7; Monocytes # (A) 0.5 k/uL (0-1.0); Monocytes % (A) 6 %; Neutrophils # (A) 6.3 k/uL (1.3-7.7); Neutrophils % (A) 82 %; Platelet Count 159 k/uL (150-450); Poikilocytosis Slight; RBC 4.69 m/uL (4.30-5.90); RDW 15.3 % (11.5-15.5); WBC 7.7 k/uL (3.8-10.6)
[2023-06-30 14:59] LABS: AST 60 U/L (17-59); Albumin 3.9 g/dL (3.5-5.0); Alkaline Phosphatase 141 U/L (38-126)
[2023-06-30 15:00] LABS: NT-Pro-B-Type Natriuretic Pept 8410 pg/mL
[2023-06-30 15:01] LABS: MCV 81.9 fL (80.0-100.0)
--- NOTE | 2023-06-30 15:13 | XR ---
EXAMINATION TYPE: XR chest 2V DATE OF EXAM: 06/30/2023 2:57 PM CLINICAL INDICATION:Male, 67 years old with history of difficulty breathing; [facility] COMPARISON: Chest radiographs from TECHNIQUE: XR chest 2V Frontal and lateral views of the chest. FINDINGS: Lungs/Pleura: There is no evidence of pleural effusion, focal consolidation, or pneumothorax. Pulmonary vascularity: Thickened interstitium could represent fibrosis versus pulmonary venous conges tion versus other etiology Heart/mediastinum: The heart is mildly enlarged. Atherosclerotic calcifications are seen in the aort a. Three lead cardiac conduction device overlying the left hemithorax with lead tips projecting over the right ventricle, right atrium and coronary sinus. Musculoskeletal: No acute osseous pathology. Midline sternotomy wires and surgical clips project over the mediastinum. Other findings: None Lines/Tubes: None. IMPRESSION: Mild cardiomegaly and stigmata of heart disease including through the cardiac conduction device and p revious sternotomy. Thickened interstitium could represent fibrosis versus pulmonary venous congestion versus other etiol ogy.
[2023-06-30] MEDS ORDERED: NALOXONE 0.4 MG/ML 1 ML VIAL IV PRN (15:47)
[2023-06-30] MEDS: FUROSEMIDE 10 MG/ML 10 ML VIAL IV STA (16:03)
[2023-06-30] MEDS: ASPIRIN 81 MG PO STA (16:03)
[2023-06-30] MEDS: HEPARIN SOD,PORK IN 0.45% NACL 25,000 UNIT in 0.45% NACL 1 250ML.BAG IV SCH (16:09)
[2023-06-30] MEDS: HEPARIN SODIUM 1,000 UN/ML (10ML VL) IV ONE (16:09)
[2023-06-30] MEDS ORDERED: FUROSEMIDE 40 MG TAB PO SCH (21:00)
[2023-06-30] MEDS: INSULIN DETEMIR (LEVEMIR) 100 UNIT/ML SYR SQ SCH (22:06)
[2023-06-30 22:07] LABS: Glucose,Whole Blood 209 mg/dL (70-110)
[2023-06-30] MEDS: SACUBITRIL/VALSARTAN 49 MG-51 MG TABLET PO SCH (22:07)
[2023-06-30] MEDS: POTASSIUM CHLORIDE ER 20 MEQ TAB.ER PO SCH (22:07)
--- NOTE | 2023-06-30 22:11 | P.HPIM ---
History of Present Illness H&P Date: 06/30/23 HISTORY OF PRESENT ILLNESS: 67-year-old male who has been our practice recently was hospitalized and transferred to [facility] for severe cellulitis Of both lower extremity with failure of outpatient treatment after was seen in the wound clinic for a period of time the patient was hospitalized with concern of osteomyelitis of the lower extremity started on IV antibiotics and ended up seen infectious disease along with vascular surgeon and decide to have this treated as diabetic foot ulcer with right lower extremity cellulitis with chronic foot wound with history of osteomyelitis of the right side with bilateral lower extremity cellulitis as well. Patient was seen vascular surgeon can end up doing debridement on April 26 without any culture was sent at the time. Patient was sent to [facility] on empiric antibiotics with Unasyn 3 g IV every 6 hours for total of 30 days. He ended up having PICC line and had a treatment done and completed tomorrow with Valentine end up going back home with extra help. After he left [facility] start seeing our office as a patient. Again patient had chronic history of diabetes, diabetic foot, coronary artery disease post CABG, history of hypertension, hyperlipidemia, chronic depression patient apparently is a new to our hospital in the area here was admitted back in 2023 acute CHF exacerbation with urgent hypertension was treated and stabilized and sent home. Patient presented to the emergency department today at [facility] via ambulance where he was seen by his visiting nurse who found him to be in extreme shortness of breath with severe swelling and anasarca of the lower extremity with pulse rate found to be elevated the patient was quite bit anxious at the time has came over 10 pounds in short period of time with above symptoms was sent to the emergency department for evaluation I his EKG found to be electronic ventricular pacer with pulse rate running at 126 beats per minutes. Chest x-ray shows mild cardiomegaly with thickening of the could represent fibrosis versus pulmonary venous congestion. Also there is a cardiac conducting device on the chest x-ray was found. Laboratory value with elevated troponin at 0.579 and 0.491, BNP 8410, creatinine was normal white blood cell 7.7 with hemoglobin 12.2 hematocrit 38.4. The patient was diagnosed with possible non-STEMI, severe congestive heart failure with mild exacerbation and someone is known to have cardiomyopathy, A- fib with RVR with rapid pulse. REVIEW OF SYSTEMS: CONSTITUTIONAL: Well-developed in mild respiratory distress EYES: No icterus sclerae, no conjunctivitis. EARS, NOSE, MOUTH, THROAT, and FACE: No sore throat, lymphadenopathy, carotid bruits or deformity. RESPIRATORY: Slight shortness of breath cough wheezes. CARDIOVASCULAR: Mild palpitation positive PND orthopnea no angina. GASTROINTESTINAL: No Abd pain, Nausea or vomiting, no Diarrhea or constipation, No GI Bleed, no distention or masses. GENITOURINARY: Decreased urine output with no kidney stone. INTEGUMENT/BREAST: Negative for any muscular injury with mild osteoarthritis.. HEMATOLOGIC/LYMPHATIC: Negative for bleed or purpura. MUSCULOSKELTAL: Generalized myalgia and arthralgia. NEURLOGICAL: Slight slowness with no syncope or seizure. BEHAVIORAL/PSYCH: Negative. ENDOCRINE: Negative. PHYSICAL EXAMINATION: General Appearance: Alert, slight respiratory distress. Neck HEENT: Supple, no lymphadenopathy, no thyroid enlargement, no carotid bruits. Lungs: Decreased breath sound bilaterally with fine rhonchi positive slight crackles and wheezes in the lower bases bilaterally. Chest Wall: Decreased expansion with deep inspiration no tenderness and no deformity was found on exam, no costochondral pain or discomfort. Heart: Irregular rate and rhythm, S1, S2 positive S3 positive gallop and slight systolic murmur. There is an ICD device in the left upper chest wall. Back: Symmetric, no curvature, ROM normal, no CVA tenderness. Abdomen: Soft positive bowel sounds slight discomfort lower abdominal region area no rebound or rigidity. Extremities: Extremities normal, atraumatic, no cyanosis 2+ edema of the lower extremity. Pulses: 2+ and symmetric. Skin: Skin color, texture, tugor normal, no rashes or lesions. Neurologic: Alert oriented x3 cranial nerves II through XII intact, no motor deficit, no abnormal balance or gait. ASSESSMENT AND PLAN: _Severe dyspnea and shortness of breath consistent with congestive heart failure exacerbation cardiomyopathy specially with the weight gain and fluid retention and edema, patient was initiated on IV diuretics, consult cardiology, echocardiogram will be done hopefully tomorrow, will do an aggressive management with diuretics while watching patient's carefully. _Cardiomyopathy: Has been on Entresto 49/51 mg twice a day along with furosemide 40 mg twice a day can benefit from adding spironolactone and a possible smaller dose of beta-nicky. _Acute non-STEMI possibly type II FL: Cardiology consultation whether can benefit from going for intervention or not will be left up to cardiology in the meanwhile echocardiogram will show any wall motion abnormality can benefit in all direction as a neck step. _Severe arrhythmia with possible A-fib patient has an ICD make the conduction is noted on, continue to watch for any further arrhythmia might benefit from adding as needed's beta-nicky to bring pulse rate down. _Type 2 diabetes: Remain on Rybelsus along with Lantus 15 units nightly and NovoLog sliding scale coverage mostly 5 units AC meals. _severe Cellulitis of the Lower Exts worse the R than the L with Edema more of the L side, will continue Duiretics and antibiotics. _Hypertension: Remain on Norvasc 2.5 mg a day, Entresto 49/51 mg twice a day, still on diuretics as well. _Hyperlipidemia: Remain on atorvastatin 40 mg a day. _Severe BPH: Watch for any urinary retention. _Recent diabetic foot took long time to heal, has been off antibiotics for seen at the wound clinic. _Depression: Continue fluoxetine 40 mg daily along with Abilify 20 mg a day. GI prophylaxis: Will add Pepcid 20 mg daily. DVT prophylaxis: Lovenox 40 mg subcutaneous will be used for now. CODE STATUS: Full code. Admit patient to the inpatient service for more than 2 night stay. Past Medical History Past Medical History: Coronary Artery Disease (CAD), Diabetes Mellitus, Hyperlipidemia, Hypertension Additional Past Medical History / Comment(s): Left heel cracked/ History of Any Multi-Drug Resistant Organisms: None Reported Past Surgical History: Coronary Bypass/CABG, Orthopedic Surgery, Pacemaker Additional Past Surgical History / Comment(s): amputation 3 medial toes rt foot, one toe amp on left Past Anesthesia/Blood Transfusion Reactions: No Reported Reaction Type of Cardiac Device: Unknown Device Placement Date:: unknown Past Psychological History: Anxiety, Depression Smoking Status: Never smoker Past Alcohol Use History: None Reported Past Drug Use History: None Reported - Past Family History Mother Family Medical History: Diabetes Mellitus Father Family Medical History: Congestive Heart Failure (CHF) Brother(s) Family Medical History: Diabetes Mellitus Sister(s) Family Medical History: Diabetes Mellitus Medications and Allergies Home Medications Medication Instructions Recorded Confirmed Type Atorvastatin Calcium [Lipitor] 40 mg PO DAILY #30 tab 06/19/19 06/30/23 Rx Furosemide [Lasix] 40 mg PO BID #60 tablet 06/19/19 06/30/23 Rx Sacubitril/Valsartan [Entresto 49 1 tab PO BID 09/23/19 06/30/23 History mg-51 mg Tablet] ARIPiprazole [Abilify] 20 mg PO DAILY 03/19/23 06/30/23 History Clopidogrel [Plavix] 75 mg PO DAILY 03/19/23 06/30/23 History FLUoxetine HCL [PROzac] 40 mg PO DAILY 03/19/23 06/30/23 History Finasteride [Proscar] 5 mg PO DAILY 03/19/23 06/30/23 History Insulin Aspart [NovoLOG Flexpen] 5 units SQ AC-TID 03/19/23 06/30/23 History Potassium Chloride ER [K-Dur 20] 20 meq PO BID 03/19/23 06/30/23 History Semaglutide [Rybelsus] 7 mg PO DAILY 03/19/23 06/30/23 History Collagenase [Santyl Ointment] 1 applic TOPICAL DAILY 30 Days #1 03/25/23 06/30/23 Rx each Insulin Glargine,Hum.rec.anlog 15 units SQ HS #0 03/25/23 06/30/23 Rx [Lantus Solostar Pen] Aspirin EC [Ecotrin Low Dose] 81 mg PO DAILY 04/23/23 06/30/23 History amLODIPine [Norvasc] 2.5 mg PO DAILY tab 05/01/23 06/30/23 Rx Allergies Allergy/AdvReac Type Severity Reaction Status Date / Time hydrocodone AdvReac Hallucinati Verified 06/30/23 16:08 ons Physical Exam Vitals: Vital Signs Temp Pulse Resp BP Pulse Ox 06/30/23 21:00 84 20 126/78 97 06/30/23 20:15 80 19 126/78 90 L 06/30/23 18:38 85 20 98 06/30/23 15:34 126 H 20 123/94 92 L 06/30/23 14:02 97.9 F 67 22 126/81 97 Intake and Output 06/30/23 06/30/23 06/30/23 06:59 14:59 22:59 Other: Weight 108.862 kg Results CBC & Chem 7: 06/30/23 14:22 06/30/23 14:22 Labs: Abnormal Lab Results - Last 24 Hours (Table) 06/30/23 06/30/23 06/30/23 Range/Units 14:22 14:22 14:22 Hgb 12.2 L (13.0-17.5) gm/dL Hct 38.4 L (39.0-53.0) % Lymphocytes # 0.7 L (1.0-4.8) k/uL PT 12.7 H (10.0-12.5) sec INR 1.2 H (<1.2) Carbon Dioxide 21 L (22-30) mmol/L BUN 21 H (9-20) mg/dL Glucose 180 H (74-99) mg/dL AST 60 H (17-59) U/L Alkaline Phosphatase 141 H (38-126) U/L Troponin I (0.000-0.034) ng/mL 06/30/23 06/30/23 Range/Units 14:22 19:29 Hgb (13.0-17.5) gm/dL Hct (39.0-53.0) % Lymphocytes # (1.0-4.8) k/uL PT (10.0-12.5) sec INR (<1.2) Carbon Dioxide (22-30) mmol/L BUN (9-20) mg/dL Glucose (74-99) mg/dL AST (17-59) U/L Alkaline Phosphatase (38-126) U/L Troponin I 0.576 H* 0.491 H* (0.000-0.034) ng/mL
[2023-06-30] MEDS: FUROSEMIDE 10 MG/ML 4 ML VIAL IV SCH (22:30)
[2023-07-01 06:33] LABS: Glucose,Whole Blood 98 mg/dL (70-110)
[2023-07-01] MEDS: INSULIN ASPART (NovoLOG) 100 UNIT/ML VIAL SQ SCH (07:53)
[2023-07-01 08:26] LABS: INR 1.2 (<1.2); Prothrombin Time 12.9 sec (10.0-12.5)
[2023-07-01 08:32] LABS: Basophils % (A) 1 %; Eosinophils % (A) 1 %; HCT 37.2 % (39.0-53.0); HGB 11.6 gm/dL (13.0-17.5); Hypochromasia Marked; Lymphocytes # (A) 0.6 k/uL (1.0-4.8); Lymphocytes % (A) 11 %; MCH 26.3 pg (25.0-35.0); MCHC 31.2 g/dL (31.0-37.0); MCV 84.2 fL (80.0-100.0); Monocytes # (A) 0.3 k/uL (0-1.0); Monocytes % (A) 6 %; Neutrophils # (A) 4.5 k/uL (1.3-7.7); Neutrophils % (A) 80 %; Platelet Count 134 k/uL (150-450); Poikilocytosis Slight; RBC 4.42 m/uL (4.30-5.90); RDW 15.2 % (11.5-15.5); WBC 5.6 k/uL (3.8-10.6)
[2023-07-01] MEDS: FINASTERIDE 5 MG TAB PO SCH (08:37)
[2023-07-01] MEDS: ASPIRIN 81 MG PO SCH (08:37)
[2023-07-01] MEDS: CLOPIDOGREL 75 MG TAB PO SCH (08:37)
[2023-07-01] MEDS: amLODIPine 2.5 MG TAB PO SCH (08:37)
[2023-07-01] MEDS: FLUoxetine HCL 20 MG CAP PO SCH (08:37)
[2023-07-01] MEDS: DOXYCYCLINE 100 MG CAP PO SCH (08:37)
[2023-07-01] MEDS: ATORVASTATIN 40 MG TAB PO SCH (08:37)
[2023-07-01 08:39] LABS: African American GFR (CKD) >90 (>60 ml/min/1.73 sqM); Anion Gap 8 mmol/L; Blood Urea Nitrogen 20 mg/dL (9-20); Calcium 8.6 mg/dL (8.4-10.2); Carbon Dioxide 26 mmol/L (22-30); Chloride 108 mmol/L (98-107); Glucose 85 mg/dL (74-99); Non-African American GFR(CKD) 88 (>60 ml/min/1.73 sqM); Potassium 3.5 mmol/L (3.5-5.1); Sodium 142 mmol/L (137-145)
[2023-07-01] MEDS: NON FORMULARY DRUG (Semaglutide [Rybelsus] 7 MG Tablet) PO SCH (09:24)
--- NOTE | 2023-07-01 11:05 | P.CRDCN ---
History of Present Illness History of present illness: HISTORY OF PRESENT ILLNESS: This is a 67-year-old male with a past medical history significant for hypertension, hyperlipidemia, diabetes, coronary artery disease with previous CABG, congestive heart failure, obstructive sleep apnea and ischemic cardiomyopathy. Patient follows in the office with Dr. Jean but has not been seen in the office since October 2020. We have been asked to see the patient in consultation for congestive heart failure and elevated troponins. Patient examined at the bedside in the ER. Patient is a poor historian. He lives with his brother and sister. Patient denies any chest pain or pressure. He denies shortness of breath. He reports scrotal edema at home. The patient was started on IV heparin secondary to abnormal troponins. He was also started on IV Lasix secondary to acute CHF exacerbation. Vital signs are currently stable. DIAGNOSTICS: - EKG reveals ventricular paced rhythm. - Chest xray mild cardiomegaly and stigmata of heart disease including through the cardiac conduction device and previous sternotomy. Thickened interstitium could represent fibrosis versus pulmonary vascular creatinine digestion versus other etiology. - Laboratory data: WBC 7.7. Hemoglobin 12.2. Platelet count 159. D-dimer 0.17. Sodium 137. Potassium 4.0. BUN 21. Creatinine 0.73. Troponin 0.576. 0.491. 0.538. proBNP 8410. - Current home cardiac medications include amlodipine 2.5 mg daily, Entresto 49- 51 mg twice a day, Lasix 40 mg twice a day, Plavix 75 mg daily, Lipitor 40 mg daily, aspirin 81 mg daily. - Most recent echocardiogram obtained in April 2020 revealed ejection fraction 40%, mild MR, mild TR REVIEW OF SYSTEMS: At the time of my exam: CONSTITUTIONAL: Denies fever or chills. HEENT: Denies blurred vision, vision changes, or eye pain. Denies hemoptysis CARDIOVASCULAR: Denies chest pain. Denies orthopnea. Denies PND. Denies palpitat ions RESPIRATORY: Denies shortness of breath. GASTROINTESTINAL: Denies abdominal pain. Denies nausea or vomiting. HEMATOLOGIC: Denies bleeding disorders. GENITOURINARY: Denies any blood in urine. SKIN: Denies pruitis. Denies rash. PHYSICAL EXAM: VITAL SIGNS: Reviewed. GENERAL: Well-developed in no acute distress. HEENT: Head is normocephalic. Pupils are equal, round. Sclerae anicteric. Mucous membranes of the mouth are moist. Neck supple. No JVD or thyromegaly LUNGS: Respirations even and unlabored. Lungs essentially clear to auscultation bilaterally. HEART: Regular rate and rhythm. S1 and S2 heard. ABDOMEN: Soft. Nondistended. Nontender. EXTREMITIES: Normal range of motion. No clubbing or cyanosis. Peripheral pulses intact. Bilateral lower extremity edema noted. Dressing to right heel noted. NEUROLOGIC: Awake and alert. Oriented x 3. ASSESSMENT: Shortness of breath Acute on chronic heart failure with reduced EF Elevated troponins, possible non-STEMI Coronary artery disease with previous CABG, details unknown Ischemic cardiomyopathy, EF 40% Hypertension Hyperlipidemia Diabetes Recent diabetic foot infection History of AICD implantation PLAN: Obtain 2D echo to assess cardiac structure and function Continue IV heparin Resume home cardiac medications Continue IV Lasix 40 mg every 12 hours Daily weights, accurate intake and output, and monitoring of kidney function N.p.o. at midnight. Possible stress test versus cardiac catheterization tomorrow Further recommendations pending patient course Nurse practitioner note has been reviewed by physician. Signing provider agrees with the documented findings, assessment, and plan of care documented by QUESTIONED DOCUMENTS EXAMINER as a scribe. Past Medical History Past Medical History: Coronary Artery Disease (CAD), Diabetes Mellitus, Hyperlipidemia, Hypertension Additional Past Medical History / Comment(s): Left heel cracked/ History of Any Multi-Drug Resistant Organisms: None Reported Past Surgical History: Coronary Bypass/CABG, Orthopedic Surgery, Pacemaker Additional Past Surgical History / Comment(s): amputation 3 medial toes rt foot, one toe amp on left Past Anesthesia/Blood Transfusion Reactions: No Reported Reaction Type of Cardiac Device: Unknown Device Placement Date:: unknown Past Psychological History: Anxiety, Depression Smoking Status: Never smoker Past Alcohol Use History: None Reported Past Drug Use History: None Reported - Past Family History Mother Family Medical History: Diabetes Mellitus Father Family Medical History: Congestive Heart Failure (CHF) Brother(s) Family Medical History: Diabetes Mellitus Sister(s) Family Medical History: Diabetes Mellitus Medications and Allergies Home Medications Medication Instructions Recorded Confirmed Type Atorvastatin Calcium [Lipitor] 40 mg PO DAILY #30 tab 06/19/19 06/30/23 Rx Furosemide [Lasix] 40 mg PO BID #60 tablet 06/19/19 06/30/23 Rx Sacubitril/Valsartan [Entresto 49 1 tab PO BID 09/23/19 06/30/23 History mg-51 mg Tablet] ARIPiprazole [Abilify] 20 mg PO DAILY 03/19/23 06/30/23 History Clopidogrel [Plavix] 75 mg PO DAILY 03/19/23 06/30/23 History FLUoxetine HCL [PROzac] 40 mg PO DAILY 03/19/23 06/30/23 History Finasteride [Proscar] 5 mg PO DAILY 03/19/23 06/30/23 History Insulin Aspart [NovoLOG Flexpen] 5 units SQ AC-TID 03/19/23 06/30/23 History Potassium Chloride ER [K-Dur 20] 20 meq PO BID 03/19/23 06/30/23 History Semaglutide [Rybelsus] 7 mg PO DAILY 03/19/23 06/30/23 History Collagenase [Santyl Ointment] 1 applic TOPICAL DAILY 30 Days #1 03/25/23 06/30/23 Rx each Insulin Glargine,Hum.rec.anlog 15 units SQ HS #0 03/25/23 06/30/23 Rx [Lantus Solostar Pen] Aspirin EC [Ecotrin Low Dose] 81 mg PO DAILY 04/23/23 06/30/23 History amLODIPine [Norvasc] 2.5 mg PO DAILY tab 05/01/23 06/30/23 Rx Allergies Allergy/AdvReac Type Severity Reaction Status Date / Time hydrocodone AdvReac Hallucinati Verified 06/30/23 16:08 ons Physical Exam Vitals: Vital Signs Temp Pulse Resp BP Pulse Ox 07/01/23 07:54 70 118/80 07/01/23 06:13 78 20 143/96 94 L 07/01/23 02:05 93 20 127/85 07/01/23 00:35 71 20 150/112 97 06/30/23 21:00 84 20 126/78 97 06/30/23 20:15 80 19 126/78 90 L 06/30/23 18:38 85 20 98 06/30/23 15:34 126 H 20 123/94 92 L 06/30/23 14:02 97.9 F 67 22 126/81 97 Intake and Output 06/30/23 07/01/23 07/01/23 22:59 06:59 14:59 Intake Total 157.833 Balance 157.833 Intake: Intake, IV Titration 157.833 Amount Heparin Sod,Pork in 0.45% 157.833 NaCl 25,000 unit In 0.45 % NaCl 1 250ml.bag @ 9. 1859 UNITS/KG/HR 10 mls/ hr IV .Q24H [facility] Rx#: [id number] Results 07/01/23 07:51 07/01/23 07:51 Cardiac Enzymes 06/30/23 06/30/23 06/30/23 Range/Units 14:22 14:22 19:29 AST 60 H (17-59) U/L Troponin I 0.576 H* 0.491 H* (0.000-0.034) ng/mL 06/30/23 Range/Units 21:51 AST (17-59) U/L Troponin I 0.538 H* (0.000-0.034) ng/mL Coagulation 06/30/23 06/30/23 Range/Units 14:22 21:51 PT 12.7 H (10.0-12.5) sec APTT 26.3 38.5 H (22.0-30.0) sec CBC 06/30/23 Range/Units 14:22 WBC 7.7 (3.8-10.6) k/uL RBC 4.69 (4.30-5.90) m/uL Hgb 12.2 L (13.0-17.5) gm/dL Hct 38.4 L (39.0-53.0) % Plt Count 159 (150-450) k/uL Comprehensive Metabolic Panel 06/30/23 Range/Units 14:22 Sodium 137 (137-145) mmol/L Potassium 4.0 (3.5-5.1) mmol/L Chloride 105 (98-107) mmol/L Carbon Dioxide 21 L (22-30) mmol/L BUN 21 H (9-20) mg/dL Creatinine 0.73 (0.66-1.25) mg/dL Glucose 180 H (74-99) mg/dL Calcium 8.7 (8.4-10.2) mg/dL AST 60 H (17-59) U/L ALT 41 (4-49) U/L Alkaline Phosphatase 141 H (38-126) U/L Total Protein 7.0 (6.3-8.2) g/dL Albumin 3.9 (3.5-5.0) g/dL Current Medications Generic Name Dose Route Start Last Admin Trade Name Freq PRN Reason Stop Dose Admin Amlodipine Besylate 2.5 mg 07/01/23 09:00 Amlodipine 2.5 Mg Tab PO DAILY [facility] Aripiprazole 20 mg 07/01/23 09:00 Aripiprazole 20 Mg Tab PO DAILY [facility] Aspirin 81 mg 07/01/23 09:00 Aspirin 81 Mg PO DAILY [facility] Atorvastatin Calcium 40 mg 07/01/23 09:00 Atorvastatin 40 Mg Tab PO DAILY [facility] Clopidogrel Bisulfate 75 mg 07/01/23 09:00 Clopidogrel 75 Mg Tab PO DAILY [facility] Finasteride 5 mg 07/01/23 09:00 Finasteride 5 Mg Tab PO DAILY [facility] Fluoxetine HCl 40 mg 07/01/23 09:00 Fluoxetine Hcl 20 Mg Cap PO DAILY [facility] Furosemide 40 mg 06/30/23 21:00 06/30/23 22:30 Furosemide 10 Mg/Ml 4 Ml Vial IV 40 mg Q12HR MARYANN Administration Heparin Sodium (Porcine) 0 unit 06/30/23 15:49 Heparin Sodium 1,000 Un/Ml (10ml Vl) IV PER PROTOCOL PRN Low PTT Protocol Heparin Sodium/Sodium Chloride 250 mls @ 10 mls/hr 06/30/23 16:00 07/01/23 07:56 25,000 unit/ Sodium Chloride IV 9.19 units/kg/hr .Q24H MARYANN 10 mls/hr Titration Protocol 9.1859 UNITS/KG/HR Insulin Aspart 5 unit 07/01/23 07:30 07/01/23 07:53 Insulin Aspart (Novolog) 100 Unit/Ml Vial SQ Not Given AC-TID [facility] Insulin Detemir 15 unit 06/30/23 21:00 06/30/23 22:06 Insulin Detemir (Levemir) 100 Unit/Ml Syr SQ 15 unit HS [facility] Administration Naloxone HCl 0.2 mg 06/30/23 15:47 Naloxone 0.4 Mg/Ml 1 Ml Vial IV Q2M PRN Opioid Reversal Non-Formulary Medication 7 mg 07/01/23 09:00 Semaglutide [Rybelsus] PO DAILY [facility] Potassium Chloride 20 meq 06/30/23 21:00 06/30/23 22:07 Potassium Chloride Er 20 Meq Tab.Er PO 20 meq BID [facility]ARYANN Administration Sacubitril/Valsartan 1 each 06/30/23 21:00 06/30/23 22:07 Sacubitril/Valsartan 49 Mg-51 Mg Tablet PO 1 each BID MARYANN Administration Intake and Output 06/30/23 07/01/23 07/01/23 22:59 06:59 14:59 Intake Total 157.833 Balance 157.833 Intake: Intake, IV Titration 157.833 Amount Heparin Sod,Pork in 0.45% 157.833 NaCl 25,000 unit In 0.45 % NaCl 1 250ml.bag @ 9. 1859 UNITS/KG/HR 10 mls/ hr IV .Q24H [facility] Rx#: [id number] 06/30/23 14:22 06/30/23 14:22
--- NOTE | 2023-07-01 11:23 | CA ---
Transthoracic Echo Report Name: Erci Bean Age: 67 Gender: M : 1955 Exam Date: 07/01/2023 09:15 Exam Location: [place] [facility] Ht (in): 64 Wt (lb): 240 Ordering Physician: Kasandra Watson DO Attending/Referring Phys: [id number], [employer] Technician Maria Fernanda Lund RDCS Procedure CPT: Indications: chf Cardiac Hx: Technical Quality: Contrast 1: Definity Total Dose (mL): 3 Contrast 2: Total Dose (mL): MEASUREMENTS (Male / Female) Normal Values 2D ECHO LV Diastolic Diameter PLAX 5.6 cm 4.2 - 5.9 / 3.9 - 5.3 cm LV Systolic Diameter PLAX 5.4 cm IVS Diastolic Thickness 1.2 cm 0.6 - 1.0 / 0.6 - 0.9 cm LVPW Diastolic Thickness 1.0 cm 0.6 - 1.0 / 0.6 - 0.9 cm LV Relative Wall Thickness 0.4 LVOT Diameter 2.2 cm Aortic Root Diameter 3.3 cm LA Systolic Diameter LX 5.0 cm 3.0 - 4.0 / 2.7 - 3.8 cm LA Volume 88.6 cm??? 18 - 58 / 22 - 52 cm??? LA Volume Index 38.9 cm???/m??? 16 - 28 cm???/m??? DOPPLER AV Peak Velocity 95.7 cm/s AV Peak Gradient 3.7 mmHg AV Mean Velocity 67.1 cm/s AV Mean Gradient 1.9 mmHg AV Velocity Time Integral 15.5 cm AI Peak Velocity 339.2 cm/s AI Peak Gradient 46.0 mmHg AI Pressure Half Time 448.4 ms LVOT Peak Velocity 68.1 cm/s LVOT Peak Gradient 1.9 mmHg LVOT Velocity Time Integral 11.5 cm LVOT Stroke Volume 42.4 cm??? LVOT Stroke Volume Index 20.1 ml/m??? LVOT Cardiac Index 1249.7 cm???/min???m??? AV Area Cont Eq vti 2.7 cm??? AV Area Cont Eq pk 2.6 cm??? MV Area PHT 6.9 cm??? Mitral E Point Velocity 112.8 cm/s Mitral A Point Velocity 40.0 cm/s Mitral E to A Ratio 2.8 MV Deceleration Time 109.3 ms TR Peak Velocity 296.4 cm/s TR Peak Gradient 35.1 mmHg PV Peak Velocity 32.8 cm/s PV Peak Gradient 0.4 mmHg FINDINGS Left Ventricle Left ventricular ejection fraction is estimated at 15-20 %. Mildly increased septal wall thickness. Mild left ventricular hypertrophy. Mildly dilated LV cavity with moedrately increased end systolic diameter. Inferior and inferolateral wall hypokinesia. m Right Ventricle Right ventricular systolic pressure estimated at 48 mmhg. Normal RV size with reduced systolic function Right Atrium Catheter/pacemaker wire in the right atrial cavity. Left Atrium Moderate dilatation. Elevated LA pressures. Mitral Valve Mild mitral regurgitation. Aortic Valve Mild aortic regurgitation. Tricuspid Valve Mild tricuspid regurgitation. Pulmonic Valve Trace pulmonic regurgitation. Pericardium No pericardial effusion. Aorta Normal size aortic root. CONCLUSIONS Dilated LV cavity. Severely reduced LV systolic function LVEF estimated at 15-20% Inferior and inferolateral and lateral wall hypokinesia Normal RV size with reduced systolic function RVSP estimated at 40 mmHg Moderate LA dilatation with elevated LA pressures Mild MR and AI No prior echo in database to compare Previewed by: Dr Roly Sanchez (Electronically Signed) Final Date: 01 July 2023 11:22
[2023-07-01 12:03] LABS: Glucose,Whole Blood 82 mg/dL (70-110)
[2023-07-01] MEDS: HEPARIN SODIUM 1,000 UN/ML (10ML VL) IV PRN (14:05)
[2023-07-01 17:14] LABS: Glucose,Whole Blood 71 mg/dL (70-110)
[2023-07-01 20:33] LABS: Glucose,Whole Blood 87 mg/dL (70-110)
[2023-07-02 01:43] LABS: Glucose,Whole Blood 75 mg/dL (70-110)
[2023-07-02] MEDS: METOPROLOL TARTRATE 50 MG TAB PO STA (02:05)
[2023-07-02 02:09] LABS: Glucose,Whole Blood 105 mg/dL (70-110)
--- NOTE | 2023-07-02 05:52 | P.PN ---
Subjective Progress Note Date: 07/01/23 HISTORY OF PRESENT ILLNESS: 67-year-old male who has been our practice recently was hospitalized and transferred to [facility] for severe cellulitis Of both lower extremity with failure of outpatient treatment after was seen in the wound clinic for a period of time the patient was hospitalized with concern of osteomyelitis of the lower extremity started on IV antibiotics and ended up seen infectious disease along with vascular surgeon and decide to have this treated as diabetic foot ulcer with right lower extremity cellulitis with chronic foot wound with history of osteomyelitis of the right side with bilateral lower extremity cellulitis as well. Patient was seen vascular surgeon can end up doing debridement on April 26 without any culture was sent at the time. Patient was sent to [facility] on empiric antibiotics with Unasyn 3 g IV every 6 hours for total of 30 days. He ended up having PICC line and had a treatment done and completed tomorrow w edgardo Bearden end up going back home with extra help. After he left [facility] start seeing our office as a patient. Again patient had chronic history of diabetes, diabetic foot, coronary artery disease post CABG, history of hypertension, hyperlipidemia, chronic depression patient apparently is a new to our hospital in the area here was admitted back in 2023 acute CHF exacerbation with urgent hypertension was treated and stabilized and sent home. Patient presented to the emergency department today at [facility] via ambulance where he was seen by his visiting nurse who found him to be in extreme shortness of breath with severe swelling and anasarca of the lower extremity with pulse r ate found to be elevated the patient was quite bit anxious at the time has came over 10 pounds in short period of time with above symptoms was sent to the emergency department for evaluation I his EKG found to be electronic ventricular pacer with pulse rate running at 126 beats per minutes. Chest x-ray shows mild cardiomegaly with thickening of the could represent fibrosis versus pulmonary venous congestion. Also there is a cardiac conducting device on the chest x-ray was found. Laboratory value with elevated troponin at 0.579 and 0.491, BNP 8410, creatinine was normal white blood cell 7.7 with hemoglobin 12.2 hematocrit 38.4. The patient was diagnosed with possible non-STEMI, severe congestive heart failure with mild exacerbation and someone is known to have cardiomyopathy, A- fib with RVR with rapid pulse. 07/01/2023: Apparently here to see some on cardiology since 2020 after his procedure given patient is confused about the whole process. Will continue diuretics, continue to watch his fluid overload continue IV Lasix at 40 mg twice a day cardiology with his elevated troponin talked about possibility of stress test versus heart catheter. In the meanwhile waiting for his echo result. The patient is still quite a bit confused his answer to some of the problem referral and care provider was very vague. Still dealing with cellulitis of the lower extremity along with mild diabetic foot has been watch and treated. Was started back on doxycycline for it. REVIEW OF SYSTEMS: CONSTITUTIONAL: Well-developed in mild respiratory distress EYES: No icterus sclerae, no conjunctivitis. EARS, NOSE, MOUTH, THROAT, and FACE: No sore throat, lymphadenopathy, carotid bruits or deformity. RESPIRATORY: Slight shortness of breath cough wheezes. CARDIOVASCULAR: Mild palpitation positive PND orthopnea no angina. GASTROINTESTINAL: No Abd pain, Nausea or vomiting, no Diarrhea or constipation, No GI Bleed, no distention or masses. GENITOURINARY: Decreased urine output with no kidney stone. INTEGUMENT/BREAST: Negative for any muscular injury with mild osteoarthritis.. HEMATOLOGIC/LYMPHATIC: Negative for bleed or purpura. MUSCULOSKELTAL: Generalized myalgia and arthralgia. NEURLOGICAL: Slight slowness with no syncope or seizure. BEHAVIORAL/PSYCH: Negative. ENDOCRINE: Negative. PHYSICAL EXAMINATION: General Appearance: Alert, slight respiratory distress. Neck HEENT: Supple, no lymphadenopathy, no thyroid enlargement, no carotid bruits. Lungs: Decreased breath sound bilaterally with fine rhonchi positive slight crackles and wheezes in the lower bases bilaterally. Chest Wall: Decreased expansion with deep inspiration no tenderness and no deformity was found on exam, no costochondral pain or discomfort. Heart: Irregular rate and rhythm, S1, S2 positive S3 positive gallop and slight systolic murmur. There is an ICD device in the left upper chest wall. Back: Symmetric, no curvature, ROM normal, no CVA tenderness. Abdomen: Soft positive bowel sounds slight discomfort lower abdominal region area no rebound or rigidity. Extremities: Extremities normal, atraumatic, no cyanosis 2+ edema of the lower extremity. Pulses: 2+ and symmetric. Skin: Skin color, texture, tugor normal, no rashes or lesions. Neurologic: Alert oriented x3 cranial nerves II through XII intact, no motor deficit, no abnormal balance or gait. ASSESSMENT AND PLAN: _Severe dyspnea and shortness of breath consistent with congestive heart failure exacerbation cardiomyopathy specially with the weight gain and fluid retention and edema, patient was initiated on IV diuretics, consult cardiology, echoca rdiogram will be done hopefully tomorrow, will do an aggressive management with diuretics while watching patient's carefully. _Cardiomyopathy: Has been on Entresto 49/51 mg twice a day along with furosemide 40 mg twice a day can benefit from adding spironolactone and a possible smaller dose of beta-nicky. _Acute non-STEMI possibly type II [place]: Cardiology consultation whether can benefit from going for intervention or not will be left up to cardiology in the meanwhile echocardiogram will show any wall motion abnormality can benefit in all direction as a neck step. Which possibly patient will need another heart catheter. _Severe arrhythmia with possible A-fib patient has an ICD make the conduction is noted on, continue to watch for any further arrhythmia might benefit from adding as needed's beta-nicky to bring pulse rate down. _Type 2 diabetes: Remain on Rybelsus along with Lantus 15 units nightly and NovoLog sliding scale coverage mostly 5 units AC meals. _Hypertension: Remain on Norvasc 2.5 mg a day, Entresto 49/51 mg twice a day, still on diuretics as well. _Hyperlipidemia: Remain on atorvastatin 40 mg a day. _Severe BPH: Watch for any urinary retention. _Recent diabetic foot took long time to heal, has been off antibiotics for seen at the wound clinic. _Chronic cellulitis of the lower extremity: Most likely but worsening right and left side we will add doxycycline 100 mg twice a day for now. _Depression: Continue fluoxetine 40 mg daily along with Abilify 20 mg a day. Management: Total dependent but patient does with his echo cardiology might have to do heart cath especially to exclude possibility of any further blockage specially with his troponin level. Objective - Vital Signs Vital signs: Vital Signs Temp 97.9 F 06/30/23 14:02 Pulse 93 07/01/23 02:05 Resp 20 07/01/23 02:05 BP 127/85 07/01/23 02:05 Pulse Ox 97 07/01/23 00:35 FiO2 Intake & Output 06/30/23 06/30/23 07/01/23 06:59 18:59 06:59 Weight 108.862 kg - Labs CBC & Chem 7: 07/01/23 07:51 07/01/23 07:51 Labs: Abnormal Lab Results - Last 24 Hours (Table) 06/30/23 06/30/23 06/30/23 Range/Units 14:22 14:22 14:22 Hgb 12.2 L (13.0-17.5) gm/dL Hct 38.4 L (39.0-53.0) % Lymphocytes # 0.7 L (1.0-4.8) k/uL PT 12.7 H (10.0-12.5) sec INR 1.2 H (<1.2) APTT (22.0-30.0) sec Carbon Dioxide 21 L (22-30) mmol/L BUN 21 H (9-20) mg/dL Glucose 180 H (74-99) mg/dL POC Glucose (mg/dL) (70-110) mg/dL AST 60 H (17-59) U/L Alkaline Phosphatase 141 H (38-126) U/L Troponin I (0.000-0.034) ng/mL 06/30/23 06/30/23 06/30/23 Range/Units 14:22 19:29 21:51 Hgb (13.0-17.5) gm/dL Hct (39.0-53.0) % Lymphocytes # (1.0-4.8) k/uL PT (10.0-12.5) sec INR (<1.2) APTT (22.0-30.0) sec Carbon Dioxide (22-30) mmol/L BUN (9-20) mg/dL Glucose (74-99) mg/dL POC Glucose (mg/dL) (70-110) mg/dL AST (17-59) U/L Alkaline Phosphatase (38-126) U/L Troponin I 0.576 H* 0.491 H* 0.538 H* (0.000-0.034) ng/mL 06/30/23 06/30/23 Range/Units 21:51 22:06 Hgb (13.0-17.5) gm/dL Hct (39.0-53.0) % Lymphocytes # (1.0-4.8) k/uL PT (10.0-12.5) sec INR (<1.2) APTT 38.5 H (22.0-30.0) sec Carbon Dioxide (22-30) mmol/L BUN (9-20) mg/dL Glucose (74-99) mg/dL POC Glucose (mg/dL) 209 H (70-110) mg/dL AST (17-59) U/L Alkaline Phosphatase (38-126) U/L Troponin I (0.000-0.034) ng/mL
[2023-07-02 05:54] LABS: Glucose,Whole Blood 90 mg/dL (70-110)
[2023-07-02 09:55] LABS: African American GFR (CKD) 86 (>60 ml/min/1.73 sqM); Anion Gap 6 mmol/L; Blood Urea Nitrogen 24 mg/dL (9-20); Calcium 8.7 mg/dL (8.4-10.2); Carbon Dioxide 26 mmol/L (22-30); Chloride 109 mmol/L (98-107); Glucose 88 mg/dL (74-99); Non-African American GFR(CKD) 74 (>60 ml/min/1.73 sqM); Potassium 3.7 mmol/L (3.5-5.1); Sodium 141 mmol/L (137-145)
[2023-07-02 11:28] LABS: Glucose,Whole Blood 99 mg/dL (70-110)
[2023-07-02 11:39] VITALS: BMI 35.7
--- NOTE | 2023-07-02 13:40 | P.PN ---
Subjective HISTORY OF PRESENT ILLNESS: This is a 67-year-old male with a past medical history significant for hypertension, hyperlipidemia, diabetes, coronary artery disease with previous CABG, congestive heart failure, obstructive sleep apnea and ischemic cardiomyopathy. Patient follows in the office with Dr. Jean but has not been seen in the office since October 2020. We have been asked to see the patient in consultation for congestive heart failure and elevated troponins. Patient examined at the bedside in the ER. Patient is a poor historian. He lives with his brother and sister. Patient denies any chest pain or pressure. He denies shortness of breath. He reports scrotal edema at home. The patient was started on IV heparin secondary to abnormal troponins. He was also started on IV Lasix secondary to acute CHF exacerbation. Vital signs are currently stable. DIAGNOSTICS: - EKG reveals ventricular paced rhythm. - Chest xray mild cardiomegaly and stigmata of heart disease including through the cardiac conduction device and previous sternotomy. Thickened interstitium could represent fibrosis versus pulmonary vascular creatinine digestion versus other etiology. - Laboratory data: WBC 7.7. Hemoglobin 12.2. Platelet count 159. D-dimer 0.17. Sodium 137. Potassium 4.0. BUN 21. Creatinine 0.73. Troponin 0.576. 0.491. 0.538. proBNP 8410. - Current home cardiac medications include amlodipine 2.5 mg daily, Entresto 49- 51 mg twice a day, Lasix 40 mg twice a day, Plavix 75 mg daily, Lipitor 40 mg daily, aspirin 81 mg daily. - Most recent echocardiogram obtained in April 2020 revealed ejection fraction 40%, mild MR, mild TR 07/02/2023 Patient examined this afternoon at the bedside. Patient currently denies chest pain or pressure. He denies SOB. Patient remains on IV heparin. Troponins resulted at 0.576. 0.491. 0.538. Echocardiogram completed revealing ejection fraction 15 to 20%, inferior and inferior lateral wall hypokinesia, mild MR, mild AI. PHYSICAL EXAM: VITAL SIGNS: Reviewed. GENERAL: Well-developed in no acute distress. HEENT: Head is normocephalic. Pupils are equal, round. Sclerae anicteric. Mucous membranes of the mouth are moist. Neck supple. No JVD or thyromegaly LUNGS: Respirations even and unlabored. Lungs essentially clear to auscultation bilaterally. HEART: Regular rate and rhythm. S1 and S2 heard. ABDOMEN: Soft. Nondistended. Nontender. EXTREMITIES: Normal range of motion. No clubbing or cyanosis. Peripheral pulses intact. Bilateral lower extremity edema noted. Dressing to right heel noted. NEUROLOGIC: Awake and alert. Oriented x 3. ASSESSMENT: Shortness of breath Acute on chronic heart failure with reduced EF Non-STEMI Coronary artery disease with previous CABG, details unknown Ischemic cardiomyopathy, EF 40% in 2020, now 15-20% Hypertension Hyperlipidemia Diabetes Recent diabetic foot infection History of AICD implantation PLAN: Continue IV heparin Resume home cardiac medications Continue IV Lasix 40 mg every 12 hours Daily weights, accurate intake and output, and monitoring of kidney function Patient will require cardiac cath. Will plan for tomorrow with Dr. Jean. Further recommendations pending patient course Nurse practitioner note has been reviewed by physician. Signing provider agrees with the documented findings, assessment, and plan of care documented by [employer] as a scribe. Objective - Vital Signs Vital signs: Vital Signs Temp 97.4 F L 07/02/23 09:15 Pulse 62 07/02/23 09:15 Resp 18 07/02/23 09:15 BP 120/77 07/02/23 09:15 Pulse Ox 98 07/02/23 09:15 FiO2 Intake & Output 07/01/23 07/02/23 07/02/23 18:59 06:59 18:59 Intake Total 342.806 0 Output Total 200 550 Balance 342.806 -200 -550 Weight 108.862 kg 94.5 kg 94.5 kg Intake: Intake, IV Titration 232.806 Amount Heparin Sod,Pork in 0.45% 232.806 NaCl 25,000 unit In 0.45 % NaCl 1 250ml.bag @ 9. 1859 UNITS/KG/HR 10 mls/ hr IV .Q24H [facility] Rx#: [id number] Oral 110 0 Output: Urine 200 550 Other: Voiding Method External Catheter External Catheter External Catheter - Labs CBC & Chem 7: 07/01/23 07:51 07/02/23 09:19 Labs: Abnormal Lab Results - Last 24 Hours (Table) 07/01/23 07/01/23 07/02/23 Range/Units 11:47 20:36 09:19 APTT 38.0 H 53.8 H (22.0-30.0) sec Chloride 109 H (98-107) mmol/L BUN 24 H (9-20) mg/dL 07/02/23 Range/Units 09:19 APTT 41.7 H (22.0-30.0) sec Chloride (98-107) mmol/L BUN (9-20) mg/dL
[2023-07-02] MEDS ORDERED: NITROGLYCERIN SL TABS 0.4 MG TAB SUBLINGUAL PRN (14:01)
[2023-07-02 16:17] LABS: Glucose,Whole Blood 78 mg/dL (70-110)
[2023-07-02 20:32] LABS: Glucose,Whole Blood 189 mg/dL (70-110)
[2023-07-03] MEDS: ASPIRIN 325 MG TAB PO ONE (04:00)
[2023-07-03] MEDS: ATORVASTATIN 80 MG TAB PO ONE (04:00)
[2023-07-03] MEDS: SODIUM CHLORIDE 0.9% 1,000 ML in EMPTY BAG 1 BAG IV SCH (04:09)
--- NOTE | 2023-07-03 05:51 | P.PN ---
Subjective Progress Note Date: 07/02/23 HISTORY OF PRESENT ILLNESS: 67-year-old male who has been our practice recently was hospitalized and transferred to [facility] for severe cellulitis Of both lower extremity with failure of outpatient treatment after was seen in the wound clinic for a period of time the patient was hospitalized with concern of osteomyelitis of the lower extremity started on IV antibiotics and ended up seen infectious disease along with vascular surgeon and decide to have this treated as diabetic foot ulcer with right lower extremity cellulitis with chronic foot wound with history of osteomyelitis of the right side with bilateral lower extremity cellulitis as well. Patient was seen vascular surgeon can end up doing debridement on April 26 without any culture was sent at the time. Patient was sent to [facility] on empiric antibiotics with Unasyn 3 g IV every 6 hours for total of 30 days. He ended up having PICC line and had a treatment done and completed tomorrow w edgardo Medora end up going back home with extra help. After he left [facility] start seeing our office as a patient. Again patient had chronic history of diabetes, diabetic foot, coronary artery disease post CABG, history of hypertension, hyperlipidemia, chronic depression patient apparently is a new to our hospital in the area here was admitted back in 2023 acute CHF exacerbation with urgent hypertension was treated and stabilized and sent home. Patient presented to the emergency department today at [facility] via ambulance where he was seen by his visiting nurse who found him to be in extreme shortness of breath with severe swelling and anasarca of the lower extremity with pulse r ate found to be elevated the patient was quite bit anxious at the time has came over 10 pounds in short period of time with above symptoms was sent to the emergency department for evaluation I his EKG found to be electronic ventricular pacer with pulse rate running at 126 beats per minutes. Chest x-ray shows mild cardiomegaly with thickening of the could represent fibrosis versus pulmonary venous congestion. Also there is a cardiac conducting device on the chest x-ray was found. Laboratory value with elevated troponin at 0.579 and 0.491, BNP 8410, creatinine was normal white blood cell 7.7 with hemoglobin 12.2 hematocrit 38.4. The patient was diagnosed with possible non-STEMI, severe congestive heart failure with mild exacerbation and someone is known to have cardiomyopathy, A- fib with RVR with rapid pulse. 07/01/2023: Apparently here to see some on cardiology since 2020 after his procedure given patient is confused about the whole process. Will continue diuretics, continue to watch his fluid overload continue IV Lasix at 40 mg twice a day cardiology with his elevated troponin talked about possibility of stress test versus heart catheter. In the meanwhile waiting for his echo result. The patient is still quite a bit confused his answer to some of the problem referral and care provider was very vague. Still dealing with cellulitis of the lower extremity along with mild diabetic foot has been watch and treated. Was started back on doxycycline for it. 07/02/2023: Reviewed his echocardiogram done yesterday showed ejection fraction of 15-20 percentile: Also has right ventricular systolic pressure of 40 mmHg with mild mitral regurgitation and aortic insufficiency based on the finding especially with the significant decline in ejection fraction probably will need to go for heart catheter to see if there is any new blockage or any salvageable circulation need to be taken care of beside his medical management. REVIEW OF SYSTEMS: CONSTITUTIONAL: Well-developed in mild respiratory distress EYES: No icterus sclerae, no conjunctivitis. EARS, NOSE, MOUTH, THROAT, and FACE: No sore throat, lymphadenopathy, carotid bruits or deformity. RESPIRATORY: Slight shortness of breath cough wheezes. CARDIOVASCULAR: Mild palpitation positive PND orthopnea no angina. GASTROINTESTINAL: No Abd pain, Nausea or vomiting, no Diarrhea or constipation, No GI Bleed, no distention or masses. GENITOURINARY: Decreased urine output with no kidney stone. INTEGUMENT/BREAST: Negative for any muscular injury with mild osteoarthritis.. HEMATOLOGIC/LYMPHATIC: Negative for bleed or purpura. MUSCULOSKELTAL: Generalized myalgia and arthralgia. NEURLOGICAL: Slight slowness with no syncope or seizure. BEHAVIORAL/PSYCH: Negative. ENDOCRINE: Negative. PHYSICAL EXAMINATION: General Appearance: Alert, slight respiratory distress. Neck HEENT: Supple, no lymphadenopathy, no thyroid enlargement, no carotid bruits. Lungs: Decreased breath sound bilaterally with fine rhonchi positive slight crackles and wheezes in the lower bases bilaterally. Chest Wall: Decreased expansion with deep inspiration no tenderness and no de formity was found on exam, no costochondral pain or discomfort. Heart: Irregular rate and rhythm, S1, S2 positive S3 positive gallop and slight systolic murmur. There is an ICD device in the left upper chest wall. Back: Symmetric, no curvature, ROM normal, no CVA tenderness. Abdomen: Soft positive bowel sounds slight discomfort lower abdominal region area no rebound or rigidity. Extremities: Extremities normal, atraumatic, no cyanosis 2+ edema of the lower extremity. Pulses: 2+ and symmetric. Skin: Skin color, texture, tugor normal, no rashes or lesions. Neurologic: Alert oriented x3 cranial nerves II through XII intact, no motor deficit, no abnormal balance or gait. ASSESSMENT AND PLAN: _Severe dyspnea and shortness of breath consistent with congestive heart failure exacerbation cardiomyopathy specially with the weight gain and fluid retention and edema, patient was initiated on IV diuretics, consult cardiology, echocardiogram will be done hopefully tomorrow, will do an aggressive management with diuretics while watching patient's carefully. _Cardiomyopathy: With much lower ejection fraction than expected down to 15-20 percentile, has been on Entresto 49/51 mg twice a day along with furosemide 40 mg twice a day can benefit from adding spironolactone and a possible smaller dose of beta-nicky. _Acute non-STEMI possibly type II [place]: With the finding of his ejection fraction is much lower there is a big possibility that patient might suffer from more blockage than expected and he probably will need or benefit at least from doing a heart catheter. _Severe arrhythmia with possible A-fib patient has an ICD make the conduction is noted on, continue to watch for any further arrhythmia might benefit from adding as needed's beta-nicky to bring pulse rate down. _Type 2 diabetes: Remain on Rybelsus along with Lantus 15 units nightly and NovoLog sliding scale coverage mostly 5 units AC meals. _Hypertension: Remain on Norvasc 2.5 mg a day, Entresto 49/51 mg twice a day, still on diuretics as well. _Hyperlipidemia: Remain on atorvastatin 40 mg a day. _Severe BPH: Watch for any urinary retention. _Recent diabetic foot took long time to heal, has been off antibiotics for seen at the wound clinic. _Chronic cellulitis of the lower extremity: Most likely but worsening right and left side we will add doxycycline 100 mg twice a day for now. _Depression: Continue fluoxetine 40 mg daily along with Abilify 20 mg a day. Management: Total dependent but patient does with his echo cardiology might have to do heart cath. Objective - Vital Signs Vital signs: Vital Signs Temp 98.1 F 07/02/23 03:23 Pulse 116 H 07/02/23 03:23 Resp 20 07/02/23 03:23 BP 142/91 07/02/23 03:23 Pulse Ox 95 07/02/23 03:23 FiO2 Intake & Output 07/01/23 07/01/23 07/02/23 06:59 18:59 06:59 Intake Total 342.806 0 Output Total 200 Balance 342.806 -200 Weight 108.862 kg 94.5 kg Intake: Intake, IV Titration 232.806 Amount Heparin Sod,Pork in 0.45% 232.806 NaCl 25,000 unit In 0.45 % NaCl 1 250ml.bag @ 9. 1859 UNITS/KG/HR 10 mls/ hr IV .Q24H [facility] Rx#: [id number] Oral 110 0 Output: Urine 200 Other: Voiding Method External Catheter External Catheter - Labs CBC & Chem 7: 07/01/23 07:51 07/02/23 09:19 Labs: Abnormal Lab Results - Last 24 Hours (Table) 07/01/23 07/01/23 07/01/23 Range/Units 07:51 07:51 07:51 Hgb 11.6 L (13.0-17.5) gm/dL Hct 37.2 L (39.0-53.0) % Plt Count 134 L (150-450) k/uL Lymphocytes # 0.6 L (1.0-4.8) k/uL PT 12.9 H (10.0-12.5) sec INR 1.2 H (<1.2) APTT (22.0-30.0) sec Chloride 108 H (98-107) mmol/L 07/01/23 07/01/23 Range/Units 11:47 20:36 Hgb (13.0-17.5) gm/dL Hct (39.0-53.0) % Plt Count (150-450) k/uL Lymphocytes # (1.0-4.8) k/uL PT (10.0-12.5) sec INR (<1.2) APTT 38.0 H 53.8 H (22.0-30.0) sec Chloride (98-107) mmol/L
[2023-07-03 06:21] LABS: Glucose,Whole Blood 187 mg/dL (70-110)
[2023-07-03] MEDS ORDERED: HEPARIN SODIUM,PORCINE (1 ML) 2,500 UNIT in SODIUM CHLORIDE 0.9% 250 ML IRRIGATION PRN (07:00)
[2023-07-03] MEDS ORDERED: HEPARIN SODIUM,PORCINE 10,000 UNIT in SODIUM CHLORIDE 0.9% 1,000 ML IRRIGATION PRN (07:00)
[2023-07-03] MEDS: HEPARIN SOD,PORK IN 0.45% NACL 25,000 UNIT in 0.45% NACL 1 250ML.BAG IV SCH (11:04)
[2023-07-03 11:22] LABS: Glucose,Whole Blood 154 mg/dL (70-110)
--- NOTE | 2023-07-03 13:40 | P.PN ---
Subjective HISTORY OF PRESENT ILLNESS: This is a 67-year-old male with a past medical history significant for hypertension, hyperlipidemia, diabetes, coronary artery disease with previous CABG, congestive heart failure, obstructive sleep apnea and ischemic cardiomyopathy. Patient follows in the office with Dr. Jean but has not been seen in the office since October 2020. We have been asked to see the patient in consultation for congestive heart failure and elevated troponins. Patient examined at the bedside in the ER. Patient is a poor historian. He lives with his brother and sister. Patient denies any chest pain or pressure. He denies shortness of breath. He reports scrotal edema at home. The patient was started on IV heparin secondary to abnormal troponins. He was also started on IV Lasix secondary to acute CHF exacerbation. Vital signs are currently stable. DIAGNOSTICS: - EKG reveals ventricular paced rhythm. - Chest xray mild cardiomegaly and stigmata of heart disease including through the cardiac conduction device and previous sternotomy. Thickened interstitium could represent fibrosis versus pulmonary vascular creatinine digestion versus other etiology. - Laboratory data: WBC 7.7. Hemoglobin 12.2. Platelet count 159. D-dimer 0.17. Sodium 137. Potassium 4.0. BUN 21. Creatinine 0.73. Troponin 0.576. 0.491. 0.538. proBNP 8410. - Current home cardiac medications include amlodipine 2.5 mg daily, Entresto 49- 51 mg twice a day, Lasix 40 mg twice a day, Plavix 75 mg daily, Lipitor 40 mg daily, aspirin 81 mg daily. - Most recent echocardiogram obtained in April 2020 revealed ejection fraction 40%, mild MR, mild TR 07/02/2023 Patient examined this afternoon at the bedside. Patient currently denies chest pain or pressure. He denies SOB. Patient remains on IV heparin. Troponins resulted at 0.576. 0.491. 0.538. Echocardiogram completed revealing ejection fraction 15 to 20%, inferior and inferior lateral wall hypokinesia, mild MR, mild AI. 07/03/2023 Patient examined this morning at the bedside. Patient currently denies chest pain or pressure. He denies shortness of breath. He remains on IV Lasix. He continues to have significant lower extremity edema. He also remains on IV Lasix. Patient was initially scheduled for cardiac catheterization today. However due to scheduling conflict, this will be rescheduled for tomorrow. PHYSICAL EXAM: VITAL SIGNS: Reviewed. GENERAL: Well-developed in no acute distress. HEENT: Head is normocephalic. Pupils are equal, round. Sclerae anicteric. Mucous membranes of the mouth are moist. Neck supple. No JVD or thyromegaly LUNGS: Respirations even and unlabored. Lungs essentially clear to auscultation bilaterally. HEART: Regular rate and rhythm. S1 and S2 heard. ABDOMEN: Soft. Nondistended. Nontender. EXTREMITIES: Normal range of motion. No clubbing or cyanosis. Peripheral pulses intact. Bilateral lower extremity edema noted. Dressing to right heel no aiyana. NEUROLOGIC: Awake and alert. Oriented x 3. ASSESSMENT: Shortness of breath Acute on chronic heart failure with reduced EF Non-STEMI Coronary artery disease with previous CABG, details unknown Ischemic cardiomyopathy, EF 40% in 2020, now 15-20% Hypertension Hyperlipidemia Diabetes Recent diabetic foot infection History of AICD implantation PLAN: Continue IV heparin Resume home cardiac medications Continue IV Lasix 40 mg every 12 hours Daily weights, accurate intake and output, and monitoring of kidney function N.p.o. at midnight. Patient to undergo cardiac catheterization tomorrow with Dr. Jean. Still trying to get records from patients CABG Further recommendations pending patient course Nurse practitioner note has been reviewed by physician. Signing provider agrees with the documented findings, assessment, and plan of care documented by FILENET ARCHITECT as a scribe. Objective - Vital Signs Vital signs: Vital Signs Temp 97.6 F 07/03/23 11:14 Pulse 63 07/03/23 11:14 Resp 18 07/03/23 11:14 BP 143/80 07/03/23 11:14 Pulse Ox 99 07/03/23 11:14 FiO2 Intake & Output 07/02/23 07/03/23 07/03/23 18:59 06:59 18:59 Intake Total 372.791 240 180 Output Total 550 500 150 Balance -177.209 -260 30 Weight 94.5 kg 92.62 kg Intake: Intake, IV Titration 262.791 Amount Heparin Sod,Pork in 0.45% 262.791 NaCl 25,000 unit In 0.45 % NaCl 1 250ml.bag @ 9. 1859 UNITS/KG/HR 10 mls/ hr IV .Q24H [facility] Rx#: [id number] Oral 110 240 180 Output: Urine 550 500 150 Other: Voiding Method External Catheter External Catheter # Bowel Movements 1 - Labs CBC & Chem 7: 07/01/23 07:51 07/02/23 09:19 Labs: Abnormal Lab Results - Last 24 Hours (Table) 07/02/23 07/02/23 07/02/23 Range/Units 17:01 20:25 23:39 APTT 43.9 H 60.0 H (22.0-30.0) sec POC Glucose (mg/dL) 189 H (70-110) mg/dL 07/03/23 07/03/23 Range/Units 06:19 11:19 APTT (22.0-30.0) sec POC Glucose (mg/dL) 187 H 154 H (70-110) mg/dL
[2023-07-03 16:42] LABS: Glucose,Whole Blood 188 mg/dL (70-110)
[2023-07-03 20:01] LABS: Glucose,Whole Blood 111 mg/dL (70-110)
--- NOTE | 2023-07-03 22:44 | P.PN ---
Subjective Progress Note Date: 07/03/23 HISTORY OF PRESENT ILLNESS: 67-year-old male who has been our practice recently was hospitalized and transferred to [facility] for severe cellulitis Of both lower extremity with failure of outpatient treatment after was seen in the wound clinic for a period of time the patient was hospitalized with concern of osteomyelitis of the lower extremity started on IV antibiotics and ended up seen infectious disease along with vascular surgeon and decide to have this treated as diabetic foot ulcer with right lower extremity cellulitis with chronic foot wound with history of osteomyelitis of the right side with bilateral lower extremity cellulitis as well. Patient was seen vascular surgeon can end up doing debridement on April 26 without any culture was sent at the time. Patient was sent to [facility] on empiric antibiotics with Unasyn 3 g IV every 6 hours for total of 30 days. He ended up having PICC line and had a treatment done and completed tomorrow w edgardo Girard end up going back home with extra help. After he left [facility] start seeing our office as a patient. Again patient had chronic history of diabetes, diabetic foot, coronary artery disease post CABG, history of hypertension, hyperlipidemia, chronic depression patient apparently is a new to our hospital in the area here was admitted back in 2023 acute CHF exacerbation with urgent hypertension was treated and stabilized and sent home. Patient presented to the emergency department today at [facility] via ambulance where he was seen by his visiting nurse who found him to be in extreme shortness of breath with severe swelling and anasarca of the lower extremity with pulse r ate found to be elevated the patient was quite bit anxious at the time has came over 10 pounds in short period of time with above symptoms was sent to the emergency department for evaluation I his EKG found to be electronic ventricular pacer with pulse rate running at 126 beats per minutes. Chest x-ray shows mild cardiomegaly with thickening of the could represent fibrosis versus pulmonary venous congestion. Also there is a cardiac conducting device on the chest x-ray was found. Laboratory value with elevated troponin at 0.579 and 0.491, BNP 8410, creatinine was normal white blood cell 7.7 with hemoglobin 12.2 hematocrit 38.4. The patient was diagnosed with possible non-STEMI, severe congestive heart failure with mild exacerbation and someone is known to have cardiomyopathy, A- fib with RVR with rapid pulse. 07/01/2023: Apparently here to see some on cardiology since 2020 after his procedure given patient is confused about the whole process. Will continue diuretics, continue to watch his fluid overload continue IV Lasix at 40 mg twice a day cardiology with his elevated troponin talked about possibility of stress test versus heart catheter. In the meanwhile waiting for his echo result. The patient is still quite a bit confused his answer to some of the problem referral and care provider was very vague. Still dealing with cellulitis of the lower extremity along with mild diabetic foot has been watch and treated. Was started back on doxycycline for it. 07/02/2023: Reviewed his echocardiogram done yesterday showed ejection fraction of 15-20 percentile: Also has right ventricular systolic pressure of 40 mmHg with mild mitral regurgitation and aortic insufficiency based on the finding especially with the significant decline in ejection fraction probably will need to go for heart catheter to see if there is any new blockage or any salvageable circulation need to be taken care of beside his medical management. 07/03/2023: He was supposed to go for heart catheter today procedure was delayed till tomorrow in the meanwhile his ejection fraction is severely low patient is very symptomatic with his heart failure still trying to get more report and results from his CABG from before even cardiology in [facility] do not have much information about TAVR procedure and surgery he had with his open heart surgery back in [place] years ago. Patient responded to management has been doing well whether he is fully understand the seriousness of is going on or not not acute at this point. REVIEW OF SYSTEMS: CONSTITUTIONAL: Well-developed in mild respiratory distress EYES: No icterus sclerae, no conjunctivitis. EARS, NOSE, MOUTH, THROAT, and FACE: No sore throat, lymphadenopathy, carotid bruits or deformity. RESPIRATORY: Slight shortness of breath cough wheezes. CARDIOVASCULAR: Mild palpitation positive PND orthopnea no angina. GASTROINTESTINAL: No Abd pain, Nausea or vomiting, no Diarrhea or constipation, No GI Bleed, no distention or masses. GENITOURINARY: Decreased urine output with no kidney stone. INTEGUMENT/BREAST: Negative for any muscular injury with mild osteoarthritis.. HEMATOLOGIC/LYMPHATIC: Negative for bleed or purpura. MUSCULOSKELTAL: Generalized myalgia and arthralgia. NEURLOGICAL: Slight slowness with no syncope or seizure. BEHAVIORAL/PSYCH: Negative. ENDOCRINE: Negative. PHYSICAL EXAMINATION: General Appearance: Alert, slight respiratory distress. Neck HEENT: Supple, no lymphadenopathy, no thyroid enlargement, no carotid bruits. Lungs: Decreased breath sound bilaterally with fine rhonchi positive slight crackles and wheezes in the lower bases bilaterally. Chest Wall: Decreased expansion with deep inspiration no tenderness and no deformity was found on exam, no costochondral pain or discomfort. Heart: Irregular rate and rhythm, S1, S2 positive S3 positive gallop and slight systolic murmur. There is an ICD device in the left upper chest wall. Back: Symmetric, no curvature, ROM normal, no CVA tenderness. Abdomen: Soft positive bowel sounds slight discomfort lower abdominal region area no rebound or rigidity. Extremities: Extremities normal, atraumatic, no cyanosis 2+ edema of the lower extremity. Pulses: 2+ and symmetric. Skin: Skin color, texture, tugor normal, no rashes or lesions. Neurologic: Alert oriented x3 cranial nerves II through XII intact, no motor deficit, no abnormal balance or gait. ASSESSMENT AND PLAN: _Severe dyspnea and shortness of breath consistent with congestive heart failure exacerbation cardiomyopathy specially with the weight gain and fluid retention and edema, patient was initiated on IV diuretics, consult cardiology, echocardiogram will be done hopefully tomorrow, will do an aggressive management with diuretics while watching patient's carefully. _Cardiomyopathy: With much lower ejection fraction than expected down to 15-20 percentile, has been on Entresto 49/51 mg twice a day along with furosemide 40 mg twice a day can benefit from adding spironolactone and a possible smaller dose of beta-nicky. _Acute non-STEMI possibly type II CA: With the finding of his ejection fraction is much lower there is a big possibility that patient might suffer from more blockage than expected and he probably will need or benefit at least from doing a heart catheter. Still looking into his previous testing and CABG at [place] if there is a possibility of getting those records. _Severe arrhythmia with possible A-fib patient has an ICD make the conduction is noted on, continue to watch for any further arrhythmia might benefit from adding as needed's beta-nicky to bring pulse rate down. _Type 2 diabetes: Remain on Rybelsus along with Lantus 15 units nightly and Lisa Log sliding scale coverage mostly 5 units AC meals. _Hypertension: Remain on Norvasc 2.5 mg a day, Entresto 49/51 mg twice a day, still on diuretics as well. _Hyperlipidemia: Remain on atorvastatin 40 mg a day. _Severe BPH: Watch for any urinary retention. _Recent diabetic foot took long time to heal, has been off antibiotics for seen at the wound clinic. _Chronic cellulitis of the lower extremity: Most likely but worsening right and left side we will add doxycycline 100 mg twice a day for now. _Depression: Continue fluoxetine 40 mg daily along with Abilify 20 mg a day. Management: His heart catheter was supposed to be done at noon time today and was delayed apparently till tomorrow continue to optimize medical management he still tomorrow. I will depend on the finding whether it can be beneficial to do any intervention to help his severely reduced ejection fraction or not total dependent. Objective - Vital Signs Vital signs: Vital Signs Temp 98.6 F 07/03/23 04:00 Pulse 68 07/03/23 04:00 Resp 18 07/03/23 04:00 BP 120/70 07/03/23 04:00 Pulse Ox 98 07/03/23 04:00 FiO2 Intake & Output 07/02/23 07/02/23 07/03/23 06:59 18:59 06:59 Intake Total 0 372.791 240 Output Total 200 550 500 Balance -200 -177.209 -260 Weight 94.5 kg 94.5 kg Intake: Intake, IV Titration 262.791 Amount Heparin Sod,Pork in 0.45% 262.791 NaCl 25,000 unit In 0.45 % NaCl 1 250ml.bag @ 9. 1859 UNITS/KG/HR 10 mls/ hr IV .Q24H [facility] Rx#: [id number] Oral 0 110 240 Output: Urine 200 550 500 Other: Voiding Method External Catheter External Catheter External Catheter # Bowel Movements 1 - Labs CBC & Chem 7: 07/01/23 07:51 07/02/23 09:19 Labs: Abnormal Lab Results - Last 24 Hours (Table) 07/02/23 07/02/23 07/02/23 Range/Units 09:19 09:19 17:01 APTT 41.7 H 43.9 H (22.0-30.0) sec Chloride 109 H (98-107) mmol/L BUN 24 H (9-20) mg/dL POC Glucose (mg/dL) (70-110) mg/dL 07/02/23 07/02/23 Range/Units 20:25 23:39 APTT 60.0 H (22.0-30.0) sec Chloride (98-107) mmol/L BUN (9-20) mg/dL POC Glucose (mg/dL) 189 H (70-110) mg/dL
[2023-07-04 06:06] LABS: Glucose,Whole Blood 99 mg/dL (70-110)
[2023-07-04] MEDS: ASPIRIN 81 MG PO STA (06:34)
[2023-07-04] MEDS ORDERED: LIDOCAINE 1% INJ 10MG/ML (20 ML MDV) ONE (07:32)
[2023-07-04] MEDS ORDERED: HEPARIN SODIUM 1,000 UN/ML (10ML VL) ONE (07:32)
[2023-07-04] MEDS ORDERED: fentaNYL (PF) 50 MCG/ML 2 ML AMP ONE (07:32)
[2023-07-04] MEDS: SODIUM CHLORIDE 0.9% 500 ML 500 ML IV ONE (07:51)
[2023-07-04] MEDS: fentaNYL (PF) 50 MCG/ML 2 ML AMP IVP ONE (07:54)
[2023-07-04] MEDS: LIDOCAINE 1% INJ 10MG/ML (20 ML MDV) SQ ONE (07:57)
[2023-07-04] MEDS: IOPAMIDOL-370 100ML BTL INJ ONE (08:12)
[2023-07-04] MEDS ORDERED: RX INFO: IV CONTRAST WAS GIVEN 1 EACH MISC MISCELLANE PRN (08:26)
--- NOTE | 2023-07-04 08:34 | P.CARDCATH ---
Date of Procedure: 07/04/23 Description of Procedure: Cardiac Catheterization: The patient is a 67-year-old male, status post CABG done many years ago at [facility], details not available who has not been following on a regular basis and presented with symptoms of worsening CHF as well as mild troponin elevation. His echocardiogram showed worsening of his LV systolic function. Recommendations were made regarding cardiac catheterization, the risks and the complications were discussed with the patient who is in full understanding and agreement. Procedure Description: Patient was brought to [facility] in fasting semi-sedated state after receiving Fentanyl and Benadryl achieiving moderate conscious sedated state. Using X ylocaine Anesthesia and modified Seldinger technique, a 6-Senegalese sheath was introduced in the right femoral artery . Subsequently, selective coronary angiography was performed using a 6-Senegalese 4 be nd Kate catheter. Multiple views of the coronary artery including hemiaxial views were obtained. The right Kate was used to cannulate the SVG to the RCA, left circumflex and MEJIA to the LAD, images of the grafts were obtained. The 6 Senegalese pigtail catheter was used to cross the aortic valve and LVEDP was calculated. Following that, catheter and sheath were removed. Hemostasis was obtained with deployment of an Angio-Seal. There was no immediate complication. Patient was returned to room in stable condition. Findings: Left main: This vessel bifurcates to PDA and PLV has diffuse intimal disease but no high-grade stenosis LAD: This vessel is totally occluded proximally with no antegrade flow Left circumflex: This vessel has a 99% stenosis proximally and chronic total occlusion in the midsegment with no significant antegrade flow RCA: This is a dominant vessel, large in caliber, bifurcating distally to PDA and PLV. Has diffuse intimal disease in the proximal and mid segment up to 80% as well as an area of stenosis of 80 to 90% distally prior to the bifurcation. There is competitive flow into the PDA. SVG to the RCA the proximal and distal anastomotic site are patent the flow in the PDA is brisk there is intimal disease in the PDA and the PLV. SVG to the left circumflex this graft is chronically occluded proximally with no antegrade flow. Next MEJIA to the LAD the distal anastomotic site is patent the flow in the LAD is brisk there is no evidence of high-grade stenosis. Left Ventriculogram: Not performed Hemodynamics: There was no gradient across aortic valve, LVEDP was 25-30 mmHg Conclusion: 1. 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 Severe diffuse disease in the RCA 3. Patent SVG to the PDA 4. Chronically occluded SVG to the left circumflex 5. Patent MEJIA to the LAD 6. Elevated LVEDP Recommendations: I would recommend to maximize his medical therapy in regard to his cardiomyopathy. His left circumflex graft occlusion appears to be chronic. The importance of compliance with the medications were discussed with the patient. The findings and the recommendations were discussed with the patient and the family and they were in full understanding and agreement. Duration of sedation is 18 minutes.
[2023-07-04] MEDS: SODIUM CHLORIDE 0.9% 1,000 ML IV SCH (08:40)
[2023-07-04] MEDS: METOPROLOL SUCCINATE (ER) 25 MG TAB.ER.24H PO SCH (08:42)
[2023-07-04] MEDS: DAPAGLIFLOZIN PROPANEDIOL 10 MG TABLET PO SCH (08:42)
[2023-07-04] MEDS: SPIRONOLACTONE 25 MG TAB PO SCH (08:42)
[2023-07-04 10:38] LABS: Basophils % (A) 1 %; Eosinophils # (A) 0.1 k/uL (0-0.7); Eosinophils % (A) 1 %; HCT 39.9 % (39.0-53.0); HGB 12.1 gm/dL (13.0-17.5); Hypochromasia Marked; Lymphocytes # (A) 0.7 k/uL (1.0-4.8); Lymphocytes % (A) 17 %; MCH 25.8 pg (25.0-35.0); MCHC 30.4 g/dL (31.0-37.0); MCV 84.6 fL (80.0-100.0); Mean Platelet Volume 8.9; Monocytes # (A) 0.3 k/uL (0-1.0); Monocytes % (A) 6 %; Neutrophils # (A) 3.2 k/uL (1.3-7.7); Neutrophils % (A) 74 %; Platelet Count 145 k/uL (150-450); RBC 4.71 m/uL (4.30-5.90); RDW 15.8 % (11.5-15.5); WBC 4.3 k/uL (3.8-10.6)
[2023-07-04 11:32] LABS: Glucose,Whole Blood 87 mg/dL (70-110)
[2023-07-04 11:51] LABS: ALT 41 U/L (4-49); AST 46 U/L (17-59); African American GFR (CKD) 89 (>60 ml/min/1.73 sqM); Albumin 3.4 g/dL (3.5-5.0); Alkaline Phosphatase 148 U/L (38-126); Anion Gap 11 mmol/L; Blood Urea Nitrogen 31 mg/dL (9-20); Calcium 8.8 mg/dL (8.4-10.2); Carbon Dioxide 22 mmol/L (22-30); Chloride 108 mmol/L (98-107); Glucose 98 mg/dL (74-99); Non-African American GFR(CKD) 77 (>60 ml/min/1.73 sqM); Sodium 141 mmol/L (137-145); Total Bilirubin 0.7 mg/dL (0.2-1.3); Total Protein 6.4 g/dL (6.3-8.2)
[2023-07-04 11:56] LABS: Potassium 4.2 mmol/L (3.5-5.1)
[2023-07-04] MEDS: ALPRAZolam 0.5 MG TAB PO PRN (13:44)
[2023-07-04] MEDS: ALPRAZolam 0.25 MG TAB PO PRN (14:32)
[2023-07-04 16:30] LABS: Glucose,Whole Blood 152 mg/dL (70-110)
--- NOTE | 2023-07-04 17:31 | CDI ---
Documentation Clarification Form Date: 07/04/2023 05:01:11 PM From: Angi Martinez RN, CCDS Phone: [phone] Admit Date: 06/30/2023 03:49:00 PM Patient Name: Eric Bean Visit Number: [id number] Discharge Date: ATTENTION: The Clinical Documentation Specialists (CDI) and [facility] Coding Staff appreciate your assistance in clarifying documentation. Please respond to the clarification below the line at the bottom and electronically sign. The CDI & [facility] Coding staff will review the response and follow-up if needed. Please note: Queries are made part of the Legal Health Record. If you have any questions, please contact the author of this message via ITS. Dr. Mauricio Ervin Conflicting documentation has been found in the medical record. As attending physician, please provide clarification. H/P, ongoing progress notes: Acute non-STEMI possibly type II OH: 07/01- Cardiology progress notes: Acute on chronic heart failure with reduced EF Non-STEMI History/Risk Factors: Coronary Artery Disease (CAD), Diabetes Mellitus, Hyperlipidemia, Hypertension Clinical Indicators: 67-year-old male with severe dyspnea and shortness of breath with increased lower extremity swelling. 06/29 (2014) VS: 126/78 80 19 90% RA 06/29 Labs: WBC 7.7 HGB 12.2, Troponin 0.576, 0.491, 0.538 06/30 ECHO: Dilated LV cavity. Severely reduced LV systolic function LVEF estimated at 15-20% Inferior and inferolateral and lateral wall hypokinesia. Normal RV size with reduced systolic function RVSP estimated at 40 mmHG. Moderate LA dilation with elevated LA pressures. Treatment: Cardiac /Telemetry monitoring IV Heparin per protocol 06/29-06/30 IV Lasix 40 MG Q 12 Hrs. Plavix 75 MG PO Daily 06/30-07/03 Lipitor 40 MG PO Daily06/30-07/03 Daily weights, accurate intake and output and monitoring of kidney function 07/03 Cardiac Cath Please clarify which diagnosis is most appropriate: [ ] non-STEMI [xx ] Type II OH (specify cause) [ ] Other (please specify) [ ] Unable to determine (Template Last Revised: June 2020) MTDD
[2023-07-04 20:17] LABS: Glucose,Whole Blood 178 mg/dL (70-110)
[2023-07-05 06:51] LABS: Glucose,Whole Blood 131 mg/dL (70-110)
[2023-07-05] MEDS: ASPIRIN 81 MG PO SCH (08:33)
--- NOTE | 2023-07-05 08:34 | P.PN ---
Subjective Progress Note Date: 07/04/23 HISTORY OF PRESENT ILLNESS: 67-year-old male who has been our practice recently was hospitalized and transferred to [facility] for severe cellulitis Of both lower extremity with failure of outpatient treatment after was seen in the wound clinic for a period of time the patient was hospitalized with concern of osteomyelitis of the lower extremity started on IV antibiotics and ended up seen infectious disease along with vascular surgeon and decide to have this treated as diabetic foot ulcer with right lower extremity cellulitis with chronic foot wound with history of osteomyelitis of the right side with bilateral lower extremity cellulitis as well. Patient was seen vascular surgeon can end up doing debridement on April 26 without any culture was sent at the time. Patient was sent to [facility] on empiric antibiotics with Unasyn 3 g IV every 6 hours for total of 30 days. He ended up having PICC line and had a treatment done and completed tomorrow w edgardo [place] end up going back home with extra help. After he left [facility] start seeing our office as a patient. Again patient had chronic history of diabetes, diabetic foot, coronary artery disease post CABG, history of hypertension, hyperlipidemia, chronic depression patient apparently is a new to our hospital in the area here was admitted back in 2023 acute CHF exacerbation with urgent hypertension was treated and stabilized and sent home. Patient presented to the emergency department today at [facility] via ambulance where he was seen by his visiting nurse who found him to be in extreme shortness of breath with severe swelling and anasarca of the lower extremity with pulse r ate found to be elevated the patient was quite bit anxious at the time has came over 10 pounds in short period of time with above symptoms was sent to the emergency department for evaluation I his EKG found to be electronic ventricular pacer with pulse rate running at 126 beats per minutes. Chest x-ray shows mild cardiomegaly with thickening of the could represent fibrosis versus pulmonary venous congestion. Also there is a cardiac conducting device on the chest x-ray was found. Laboratory value with elevated troponin at 0.579 and 0.491, BNP 8410, creatinine was normal white blood cell 7.7 with hemoglobin 12.2 hematocrit 38.4. The patient was diagnosed with possible non-STEMI, severe congestive heart failure with mild exacerbation and someone is known to have cardiomyopathy, A- fib with RVR with rapid pulse. 07/01/2023: Apparently here to see some on cardiology since 2020 after his procedure given patient is confused about the whole process. Will continue diuretics, continue to watch his fluid overload continue IV Lasix at 40 mg twice a day cardiology with his elevated troponin talked about possibility of stress test versus heart catheter. In the meanwhile waiting for his echo result. The patient is still quite a bit confused his answer to some of the problem referral and care provider was very vague. Still dealing with cellulitis of the lower extremity along with mild diabetic foot has been watch and treated. Was started back on doxycycline for it. 07/02/2023: Reviewed his echocardiogram done yesterday showed ejection fraction of 15-20 percentile: Also has right ventricular systolic pressure of 40 mmHg with mild mitral regurgitation and aortic insufficiency based on the finding especially with the significant decline in ejection fraction probably will need to go for heart catheter to see if there is any new blockage or any salvageable circulation need to be taken care of beside his medical management. 07/03/2023: He was supposed to go for heart catheter today procedure was delayed till tomorrow in the meanwhile his ejection fraction is severely low patient is very symptomatic with his heart failure still trying to get more report and results from his CABG from before even cardiology in [facility] do not have much information about TAVR procedure and surgery he had with his open heart surgery back in [place] years ago. Patient responded to management has been doing well whether he is fully understand the seriousness of is going on or not not acute at this point. 07/04/2023: Patient ended up going for heart cath finding consistent with chronic stenosis to of the graft of his bypass surgery still functioning with mild bl ockage in 1 had completely blocked chronically. Apparently decision is to continue medical management. Will adjust his medication titrate physical therapy and look into the potential of being able to discharge patient over the next 48 hours if patient requires any help to go to one of the SNF center will consider it otherwise patient can go home with home care. REVIEW OF SYSTEMS: CONSTITUTIONAL: Well-developed in mild respiratory distress EYES: No icterus sclerae, no conjunctivitis. EARS, NOSE, MOUTH, THROAT, and FACE: No sore throat, lymphadenopathy, carotid bruits or deformity. RESPIRATORY: Slight shortness of breath cough wheezes. CARDIOVASCULAR: Mild palpitation positive PND orthopnea no angina. GASTROINTESTINAL: No Abd pain, Nausea or vomiting, no Diarrhea or constipation, No GI Bleed, no distention or masses. GENITOURINARY: Decreased urine output with no kidney stone. INTEGUMENT/BREAST: Negative for any muscular injury with mild osteoarthritis.. HEMATOLOGIC/LYMPHATIC: Negative for bleed or purpura. MUSCULOSKELTAL: Generalized myalgia and arthralgia. NEURLOGICAL: Slight slowness with no syncope or seizure. BEHAVIORAL/PSYCH: Negative. ENDOCRINE: Negative. PHYSICAL EXAMINATION: General Appearance: Alert, slight respiratory distress. Neck HEENT: Supple, no lymphadenopathy, no thyroid enlargement, no carotid bruits. Lungs: Decreased breath sound bilaterally with fine rhonchi positive slight crackles and wheezes in the lower bases bilaterally. Chest Wall: Decreased expansion with deep inspiration no tenderness and no deformity was found on exam, no costochondral pain or discomfort. Heart: Irregular rate and rhythm, S1, S2 positive S3 positive gallop and slight systolic murmur. There is an ICD device in the left upper chest wall. Back: Symmetric, no curvature, ROM normal, no CVA tenderness. Abdomen: Soft positive bowel sounds slight discomfort lower abdominal region area no rebound or rigidity. Extremities: Extremities normal, atraumatic, no cyanosis 2+ edema of the lower extremity. Pulses: 2+ and symmetric. Skin: Skin color, texture, tugor normal, no rashes or lesions. Neurologic: Alert oriented x3 cranial nerves II through XII intact, no motor deficit, no abnormal balance or gait. ASSESSMENT AND PLAN: _Severe dyspnea and shortness of breath consistent with congestive heart failure exacerbation cardiomyopathy specially with the weight gain and fluid retention and edema, patient was initiated on IV diuretics, consult cardiology, echocardiogram will be done hopefully tomorrow, will do an aggressive management with diuretics while watching patient's carefully. _Cardiomyopathy: With much lower ejection fraction than expected down to 15-20 percentile, has been on Entresto 49/51 mg twice a day along with furosemide 40 mg twice a day can benefit from adding spironolactone and a possible smaller dose of beta-nicky. _Acute non-STEMI possibly type II [place]: Heart catheter came back with 1 blockage of his bypass graft and 2 are still with mild stenosis require any medical management. _Severe arrhythmia with possible A-fib patient has an ICD make the conduction is noted on, continue to watch for any further arrhythmia might benefit from adding as needed's beta-nicky to bring pulse rate down. _Type 2 diabetes: Remain on Rybelsus along with Lantus 15 units nightly and NovoLog sliding scale coverage mostly 5 units AC meals. _Hypertension: Remain on Norvasc 2.5 mg a day, Entresto 49/51 mg twice a day, still on diuretics as well. _Hyperlipidemia: Remain on atorvastatin 40 mg a day. _Severe BPH: Watch for any urinary retention. _Recent diabetic foot took long time to heal, has been off antibiotics for seen at the wound clinic. _Chronic cellulitis of the lower extremity: Most likely but worsening right and left side we will add doxycycline 100 mg twice a day for now. _Depression: Continue fluoxetine 40 mg daily along with Abilify 20 mg a day. Management: Continue supportive care medical management adjust his medication and titrate physical therapy and hopefully plan for either SNF or discharged home with help. Objective - Vital Signs Vital signs: Vital Signs Temp 98.5 F 07/04/23 03:09 Pulse 66 07/04/23 03:09 Resp 14 07/04/23 03:09 BP 138/87 07/04/23 03:09 Pulse Ox 99 07/04/23 03:09 FiO2 Intake & Output 07/03/23 07/03/23 07/04/23 06:59 18:59 06:59 Intake Total 240 298 Output Total 500 150 Balance -260 148 Weight 92.62 kg Intake: Oral 240 298 Output: Urine 500 150 Other: Voiding Method External Catheter External Catheter - Labs CBC & Chem 7: 07/04/23 09:56 07/04/23 09:56 Labs: Abnormal Lab Results - Last 24 Hours (Table) 07/03/23 07/03/23 07/03/23 Range/Units 06:19 11:19 14:52 APTT 58.6 H (22.0-30.0) sec POC Glucose (mg/dL) 187 H 154 H (70-110) mg/dL 07/03/23 07/03/23 Range/Units 16:40 19:56 APTT (22.0-30.0) sec POC Glucose (mg/dL) 188 H 111 H (70-110) mg/dL
[2023-07-05 10:00] VITALS: TEMP 98
[2023-07-05 11:49] LABS: Glucose,Whole Blood 95 mg/dL (70-110)
--- NOTE | 2023-07-05 12:12 | P.PN ---
Subjective Progress Note Date: 07/05/23 HISTORY OF PRESENT ILLNESS: 67-year-old male who has been our practice recently was hospitalized and transferred to [facility] for severe cellulitis Of both lower extremity with failure of outpatient treatment after was seen in the wound clinic for a period of time the patient was hospitalized with concern of osteomyelitis of the lower extremity started on IV antibiotics and ended up seen infectious disease along with vascular surgeon and decide to have this treated as diabetic foot ulcer with right lower extremity cellulitis with chronic foot wound with history of osteomyelitis of the right side with bilateral lower extremity cellulitis as well. Patient was seen vascular surgeon can end up doing debridement on April 26 without any culture was sent at the time. Patient was sent to [facility] on empiric antibiotics with Unasyn 3 g IV every 6 hours for total of 30 days. He ended up having PICC line and had a treatment done and completed tomorrow w edgardo [place] end up going back home with extra help. After he left [facility] start seeing our office as a patient. Again patient had chronic history of diabetes, diabetic foot, coronary artery disease post CABG, history of hypertension, hyperlipidemia, chronic depression patient apparently is a new to our hospital in the area here was admitted back in 2023 acute CHF exacerbation with urgent hypertension was treated and stabilized and sent home. Patient presented to the emergency department today at [facility] via ambulance where he was seen by his visiting nurse who found him to be in extreme shortness of breath with severe swelling and anasarca of the lower extremity with pulse r ate found to be elevated the patient was quite bit anxious at the time has came over 10 pounds in short period of time with above symptoms was sent to the emergency department for evaluation I his EKG found to be electronic ventricular pacer with pulse rate running at 126 beats per minutes. Chest x-ray shows mild cardiomegaly with thickening of the could represent fibrosis versus pulmonary venous congestion. Also there is a cardiac conducting device on the chest x-ray was found. Laboratory value with elevated troponin at 0.579 and 0.491, BNP 8410, creatinine was normal white blood cell 7.7 with hemoglobin 12.2 hematocrit 38.4. The patient was diagnosed with possible non-STEMI, severe congestive heart failure with mild exacerbation and someone is known to have cardiomyopathy, A- fib with RVR with rapid pulse. 07/01/2023: Apparently here to see some on cardiology since 2020 after his procedure given patient is confused about the whole process. Will continue diuretics, continue to watch his fluid overload continue IV Lasix at 40 mg twice a day cardiology with his elevated troponin talked about possibility of stress test versus heart catheter. In the meanwhile waiting for his echo result. The patient is still quite a bit confused his answer to some of the problem referral and care provider was very vague. Still dealing with cellulitis of the lower extremity along with mild diabetic foot has been watch and treated. Was started back on doxycycline for it. 07/02/2023: Reviewed his echocardiogram done yesterday showed ejection fraction of 15-20 percentile: Also has right ventricular systolic pressure of 40 mmHg with mild mitral regurgitation and aortic insufficiency based on the finding especially with the significant decline in ejection fraction probably will need to go for heart catheter to see if there is any new blockage or any salvageable circulation need to be taken care of beside his medical management. 07/03/2023: He was supposed to go for heart catheter today procedure was delayed till tomorrow in the meanwhile his ejection fraction is severely low patient is very symptomatic with his heart failure still trying to get more report and results from his CABG from before even cardiology in [facility] do not have much information about TAVR procedure and surgery he had with his open heart surgery back in [place] years ago. Patient responded to management has been doing well whether he is fully understand the seriousness of is going on or not not acute at this point. 07/04/2023: Patient ended up going for heart cath finding consistent with chronic stenosis to of the graft of his bypass surgery still functioning with mild bl ockage in 1 had completely blocked chronically. Apparently decision is to continue medical management. Will adjust his medication titrate physical therapy and look into the potential of being able to discharge patient over the next 48 hours if patient requires any help to go to one of the SNF center will consider it otherwise patient can go home with home care. 07/05/2023: The patient is doing slightly better continue to be symptomatic with dyspnea with minimal exertion, cellulitis of the lower extremity are slightly bit better been wrapped at this point and still on doxycycline. The patient apparently talked with the marriage and family social worker does not want to go anywhere he wants to go home with home care arrangement will be made. I had a long discussion with his brother and his sister which apparently both of them are the decision maker after Yamil gave me the permission none of them was aware of Yamil's condition at this point and the severe high mortality and comorbidity with his cardiomyopathy and heart failure explained to them what to expect explained to them again how much she needs help apparently they are trying to pull some more help for him to help him with his diet nutrition medica tion and such listing no severe range and patient will be discharged home hopefully today. REVIEW OF SYSTEMS: CONSTITUTIONAL: Well-developed in mild respiratory distress EYES: No icterus sclerae, no conjunctivitis. EARS, NOSE, MOUTH, THROAT, and FACE: No sore throat, lymphadenopathy, carotid bruits or deformity. RESPIRATORY: Slight shortness of breath cough wheezes. CARDIOVASCULAR: Mild palpitation positive PND orthopnea no angina. GASTROINTESTINAL: No Abd pain, Nausea or vomiting, no Diarrhea or constipation, No GI Bleed, no distention or masses. GENITOURINARY: Decreased urine output with no kidney stone. INTEGUMENT/BREAST: Negative for any muscular injury with mild osteoarthritis.. HEMATOLOGIC/LYMPHATIC: Negative for bleed or purpura. MUSCULOSKELTAL: Generalized myalgia and arthralgia. NEURLOGICAL: Slight slowness with no syncope or seizure. BEHAVIORAL/PSYCH: Negative. ENDOCRINE: Negative. PHYSICAL EXAMINATION: General Appearance: Alert, slight respiratory distress. Neck HEENT: Supple, no lymphadenopathy, no thyroid enlargement, no carotid bruits. Lungs: Decreased breath sound bilaterally with fine rhonchi positive slight crackles and wheezes in the lower bases bilaterally. Chest Wall: Decreased expansion with deep inspiration no tenderness and no deformity was found on exam, no costochondral pain or discomfort. Heart: Irregular rate and rhythm, S1, S2 positive S3 positive gallop and slight systolic murmur. There is an ICD device in the left upper chest wall. Back: Symmetric, no curvature, ROM normal, no CVA tenderness. Abdomen: Soft positive bowel sounds slight discomfort lower abdominal region area no rebound or rigidity. Extremities: Extremities normal, atraumatic, no cyanosis 2+ edema of the lower extremity. Pulses: 2+ and symmetric. Skin: Skin color, texture, tugor normal, no rashes or lesions. Neurologic: Alert oriented x3 cranial nerves II through XII intact, no motor deficit, no abnormal balance or gait. ASSESSMENT AND PLAN: _Severe dyspnea and shortness of breath consistent with congestive heart failure exacerbation cardiomyopathy echocardiogram with ejection fraction of 15-20 percentile patient to maximize medical management this point. _Cardiomyopathy: With much lower ejection fraction than expected down to 15-20 percentile, has been on Entresto 49/51 mg twice a day along with furosemide 40 mg twice a day can benefit from adding spironolactone and a possible smaller dose of beta-nicky. Also adding SGLT2 product _Acute non-STEMI possibly type II [place]: Heart catheter came back with 1 blockage of his bypass graft and 2 are still with mild stenosis require any medical management. _Severe arrhythmia with possible A-fib patient has an ICD make the conduction is noted on, continue to watch for any further arrhythmia might benefit from adding as needed's beta-nikcy to bring pulse rate down. _Type 2 diabetes: Remain on Rybelsus along with Lantus 15 units nightly and NovoLog sliding scale coverage mostly 5 units AC meals. _Hypertension: Remain on Norvasc 2.5 mg a day, Entresto 49/51 mg twice a day, still on diuretics as well. _Hyperlipidemia: Remain on atorvastatin 40 mg a day. _Severe BPH: Watch for any urinary retention. _Recent diabetic foot took long time to heal, has been off antibiotics for seen at the wound clinic. _Chronic cellulitis of the lower extremity: Most likely but worsening right and left side we will add doxycycline 100 mg twice a day for now. _Depression: Continue fluoxetine 40 mg daily along with Abilify 20 mg a day. Management: Continue supportive care medical management adjust his medication and titrate physical therapy and hopefully plan for either SNF or discharged home with help, patient refused to go to SNF he wants to go home with home care which arrangement will be made. Objective - Vital Signs Vital signs: Vital Signs Temp 97.9 F 07/05/23 03:15 Pulse 69 07/05/23 03:15 Resp 17 07/05/23 03:15 BP 147/70 07/05/23 03:15 Pulse Ox 97 07/05/23 03:15 FiO2 Intake & Output 07/04/23 07/05/23 07/05/23 18:59 06:59 18:59 Intake Total 562 Output Total 300 Balance 262 Weight 92 kg Intake: IV 100 Intake, IV Titration 0 Amount Heparin Sod,Pork in 0.45% 0 NaCl 25,000 unit In 0.45 % NaCl 1 250ml.bag @ 9. 1859 UNITS/KG/HR 10 mls/ hr IV .Q24H [facility] Rx#: [id number] Oral 462 Output: Urine 300 Other: Voiding Method Toilet # Voids 3 - Labs CBC & Chem 7: 07/04/23 09:56 07/04/23 09:56 Labs: Abnormal Lab Results - Last 24 Hours (Table) 07/04/23 07/04/23 07/04/23 Range/Units 09:56 09:56 09:56 Hgb 12.1 L (13.0-17.5) gm/dL MCHC 30.4 L (31.0-37.0) g/dL RDW 15.8 H (11.5-15.5) % Plt Count 145 L (150-450) k/uL Lymphocytes # 0.7 L (1.0-4.8) k/uL APTT 38.0 H (22.0-30.0) sec Chloride 108 H (98-107) mmol/L BUN 31 H (9-20) mg/dL POC Glucose (mg/dL) (70-110) mg/dL Alkaline Phosphatase 148 H (38-126) U/L Albumin 3.4 L (3.5-5.0) g/dL 07/04/23 07/04/23 07/04/23 Range/Units 16:28 17:34 20:16 Hgb (13.0-17.5) gm/dL MCHC (31.0-37.0) g/dL RDW (11.5-15.5) % Plt Count (150-450) k/uL Lymphocytes # (1.0-4.8) k/uL APTT 43.7 H (22.0-30.0) sec Chloride (98-107) mmol/L BUN (9-20) mg/dL POC Glucose (mg/dL) 152 H 178 H (70-110) mg/dL Alkaline Phosphatase (38-126) U/L Albumin (3.5-5.0) g/dL 07/05/23 Range/Units 06:49 Hgb (13.0-17.5) gm/dL MCHC (31.0-37.0) g/dL RDW (11.5-15.5) % Plt Count (150-450) k/uL Lymphocytes # (1.0-4.8) k/uL APTT (22.0-30.0) sec Chloride (98-107) mmol/L BUN (9-20) mg/dL POC Glucose (mg/dL) 131 H (70-110) mg/dL Alkaline Phosphatase (38-126) U/L Albumin (3.5-5.0) g/dL
--- NOTE | 2023-07-05 12:16 | P.DS ---
Providers Date of admission: 06/30/23 15:49 Attending physician: Mauricio Ervin Consults: 06/30/23 15:47 Consult Physician Urgent Consulting Provider: [facility] Consult Reason/Comments: aechf, nstemi Do you want consulting provider notified?: Yes Primary care physician: Mauricio Ervin [facility] Hospital Course: HISTORY OF PRESENT ILLNESS: 67-year-old male who has been our practice recently was hospitalized and transferred to [facility] for severe cellulitis Of both lower extremity with failure of outpatient treatment after was seen in the wound clinic for a period of time the patient was hospitalized with concern of osteomyelitis of the lower extremity started on IV antibiotics and ended up seen infectious disease along with vascular surgeon and decide to have this treated as diabetic foot ulcer with right lower extremity cellulitis with chronic foot wound with history of osteomyelitis of the right side with bilateral lower extremity cellulitis as well. Patient was seen vascular surgeon can end up doing debridement on April 26 without any culture was sent at the time. Patient was sent to [facility] on empiric antibiotics with Unasyn 3 g IV every 6 hours for total of 30 days. He ended up having PICC line and had a treatment done and completed tomorrow with [place] end up going back home with extra help. After he left [facility] start seeing our office as a patient. Again patient had chronic history of diabetes, diabetic foot, coronary artery disease post CABG, history of hypertension, hyperlipidemia, chronic depression patient apparently is a new to our hospital in the area here was admitted back in 2023 acute CHF exacerbation with urgent hypertension was treated and stabilized and sent home. Patient presented to the emergency department today at [facility] via ambulance where he was seen by his visiting nurse who found him to be in extreme shortness of breath with severe swelling and anasarca of the lower extremity with pulse rate found to be elevated the patient was quite bit anxious at the time has came over 10 pounds in short period of time with above symptoms was sent to the emergency department for evaluation I his EKG found to be electronic ventricular pacer with pulse rate running at 126 beats per minutes. Chest x-ray shows mild cardiomegaly with thickening of the could represent fibrosis versus pulmonary venous congestion. Also there is a cardiac conducting device on the chest x-ray was found. Laboratory value with elevated troponin at 0.579 and 0.491, BNP 8410, creatinine was normal white blood cell 7.7 with hemoglobin 12.2 hematocrit 38.4. The patient was diagnosed with possible non-STEMI, severe congestive heart failure with mild exacerbation and someone is known to have cardiomyopathy, A- fib with RVR with rapid pulse. 07/01/2023: Apparently here to see some on cardiology since 2020 after his procedure given patient is confused about the whole process. Will continue diuretics, continue to watch his fluid overload continue IV Lasix at 40 mg twice a day cardiology with his elevated troponin talked about possibility of stress test versus heart catheter. In the meanwhile waiting for his echo result. The patient is still quite a bit confused his answer to some of the problem referral and care provider was very vague. Still dealing with cellulitis of the lower extremity along with mild diabetic foot has been watch and treated. Was started back on doxycycline for it. 07/02/2023: Reviewed his echocardiogram done yesterday showed ejection fraction of 15-20 percentile: Also has right ventricular systolic pressure of 40 mmHg with mild mitral regurgitation and aortic insufficiency based on the finding especially with the significant decline in ejection fraction probably will need to go for heart catheter to see if there is any new blockage or any salvageable circulation need to be taken care of beside his medical management. 07/03/2023: He was supposed to go for heart catheter today procedure was delayed till tomorrow in the meanwhile his ejection fraction is severely low patient is very symptomatic with his heart failure still trying to get more report and results from his CABG from before even cardiology in [facility] do not have much information about TAVR procedure and surgery he had with his open heart surgery back in [place] years ago. Patient responded to management has been doing well whether he is fully understand the seriousness of is going on or not not acute at this point. 07/04/2023: Patient ended up going for heart cath finding consistent with chronic stenosis to of the graft of his bypass surgery still functioning with mild blockage in 1 had completely blocked chronically. Apparently decision is to continue medical management. Will adjust his medication titrate physical therapy and look into the potential of being able to discharge patient over the next 48 hours if patient requires any help to go to one of the SNF center will consider it otherwise patient can go home with home care. 07/05/2023: The patient is doing slightly better continue to be symptomatic with dyspnea with minimal exertion, cellulitis of the lower extremity are slightly bit better been wrapped at this point and still on doxycycline. The patient apparently talked with the executive secretary social welfare does not want to go anywhere he wants to go home with home care arrangement will be made. I had a long discussion with his brother and his sister which apparently both of them are the decision maker after Yamil gave me the permission none of them was aware of Yamil's condition at this point and the severe high mortality and comorbidity with his cardiomyopathy and heart failure explained to them what to expect explained to them again how much she needs help apparently they are trying to pull some more help for him to help him with his diet nutrition medication and such listing no severe range and patient will be discharged home hopefully today. REVIEW OF SYSTEMS: CONSTITUTIONAL: Well-developed in mild respiratory distress EYES: No icterus sclerae, no conjunctivitis. EARS, NOSE, MOUTH, THROAT, and FACE: No sore throat, lymphadenopathy, carotid bruits or deformity. RESPIRATORY: Slight shortness of breath cough wheezes. CARDIOVASCULAR: Mild palpitation positive PND orthopnea no angina. GASTROINTESTINAL: No Abd pain, Nausea or vomiting, no Diarrhea or constipation, No GI Bleed, no distention or masses. GENITOURINARY: Decreased urine output with no kidney stone. INTEGUMENT/BREAST: Negative for any muscular injury with mild osteoarthritis.. HEMATOLOGIC/LYMPHATIC: Negative for bleed or purpura. MUSCULOSKELTAL: Generalized myalgia and arthralgia. NEURLOGICAL: Slight slowness with no syncope or seizure. BEHAVIORAL/PSYCH: Negative. ENDOCRINE: Negative. PHYSICAL EXAMINATION: General Appearance: Alert, slight respiratory distress. Neck HEENT: Supple, no lymphadenopathy, no thyroid enlargement, no carotid bruits. Lungs: Decreased breath sound bilaterally with fine rhonchi positive slight crackles and wheezes in the lower bases bilaterally. Chest Wall: Decreased expansion with deep inspiration no tenderness and no deformity was found on exam, no costochondral pain or discomfort. Heart: Irregular rate and rhythm, S1, S2 positive S3 positive gallop and slight systolic murmur. There is an ICD device in the left upper chest wall. Back: Symmetric, no curvature, ROM normal, no CVA tenderness. Abdomen: Soft positive bowel sounds slight discomfort lower abdominal region area no rebound or rigidity. Extremities: Extremities normal, atraumatic, no cyanosis 2+ edema of the lower extremity. Pulses: 2+ and symmetric. Skin: Skin color, texture, tugor normal, no rashes or lesions. Neurologic: Alert oriented x3 cranial nerves II through XII intact, no motor deficit, no abnormal balance or gait. ASSESSMENT AND PLAN: _Severe dyspnea and shortness of breath consistent with congestive heart failure exacerbation cardiomyopathy echocardiogram with ejection fraction of 15-20 percentile patient to maximize medical management this point. _Cardiomyopathy: With much lower ejection fraction than expected down to 15-20 percentile, has been on Entresto 49/51 mg twice a day along with furosemide 40 mg twice a day can benefit from adding spironolactone and a possible smaller dose of beta-nicky. Also adding SGLT2 product _Acute non-STEMI possibly type II FL: Heart catheter came back with 1 blockage of his bypass graft and 2 are still with mild stenosis require any medical management. _Severe arrhythmia with possible A-fib patient has an ICD make the conduction is noted on, continue to watch for any further arrhythmia might benefit from adding as needed's beta-nicky to bring pulse rate down. _Type 2 diabetes: Remain on Rybelsus along with Lantus 15 units nightly and NovoLog sliding scale coverage mostly 5 units AC meals. _Hypertension: remain on Norvasc 2.5 mg a day, Entresto 49/51 mg twice a day, still on diuretics as well. _Hyperlipidemia: Remain on atorvastatin 40 mg a day. _Severe BPH: Watch for any urinary retention. _Recent diabetic foot took long time to heal, has been off antibiotics for seen at the wound clinic. _Chronic cellulitis of the lower extremity: Most likely but worsening right and left side we will add doxycycline 100 mg twice a day for now. _Depression: Continue fluoxetine 40 mg daily along with Abilify 20 mg a day. Management: Continue supportive care medical management adjust his medication and titrate physical therapy and hopefully plan for either SNF or discharged home with help, patient refused to go to SNF he wants to go home with home care which arrangement will be made. Hospital course: Patient was admitted with severe dyspnea and shortness of breath diagnosed with congestive heart failure also had elevated troponin was diagnosed with type II FL, started on aggressive management with IV diuretics up his Entresto and furosemide along with adding spironolactone beta-nicky and SGLT2 product. Patient ended up going to the [facility] with tape sewing machine operator today finding was consistent with his bypass graft 2 of them are still open with mild disease 1 is completely blocked and been chronic. Patient did not require any intervention just medical management. Patient with adjusted medication has been feeling decent he is hemodynamic status is stable without running any severe hypotension and adjustment of his medication was made with adding spironolactone his potassium supplement was reduced to 1 a day only I will require blood work to repeat his potassium magnesium level within 1 week. Also as an outpatient hopefully will see if patient able to tolerate his management well. With the blood pressure Decreased lightly Taking him off calcium channel nicky was done. I had a long discussion with the family to inform them about the high mortality patient has and severe comorbidity with his low ejection fraction and severe cardiomyopathy they are aware of failure pretension and help him out more try to keep his medication on time plus to keep his appointment with his tape sewing machine operator and primary care on time as well. I believe they have enough help with the help of visiting nurse and PT patient will be discharged home today. Time spent on discharging patient was over 40 minutes. Patient Condition at Discharge: Serious Plan - Discharge Summary Discharge Rx Participant: No New Discharge Prescriptions: New Spironolactone [Aldactone] 25 mg PO DAILY #30 tab Nitroglycerin Sl Tabs [Nitrostat] 0.4 mg SUBLINGUAL Q5M PRN #25 tab PRN Reason: Chest Pain Doxycycline [Vibramycin] 100 mg PO BID #30 cap Furosemide [Lasix] 80 mg PO Q12HR #180 tablet Dapagliflozin Propanediol [Farxiga] 10 mg PO DAILY #30 tab Metoprolol Succinate (ER) [Toprol XL] 25 mg PO DAILY #30 tab Continue Atorvastatin Calcium [Lipitor] 40 mg PO DAILY #30 tab Sacubitril/Valsartan [Entresto 49 mg-51 mg Tablet] 1 tab PO BID FLUoxetine HCL [PROzac] 40 mg PO DAILY Clopidogrel [Plavix] 75 mg PO DAILY Insulin Aspart [NovoLOG Flexpen] 5 units SQ AC-TID Collagenase [Santyl Ointment] 1 applic TOPICAL DAILY 30 Days #1 each Insulin Glargine,Hum.rec.anlog [Lantus Solostar Pen] 15 units SQ HS #0 Aspirin EC [Ecotrin Low Dose] 81 mg PO DAILY Semaglutide [Rybelsus] 7 mg PO DAILY ARIPiprazole [Abilify] 20 mg PO DAILY Finasteride [Proscar] 5 mg PO DAILY Changed Potassium Chloride ER [K-Dur 20] 20 meq PO DAILY #0 Discontinued Furosemide [Lasix] 40 mg PO BID #60 tablet amLODIPine [Norvasc] 2.5 mg PO DAILY tab Discharge Medication List Atorvastatin Calcium [Lipitor] 40 mg PO DAILY #30 tab 06/19/19 [Rx] Sacubitril/Valsartan [Entresto 49 mg-51 mg Tablet] 1 tab PO BID 09/23/19 [History] ARIPiprazole [Abilify] 20 mg PO DAILY 03/19/23 [History] Clopidogrel [Plavix] 75 mg PO DAILY 03/19/23 [History] FLUoxetine HCL [PROzac] 40 mg PO DAILY 03/19/23 [History] Finasteride [Proscar] 5 mg PO DAILY 03/19/23 [History] Insulin Aspart [NovoLOG Flexpen] 5 units SQ AC-TID 03/19/23 [History] Semaglutide [Rybelsus] 7 mg PO DAILY 03/19/23 [History] Collagenase [Santyl Ointment] 1 applic TOPICAL DAILY 30 Days #1 each 03/25/23 [Rx] Insulin Glargine,Hum.rec.anlog [Lantus Solostar Pen] 15 units SQ HS #0 03/25/23 [Rx] Aspirin EC [Ecotrin Low Dose] 81 mg PO DAILY 04/23/23 [History] Dapagliflozin Propanediol [Farxiga] 10 mg PO DAILY #30 tab 07/05/23 [Rx] Doxycycline [Vibramycin] 100 mg PO BID #30 cap 07/05/23 [Rx] Furosemide [Lasix] 80 mg PO Q12HR #180 tablet 07/05/23 [Rx] Metoprolol Succinate (ER) [Toprol XL] 25 mg PO DAILY #30 tab 07/05/23 [Rx] Nitroglycerin Sl Tabs [Nitrostat] 0.4 mg SUBLINGUAL Q5M PRN #25 tab 07/05/23 [Rx] Potassium Chloride ER [K-Dur 20] 20 meq PO DAILY #0 07/05/23 [Rx] Spironolactone [Aldactone] 25 mg PO DAILY #30 tab 07/05/23 [Rx] Follow up Appointment(s)/Referral(s): Aditya Jean MD [STAFF PHYSICIAN] - 1 Week Mauricio Ervin MD [Primary Care Provider] - 1-2 days [facility] [NON-STAFF] - Activity/Diet/Wound Care/Special Instructions: [facility] has a free glucometer and low-cost testing supplies. [id number], [place] [phone] Discharge/Stand Alone Forms: Who Do I Call?, Community Resources, [employer] Discharge Disposition: HOME WITH HOME HEALTH SERVICES
[2023-07-05 12:18] VITALS: BP 134/68; PULSE 58; RESP 18
--- NOTE | 2023-07-05 12:42 | P.PN ---
Subjective HISTORY OF PRESENT ILLNESS: This is a 67-year-old male with a past medical history significant for hypertension, hyperlipidemia, diabetes, coronary artery disease with previous CABG, congestive heart failure, obstructive sleep apnea and ischemic cardiomyopathy. Patient follows in the office with Dr. Jean but has not been seen in the office since October 2020. We have been asked to see the patient in consultation for congestive heart failure and elevated troponins. Patient examined at the bedside in the ER. Patient is a poor historian. He lives with his brother and sister. Patient denies any chest pain or pressure. He denies shortness of breath. He reports scrotal edema at home. The patient was started on IV heparin secondary to abnormal troponins. He was also started on IV Lasix secondary to acute CHF exacerbation. Vital signs are currently stable. DIAGNOSTICS: - EKG reveals ventricular paced rhythm. - Chest xray mild cardiomegaly and stigmata of heart disease including through the cardiac conduction device and previous sternotomy. Thickened interstitium could represent fibrosis versus pulmonary vascular creatinine digestion versus other etiology. - Laboratory data: WBC 7.7. Hemoglobin 12.2. Platelet count 159. D-dimer 0.17. Sodium 137. Potassium 4.0. BUN 21. Creatinine 0.73. Troponin 0.576. 0.491. 0.538. proBNP 8410. - Current home cardiac medications include amlodipine 2.5 mg daily, Entresto 49- 51 mg twice a day, Lasix 40 mg twice a day, Plavix 75 mg daily, Lipitor 40 mg daily, aspirin 81 mg daily. - Most recent echocardiogram obtained in April 2020 revealed ejection fraction 40%, mild MR, mild TR 07/02/2023 Patient examined this afternoon at the bedside. Patient currently denies chest pain or pressure. He denies SOB. Patient remains on IV heparin. Troponins resulted at 0.576. 0.491. 0.538. Echocardiogram completed revealing ejection fraction 15 to 20%, inferior and inferior lateral wall hypokinesia, mild MR, mild AI. 07/03/2023 Patient examined this morning at the bedside. Patient currently denies chest pain or pressure. He denies shortness of breath. He remains on IV Lasix. He continues to have significant lower extremity edema. He also remains on IV Lasix. Patient was initially scheduled for cardiac catheterization today. However due to scheduling conflict, this will be rescheduled for tomorrow. 07/05/2023 Patient is status postcardiac catheterization yesterday with Dr. Jean revealing chronically occluded proximal LAD and left circumflex, severe diffuse disease in the RCA, patent SVG to PDA, chronically occluded SVG to the left circumflex, patent MEJIA to LAD, and elevated LVEDP. Medical management was recommended. Patient examined this morning. Patient is sitting up in a chair. He denies any chest pain or pressure. He denies any shortness of breath. He r emains on IV Lasix. He continues to have significant lower extremity edema which he states is chronic for him. Vital signs are stable. PHYSICAL EXAM: VITAL SIGNS: Reviewed. GENERAL: Well-developed in no acute distress. HEENT: Head is normocephalic. Pupils are equal, round. Sclerae anicteric. Mucous membranes of the mouth are moist. Neck supple. No JVD or thyromegaly LUNGS: Respirations even and unlabored. Lungs essentially clear to auscultation bilaterally. HEART: Regular rate and rhythm. S1 and S2 heard. ABDOMEN: Soft. Nondistended. Nontender. EXTREMITIES: Normal range of motion. No clubbing or cyanosis. Peripheral pulses intact. Bilateral lower extremity edema noted. Dressing to right heel noted. NEUROLOGIC: Awake and alert. Oriented x 3. ASSESSMENT: Shortness of breath Acute on chronic heart failure with reduced EF Non-STEMI Coronary artery disease with previous CABG, details unknown Ischemic cardiomyopathy, EF 40% in 2020, now 15-20% Hypertension Hyperlipidemia Diabetes Recent diabetic foot infection History of AICD implantation PLAN: Continue current cardiac medications Increase Lasix upon discharge to 80 mg twice a day Patient may be discharged home today from a cardiac standpoint He is to follow-up postdischarge in the office with Dr. Jean Nurse practitioner note has been reviewed by physician. Signing provider agrees with the documented findings, assessment, and plan of care documented by POULTRY BONER as a scribe. Objective - Vital Signs Vital signs: Vital Signs Temp 98 F 07/05/23 08:00 Pulse 58 L 07/05/23 11:54 Resp 18 07/05/23 11:54 BP 134/68 07/05/23 11:54 Pulse Ox 100 07/05/23 11:54 FiO2 Intake & Output 07/04/23 07/05/23 07/05/23 18:59 06:59 18:59 Intake Total 562 240 Output Total 300 700 Balance 262 -460 Weight 92 kg Intake: IV 100 Intake, IV Titration 0 Amount Heparin Sod,Pork in 0.45% 0 NaCl 25,000 unit In 0.45 % NaCl 1 250ml.bag @ 9. 1859 UNITS/KG/HR 10 mls/ hr IV .Q24H [facility] Rx#: [id number] Oral 462 240 Output: Urine 300 700 Other: Voiding Method Toilet Toilet Urinal # Voids 3 - Labs CBC & Chem 7: 07/04/23 09:56 07/04/23 09:56 Labs: Abnormal Lab Results - Last 24 Hours (Table) 07/04/23 07/04/23 07/04/23 Range/Units 16:28 17:34 20:16 APTT 43.7 H (22.0-30.0) sec POC Glucose (mg/dL) 152 H 178 H (70-110) mg/dL 07/05/23 Range/Units 06:49 APTT (22.0-30.0) sec POC Glucose (mg/dL) 131 H (70-110) mg/dL
== END 2023-07-05 14:22 | disposition home health service (06) | DRG 280 ==
LOC: EC 14:00 → 3SCARD 15:49
PROVIDERS: ADMIT Internal Medicine Geriatric Medicine; ATTEND Internal Medicine Geriatric Medicine
PROC: B2131ZZ Fluoroscopy of Multiple Coronary Artery Bypass Grafts using Low Osmolar Contrast (ICD-10-PCS; principal; 2023-07-04 12:30)
PROC: 4A023N7 Measurement of Cardiac Sampling and Pressure, Left Heart, Percutaneous Approach (ICD-10-PCS; principal; 2023-07-04 12:30)
PROC: B2111ZZ Fluoroscopy of Multiple Coronary Arteries using Low Osmolar Contrast (ICD-10-PCS; principal; 2023-07-04 12:30)
DX: I11.0 Hypertensive heart disease with heart failure (principal); I21.A1 Myocardial infarction type 2; I50.23 Acute on chronic systolic (congestive) heart failure; L03.115 Cellulitis of right lower limb; L03.116 Cellulitis of left lower limb; I25.810 Atherosclerosis of coronary artery bypass graft(s) without angina pectoris; I25.5 Ischemic cardiomyopathy; E78.5 Hyperlipidemia, unspecified; F32.A Depression, unspecified; F41.9 Anxiety disorder, unspecified; I08.0 Rheumatic disorders of both mitral and aortic valves; E11.628 Type 2 diabetes mellitus with other skin complications; Z79.4 Long term (current) use of insulin; G47.33 Obstructive sleep apnea (adult) (pediatric); E11.621 Type 2 diabetes mellitus with foot ulcer; N40.0 Benign prostatic hyperplasia without lower urinary tract symptoms; N50.89 Other specified disorders of the male genital organs; I25.10 Atherosclerotic heart disease of native coronary artery without angina pectoris; I48.91 Unspecified atrial fibrillation; Z95.810 Presence of automatic (implantable) cardiac defibrillator; Z79.82 Long term (current) use of aspirin; Z79.899 Other long term (current) drug therapy; Z79.02 Long term (current) use of antithrombotics/antiplatelets; Z82.49 Family history of ischemic heart disease and other diseases of the circulatory system; Z83.3 Family history of diabetes mellitus; Z95.1 Presence of aortocoronary bypass graft
CPT/HCPCS: 36415; 71046; 80048; 80053; 83605; 83880; 84484; 85025; 85379; 85610; 85730; 93005; 93306; 93459; 94760; 96365; 96366; 96375; 96376; 99291

== ENCOUNTER 2023-07-22 13:37 | Emergency (ER) | payer MEDICARE, OTHER ==
--- NOTE | 2023-07-22 16:05 | ED ---
Anxiety HPI - General Chief Complaint: Nausea/Vomiting/Diarrhea Stated Complaint: Chest Pain,Sob Time Seen by Provider: 07/22/23 15:32 Source: patient, RN notes reviewed, old records reviewed Mode of arrival: wheelchair - History of Present Illness Initial Comments: This is a 67-year-old female to the ER today. Patient presents today for evaluation of severe anxiety states he cannot sleep feels weak and has not been feeling well. Patient states has been throwing up and has not been feeling significantly well. No abdominal pain. Mild cough or congestion MD Complaint: anxiety, heart racing, shortness of breath, other (Fever) -: days(s) Symptoms: dyspnea, chest pain, palpitations Place: home Previous History of Same: No Severity: mild Quality: constant, intermittent Provoking factors: none known Improves With: nothing Worsens With: nothing Associated symptoms: chest pain, shortness of breath, weakness - Related Data Home Medications: Home Medications Medication Instructions Recorded Confirmed ARIPiprazole [Abilify] 20 mg PO DAILY 03/19/23 07/23/23 Clopidogrel [Plavix] 75 mg PO DAILY 03/19/23 07/23/23 FLUoxetine HCL [PROzac] 40 mg PO DAILY 03/19/23 07/23/23 Finasteride [Proscar] 5 mg PO DAILY 03/19/23 07/23/23 Insulin Aspart [NovoLOG Flexpen] 5 units SQ AC-TID 03/19/23 07/23/23 Semaglutide [Rybelsus] 7 mg PO DAILY 03/19/23 07/23/23 Aspirin EC [Ecotrin Low Dose] 81 mg PO DAILY 04/23/23 07/23/23 Previous Rx's Medication Instructions Recorded Atorvastatin Calcium [Lipitor] 40 mg PO DAILY #30 tab 06/19/19 Collagenase [Santyl Ointment] 1 applic TOPICAL DAILY 30 Days #1 03/25/23 each Insulin Glargine,Hum.rec.anlog 15 units SQ HS #0 03/25/23 [Lantus Solostar Pen] Dapagliflozin Propanediol [Farxiga] 10 mg PO DAILY #30 tab 07/05/23 Furosemide [Lasix] 80 mg PO Q12HR #180 tablet 07/05/23 Metoprolol Succinate (ER) [Toprol 25 mg PO DAILY #30 tab 07/05/23 XL] Nitroglycerin Sl Tabs [Nitrostat] 0.4 mg SUBLINGUAL Q5M PRN #25 tab 07/05/23 Potassium Chloride ER [K-Dur 20] 20 meq PO DAILY #0 07/05/23 Spironolactone [Aldactone] 25 mg PO DAILY #30 tab 07/05/23 Amiodarone [Cordarone] 200 mg PO DAILY #60 tab 07/28/23 Doxycycline [Vibramycin] 100 mg PO BID 7 Days #14 capsule 07/28/23 INSULIN ASPART (NovoLOG) [NovoLOG 0 unit SQ ACHS each 07/28/23 (formulary)] Sacubitril/Valsartan [Entresto 24 1 each PO BID #60 tab 07/28/23 mg-26 mg Tablet] Allergies/Adverse Reactions: Allergies Allergy/AdvReac Type Severity Reaction Status Date / Time hydrocodone AdvReac Hallucinati Verified 07/23/23 08:46 ons Review of Systems ROS Statement: Those systems with pertinent positive or pertinent negative responses have been documented in the HPI. ROS Other: All systems not noted in ROS Statement are negative. Past Medical History Past Medical History: Coronary Artery Disease (CAD), Diabetes Mellitus, Hyperlipidemia, Hypertension Additional Past Medical History / Comment(s): wounds on right foot. History of Any Multi-Drug Resistant Organisms: None Reported Past Surgical History: Coronary Bypass/CABG, Orthopedic Surgery, Pacemaker Additional Past Surgical History / Comment(s): amputation 3 medial toes rt foot, one toe amp on left Past Anesthesia/Blood Transfusion Reactions: No Reported Reaction Type of Cardiac Device: Unknown Device Placement Date:: unknown Past Psychological History: Anxiety, Depression Smoking Status: Never smoker Past Alcohol Use History: None Reported Past Drug Use History: None Reported - Past Family History Mother Family Medical History: Diabetes Mellitus Father Family Medical History: Congestive Heart Failure (CHF) Brother(s) Family Medical History: Diabetes Mellitus Sister(s) Family Medical History: Diabetes Mellitus General Exam Limitations: no limitations General appearance: alert, in no apparent distress Head exam: Present: atraumatic, normocephalic, normal inspection Eye exam: Present: normal appearance, PERRL, EOMI. Absent: scleral icterus, conjunctival injection, periorbital swelling ENT exam: Present: normal exam, mucous membranes moist Neck exam: Present: normal inspection. Absent: tenderness, meningismus, lymphadenopathy Respiratory exam: Present: normal lung sounds bilaterally. Absent: respiratory distress, wheezes, rales, rhonchi, stridor Cardiovascular Exam: Present: regular rate, normal rhythm, normal heart sounds. Absent: systolic murmur, diastolic murmur, rubs, gallop, clicks GI/Abdominal exam: Present: soft, normal bowel sounds. Absent: distended, tenderness, guarding, rebound, rigid Extremities exam: Present: normal inspection, full ROM, normal capillary refill. Absent: tenderness, pedal edema, joint swelling, calf tenderness Back exam: Present: normal inspection Neurological exam: Present: alert, oriented X3, CN II-XII intact Psychiatric exam: Present: normal affect, normal mood Skin exam: Present: warm, dry, intact, normal color. Absent: rash Course Vital Signs 07/22/23 07/22/23 07/22/23 13:48 15:55 18:53 Temperature 100.7 F H 98.2 F Pulse Rate 85 73 64 Respiratory 18 20 16 Rate Blood Pressure 130/69 124/61 119/61 O2 Sat by Pulse 97 95 94 L Oximetry 07/22/23 20:08 Temperature 98.2 F Pulse Rate 62 Respiratory 14 Rate Blood Pressure 112/61 O2 Sat by Pulse 96 Oximetry - Reevaluation(s) Reevaluation #1: 07/22/23 19:35 Medical records reviewed Reevaluation #2: 07/22/23 19:35 Patient symptoms are improved but he still feels weak here in the emergency department persistent fever Reevaluation #3: 07/22/23 19:35 Patient informed of results and questions answered Reevaluation #4: Was pt. sent in by a medical professional or institution (, PA, [facility], urgent care, hospital, or [facility]...) When possible be specific @ -no Did you speak to anyone other than the patient for history (EMS, parent, family, police, friend...)? What history was obtained from this source @ -no Did you review nursing and triage notes (agree or disagree)? Why? @ -agree Are old charts reviewed (outside hosp., previous admission, EMS record, old EKG, old radiological studies, urgent care reports/EKG's, [facility] records)? Report findings @ -yes Differential Diagnosis (chest pain, altered mental status, abdominal pain women, abdominal pain men, vaginal bleeding, weakness, fever, dyspnea, syncope, headache, dizziness, GI bleed, back pain, seizure, CVA, palpatations, mental health, musculoskeletal)? @ -prior EKG interpreted by me (3pts min.). @ -yes X-rays interpreted by me (1pt min.). @ -yes negative for acute disease CT interpreted by me (1pt min.). @ -no U/S interpreted by me (1pt. min.). @ -no What testing was considered but not performed or refused? (CT, X-rays, U/S, labs)? Why? @ -none What meds were considered but not given or refused? Why? @ -none Did you discuss the management of the patient with other professionals (professionals i.e. , PA, [facility], lab, RT, psych nurse, child protective services social worker, traffic police officer, teacher, seal delivery vehicle officer, rn case mgr)? Give summary @ -no Was smoking cessation discussed for >3mins.? @ -no Was critical care preformed (if so, how long)? @ -no Were there social determinants of health that impacted care today? How? (Homelessness, low income, unemployed, alcoholism, drug addiction, transportation, low edu. Level, literacy, decrease access to med. care, custodial, rehab)? @ -none Was there de-escalation of care discussed even if they declined (Discuss DNR or withdrawal of care, Hospice)? DNR status @ -no What co-morbidities impacted this encounter? (DM, HTN, Smoking, COPD, CAD, Cancer, CVA, ARF, Chemo, Hep., AIDS, mental health diagnosis, sleep apnea, morbid obesity)? @ -none Was patient admitted / discharged? Hospital course, mention meds given and route, prescriptions, significant lab abnormalities, going to OR and other pertinent info. @ - 67 male to the ER for evaluation of weakness not feeling well dyspnea fever. Patient presents today for evaluation of shortness of breath here with fever in the ER and will a discharge home Discharge Undiagnosed new problem with uncertain prognosis? @ -no Drug Therapy requiring intensive monitoring for toxicity (Heparin, Nitro, Insulin, Cardizem)? @ -no Were any procedures done? @ -no Diagnosis/symptom? @ -Pneumonia Acute, or Chronic, or Acute on Chronic? @ -Acute Uncomplicated (without systemic symptoms) or Complicated (systemic symptoms)? @ -Complicated Side effects of treatment? @ -no Exacerbation, Progression, or Severe Exacerbation? @ -exacerbation Poses a threat to life or bodily function? How? (Chest pain, USA, [place], pneumonia, PE, COPD, DKA, ARF, appy, cholecystitis, CVA, Diverticulitis, Homicidal, Suicidal, threat to staff... and all critical care pts) @ -yes Reevaluation #5: Differential Fever: Pneumonia, viral URI, endocarditis, myocarditis, pericarditis, otitis, sinusitis, peritonsillar Abscess, retropharyngeal Abscess, epiglottitis, peritonitis, appendicitis, Catina cystitis, diverticulitis, hepatitis, colitis, UTI, PID, TOA, pyelonephritis, prostatitis, epididymitis, meningitis, encephalitis, pulmonary embolism, CVA, thyroid storm, pancreatitis, adrenal c risis, cavernous sinus thrombosis, this is not meant to be an all-inclusive list. Medical Decision Making - Medical Decision Making 67 male to the ER for evaluation of weakness not feeling well dyspnea fever. Patient presents today for evaluation of shortness of breath here with fever in the ER and will admit for pneumonia and trending of troponin - Lab Data Result diagrams: 07/22/23 16:59 07/22/23 16:59 Lab Results 07/22/23 07/22/23 07/22/23 Range/Units 14:09 16:59 16:59 WBC 9.0 (3.8-10.6) k/uL RBC 4.44 (4.30-5.90) m/uL Hgb 11.5 L (13.0-17.5) gm/dL Hct 35.6 L (39.0-53.0) % MCV 80.1 (80.0-100.0) fL MCH 25.8 (25.0-35.0) pg MCHC 32.2 (31.0-37.0) g/dL RDW 15.9 H (11.5-15.5) % Plt Count 136 L (150-450) k/uL MPV 9.3 Neutrophils % 89 % Lymphocytes % 3 % Monocytes % 6 % Eosinophils % 0 % Basophils % 0 % Neutrophils # 8.0 H (1.3-7.7) k/uL Lymphocytes # 0.3 L (1.0-4.8) k/uL Monocytes # 0.6 (0-1.0) k/uL Eosinophils # 0.0 (0-0.7) k/uL Basophils # 0.0 (0-0.2) k/uL PT 12.2 (10.0-12.5) sec INR 1.1 (<1.2) APTT 25.6 (22.0-30.0) sec Sodium (137-145) mmol/L Potassium (3.5-5.1) mmol/L Chloride (98-107) mmol/L Carbon Dioxide (22-30) mmol/L Anion Gap mmol/L BUN (9-20) mg/dL Creatinine (0.66-1.25) mg/dL Est GFR (CKD-EPI)AfAm (>60 ml/min/1.73 sqM) Est GFR (CKD-EPI)NonAf (>60 ml/min/1.73 sqM) Glucose (74-99) mg/dL Plasma Lactic Acid Ludin (0.7-2.0) mmol/L Calcium (8.4-10.2) mg/dL Phosphorus (2.5-4.5) mg/dL Magnesium (1.6-2.3) mg/dL Total Bilirubin (0.2-1.3) mg/dL AST (17-59) U/L ALT (4-49) U/L Alkaline Phosphatase (38-126) U/L Troponin I (0.000-0.034) ng/mL Total Protein (6.3-8.2) g/dL Albumin (3.5-5.0) g/dL Influenza Type A (PCR) Not Detected (Not Detectd) Influenza Type B (PCR) Not Detected (Not Detectd) RSV (PCR) Not Detected (Not Detectd) SARS-CoV-2 (PCR) Not Detected (Not Detectd) 07/22/23 07/22/23 07/22/23 Range/Units 16:59 16:59 16:59 WBC (3.8-10.6) k/uL RBC (4.30-5.90) m/uL Hgb (13.0-17.5) gm/dL Hct (39.0-53.0) % MCV (80.0-100.0) fL MCH (25.0-35.0) pg MCHC (31.0-37.0) g/dL RDW (11.5-15.5) % Plt Count (150-450) k/uL MPV Neutrophils % % Lymphocytes % % Monocytes % % Eosinophils % % Basophils % % Neutrophils # (1.3-7.7) k/uL Lymphocytes # (1.0-4.8) k/uL Monocytes # (0-1.0) k/uL Eosinophils # (0-0.7) k/uL Basophils # (0-0.2) k/uL PT (10.0-12.5) sec INR (<1.2) APTT (22.0-30.0) sec Sodium 137 (137-145) mmol/L Potassium 4.4 (3.5-5.1) mmol/L Chloride 105 (98-107) mmol/L Carbon Dioxide 23 (22-30) mmol/L Anion Gap 9 mmol/L BUN 27 H (9-20) mg/dL Creatinine 1.24 (0.66-1.25) mg/dL Est GFR (CKD-EPI)AfAm 70 (>60 ml/min/1.73 sqM) Est GFR (CKD-EPI)NonAf 60 (>60 ml/min/1.73 sqM) Glucose 178 H (74-99) mg/dL Plasma Lactic Acid Ludin 1.1 (0.7-2.0) mmol/L Calcium 8.8 (8.4-10.2) mg/dL Phosphorus 4.5 (2.5-4.5) mg/dL Magnesium 2.1 (1.6-2.3) mg/dL Total Bilirubin 0.5 (0.2-1.3) mg/dL AST 23 (17-59) U/L ALT 18 (4-49) U/L Alkaline Phosphatase 109 (38-126) U/L Troponin I 0.031 (0.000-0.034) ng/mL Total Protein 6.1 L (6.3-8.2) g/dL Albumin 3.3 L (3.5-5.0) g/dL Influenza Type A (PCR) (Not Detectd) Influenza Type B (PCR) (Not Detectd) RSV (PCR) (Not Detectd) SARS-CoV-2 (PCR) (Not Detectd) - EKG Data -: EKG Interpreted by Me (EKG is sinus 81 ID [id number] ID [id number] QRS 440) Disposition Clinical Impression: Anxiety, Insomnia, Nausea & vomiting, Fever, Pneumonia Disposition: HOME SELF-CARE Condition: Fair Instructions (If sedation given, give patient instructions): Acute Nausea and Vomiting (ED), Anxiety (ED) Is patient prescribed a controlled substance at d/c from ED?: No Referrals: Mauricio Ervin MD [Primary Care Provider] - 1-2 days Time of Disposition: 16:05
[2023-07-22] MEDS: LORazepam 1 MG TAB PO STA (16:23)
[2023-07-22] MEDS: IBUPROFEN 600 MG TAB PO STA (16:23)
[2023-07-22] MEDS: ACETAMINOPHEN TAB 500 MG TAB PO STA (16:23)
[2023-07-22] MEDS: SODIUM CHLORIDE 0.9% 1,000 ML IV STA (16:37)
[2023-07-22 16:57] LABS: Basophils % (A) 0 %; Eosinophils % (A) 0 %; HCT 35.6 % (39.0-53.0); HGB 11.5 gm/dL (13.0-17.5); Lymphocytes # (A) 0.3 k/uL (1.0-4.8); Lymphocytes % (A) 3 %; MCH 25.8 pg (25.0-35.0); MCHC 32.2 g/dL (31.0-37.0); MCV 80.1 fL (80.0-100.0); Mean Platelet Volume 9.3; Monocytes # (A) 0.6 k/uL (0-1.0); Monocytes % (A) 6 %; Neutrophils % (A) 89 %; Platelet Count 136 k/uL (150-450); RBC 4.44 m/uL (4.30-5.90); RDW 15.9 % (11.5-15.5)
[2023-07-22 17:04] LABS: ALT 18 U/L (4-49); AST 23 U/L (17-59); African American GFR (CKD) 70 (>60 ml/min/1.73 sqM); Albumin 3.3 g/dL (3.5-5.0); Alkaline Phosphatase 109 U/L (38-126); Anion Gap 9 mmol/L; Blood Urea Nitrogen 27 mg/dL (9-20); Calcium 8.8 mg/dL (8.4-10.2); Carbon Dioxide 23 mmol/L (22-30); Chloride 105 mmol/L (98-107); Glucose 178 mg/dL (74-99); Magnesium 2.1 mg/dL (1.6-2.3); Non-African American GFR(CKD) 60 (>60 ml/min/1.73 sqM); Phosphorus 4.5 mg/dL (2.5-4.5); Potassium 4.4 mmol/L (3.5-5.1); Sodium 137 mmol/L (137-145); Total Bilirubin 0.5 mg/dL (0.2-1.3); Total Protein 6.1 g/dL (6.3-8.2)
[2023-07-22 17:06] LABS: INR 1.1 (<1.2); Partial Thromboplastin Time 25.6 sec (22.0-30.0); Prothrombin Time 12.2 sec (10.0-12.5)
[2023-07-22 19:26] VITALS: TEMP 98.2
[2023-07-22] MEDS ORDERED: PNEUMONIA PROTOCOL UTILIZED 1 EACH MISC PO PRN (19:30)
[2023-07-22] MEDS ORDERED: NALOXONE 0.4 MG/ML 1 ML VIAL IV PRN (19:30)
[2023-07-22] MEDS ORDERED: IBUPROFEN 400 MG TAB PO PRN (19:30)
[2023-07-22] MEDS ORDERED: MELATONIN 3 MG TABLET PO PRN (19:30)
[2023-07-22] MEDS ORDERED: MORPHINE SULFATE 4 MG/ML SYRINGE IV PRN (19:30)
[2023-07-22] MEDS ORDERED: ONDANSETRON 4 MG/2 ML VIAL IVP PRN (19:30)
[2023-07-22] MEDS ORDERED: IPRATROPIUM-ALBUTEROL 3 ML NEB INHALATION PRN (19:30)
[2023-07-22] MEDS ORDERED: ACETAMINOPHEN TAB 325 MG TAB PO PRN (19:30)
--- NOTE | 2023-07-22 19:41 | XR ---
EXAMINATION TYPE: XR chest 1V DATE OF EXAM: 07/22/2023 6:29 PM CLINICAL INDICATION:Male, 67 years old with history of Weakness; [facility] COMPARISON: 06/22/2023 TECHNIQUE: XR chest 1V Portable AP radiograph of the chest.. FINDINGS: Lines/Tubes/Devices: No indwelling lines are seen. Three lead cardiac conduction device overlying the left hemithorax with lead tips projecting over the right ventricle, right atrium and coronary sinus unchanged. Heart/mediastinum: Heart appears mildly enlarged. Is that appears stable. Aortic calcifications. Sta ble mild prominence of the sandeep. Pulmonary vascularity: Not increased, Lungs/Pleura: Overall there is slightly better aeration of the lungs than before. There is no evidenc e of pleural effusion, focal consolidation, or pneumothorax. Similar mildly prominent interstitial olayinka ng markings, likely chronic changes. Musculoskeletal: No acute osseous abnormality demonstrated in the limits of the exam. Other findings: Sternotomy wires and surgical clips, maybe from CABG. IMPRESSION: 1. Cardiomegaly and postoperative changes. No evidence of decompensated CHF. 2. Similar mildly prominent interstitial lung markings, likely chronic changes. No acute airspace di sease.
[2023-07-22] MEDS: AZITHROMYCIN 500 MG in SODIUM CHLORIDE 0.9% 250 ML IVPB STA (19:54)
[2023-07-22] MEDS: SODIUM CHLORIDE 0.9% 1,000 ML IV SCH (19:55)
[2023-07-22] MEDS: DOXYCYCLINE 100 MG CAP PO STA (20:00)
[2023-07-22] MEDS: IPRATROPIUM-ALBUTEROL 3 ML NEB INHALATION STA (20:02)
[2023-07-22 20:35] VITALS: BP 112/61; PULSE 62; RESP 14
[2023-07-22] MEDS ORDERED: LORazepam 0.5 MG TAB PO SCH (21:00)
[2023-07-23] MEDS ORDERED: AZITHROMYCIN 500 MG TAB PO SCH (09:00)
== END 2023-07-22 21:00 | disposition home or self-care (01) ==
LOC: EC 13:37 → UNDOADMIN 19:30 → 4SSUR 19:30 → EC 21:00
DX: J18.9 Pneumonia, unspecified organism (principal); G47.00 Insomnia, unspecified; F41.9 Anxiety disorder, unspecified; Z88.5 Allergy status to narcotic agent; Z95.0 Presence of cardiac pacemaker; Z95.1 Presence of aortocoronary bypass graft
CPT/HCPCS: 36415; 71045; 80053; 83605; 83735; 84100; 84484; 85025; 85610; 85730; 87040; 87636; 93005; 96360; 99285

== ENCOUNTER 2023-07-23 05:15 | Inpatient (IN) | payer MEDICARE, OTHER ==
[2023-07-23 05:36] LABS: Glucose,Whole Blood 445 mg/dL (70-110)
--- NOTE | 2023-07-23 05:39 | ED ---
General Adult HPI - General Chief complaint: Fever Stated complaint: fever Time Seen by Provider: 07/23/23 05:16 Source: patient, EMS, RN notes reviewed, old records reviewed Mode of arrival: EMS Limitations: no limitations - History of Present Illness Initial comments: 67-year-old male presenting for reevaluation. Patient presented with chief complaint of dyspnea, fever. Patient denies pain complaints. He was found by paramedics to be hypoxic requiring supplemental oxygen. He states he normally does not wear oxygen. Patient was seen in the emergency department within the past 24 hours with similar complaints. He was noted to be febrile at that time. Laboratory testing including CBC, CMP and viral panel was obtained these results were unremarkable. - Related Data Home Medications Medication Instructions Recorded Confirmed Sacubitril/Valsartan [Entresto 49 1 tab PO BID 09/23/19 07/22/23 mg-51 mg Tablet] ARIPiprazole [Abilify] 20 mg PO DAILY 03/19/23 07/22/23 Clopidogrel [Plavix] 75 mg PO DAILY 03/19/23 07/22/23 FLUoxetine HCL [PROzac] 40 mg PO DAILY 03/19/23 07/22/23 Finasteride [Proscar] 5 mg PO DAILY 03/19/23 07/22/23 Insulin Aspart [NovoLOG Flexpen] 5 units SQ AC-TID 03/19/23 07/22/23 Semaglutide [Rybelsus] 7 mg PO DAILY 03/19/23 07/22/23 Aspirin EC [Ecotrin Low Dose] 81 mg PO DAILY 04/23/23 07/22/23 Previous Rx's Medication Instructions Recorded Atorvastatin Calcium [Lipitor] 40 mg PO DAILY #30 tab 06/19/19 Collagenase [Santyl Ointment] 1 applic TOPICAL DAILY 30 Days #1 03/25/23 each Insulin Glargine,Hum.rec.anlog 15 units SQ HS #0 03/25/23 [Lantus Solostar Pen] Dapagliflozin Propanediol [Farxiga] 10 mg PO DAILY #30 tab 07/05/23 Doxycycline [Vibramycin] 100 mg PO BID #30 cap 07/05/23 Furosemide [Lasix] 80 mg PO Q12HR #180 tablet 07/05/23 Metoprolol Succinate (ER) [Toprol 25 mg PO DAILY #30 tab 07/05/23 XL] Nitroglycerin Sl Tabs [Nitrostat] 0.4 mg SUBLINGUAL Q5M PRN #25 tab 07/05/23 Potassium Chloride ER [K-Dur 20] 20 meq PO DAILY #0 07/05/23 Spironolactone [Aldactone] 25 mg PO DAILY #30 tab 07/05/23 Doxycycline [Vibramycin] 100 mg PO BID 7 Days #14 capsule 07/22/23 Zolpidem [Ambien] 5 mg PO HS 3 Days #3 tab 07/22/23 Allergies Allergy/AdvReac Type Severity Reaction Status Date / Time hydrocodone AdvReac Hallucinati Verified 07/23/23 05:21 ons Review of Systems ROS Statement: Those systems with pertinent positive or pertinent negative responses have been documented in the HPI. ROS Other: All systems not noted in ROS Statement are negative. Past Medical History Past Medical History: Coronary Artery Disease (CAD), Diabetes Mellitus, Hyperlipidemia, Hypertension Additional Past Medical History / Comment(s): wounds on right foot. History of Any Multi-Drug Resistant Organisms: None Reported Past Surgical History: Coronary Bypass/CABG, Orthopedic Surgery, Pacemaker Additional Past Surgical History / Comment(s): amputation 3 medial toes rt foot, one toe amp on left Past Anesthesia/Blood Transfusion Reactions: No Reported Reaction Type of Cardiac Device: Unknown Device Placement Date:: unknown Past Psychological History: Anxiety, Depression Smoking Status: Never smoker Past Alcohol Use History: None Reported Past Drug Use History: None Reported - Past Family History Mother Family Medical History: Diabetes Mellitus Father Family Medical History: Congestive Heart Failure (CHF) Brother(s) Family Medical History: Diabetes Mellitus Sister(s) Family Medical History: Diabetes Mellitus General Exam General appearance: alert, in no apparent distress Head exam: Present: atraumatic, normocephalic Eye exam: Present: normal appearance, PERRL ENT exam: Present: normal exam Neck exam: Present: normal inspection. Absent: tenderness, meningismus Respiratory exam: Present: respiratory distress, rales Cardiovascular Exam: Present: normal rhythm, tachycardia GI/Abdominal exam: Present: soft. Absent: distended, tenderness, guarding Extremities exam: Present: pedal edema Neurological exam: Present: alert. Absent: motor sensory deficit Skin exam: Present: warm, dry, intact Course Vital Signs 07/23/23 07/23/23 05:16 05:32 Temperature 99.2 F Pulse Rate 138 H 134 H Respiratory 20 18 Rate Blood Pressure 118/72 97/62 O2 Sat by Pulse 93 L 96 Oximetry - Reevaluation(s) Reevaluation #1: 07/23/23 06:36 D-dimer was also newly positive for this patient. CT angiography ordered, results pending. Medical Decision Making - Medical Decision Making Was pt. sent in by a medical professional or institution (, PA, METAL ALLOY SCIENTIST, urgent care, hospital, or skilled nursing...) When possible be specific @ -No Did you speak to anyone other than the patient for history (EMS, parent, family, police, friend...)? What history was obtained from this source @ -No Did you review nursing and triage notes (agree or disagree)? Why? @ -I reviewed and agree with nursing and triage notes Were old charts reviewed (outside hosp., previous admission, EMS record, old EKG, old radiological studies, urgent care reports/EKG's, skilled nursing records)? Report findings @ -No old charts were reviewed Differential Diagnosis (chest pain, altered mental status, abdominal pain women, abdominal pain men, vaginal bleeding, weakness, fever, dyspnea, syncope, headache, dizziness, GI bleed, back pain, seizure, CVA, palpatations, mental health, musculoskeletal)? @Differential Dyspnea: Coronary syndrome, arrhythmia, tamponade, asthma, COPD, pulmonary embolism, pneumonia, pneumothorax, pulmonary effusion, anaphylaxis, diabetic ketoacidosis, flailed chest, pulmonary contusion, diaphragmatic rupture, anemia, neuromuscular, this is not meant to be an all-inclusive list. EKG interpreted by me (3pts min.). @ -Narrow complex rhythm rate of 134, QRS duration 156, QTc [address] segment elevation. X-rays interpreted by me (1pt min.). @ -Single view chest x-ray showing pulmonary edema and central vascular congestion. This is new compared to EKG from within the last [address] interpreted by me (1pt min.). @ -None done U/S interpreted by me (1pt. min.). @ -None done What testing was considered but not performed or refused? (CT, X-rays, U/S, labs)? Why? @ -None What meds were considered but not given or refused? Why? @ -None Did you discuss the management of the patient with other professionals (professionals i.e. , PA, METAL ALLOY SCIENTIST, lab, RT, psych nurse, social work lecturer, manager communication, teacher, chief technology officer, case briefer)? Give summary @ -Dr. Ervin has been paged regarding admission Was smoking cessation discussed for >3mins.? @ -No Was critical care preformed (if so, how long)? @ -Yes, 35 minutes Were there social determinants of health that impacted care today? How? (Rachel elessness, low income, unemployed, alcoholism, drug addiction, transportation, low edu. Level, literacy, decrease access to med. care, intermediate, rehab)? @ -No Was there de-escalation of care discussed even if they declined (Discuss DNR or withdrawal of care, Hospice)? DNR status @ -No What co-morbidities impacted this encounter? (DM, HTN, Smoking, COPD, CAD, Cancer, CVA, ARF, Chemo, Hep., AIDS, mental health diagnosis, sleep apnea, morbid obesity)? @Gama artery disease, CHF, diabetes Was patient admitted / discharged? Hospital course, mention meds given and route, prescriptions, significant lab abnormalities, going to OR and other pertinent info. @ -67-year-old male presenting with increased dyspnea, hypoxia. Patient was apparently in the 70s on room air requiring 4 L by nasal cannula. On exam the patient has bilateral rails as well as peripheral edema. He has a history of CHF. X-ray confirms pulmonary edema and vascular congestion consistent with CHF. His BNP is elevated at 9000. Troponin is elevated 0.1 which does appear to be chronic troponin elevation in this patient. He has normal white blood cell count which is predominantly neutrophils. Given the fever he will be cove red for concurrent pneumonia however I suspect this is predominantly CHF. Further IV fluids will be held. I suspect the elevated lactic acid of 5 is secondary to hypoxia. Patient admitted for IV diuresis, trend cardiac enzyme, cardiology consultation. Recent echo showed EF of 15 to 20%. Undiagnosed new problem with uncertain prognosis? @ -No Drug Therapy requiring intensive monitoring for toxicity (Heparin, Nitro, Insulin, Cardizem)? @ -No Were any procedures done? @ -No Diagnosis/symptom? @ -[CHF exacerbation with hypoxia Acute, or Chronic, or Acute on Chronic? @Acute on chronic Uncomplicated (without systemic symptoms) or Complicated (systemic symptoms)? @ -Default Side effects of treatment? @ -No Exacerbation, Progression, or Severe Exacerbation? @ -No Poses a threat to life or bodily function? How? (Chest pain, [place], [place], pneumonia, PE, COPD, DKA, ARF, appy, cholecystitis, CVA, Diverticulitis, Homicidal, Suicidal, threat to staff... and all critical care pts) @Yes, CHF, hypoxia - Lab Data Result diagrams: 07/23/23 05:25 07/23/23 05:25 Lab Results 07/23/23 07/23/23 07/23/23 Range/Units 05:25 05:25 05:25 WBC 9.2 (3.8-10.6) k/uL RBC 4.82 (4.30-5.90) m/uL Hgb 12.2 L (13.0-17.5) gm/dL Hct 39.3 (39.0-53.0) % MCV 81.5 (80.0-100.0) fL MCH 25.4 (25.0-35.0) pg MCHC 31.1 (31.0-37.0) g/dL RDW 16.0 H (11.5-15.5) % Plt Count 112 L (150-450) k/uL MPV 9.2 Neutrophils % 93 % Lymphocytes % 2 % Monocytes % 4 % Eosinophils % 0 % Basophils % 0 % Neutrophils # 8.6 H (1.3-7.7) k/uL Lymphocytes # 0.2 L (1.0-4.8) k/uL Monocytes # 0.4 (0-1.0) k/uL Eosinophils # 0.0 (0-0.7) k/uL Basophils # 0.0 (0-0.2) k/uL Hypochromasia Slight Anisocytosis Slight D-Dimer (<0.60) mg/L FEU Sodium 140 (137-145) mmol/L Potassium 4.8 (3.5-5.1) mmol/L Chloride 108 H (98-107) mmol/L Carbon Dioxide 16 L (22-30) mmol/L Anion Gap 16 mmol/L BUN 31 H (9-20) mg/dL Creatinine 1.46 H (0.66-1.25) mg/dL Est GFR (CKD-EPI)AfAm 57 (>60 ml/min/1.73 sqM) Est GFR (CKD-EPI)NonAf 49 (>60 ml/min/1.73 sqM) Glucose 277 H (74-99) mg/dL POC Glucose (mg/dL) (70-110) mg/dL POC Glu Chain Sales Representative ID Plasma Lactic Acid Ludin 5.2 H* (0.7-2.0) mmol/L Calcium 8.7 (8.4-10.2) mg/dL Magnesium 2.1 (1.6-2.3) mg/dL Total Bilirubin 0.8 (0.2-1.3) mg/dL AST 46 (17-59) U/L ALT 28 (4-49) U/L Alkaline Phosphatase 149 H (38-126) U/L Troponin I (0.000-0.034) ng/mL NT-Pro-B Natriuret Pep 9490 pg/mL Total Protein 6.3 (6.3-8.2) g/dL Albumin 3.4 L (3.5-5.0) g/dL Influenza Type A (PCR) (Not Detectd) Influenza Type B (PCR) (Not Detectd) RSV (PCR) (Not Detectd) SARS-CoV-2 (PCR) (Not Detectd) 07/23/23 07/23/23 07/23/23 Range/Units 05:26 05:26 05:29 WBC (3.8-10.6) k/uL RBC (4.30-5.90) m/uL Hgb (13.0-17.5) gm/dL Hct (39.0-53.0) % MCV (80.0-100.0) fL MCH (25.0-35.0) pg MCHC (31.0-37.0) g/dL RDW (11.5-15.5) % Plt Count (150-450) k/uL MPV Neutrophils % % Lymphocytes % % Monocytes % % Eosinophils % % Basophils % % Neutrophils # (1.3-7.7) k/uL Lymphocytes # (1.0-4.8) k/uL Monocytes # (0-1.0) k/uL Eosinophils # (0-0.7) k/uL Basophils # (0-0.2) k/uL Hypochromasia Anisocytosis D-Dimer 2.27 H (<0.60) mg/L FEU Sodium (137-145) mmol/L Potassium (3.5-5.1) mmol/L Chloride (98-107) mmol/L Carbon Dioxide (22-30) mmol/L Anion Gap mmol/L BUN (9-20) mg/dL Creatinine (0.66-1.25) mg/dL Est GFR (CKD-EPI)AfAm (>60 ml/min/1.73 sqM) Est GFR (CKD-EPI)NonAf (>60 ml/min/1.73 sqM) Glucose (74-99) mg/dL POC Glucose (mg/dL) (70-110) mg/dL POC Glu Chain Sales Representative ID Plasma Lactic Acid Ludin (0.7-2.0) mmol/L Calcium (8.4-10.2) mg/dL Magnesium (1.6-2.3) mg/dL Total Bilirubin (0.2-1.3) mg/dL AST (17-59) U/L ALT (4-49) U/L Alkaline Phosphatase (38-126) U/L Troponin I 0.105 H* (0.000-0.034) ng/mL NT-Pro-B Natriuret Pep pg/mL Total Protein (6.3-8.2) g/dL Albumin (3.5-5.0) g/dL Influenza Type A (PCR) Not Detected (Not Detectd) Influenza Type B (PCR) Not Detected (Not Detectd) RSV (PCR) Not Detected (Not Detectd) SARS-CoV-2 (PCR) Not Detected (Not Detectd) 07/23/23 Range/Units 05:34 WBC (3.8-10.6) k/uL RBC (4.30-5.90) m/uL Hgb (13.0-17.5) gm/dL Hct (39.0-53.0) % MCV (80.0-100.0) fL MCH (25.0-35.0) pg MCHC (31.0-37.0) g/dL RDW (11.5-15.5) % Plt Count (150-450) k/uL MPV Neutrophils % % Lymphocytes % % Monocytes % % Eosinophils % % Basophils % % Neutrophils # (1.3-7.7) k/uL Lymphocytes # (1.0-4.8) k/uL Monocytes # (0-1.0) k/uL Eosinophils # (0-0.7) k/uL Basophils # (0-0.2) k/uL Hypochromasia Anisocytosis D-Dimer (<0.60) mg/L FEU Sodium (137-145) mmol/L Potassium (3.5-5.1) mmol/L Chloride (98-107) mmol/L Carbon Dioxide (22-30) mmol/L Anion Gap mmol/L BUN (9-20) mg/dL Creatinine (0.66-1.25) mg/dL Est GFR (CKD-EPI)AfAm (>60 ml/min/1.73 sqM) Est GFR (CKD-EPI)NonAf (>60 ml/min/1.73 sqM) Glucose (74-99) mg/dL POC Glucose (mg/dL) 445 H (70-110) mg/dL POC Glu Chain Sales Representative ID Radatz, Mary Plasma Lactic Acid Ludin (0.7-2.0) mmol/L Calcium (8.4-10.2) mg/dL Magnesium (1.6-2.3) mg/dL Total Bilirubin (0.2-1.3) mg/dL AST (17-59) U/L ALT (4-49) U/L Alkaline Phosphatase (38-126) U/L Troponin I (0.000-0.034) ng/mL NT-Pro-B Natriuret Pep pg/mL Total Protein (6.3-8.2) g/dL Albumin (3.5-5.0) g/dL Influenza Type A (PCR) (Not Detectd) Influenza Type B (PCR) (Not Detectd) RSV (PCR) (Not Detectd) SARS-CoV-2 (PCR) (Not Detectd) Critical Care Time Critical Care Time: Yes Total Critical Care Time: 35 Disposition Clinical Impression: Tachycardia, Nausea & vomiting, Congestive heart failure, Pneumonia Disposition: ADMITTED IP TO THIS [facility] Condition: Stable Is patient prescribed a controlled substance at d/c from ED?: No Time of Disposition: 06:33
[2023-07-23] MEDS: ACETAMINOPHEN TAB 500 MG TAB PO STA (05:40)
[2023-07-23 05:53] LABS: Anisocytosis Slight; Basophils % (A) 0 %; Eosinophils % (A) 0 %; HCT 39.3 % (39.0-53.0); HGB 12.2 gm/dL (13.0-17.5); Hypochromasia Slight; Lymphocytes # (A) 0.2 k/uL (1.0-4.8); Lymphocytes % (A) 2 %; MCH 25.4 pg (25.0-35.0); MCHC 31.1 g/dL (31.0-37.0); MCV 81.5 fL (80.0-100.0); Mean Platelet Volume 9.2; Monocytes # (A) 0.4 k/uL (0-1.0); Monocytes % (A) 4 %; Neutrophils # (A) 8.6 k/uL (1.3-7.7); Neutrophils % (A) 93 %; Platelet Count 112 k/uL (150-450); RBC 4.82 m/uL (4.30-5.90); WBC 9.2 k/uL (3.8-10.6)
--- NOTE | 2023-07-23 05:59 | XR ---
EXAMINATION TYPE: XR chest 1V portable DATE OF EXAM: 07/23/2023 COMPARISON: Chest x-ray one day earlier and older studies. HISTORY: Fever TECHNIQUE: Single frontal view of the chest is obtained. FINDINGS: Persistent overlying sternal wires. Persistent cardiomegaly with multilead pacemaker/defib rillator and atherosclerotic thoracic aorta. Persistent low lung volumes with increased central cosmo ings bilaterally and elevated left hemidiaphragm. The osseous structures are intact. IMPRESSION: Low lung volumes and cardiomegaly with central increased markings favoring edema. Correl ate for CHF exacerbation/fluid overload state. Underlying acute infiltrates less likely but not exclu ded.
[2023-07-23 06:05] LABS: ALT 28 U/L (4-49); AST 46 U/L (17-59); African American GFR (CKD) 57 (>60 ml/min/1.73 sqM); Albumin 3.4 g/dL (3.5-5.0); Alkaline Phosphatase 149 U/L (38-126); Anion Gap 16 mmol/L; Blood Urea Nitrogen 31 mg/dL (9-20); Calcium 8.7 mg/dL (8.4-10.2); Carbon Dioxide 16 mmol/L (22-30); Chloride 108 mmol/L (98-107); Glucose 277 mg/dL (74-99); Magnesium 2.1 mg/dL (1.6-2.3); Non-African American GFR(CKD) 49 (>60 ml/min/1.73 sqM); Potassium 4.8 mmol/L (3.5-5.1); Sodium 140 mmol/L (137-145); Total Bilirubin 0.8 mg/dL (0.2-1.3); Total Protein 6.3 g/dL (6.3-8.2)
[2023-07-23 06:13] LABS: NT-Pro-B-Type Natriuretic Pept 9490 pg/mL
[2023-07-23] MEDS: FUROSEMIDE 10 MG/ML 4 ML VIAL IV STA (06:21)
[2023-07-23] MEDS ORDERED: NALOXONE 0.4 MG/ML 1 ML VIAL IV PRN (06:28)
[2023-07-23] MEDS ORDERED: ACETAMINOPHEN TAB 325 MG TAB PO PRN (06:28)
[2023-07-23] MEDS: AZITHROMYCIN 500 MG in SODIUM CHLORIDE 0.9% 250 ML IVPB STA (06:33)
--- NOTE | 2023-07-23 07:48 | CT ---
EXAMINATION TYPE: CT angio chest DATE OF EXAM: 07/23/2023 COMPARISON: None HISTORY: CECI, Positive D-dimer CT DLP: 337.2 mGycm CONTRAST: CT chest with contrast and 3D reconstruction with MIP imaging is performed without and with IV Contra st, patient injected with 100 ml mL of Isovue 370. Contrast-enhanced CT of the chest was performed through the course of the pulmonary arteries with dannie g and mediastinal window settings submitted. 3D reconstruction with MIP imaging was also performed. PULMONARY ARTERIES: The pulmonary arteries and their major tributaries are patent. I do not see meaghan dence for sizable filling defect to suggest pulmonary embolic process. LUNGS: The lungs are clear and free of infiltrate. Mild dependent basilar atelectasis. No pulmonary n odule or mass is detected. No pleural effusion. MEDIASTINUM: Thoracic aorta is of normal caliber. The heart is enlarged. No evidence for mediastina l mass. No mediastinal lymph nodes greater than 1cm. HILAR STRUCTURES: No evidence for mass. No hilar lymph nodes greater than 1 cm. UPPER ABDOMEN: No significant abnormality is seen. IMPRESSION: 1. No evidence for Pulmonary embolism at this time.
[2023-07-23] MEDS: FUROSEMIDE 10 MG/ML 4 ML VIAL IV SCH (08:13)
[2023-07-23] MEDS: METOPROLOL SUCCINATE (ER) 25 MG TAB.ER.24H PO SCH (08:14)
[2023-07-23] MEDS: SPIRONOLACTONE 25 MG TAB PO SCH (08:14)
[2023-07-23 08:47] LABS: Glucose,Whole Blood 296 mg/dL (70-110)
[2023-07-23] MEDS ORDERED: NITROGLYCERIN SL TABS 0.4 MG TAB SUBLINGUAL PRN (08:48)
[2023-07-23] MEDS: ASPIRIN 81 MG PO SCH (08:55)
[2023-07-23] MEDS: INSULIN ASPART (NovoLOG) 100 UNIT/ML VIAL SQ SCH ×2 (08:56→12:51)
[2023-07-23] MEDS: NON FORMULARY DRUG (Semaglutide [Rybelsus] 7 MG Tablet) PO SCH (10:15)
[2023-07-23] MEDS: COLLAGENASE 250 UNIT/GM TOPICAL SCH (10:15)
[2023-07-23] MEDS: ATORVASTATIN 40 MG TAB PO SCH (10:47)
[2023-07-23] MEDS: FLUoxetine HCL 20 MG CAP PO SCH (10:49)
[2023-07-23] MEDS: DAPAGLIFLOZIN PROPANEDIOL 10 MG TABLET PO SCH (10:49)
[2023-07-23] MEDS: CLOPIDOGREL 75 MG TAB PO SCH (10:50)
[2023-07-23] MEDS: POTASSIUM CHLORIDE ER 20 MEQ TAB.ER PO SCH (10:50)
[2023-07-23] MEDS: FUROSEMIDE 80 MG TAB PO SCH (10:51)
[2023-07-23] MEDS: SACUBITRIL/VALSARTAN 49 MG-51 MG TABLET PO SCH (10:52)
[2023-07-23] MEDS: FINASTERIDE 5 MG TAB PO SCH (10:57)
[2023-07-23] MEDS: DOXYCYCLINE 100 MG CAP PO SCH (11:01)
--- NOTE | 2023-07-23 11:58 | P.CNPUL ---
History of Present Illness Consult date: 07/23/23 Reason for consult: dyspnea History of present illness: This is Carlos is a 67-year-old male patient was brought into the hospital following a recent discharge with chief complaints of worsening shortness of breath. The patient was found to be hypoxic by the paramedics and apparently his pulse ox was in the low 70s. For that reason, the patient was brought into the emergency department. He does have an large number of medical problems and comorbidities. He is currently on 4 L of oxygen by nasal cannula. Afebrile and hemodynamically stable. His blood work shows a white cell count of 9.2 with a hemoglobin 12 and a platelet count of 112. Sodium is at 140 with a potassium level of 4.8, serum bicarb is at 16 with a BUN of 31 and a creatinine of 1.46 with a baseline creatinine being essentially within normal limits. Glucose at 277, troponin was at 0.1 and 0.3 respectively with a proBNP level of 9490. The viral screen has been negative. Calcium level of 8.7. Initial lactic acid level was as high as 5.1 dropped down to 1.7. The patient underwent a chest x- ray that showed smaller lung volumes along with cardiomegaly increased pulm vessel markings consistent with CHF. This was followed by CT angiogram of the chest that showed no evidence of any pulmonary embolism. Lungs were essentially free of any acute pulmonary infiltrates and there is some dependent atelectatic change in the lung bases. No evidence of any pleural effusion. The patient was started on IV Lasix. I noted a patch of cellulitis in his right lower ex tremity. Going back to the history, the patient has history of severe cardiomyopathy with an ejection fraction of 15 to 20%. The patient has been maintained on a combination of Entresto, Lasix and Aldactone on outpatient basis. The patient also has coronary disease and he has sustained non-ST seg ment elevation myocardial infarction during his earlier hospitalization and the most recent cardiac catheterization that was done on this patient was done on 07/04/2023 and the patient was found to have chronic occluded proximal LAD and circumflex and diffuse disease involving the RCA. The patient had a patent SVG to PDA, chronically occluded SVG to the circumflex and patent MEJIA to LAD and elevated left ventricular end-diastolic pressure and pressure was in the order of 25 to 30 mmHg consistent with CHF. The patient also has diabetes mellitus type 2, hypertension hyperlipidemia and BPH and history of diabetic foot ulcers and chronic cellulitis of the right lower extremity. During his last admission, a CAT scan of the foot was done and the patient did not have any active osteomyelitis. The patient was treated with IV Unasyn with subsequent improvement in the right lower extremity cellulitis. He was discharged on doxycycline. He does have an underlying pacemaker. He also has peripheral vascular disease,. Review of Systems CONSTITUTIONAL: Well-developed in mild respiratory distress EYES: No icterus sclerae, no conjunctivitis. EARS, NOSE, MOUTH, THROAT, and FACE: No sore throat, lymphadenopathy, carotid bruits or deformity. RESPIRATORY: Slight shortness of breath cough wheezes. CARDIOVASCULAR: Mild palpitation positive PND orthopnea no angina. GASTROINTESTINAL: No Abd pain, Nausea or vomiting, no Diarrhea or constipation, No GI Bleed, no distention or masses. GENITOURINARY: Decreased urine output with no kidney stone. INTEGUMENT/BREAST: Negative for any muscular injury with mild osteoarthritis.. HEMATOLOGIC/LYMPHATIC: Negative for bleed or purpura. The patient has cellulitis of the right lower extremity. Multiple amputations have been also noted. MUSCULOSKELTAL: Generalized myalgia and arthralgia. NEURLOGICAL: Slight slowness with no syncope or seizure. BEHAVIORAL/PSYCH: Negative. ENDOCRINE: Negative. Past Medical History Past Medical History: Coronary Artery Disease (CAD), Diabetes Mellitus, Hyperlipidemia, Hypertension Additional Past Medical History / Comment(s): wounds on right foot. History of Any Multi-Drug Resistant Organisms: None Reported Past Surgical History: Coronary Bypass/CABG, Orthopedic Surgery, Pacemaker Additional Past Surgical History / Comment(s): amputation 3 medial toes rt foot, one toe amp on left Past Anesthesia/Blood Transfusion Reactions: No Reported Reaction Type of Cardiac Device: Unknown Device Placement Date:: unknown Past Psychological History: Anxiety, Depression Smoking Status: Never smoker Past Alcohol Use History: None Reported Past Drug Use History: None Reported - Past Family History Mother Family Medical History: Diabetes Mellitus Father Family Medical History: Congestive Heart Failure (CHF) Brother(s) Family Medical History: Diabetes Mellitus Sister(s) Family Medical History: Diabetes Mellitus Medications and Allergies Home Medications Medication Instructions Recorded Confirmed Type Atorvastatin Calcium [Lipitor] 40 mg PO DAILY #30 tab 06/19/19 07/23/23 Rx Sacubitril/Valsartan [Entresto 49 1 tab PO BID 09/23/19 07/23/23 History mg-51 mg Tablet] ARIPiprazole [Abilify] 20 mg PO DAILY 03/19/23 07/23/23 History Clopidogrel [Plavix] 75 mg PO DAILY 03/19/23 07/23/23 History FLUoxetine HCL [PROzac] 40 mg PO DAILY 03/19/23 07/23/23 History Finasteride [Proscar] 5 mg PO DAILY 03/19/23 07/23/23 History Insulin Aspart [NovoLOG Flexpen] 5 units SQ AC-TID 03/19/23 07/23/23 History Semaglutide [Rybelsus] 7 mg PO DAILY 03/19/23 07/23/23 History Collagenase [Santyl Ointment] 1 applic TOPICAL DAILY 30 Days #1 03/25/23 07/23/23 Rx each Insulin Glargine,Hum.rec.anlog 15 units SQ HS #0 03/25/23 07/23/23 Rx [Lantus Solostar Pen] Aspirin EC [Ecotrin Low Dose] 81 mg PO DAILY 04/23/23 07/23/23 History Dapagliflozin Propanediol [Farxiga] 10 mg PO DAILY #30 tab 07/05/23 07/23/23 Rx Furosemide [Lasix] 80 mg PO Q12HR #180 tablet 07/05/23 07/23/23 Rx Metoprolol Succinate (ER) [Toprol 25 mg PO DAILY #30 tab 07/05/23 07/23/23 Rx XL] Nitroglycerin Sl Tabs [Nitrostat] 0.4 mg SUBLINGUAL Q5M PRN #25 tab 07/05/23 07/23/23 Rx Potassium Chloride ER [K-Dur 20] 20 meq PO DAILY #0 07/05/23 07/23/23 Rx Spironolactone [Aldactone] 25 mg PO DAILY #30 tab 07/05/23 07/23/23 Rx Doxycycline [Vibramycin] 100 mg PO BID 7 Days #14 capsule 07/22/23 07/23/23 Rx Zolpidem [Ambien] 5 mg PO HS 3 Days #3 tab 07/22/23 07/23/23 Rx Allergies Allergy/AdvReac Type Severity Reaction Status Date / Time hydrocodone AdvReac Hallucinati Verified 07/23/23 08:46 ons Physical Exam Vitals: Vital Signs Temp Pulse Resp BP Pulse Ox 07/23/23 11:15 98.4 F 07/23/23 10:46 72 20 91/52 99 07/23/23 09:00 97.8 F 75 20 104/63 98 07/23/23 08:12 98.5 F 79 22 87/53 96 07/23/23 07:25 84 22 91/55 99 07/23/23 07:05 26 H 07/23/23 07:00 100 F H 89 19 102/44 07/23/23 06:30 128 H 18 91/54 98 07/23/23 06:00 128 H 20 95/57 99 07/23/23 05:32 134 H 18 97/62 96 07/23/23 05:16 99.2 F 138 H 20 118/72 93 L Intake and Output 07/22/23 07/23/23 07/23/23 22:59 06:59 14:59 Other: Weight 65.771 kg General Appearance: Alert, slight respiratory distress. The patient is currently on 4 L of oxygen by nasal cannula. Not using accessory muscles of breathing. Neck HEENT: Supple, no lymphadenopathy, no thyroid enlargement, no carotid bruits. Lungs: Decreased breath sound bilaterally with fine rhonchi positive slight crackles and wheezes in the lower bases bilaterally. Chest Wall: Decreased expansion with deep inspiration no tenderness and no deformity was found on exam, no costochondral pain or discomfort. Heart: Irregular rate and rhythm, S1, S2 positive S3 positive gallop and slight systolic murmur. There is an ICD device in the left upper chest wall. Back: Symmetric, no curvature, ROM normal, no CVA tenderness. Abdomen: Soft positive bowel sounds slight discomfort lower abdominal region area no rebound or rigidity. Extremities: Extremities normal, atraumatic, no cyanosis 2+ edema of the lower extremity. The patient has cellulitis of the right lower extremity with poor circulation and multiple amputated toes Pulses: 2+ and symmetric. Skin: Skin color, texture, tugor normal, no rashes or lesions. Neurologic: Alert oriented x3 cranial nerves II through XII intact, no motor deficit, no abnormal balance or gait. Results - Laboratory Findings CBC and BMP: 07/23/23 05:25 07/23/23 05:25 PT/INR, D-dimer D-Dimer 2.27 mg/L FEU (<0.60) H 07/23/23 05:29 Abnormal lab findings: Abnormal Labs 07/23/23 07/23/23 07/23/23 05:25 05:25 05:25 Hgb 12.2 L RDW 16.0 H Plt Count 112 L Neutrophils # 8.6 H Lymphocytes # 0.2 L D-Dimer Chloride 108 H Carbon Dioxide 16 L BUN 31 H Creatinine 1.46 H Glucose 277 H POC Glucose (mg/dL) Plasma Lactic Acid Ludin 5.2 H* Alkaline Phosphatase 149 H Troponin I Albumin 3.4 L 07/23/23 07/23/23 07/23/23 05:26 05:29 05:34 Hgb RDW Plt Count Neutrophils # Lymphocytes # D-Dimer 2.27 H Chloride Carbon Dioxide BUN Creatinine Glucose POC Glucose (mg/dL) 445 H Plasma Lactic Acid Ludin Alkaline Phosphatase Troponin I 0.105 H* Albumin 07/23/23 07/23/23 07/23/23 06:46 08:44 09:09 Hgb RDW Plt Count Neutrophils # Lymphocytes # D-Dimer Chloride Carbon Dioxide BUN Creatinine Glucose POC Glucose (mg/dL) 296 H Plasma Lactic Acid Ludin 3.1 H* Alkaline Phosphatase Troponin I 0.363 H* Albumin - Diagnostic Findings Chest x-ray: image reviewed CT scan - chest: image reviewed Assessment and Plan Plan: Acute on chronic hypoxic respiratory failure and the patient is currently on 4 L of O2 nasal cannula. Reviewed the chest x-ray and the CT angiogram. No ev idence of any pulm embolism. No evidence of pneumonia. The patient may have a component of mild CHF at this point in time. Started on Lasix. Acute kidney injury, likely secondary cardiorenal factors Chronic cellulitis of the right lower extremity Chronic dyspnea CHF with impaired LV function with an ejection fraction of 15 to 20% and the patient has been maintained on a combination of Entresto, Lasix, Aldactone and the patient has been also given an AICD/pacer Coronary disease with previous bypass surgery. Please refer to the most recent cardiac catheterization that showed a patent MEJIA to LAD. Medical management is being offered. Abnormal troponins, likely type II myocardial ischemia due to infection, CHF and comorbidities Diabetes mellitus type 2 Diabetic ulcers with previous amputation in the toes bilaterally Hypertension Hyperlipidemia Chronic atrial fibrillation Severe BPH a Acute leukocytosis, improving Plan Titrate oxygen flow to maintain saturation above 90% currently on 4 L Continue IV Lasix Restart IV Unasyn regarding right lower extremity cellulitis Resume aspirin and Plavix Resume metoprolol 25 mg p.o. daily Resume Entresto and Aldactone monitor the potassium level and renal function Resume Bobby Will continue to follow.
[2023-07-23 12:04] LABS: Glucose,Whole Blood 372 mg/dL (70-110)
[2023-07-23] MEDS: AMPICILLIN-SULBACTAM 3 GM in SODIUM CHLORIDE 0.9% 100 ML IVPB SCH (12:18)
[2023-07-23] MEDS ORDERED: DEXTROSE 50% SYRINGE 50 ML IVP PRN ×2 (12:26)
[2023-07-23] MEDS ORDERED: INSULIN ASPART (NovoLOG) 100 UNIT/ML VIAL SQ SCH (12:30)
--- NOTE | 2023-07-23 12:49 | P.CRDCN ---
History of Present Illness Consult date: 07/23/23 Consult reason: congestive heart failure History of present illness: History of present illness: This is a 67-year-old male patient of Dr. Jean with past medical history of coronary artery disease status post CABG, ischemic cardiomyopathy with EF of 35%, chronic systolic heart failure, NYHA class III, hypertension, hyperlipidemia, obstructive sleep apnea, diabetes mellitus type 2, status post ICD biventricular device. We have been asked to evaluate the patient for CHF. Patient is poor historian. According to the ER note, patient was brought in by EMS due to dyspnea and fever and he was found to be hypoxic by EMS. Patient is seen today in the emergency center waiting for a bed on the cardiac stepdown unit. He is status post 1 dose of ceftriaxone and azithromycin. EKG #1 paced rhythm/sinus rhythm, #2 AVNRT Chest x-ray: Low lung volumes and cardiomegaly with central increased markings favoring edema. Correlate for CHF exacerbation fluid overload. Underlying acute infiltrate less likely but not excluded. CTA of the chest no evidence of pulmonary embolism. WBC 9.2, hemoglobin 12.2, platelet count 112. D-dimer 2.27. Sodium 140, potassium 4.8, BUN 31 creatinine 1.46. Blood sugar 277. Alkaline phosphatase 149 otherwise liver function test are normal. Magnesium 2.1. Lactic acid initially 5.2 now 1.7. Troponin 0.105, 0.363, 0.555. proBNP 9490. TSH 4.190. Acetone negative. Influenza A, influenza B, RSV, COVID-19 not detected. Home cardiac medications: Aspirin 81 mg daily, atorvastatin 40 mg daily, Plavix 75 mg daily, Farxiga 10 mg daily, Proscar 5 mg daily, Lasix 80 mg every 12 hours, Toprol XL 25 mg daily, Nitrostat as needed, K. Dur 20 mill equivalents daily, Entresto 49 mg - 51 mg 1 tablet twice daily, Rybelsus 7 mg daily, Aldactone 25 mg daily. Cardiac catheterization performed on 07/04/2023 revealed 100% proximal LAD, 100% proximal circumflex, 90% RCA, patent VG to RCA, 100% VG to circumflex, patent MEJIA to LAD, right dominant. Echocardiogram performed 07/01/2023 revealed EF 17%, mild AR, mild MR, estimated RVSP 48 mmHg. Review Of Systems: At the time of my exam: CONSTITUTIONAL: Denies fever or chills. HEENT: Denies blurred vision, vision changes, or eye pain. Denies hemoptysis CARDIOVASCULAR: Denies chest pain. Denies orthopnea. Denies PND. Denies palpitations RESPIRATORY: Denies shortness of breath. GASTROINTESTINAL: Denies abdominal pain. Denies nausea or vomiting. HEMATOLOGIC: Denies bleeding disorders. GENITOURINARY: Denies any blood in urine. SKIN: Denies pruitis. Denies rash. Physical examination: Gen: This is a 67-year-old male in no acute distress. VS: reviewed HEENT: Head is atraumatic, normocephalic. Pupils equal, round. Sclerae is anicteric. NECK: Supple. No JVD. LUNGS: Clear to auscultation. No wheezes or rhonchi. No intercostal retractions. HEART: Regular rate and rhythm. No murmur. ABDOMEN: Soft No tenderness. EXTREMITIES: Erythema right lower extremity, 1+ pedal edema. No calf tenderness. NEUROLOGICAL: Patient is awake, alert and oriented x3. Assessment: Acute hypoxic respiratory failure secondary to acute on chronic systolic heart failure Chronically elevated troponins Acute kidney injury AVNRT Cellulitis of the right lower extremity Coronary artery disease with previous CABG Ischemic cardiomyopathy with EF of 35% Chronic systolic heart failure NYHA class III Hypertension Hyperlipidemia Obstructive sleep apnea Diabetes mellitus type 2 Status post AICD biventricular Plan: Resume patient's home cardiac medications Continue IV Lasix 40 mg every 12 hours Decrease Entresto to 24 mg -26 mg twice daily Monitor ARIAS, daily weights, electrolytes and renal function No need to repeat echocardiogram as this was done last month Further recommendations to follow based upon clinical course Thank you kindly for this consultation. Nurse practitioner note has been reviewed, I agree with documented findings and plan of care. Patient was seen and examined. Past Medical History Past Medical History: Coronary Artery Disease (CAD), Diabetes Mellitus, Hyperlipidemia, Hypertension Additional Past Medical History / Comment(s): wounds on right foot. History of Any Multi-Drug Resistant Organisms: None Reported Past Surgical History: Coronary Bypass/CABG, Orthopedic Surgery, Pacemaker Additional Past Surgical History / Comment(s): amputation 3 medial toes rt foot, one toe amp on left Past Anesthesia/Blood Transfusion Reactions: No Reported Reaction Type of Cardiac Device: Unknown Device Placement Date:: unknown Past Psychological History: Anxiety, Depression Smoking Status: Never smoker Past Alcohol Use History: None Reported Past Drug Use History: None Reported - Past Family History Mother Family Medical History: Diabetes Mellitus Father Family Medical History: Congestive Heart Failure (CHF) Brother(s) Family Medical History: Diabetes Mellitus Sister(s) Family Medical History: Diabetes Mellitus Medications and Allergies Home Medications Medication Instructions Recorded Confirmed Type Atorvastatin Calcium [Lipitor] 40 mg PO DAILY #30 tab 06/19/19 07/23/23 Rx Sacubitril/Valsartan [Entresto 49 1 tab PO BID 09/23/19 07/23/23 History mg-51 mg Tablet] ARIPiprazole [Abilify] 20 mg PO DAILY 03/19/23 07/23/23 History Clopidogrel [Plavix] 75 mg PO DAILY 03/19/23 07/23/23 History FLUoxetine HCL [PROzac] 40 mg PO DAILY 03/19/23 07/23/23 History Finasteride [Proscar] 5 mg PO DAILY 03/19/23 07/23/23 History Insulin Aspart [NovoLOG Flexpen] 5 units SQ AC-TID 03/19/23 07/23/23 History Semaglutide [Rybelsus] 7 mg PO DAILY 03/19/23 07/23/23 History Collagenase [Santyl Ointment] 1 applic TOPICAL DAILY 30 Days #1 03/25/23 07/23/23 Rx each Insulin Glargine,Hum.rec.anlog 15 units SQ HS #0 03/25/23 07/23/23 Rx [Lantus Solostar Pen] Aspirin EC [Ecotrin Low Dose] 81 mg PO DAILY 04/23/23 07/23/23 History Dapagliflozin Propanediol [Farxiga] 10 mg PO DAILY #30 tab 07/05/23 07/23/23 Rx Furosemide [Lasix] 80 mg PO Q12HR #180 tablet 07/05/23 07/23/23 Rx Metoprolol Succinate (ER) [Toprol 25 mg PO DAILY #30 tab 07/05/23 07/23/23 Rx XL] Nitroglycerin Sl Tabs [Nitrostat] 0.4 mg SUBLINGUAL Q5M PRN #25 tab 07/05/23 07/23/23 Rx Potassium Chloride ER [K-Dur 20] 20 meq PO DAILY #0 07/05/23 07/23/23 Rx Spironolactone [Aldactone] 25 mg PO DAILY #30 tab 07/05/23 07/23/23 Rx Doxycycline [Vibramycin] 100 mg PO BID 7 Days #14 capsule 07/22/23 07/23/23 Rx Zolpidem [Ambien] 5 mg PO HS 3 Days #3 tab 07/22/23 07/23/23 Rx Allergies Allergy/AdvReac Type Severity Reaction Status Date / Time hydrocodone AdvReac Hallucinati Verified 07/23/23 08:46 ons Physical Exam Vitals: Vital Signs Temp Pulse Resp BP Pulse Ox 07/23/23 07:25 84 22 91/55 99 07/23/23 07:05 26 H 07/23/23 07:00 100 F H 89 19 102/44 07/23/23 06:30 128 H 18 91/54 98 07/23/23 06:00 128 H 20 95/57 99 07/23/23 05:32 134 H 18 97/62 96 07/23/23 05:16 99.2 F 138 H 20 118/72 93 L Intake and Output 07/22/23 07/23/23 07/23/23 22:59 06:59 14:59 Other: Weight 65.771 kg Results 07/23/23 05:25 07/23/23 05:25 Cardiac Enzymes 07/23/23 07/23/23 Range/Units 05:25 05:26 AST 46 (17-59) U/L Troponin I 0.105 H* (0.000-0.034) ng/mL CBC 07/23/23 Range/Units 05:25 WBC 9.2 (3.8-10.6) k/uL RBC 4.82 (4.30-5.90) m/uL Hgb 12.2 L (13.0-17.5) gm/dL Hct 39.3 (39.0-53.0) % Plt Count 112 L (150-450) k/uL Comprehensive Metabolic Panel 07/23/23 Range/Units 05:25 Sodium 140 (137-145) mmol/L Potassium 4.8 (3.5-5.1) mmol/L Chloride 108 H (98-107) mmol/L Carbon Dioxide 16 L (22-30) mmol/L BUN 31 H (9-20) mg/dL Creatinine 1.46 H (0.66-1.25) mg/dL Glucose 277 H (74-99) mg/dL Calcium 8.7 (8.4-10.2) mg/dL AST 46 (17-59) U/L ALT 28 (4-49) U/L Alkaline Phosphatase 149 H (38-126) U/L Total Protein 6.3 (6.3-8.2) g/dL Albumin 3.4 L (3.5-5.0) g/dL Current Medications Generic Name Dose Route Start Last Admin Trade Name Freq PRN Reason Stop Dose Admin Acetaminophen 650 mg 07/23/23 06:28 Acetaminophen Tab 325 Mg Tab PO Q6HR PRN Mild Pain or Fever > 100.5 Aspirin 81 mg 07/23/23 09:00 Aspirin 81 Mg PO DAILY [facility] Furosemide 40 mg 07/23/23 09:00 Furosemide 10 Mg/Ml 4 Ml Vial IV Q12HR [facility] Insulin Aspart 5 unit 07/23/23 07:30 Insulin Aspart (Novolog) 100 Unit/Ml Vial SQ AC-TID [facility] Insulin Detemir 15 unit 07/23/23 21:00 Insulin Detemir (Levemir) 100 Unit/Ml Syr SQ HS [facility] Metoprolol Succinate 25 mg 07/23/23 09:00 Metoprolol Succinate (Er) 25 Mg Tab.Er.24h PO DAILY [facility] Naloxone HCl 0.2 mg 07/23/23 06:28 Naloxone 0.4 Mg/Ml 1 Ml Vial IV Q2M PRN Opioid Reversal Spironolactone 25 mg 07/23/23 09:00 Spironolactone 25 Mg Tab PO DAILY [facility] Intake and Output 07/22/23 07/23/23 07/23/23 22:59 06:59 14:59 Other: Weight 65.771 kg 07/23/23 05:25 07/23/23 05:25
--- NOTE | 2023-07-23 13:23 | P.HPIM ---
History of Present Illness H&P Date: 07/23/23 HISTORY OF PRESENT ILLNESS: 67-year-old male one of our office practice who had recurrent cellulitis of the lower extremity, ischemic cardiomyopathy with advanced heart failure with ejection fraction of 10-15 percentile, also has recurrent cellulitis and diabetic foot on both sides worse on the right side than the left side. Patient is known to have history of CAD post CABG years ago done at [facility] he is followed with cardiology in town with his last admission with the significant decline in his ejection fraction ended up going for heart cath came back with chronic stenosis nothing require any intervention at the time. Patient was in the hospital for over 5 days and was discharged home upon his discharge communicate with his family apparently patient is not does not have any significant other and he has a brother and sister lives with him they were not aware of his condition when explaining to them that his advanced heart failure leave him with extremely high mortality and severe comorbidity at any time to put some more effort to help him out with transportation, diet, appointment and reminder family were willing to do the best he can. Patient presented to the emergency department yesterday complaining of slight nausea vomiting with low-grade temperature chest x-ray showed? Of infiltrate patient white blood cell and testing were negative for sent home on oral antibiotics apparently made at home never took any of his medication he takes for his heart failure and cardiomyopathy for the whole day ended up having to call 911 very group social worker with severe dyspnea and shortness of breath found to be in respiratory distress ended up coming to the emergency department at [facility] with severe hypoxia and severe fluid overload most likely from noncompliance to not taking his medication yesterday. Was giving some furosemide started on updraft treatment troponin was mildly elevated at the time patient was started on 4 L of O2 to keep his pulse ox above 90 percentile will be hospitalized with worsening dyspnea shortness of breath and respiratory failure with worsening cardiomyopathy will be seeing cardiology and pulmonary. Shortly after his arrival to the emergency department seen him patient seems to be little bit more comfortable on 4 L of O2 and explained to him that the necessity of taking his medication on time not to skip any doses specially with his cardiomyopathy that can make his heart failure much worse in short period time. Also review his x-ray and testing seem like he might have an infiltrate in the bases bilaterally will be on IV antibiotics will be seen pulmonary as well. REVIEW OF SYSTEMS: CONSTITUTIONAL: Well-developed in mild respiratory distress EYES: No icterus sclerae, no conjunctivitis. EARS, NOSE, MOUTH, THROAT, and FACE: No sore throat, lymphadenopathy, carotid bruits or deformity. RESPIRATORY: Slight shortness of breath cough wheezes. CARDIOVASCULAR: Mild palpitation positive PND orthopnea no angina. GASTROINTESTINAL: No Abd pain, Nausea or vomiting, no Diarrhea or constipation, No GI Bleed, no distention or masses. GENITOURINARY: Decreased urine output with no kidney stone. INTEGUMENT/BREAST: Negative for any muscular injury with mild osteoarthritis.. HEMATOLOGIC/LYMPHATIC: Negative for bleed or purpura. MUSCULOSKELTAL: Generalized myalgia and arthralgia. Slight swelling with cellulitis of the lower extremity worse on the right than the left side and quite bit edema. NEURLOGICAL: Slight slowness with no syncope or seizure. BEHAVIORAL/PSYCH: Negative. ENDOCRINE: Negative. PHYSICAL EXAMINATION: General Appearance: Alert, slight respiratory distress. Neck HEENT: Supple, no lymphadenopathy, no thyroid enlargement, no carotid bruits. Lungs: Decreased breath sound bilaterally with fine rhonchi positive slight crackles and wheezes in the lower bases bilaterally. Chest Wall: Decreased expansion with deep inspiration no tenderness and no deformity was found on exam, no costochondral pain or discomfort. Heart: Irregular rate and rhythm, S1, S2 positive S3 positive gallop and slight systolic murmur. There is an ICD device in the left upper chest wall. Back: Symmetric, no curvature, ROM normal, no CVA tenderness. Abdomen: Soft positive bowel sounds slight discomfort lower abdominal region area no rebound or rigidity. Extremities: Extremities quite bit abnormal, atraumatic, no cyanosis 2+ edema of the lower extremity. Significant cellulitis worsening area of open sore on the medial aspect of the right leg the left side has 1+ edema as well. Pulses: 2+ and symmetric. Skin: Skin color, texture, tugor normal, no rashes or lesions. Neurologic: Alert oriented x3 cranial nerves II through XII intact, no motor d eficit, no abnormal balance or gait. ASSESSMENT AND PLAN: _Acute respiratory failure combination of congestive heart failure, fluid overload, cardiomyopathy, A-fib along with bilateral pneumonia and COPD. Patient be treated continue O2, updraft treatment, IV diuretics, will be seen pulmonary and cardiology. _Congestive heart failure exacerbation mostly systolic dysfunction with acute component most likely secondary to noncompliance to medication reviewed the ches t x-ray between last night and this morning and patient did not take any of his heart failure medication for over 16 hours made this happen very quickly as he had significant fluid retention causing his heart failure and caused him to be in early pulmonary edema. Will resume home meds continue diuretics patient be seen cardiology as well. _Severe advanced ischemic cardiomyopathy with congestive heart failure stage V: Has been on adjusted medical management reviewed very carefully last time with cardiology and nephrology and agree on the current plan and management will keep watching his symptoms quite carefully may be one of the tackle to reduce the odds of coming to the emergency department that for the patient to be seen in the office between [facility] at least every 2 weeks. _Elevated troponin with possible transmural MT: Will be seen cardiology CK troponin x 3 will be done he just had an echocardiogram no reason to repeat another 1 for the time being. _Possible bilateral pneumonia: He was started on Unasyn after reducing pulmonary edema will repeat chest x-ray in 48 hours and see the improvement. _A-fib with RVR: Remain on anticoagulation and still on metoprolol. _Type 2 diabetes: Not well-controlled remain on Farxiga,Rybelsus and Lantus, A ccu-Chek with sliding scale coverage will be done. _Acute kidney injury most likely acute tubular necrosis with worsening kidney function compared to last time again continue current management repeat BUN/creatinine. _Elevated D-dimer: With no sign of pulmonary embolism patient might require to go for CTA at some point. _Severe cellulitis of the lower extremity worsening on the right side and left side we will continue Unasyn for now and topical care. _Recent diabetic foot was seen at the wound clinic regularly and doing better. _Hypertension: Remain on Norvasc 2.5 mg a day, Entresto 49/51 mg twice a day, still on diuretics as well. _Hyperlipidemia: Remain on atorvastatin 40 mg a day. _Severe BPH: Watch for any urinary retention. GI prophylaxis: Will add Pepcid 20 mg daily. DVT prophylaxis: Lovenox 40 mg subcutaneous will be used for now. CODE STATUS: Full code. Admit patient to the inpatient service for more than 2 night stay. Past Medical History Past Medical History: Coronary Artery Disease (CAD), Diabetes Mellitus, Hyperlipidemia, Hypertension Additional Past Medical History / Comment(s): wounds on right foot. History of Any Multi-Drug Resistant Organisms: None Reported Past Surgical History: Coronary Bypass/CABG, Orthopedic Surgery, Pacemaker Additional Past Surgical History / Comment(s): amputation 3 medial toes rt foot, one toe amp on left Past Anesthesia/Blood Transfusion Reactions: No Reported Reaction Type of Cardiac Device: Unknown Device Placement Date:: unknown Past Psychological History: Anxiety, Depression Smoking Status: Never smoker Past Alcohol Use History: None Reported Past Drug Use History: None Reported - Past Family History Mother Family Medical History: Diabetes Mellitus Father Family Medical History: Congestive Heart Failure (CHF) Brother(s) Family Medical History: Diabetes Mellitus Sister(s) Family Medical History: Diabetes Mellitus Medications and Allergies Home Medications Medication Instructions Recorded Confirmed Type Atorvastatin Calcium [Lipitor] 40 mg PO DAILY #30 tab 06/19/19 07/23/23 Rx Sacubitril/Valsartan [Entresto 49 1 tab PO BID 09/23/19 07/23/23 History mg-51 mg Tablet] ARIPiprazole [Abilify] 20 mg PO DAILY 03/19/23 07/23/23 History Clopidogrel [Plavix] 75 mg PO DAILY 03/19/23 07/23/23 History FLUoxetine HCL [PROzac] 40 mg PO DAILY 03/19/23 07/23/23 History Finasteride [Proscar] 5 mg PO DAILY 03/19/23 07/23/23 History Insulin Aspart [NovoLOG Flexpen] 5 units SQ AC-TID 03/19/23 07/23/23 History Semaglutide [Rybelsus] 7 mg PO DAILY 03/19/23 07/23/23 History Collagenase [Santyl Ointment] 1 applic TOPICAL DAILY 30 Days #1 03/25/23 07/23/23 Rx each Insulin Glargine,Hum.rec.anlog 15 units SQ HS #0 03/25/23 07/23/23 Rx [Lantus Solostar Pen] Aspirin EC [Ecotrin Low Dose] 81 mg PO DAILY 04/23/23 07/23/23 History Dapagliflozin Propanediol [Farxiga] 10 mg PO DAILY #30 tab 07/05/23 07/23/23 Rx Furosemide [Lasix] 80 mg PO Q12HR #180 tablet 07/05/23 07/23/23 Rx Metoprolol Succinate (ER) [Toprol 25 mg PO DAILY #30 tab 07/05/23 07/23/23 Rx XL] Nitroglycerin Sl Tabs [Nitrostat] 0.4 mg SUBLINGUAL Q5M PRN #25 tab 07/05/23 07/23/23 Rx Potassium Chloride ER [K-Dur 20] 20 meq PO DAILY #0 07/05/23 07/23/23 Rx Spironolactone [Aldactone] 25 mg PO DAILY #30 tab 07/05/23 07/23/23 Rx Doxycycline [Vibramycin] 100 mg PO BID 7 Days #14 capsule 07/22/23 07/23/23 Rx Zolpidem [Ambien] 5 mg PO HS 3 Days #3 tab 07/22/23 07/23/23 Rx Allergies Allergy/AdvReac Type Severity Reaction Status Date / Time hydrocodone AdvReac Hallucinati Verified 07/23/23 08:46 ons Physical Exam Vitals: Vital Signs Temp Pulse Resp BP Pulse Ox 07/23/23 08:12 98.5 F 79 22 87/53 96 07/23/23 07:25 84 22 91/55 99 07/23/23 07:05 26 H 07/23/23 07:00 100 F H 89 19 102/44 07/23/23 06:30 128 H 18 91/54 98 07/23/23 06:00 128 H 20 95/57 99 07/23/23 05:32 134 H 18 97/62 96 07/23/23 05:16 99.2 F 138 H 20 118/72 93 L Intake and Output 07/22/23 07/23/23 07/23/23 22:59 06:59 14:59 Other: Weight 65.771 kg Results CBC & Chem 7: 07/23/23 05:25 07/23/23 05:25 Labs: Abnormal Lab Results - Last 24 Hours (Table) 07/23/23 07/23/23 07/23/23 Range/Units 05:25 05:25 05:25 Hgb 12.2 L (13.0-17.5) gm/dL RDW 16.0 H (11.5-15.5) % Plt Count 112 L (150-450) k/uL Neutrophils # 8.6 H (1.3-7.7) k/uL Lymphocytes # 0.2 L (1.0-4.8) k/uL D-Dimer (<0.60) mg/L FEU Chloride 108 H (98-107) mmol/L Carbon Dioxide 16 L (22-30) mmol/L BUN 31 H (9-20) mg/dL Creatinine 1.46 H (0.66-1.25) mg/dL Glucose 277 H (74-99) mg/dL POC Glucose (mg/dL) (70-110) mg/dL Plasma Lactic Acid Ludin 5.2 H* (0.7-2.0) mmol/L Alkaline Phosphatase 149 H (38-126) U/L Troponin I (0.000-0.034) ng/mL Albumin 3.4 L (3.5-5.0) g/dL 07/23/23 07/23/23 07/23/23 Range/Units 05:26 05:29 05:34 Hgb (13.0-17.5) gm/dL RDW (11.5-15.5) % Plt Count (150-450) k/uL Neutrophils # (1.3-7.7) k/uL Lymphocytes # (1.0-4.8) k/uL D-Dimer 2.27 H (<0.60) mg/L FEU Chloride (98-107) mmol/L Carbon Dioxide (22-30) mmol/L BUN (9-20) mg/dL Creatinine (0.66-1.25) mg/dL Glucose (74-99) mg/dL POC Glucose (mg/dL) 445 H (70-110) mg/dL Plasma Lactic Acid Ludin (0.7-2.0) mmol/L Alkaline Phosphatase (38-126) U/L Troponin I 0.105 H* (0.000-0.034) ng/mL Albumin (3.5-5.0) g/dL 07/23/23 07/23/23 Range/Units 06:46 08:44 Hgb (13.0-17.5) gm/dL RDW (11.5-15.5) % Plt Count (150-450) k/uL Neutrophils # (1.3-7.7) k/uL Lymphocytes # (1.0-4.8) k/uL D-Dimer (<0.60) mg/L FEU Chloride (98-107) mmol/L Carbon Dioxide (22-30) mmol/L BUN (9-20) mg/dL Creatinine (0.66-1.25) mg/dL Glucose (74-99) mg/dL POC Glucose (mg/dL) 296 H (70-110) mg/dL Plasma Lactic Acid Ludin 3.1 H* (0.7-2.0) mmol/L Alkaline Phosphatase (38-126) U/L Troponin I (0.000-0.034) ng/mL Albumin (3.5-5.0) g/dL
[2023-07-23 14:28] LABS: Appearance,Urine Clear (Clear); Bilirubin,Urine Negative (Negative); Blood,Urine Trace (Negative); Color,Urine Colorless; Glucose,Urine (UA) 4+ (Negative); Ketones,Urine Negative (Negative); Leukocyte Esterase,Urine Negative (Negative); Mucus,Urine Rare /hpf; Nitrite,Urine Negative (Negative); Protein,Urine Trace (Negative); RBC,Urine 1 /hpf (0-5); Specific Gravity,Urine 1.033 (1.001-1.035); Squamous Epithelial Cell,Urine <1 /hpf (0-4); Urobilinogen,Urine <2.0 mg/dL (<2.0); WBC,Urine 1 /hpf (0-5)
[2023-07-23 16:39] LABS: Glucose,Whole Blood 125 mg/dL (70-110)
[2023-07-23 20:18] LABS: Glucose,Whole Blood 153 mg/dL (70-110)
[2023-07-23] MEDS: INSULIN DETEMIR (LEVEMIR) 100 UNIT/ML SYR SQ SCH (21:37)
[2023-07-23] MEDS: ZOLPIDEM 5 MG TAB PO SCH (21:37)
[2023-07-24] MEDS: SACUBITRIL/VALSARTAN 24 MG-26 MG TABLET PO SCH (01:29)
[2023-07-24 06:05] LABS: Glucose,Whole Blood 105 mg/dL (70-110)
--- NOTE | 2023-07-24 10:30 | CDI ---
Documentation Clarification Form Date: 07/24/2023 10:15:12 AM From: Darline Garcia RN CCDS Phone: [phone] Admit Date: 07/23/2023 06:28:00 AM Patient Name: Eric Bean Visit Number: [id number] Discharge Date: ATTENTION: The Clinical Documentation Specialists (CDI) and [facility] Coding Staff appreciate your assistance in clarifying documentation. Please respond to the clarification below the line at the bottom and electronically sign. The CDI & [facility] Coding staff will review the response and follow-up if needed. Please note: Queries are made part of the Legal Health Record. If you have any questions, please contact the author of this message via ITS. Dr. Mauricio Nowak, stage 1 pressure ulcer is documented by Nursing 07/22, Pressure Injury assessment. Based on this information and the findings below, is there an additional diagnosis that is clinically appropriate for this patient? History/Risk Factors: 67-year-old male presents to the ED with severe dyspnea, shortness of breath found to be in respiratory distress. Medical History: Ischemic Cardiomyopathy, CHF, A-fib, Cellulitis, DM2, DM foot infection and severe BPH. 07/22, H&P. Clinical Indicators: Location: Coccyx Wound description: Stage 1 Treatment: Absorbent under pad check hourly, Turn 2QH while in bed Is there an additional diagnosis that is clinically appropriate for this patient? [ xx ] Coccyx Pressure Ulcer Stage 1 [ ] Other condition, please specify [ ] Unable to determine Clinical Definitions: Stage 1 Pressure Ulcer: intact skin, non-blanching redness of local area Stage 2 Pressure Ulcer: Partial thickness, loss of dermis, pink wound bed Stage 3 Pressure Ulcer: Full thickness tissue loss Stage 4 Pressure Ulcer: Full thickness tissue loss with exposed bone, tendon, or muscle. Unstageable pressure ulcer: Full thickness tissue loss in which the base of the ulcer is covered by slough (yellow, reyna, velasco, green or brown) and/or eschar (reyna, brown or black) in the wound bed. (Template Last Revised: June 2020) MTDD
[2023-07-24] MEDS: AMIODARONE 200 MG TAB PO SCH (11:12)
[2023-07-24 11:28] LABS: Glucose,Whole Blood 90 mg/dL (70-110)
[2023-07-24 11:30] LABS: HCT 36.5 % (39.0-53.0); HGB 11.1 gm/dL (13.0-17.5); Hypochromasia Marked; MCH 24.9 pg (25.0-35.0); MCHC 30.4 g/dL (31.0-37.0); MCV 81.9 fL (80.0-100.0); Platelet Count 128 k/uL (150-450); RBC 4.46 m/uL (4.30-5.90); RDW 15.8 % (11.5-15.5); WBC 8.3 k/uL (3.8-10.6)
[2023-07-24 12:13] LABS: ALT 48 U/L (4-49); AST 97 U/L (17-59); African American GFR (CKD) 61 (>60 ml/min/1.73 sqM); Albumin 2.8 g/dL (3.5-5.0); Alkaline Phosphatase 121 U/L (38-126); Anion Gap 7 mmol/L; Blood Urea Nitrogen 36 mg/dL (9-20); Calcium 8.2 mg/dL (8.4-10.2); Carbon Dioxide 23 mmol/L (22-30); Chloride 110 mmol/L (98-107); Glucose 88 mg/dL (74-99); Non-African American GFR(CKD) 53 (>60 ml/min/1.73 sqM); Potassium 4.1 mmol/L (3.5-5.1); Sodium 140 mmol/L (137-145); Total Bilirubin 0.4 mg/dL (0.2-1.3); Total Protein 5.7 g/dL (6.3-8.2)
--- NOTE | 2023-07-24 13:17 | P.PN ---
Subjective Progress Note Date: 07/24/23 Consult reason: congestive heart failure History of present illness: This is a 67-year-old male patient of Dr. Jean with past medical history of coronary artery disease status post CABG, ischemic cardiomyopathy with EF of 35%, chronic systolic heart failure, NYHA class III, hypertension, hyperlipidemia, obstructive sleep apnea, diabetes mellitus type 2, status post ICD biventricular device. We have been asked to evaluate the patient for CHF. Patient is poor historian. According to the ER note, patient was brought in by EMS due to dyspnea and fever and he was found to be hypoxic by EMS. Patient is seen today in the emergency center waiting for a bed on the cardiac stepdown unit. He is status post 1 dose of ceftriaxone and azithromycin. EKG #1 paced rhythm/sinus rhythm, #2 AVNRT Chest x-ray: Low lung volumes and cardiomegaly with central increased markings favoring edema. Correlate for CHF exacerbation fluid overload. Underlying acut e infiltrate less likely but not excluded. CTA of the chest no evidence of pulmonary embolism. WBC 9.2, hemoglobin 12.2, platelet count 112. D-dimer 2.27. Sodium 140, potassium 4.8, BUN 31 creatinine 1.46. Blood sugar 277. Alkaline phosphatase 149 otherwise liver function test are normal. Magnesium 2.1. Lactic acid initially 5.2 now 1.7. Troponin 0.105, 0.363, 0.555. proBNP 9490. TSH 4.190. Acetone negative. Influenza A, influenza B, RSV, COVID-19 not detected. Home cardiac medications: Aspirin 81 mg daily, atorvastatin 40 mg daily, Plavix 75 mg daily, Farxiga 10 mg daily, Proscar 5 mg daily, Lasix 80 mg every 12 hours, Toprol XL 25 mg daily, Nitrostat as needed, K. Dur 20 mill equivalents daily, Entresto 49 mg - 51 mg 1 tablet twice daily, Rybelsus 7 mg daily, Aldactone 25 mg daily. Cardiac catheterization performed on 07/04/2023 revealed 100% proximal LAD, 100% proximal circumflex, 90% RCA, patent VG to RCA, 100% VG to circumflex, patent MEJIA to LAD, right dominant. Echocardiogram performed 07/01/2023 revealed EF 17%, mild AR, mild MR, estimated RVSP 48 mmHg. 07/23 Patient is seen today in follow up. Blood pressure readings have been soft and heart rate has been running in the 120s and 130s but telemetry is currently 70, paced rhythm with occasional PVCs. Repeat blood work reveals hemoglobin 11.1, BUN 36 creatinine 1.37 potassium 4.1. Yesterday, we decreased Entresto to the 24-26 mg dose. Physical examination: Gen: This is a 67-year-old male in no acute distress. VS: reviewed HEENT: Head is atraumatic, normocephalic. Pupils equal, round. Sclerae is anicteric. NECK: Supple. No JVD. LUNGS: Clear to auscultation. No wheezes or rhonchi. No intercostal retrac tions. HEART: Regular rate and rhythm. No murmur. ABDOMEN: Soft No tenderness. EXTREMITIES: Erythema right lower extremity, 1+ pedal edema. No calf tenderness. NEUROLOGICAL: Patient is awake, alert and oriented x3. Assessment: Acute hypoxic respiratory failure secondary to acute on chronic systolic heart failure Chronically elevated troponins Acute kidney injury AVNRT Cellulitis of the right lower extremity Coronary artery disease with previous CABG Ischemic cardiomyopathy with EF of 35% Chronic systolic heart failure NYHA class III Hypertension Hyperlipidemia Obstructive sleep apnea Diabetes mellitus type 2 Status post AICD biventricular Plan: Continue patient's home cardiac medications Continue decreased Entresto 24 mg -26 mg twice daily Start patient on amiodarone 400 mg daily No change in beta-nicky Patient is on oral diuretics Monitor ARIAS, daily weights, electrolytes and renal function No need to repeat echocardiogram as this was done last month Further recommendations to follow based upon clinical course Nurse practitioner note has been reviewed, I agree with documented findings and plan of care. Patient was seen and examined. Objective - Vital Signs Vital signs: Vital Signs Temp 98.0 F 07/24/23 07:41 Pulse 127 H 07/24/23 07:41 Resp 18 07/24/23 07:41 BP 94/63 07/24/23 07:41 Pulse Ox 100 07/24/23 07:41 FiO2 Intake & Output 07/23/23 07/24/23 07/24/23 18:59 06:59 18:59 Intake Total 333 180 Output Total 1725 Balance -1392 180 Weight 65.771 kg 85 kg Intake: Oral 333 180 Output: Urine 1725 Other: Voiding Method External Catheter External Catheter External Catheter - Labs CBC & Chem 7: 07/24/23 10:01 07/24/23 10:01 Labs: Abnormal Lab Results - Last 24 Hours (Table) 07/23/23 07/23/23 07/23/23 Range/Units 09:09 11:32 12:02 POC Glucose (mg/dL) 372 H (70-110) mg/dL Troponin I 0.363 H* 0.555 H* (0.000-0.034) ng/mL Urine Protein (Negative) Urine Glucose (UA) (Negative) Urine Blood (Negative) Urine Mucus (None) /hpf 07/23/23 07/23/23 07/23/23 Range/Units 14:13 16:37 20:16 POC Glucose (mg/dL) 125 H 153 H (70-110) mg/dL Troponin I (0.000-0.034) ng/mL Urine Protein Trace H (Negative) Urine Glucose (UA) 4+ H (Negative) Urine Blood Trace H (Negative) Urine Mucus Rare H (None) /hpf
[2023-07-24 14:03] LABS: Glucose,Whole Blood 169 mg/dL (70-110)
--- NOTE | 2023-07-24 14:30 | P.PN ---
Subjective Progress Note Date: 07/24/23 This is Carlos is a 67-year-old male patient was brought into the hospital following a recent discharge with chief complaints of worsening shortness of breath. The patient was found to be hypoxic by the paramedics and apparently his pulse ox was in the low 70s. For that reason, the patient was brought into the emergency department. He does have an large number of medical problems and comorbidities. He is currently on 4 L of oxygen by nasal cannula. Afebrile and hemodynamically stable. His blood work shows a white cell count of 9.2 with a hemoglobin 12 and a platelet count of 112. Sodium is at 140 with a potassium level of 4.8, serum bicarb is at 16 with a BUN of 31 and a creatinine of 1.46 with a baseline creatinine being essentially within normal limits. Glucose at 277, troponin was at 0.1 and 0.3 respectively with a proBNP level of 9490. The viral screen has been negative. Calcium level of 8.7. Initial lactic acid level was as high as 5.1 dropped down to 1.7. The patient underwent a chest x- ray that showed smaller lung volumes along with cardiomegaly increased pulm vessel markings consistent with CHF. This was followed by CT angiogram of the chest that showed no evidence of any pulmonary embolism. Lungs were essentially free of any acute pulmonary infiltrates and there is some dependent atelectatic change in the lung bases. No evidence of any pleural effusion. The patient was started on IV Lasix. I noted a patch of cellulitis in his right lower extremity. Going back to the history, the patient has history of severe cardiomyopathy with an ejection fraction of 15 to 20%. The patient has been maintained on a combination of Entresto, Lasix and Aldactone on outpatient basis. The patient also has coronary disease and he has sustained non-ST segment elevation myocardial infarction during his earlier hospitalization and the most recent cardiac catheterization that was done on this patient was done on 07/04/2023 and the patient was found to have chronic occluded proximal LAD and circumflex and diffuse disease involving the RCA. The patient had a patent SVG to PDA, chronically occluded SVG to the circumflex and patent MEJIA to LAD and elevated left ventricular end-diastolic pressure and pressure was in the order of 25 to 30 mmHg consistent with CHF. The patient also has diabetes mellitus type 2, hypertension hyperlipidemia and BPH and history of diabetic foot ulcers and chronic cellulitis of the right lower extremity. During his last admission, a CAT scan of the foot was done and the patient did not have any active osteomyelitis. The patient was treated with IV Unasyn with subsequent improvement in the right lower extremity cellulitis. He was discharged on doxycycline. He does have an underlying pacemaker. He also has peripheral vascular disease,. 07/24/2023, the patient is being seen for a follow-up. The patient is feeling better compared to yesterday. No significant shortness of breath. Started on diuretics and the patient is currently on Lasix producing adequate amount of urine output. The patient is on 80 mg of p.o. Lasix twice a day. He is also being treated for cellulitis of the right lower extremity. The patient is cur rently on IV Unasyn. The right lower extremity is improved compared to yesterday. Otherwise, no new complaints. The patient remains on oxygen at 4 L with a pulse ox of 99%. FiO2 can be obviously weaned off. WBC count is at 8.3 with a hemoglobin 11.1 and a platelet count of 128, BUN is 36 with a creatinine of 1.37 and a sodium levels of 140 with a potassium level of 4.1. Hemodynamically stable. Sitting up in a chair and is calm and comfortable. Objective - Vital Signs Vital signs: Vital Signs Temp 98.0 F 07/24/23 07:41 Pulse 127 H 07/24/23 07:41 Resp 18 07/24/23 07:41 BP 94/63 07/24/23 07:41 Pulse Ox 100 07/24/23 10:28 FiO2 Intake & Output 07/23/23 07/24/23 07/24/23 18:59 06:59 18:59 Intake Total 333 180 Output Total 1725 Balance -1392 180 Weight 65.771 kg 85 kg Intake: Oral 333 180 Output: Urine 1725 Other: Voiding Method External Catheter External Catheter External Catheter - Exam General Appearance: Alert, slight respiratory distress. The patient is currently on 4 L of oxygen by nasal cannula. Not using accessory muscles of breathing. Neck HEENT: Supple, no lymphadenopathy, no thyroid enlargement, no carotid bruits. Lungs: Decreased breath sound bilaterally with fine rhonchi positive slight crackles and wheezes in the lower bases bilaterally. Chest Wall: Decreased expansion with deep inspiration no tenderness and no deformity was found on exam, no costochondral pain or discomfort. Heart: Irregular rate and rhythm, S1, S2 positive S3 positive gallop and slight systolic murmur. There is an ICD device in the left upper chest wall. Back: Symmetric, no curvature, ROM normal, no CVA tenderness. Abdomen: Soft positive bowel sounds slight discomfort lower abdominal region area no rebound or rigidity. Extremities: Extremities normal, atraumatic, no cyanosis 2+ edema of the lower extremity. The patient has cellulitis of the right lower extremity with poor circulation and multiple amputated toes Pulses: 2+ and symmetric. Skin: Skin color, texture, tugor normal, no rashes or lesions. Neurologic: Alert oriented x3 cranial nerves II through XII intact, no motor deficit, no abnormal balance or gait. - Labs CBC & Chem 7: 07/24/23 10:01 07/24/23 10:01 Labs: Abnormal Lab Results - Last 24 Hours (Table) 07/23/23 07/23/23 07/23/23 Range/Units 11:32 12:02 14:13 POC Glucose (mg/dL) 372 H (70-110) mg/dL Troponin I 0.555 H* (0.000-0.034) ng/mL Urine Protein Trace H (Negative) Urine Glucose (UA) 4+ H (Negative) Urine Blood Trace H (Negative) Urine Mucus Rare H (None) /hpf 07/23/23 07/23/23 Range/Units 16:37 20:16 POC Glucose (mg/dL) 125 H 153 H (70-110) mg/dL Troponin I (0.000-0.034) ng/mL Urine Protein (Negative) Urine Glucose (UA) (Negative) Urine Blood (Negative) Urine Mucus (None) /hpf Assessment and Plan Plan: Acute on chronic hypoxic respiratory failure and the patient is currently on 4 L of O2 nasal cannula. Reviewed the chest x-ray and the CT angiogram. No evidence of any pulm embolism. No evidence of pneumonia. The patient may have a component of mild CHF at this point in time. Started on Lasix. The patient is currently on oral Lasix 80 mg twice a day and the patient is feeling better and less short of breath compared to yesterday. Oxygenation is improved, remains on 4 L of O2 nasal cannula Acute kidney injury, likely secondary cardiorenal factors, creatinine is stable, slightly improved compared to yesterday Chronic cellulitis of the right lower extremity, improving on Unasyn Chronic dyspnea CHF with impaired LV function with an ejection fraction of 15 to 20% and the patient has been maintained on a combination of Entresto, Lasix, Aldactone and the patient has been also given an AICD/pacer Coronary disease with previous bypass surgery. Please refer to the most recent cardiac catheterization that showed a patent MEJIA to LAD. Medical management is being offered. Abnormal troponins, likely type II myocardial ischemia due to infection, CHF and comorbidities Diabetes mellitus type 2 Diabetic ulcers with previous amputation in the toes bilaterally Hypertension Hyperlipidemia Chronic atrial fibrillation Severe BPH a Acute leukocytosis, improving Plan Titrate oxygen flow to maintain saturation above 90% currently on 4 L Continue p.o. Lasix 80 mg twice a day Restart IV Unasyn regarding right lower extremity cellulitis Resume aspirin and Plavix Resume metoprolol 25 mg p.o. daily Resume Entresto and Aldactone monitor the potassium level and renal function Resume Bobby Will continue to follow.
[2023-07-24 15:47] LABS: Glucose,Whole Blood 137 mg/dL (70-110)
[2023-07-24 16:26] LABS: Glucose,Whole Blood 107 mg/dL (70-110)
[2023-07-24] MEDS: LORazepam 2 MG/ML INJ IV ONE (17:06)
[2023-07-24 20:04] LABS: Glucose,Whole Blood 128 mg/dL (70-110)
[2023-07-25 06:10] LABS: Glucose,Whole Blood 112 mg/dL (70-110)
--- NOTE | 2023-07-25 06:16 | P.PN ---
Subjective Progress Note Date: 07/24/23 HISTORY OF PRESENT ILLNESS: 67-year-old male one of our office practice who had recurrent cellulitis of the lower extremity, ischemic cardiomyopathy with advanced heart failure with ejection fraction of 10-15 percentile, also has recurrent cellulitis and diabetic foot on both sides worse on the right side than the left side. Patient is known to have history of CAD post CABG years ago done at [facility] he is followed with cardiology in town with his last admission with the significant decline in his ejection fraction ended up going for heart cath came back with chronic stenosis nothing require any intervention at the time. Patient was in the hospital for over 5 days and was discharged home upon his discharge communicate with his family apparently patient is not does not have any significant other and he has a brother and sister lives with him they were not aware of his condition when explaining to them that his advanced heart failure leave him with extremely high mortality and severe comorbidity at any time to put some more effort to help him out with transportation, diet, appointment and reminder family were willing to do the best he can. Patient presented to the emergency department yesterday complaining of slight nausea vomiting with low-grade temperature chest x-ray showed? 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 Was giving some furosemide started on updraft treatment troponin was mildly elevated at the time patient was started on 4 L of O2 to keep his pulse ox above 90 percentile will be hospitalized with worsening dyspnea shortness of breath and respiratory failure with worsening cardiomyopathy will be seeing cardiology and pulmonary. Shortly after his arrival to the emergency department seen him patient seems to be little bit more comfortable on 4 L of O2 and explained to him that the necessity of taking his medication on time not to skip any doses specially with his cardiomyopathy that can make his heart failure much worse in short period time. Also review his x-ray and testing seem like he might have an infiltrate in the bases bilaterally will be on IV antibiotics will be seen pulmonary as well. 07/24/2023: He is feeling little bit better with significant decrease shortness of breath compared to yesterday also having no chest pain. He is seen pulmonary and agree with the respiratory failure being secondary to fluid overload congestive heart failure along with cardiomyopathy along with acute kidney injury and to continue treatment and management for chronic cellulitis. Also patient had small sacral area may be stage I in the sacrum. Had diabetic ulcer and slight ulcerated area on the right foot. His impaired ejection fraction require use of any medication patient cannot tolerate for heart failure between Entresto, furosemide, and Aldactone. Also patient had an AICD and seeing cardiology on regular basis. Will continue titrating his oxygen flow down continue IV Lasix for another 24 hours resume his metoprolol IV along with Farxiga and Entresto while watching his kidney function and electrolyte imbalance carefully. Also patient will watch for any pneumonia will be treated for cellulitis with topical collagenous ointment and will continue Unasyn for now hoping to switch him eventually to Augmentin. REVIEW OF SYSTEMS: CONSTITUTIONAL: Well-developed in mild respiratory distress EYES: No icterus sclerae, no conjunctivitis. EARS, NOSE, MOUTH, THROAT, and FACE: No sore throat, lymphadenopathy, carotid bruits or deformity. RESPIRATORY: Slight shortness of breath cough wheezes. CARDIOVASCULAR: Mild palpitation positive PND orthopnea no angina. GASTROINTESTINAL: No Abd pain, Nausea or vomiting, no Diarrhea or constipation, No GI Bleed, no distention or masses. GENITOURINARY: Decreased urine output with no kidney stone. INTEGUMENT/BREAST: Negative for any muscular injury with mild osteoarthritis.. HEMATOLOGIC/LYMPHATIC: Negative for bleed or purpura. MUSCULOSKELTAL: Generalized myalgia and arthralgia. Slight swelling with cellulitis of the lower extremity worse on the right than the left side and quite bit edema. NEURLOGICAL: Slight slowness with no syncope or seizure. BEHAVIORAL/PSYCH: Negative. ENDOCRINE: Negative. PHYSICAL EXAMINATION: General Appearance: Alert, slight respiratory distress. Neck HEENT: Supple, no lymphadenopathy, no thyroid enlargement, no carotid bruits. Lungs: Decreased breath sound bilaterally with fine rhonchi positive slight crackles and wheezes in the lower bases bilaterally. Chest Wall: Decreased expansion with deep inspiration no tenderness and no deformity was found on exam, no costochondral pain or discomfort. Heart: Irregular rate and rhythm, S1, S2 positive S3 positive gallop and slight systolic murmur. There is an ICD device in the left upper chest wall. Back: Symmetric, no curvature, ROM normal, no CVA tenderness. Abdomen: Soft positive bowel sounds slight discomfort lower abdominal region area no rebound or rigidity. Extremities: Extremities quite bit abnormal, atraumatic, no cyanosis 2+ edema of the lower extremity. Significant cellulitis worsening area of open sore on the medial aspect of the right leg the left side has 1+ edema as well. Pulses: 2+ and symmetric. Skin: Skin color, texture, tugor normal, no rashes or lesions. Neurologic: Alert oriented x3 cranial nerves II through XII intact, no motor deficit, no abnormal balance or gait. ASSESSMENT AND PLAN: _Acute respiratory failure combination of congestive heart failure, fluid overload, cardiomyopathy, A-fib along with bilateral pneumonia and COPD. Titrate O2 down little bit to keep his pulse ox above 92%. _Congestive heart failure exacerbation mostly systolic dysfunction with acute component most likely secondary to noncompliance to medication 30 patient back on his regular medication for cardiomyopathy and heart failure including his Entresto, spironolactone, furosemide remain on IV at this point had helped quite a bit overnight. _Severe advanced ischemic cardiomyopathy with congestive heart failure stage V: Has been on adjusted medical management reviewed very carefully last time with cardiology and nephrology and agree on the current plan and management will keep watching his symptoms quite carefully may be one of the tackle to reduce the odds of coming to the emergency department that for the patient to be seen in the office between [place] cardiology at least every 2 weeks. _Elevated troponin with possible transmural GA: No new finding of GA at this point still seeing cardiology. _Possible bilateral pneumonia: Will continue Unasyn for now and switch to Augmentin in the next few days. _A-fib with RVR: Remain on anticoagulation and still on metoprolol. _Type 2 diabetes: Not well-controlled remain on Farxiga,Rybelsus and Lantus, Accu-Chek with sliding scale coverage will be done. _Acute kidney injury most likely acute tubular necrosis with worsening kidney function compared to last time again continue current management repeat BUN/cr eatinine. _Elevated D-dimer: With no sign of pulmonary embolism patient might require to go for CTA at some point. _Severe cellulitis of the lower extremity worsening on the right side and left side we will continue Unasyn along with topical collagenase dressing. _Sacral ulcer: Mostly stage I and early stage II mostly from pressure from laying on bed or sitting in the chair for longer time, continue topical care and continue her current turning in bed and having patient ambulate with physical therapy fast. _Recent diabetic foot was seen at the wound clinic regularly and doing better. _Hypertension: Remain on Norvasc 2.5 mg a day, Entresto 49/51 mg twice a day, still on diuretics as well. _Hyperlipidemia: Remain on atorvastatin 40 mg a day. _Severe BPH: Watch for any urinary retention. CODE STATUS: Full code. Prognosis: Poor. Discussion: Patient had full explanation what was going on with him at this hospitalization when asked told about his bowel prognosis and mortality. He s till wished to be full code at this point and he does not mind sharing more information with his brother and sister who he lives with. Both were informed of his condition before his discharge last time. This time patient probably will benefit from doing palliative care when he is discharged. Objective - Vital Signs Vital signs: Vital Signs Temp 97.5 F L 07/24/23 02:06 Pulse 120 H 07/24/23 02:06 Resp 14 07/24/23 02:06 BP 112/79 07/24/23 02:06 Pulse Ox 100 07/24/23 02:06 FiO2 Intake & Output 07/23/23 07/23/23 07/24/23 06:59 18:59 06:59 Intake Total 333 Output Total 1725 Balance -1392 Weight 65.771 kg 65.771 kg 85 kg Intake: Oral 333 Output: Urine 1725 Other: Voiding Method External Catheter External Catheter - Labs CBC & Chem 7: 07/24/23 10:01 07/24/23 10:01 Labs: Abnormal Lab Results - Last 24 Hours (Table) 07/23/23 07/23/23 07/23/23 Range/Units 05:25 05:25 05:25 Hgb 12.2 L (13.0-17.5) gm/dL RDW 16.0 H (11.5-15.5) % Plt Count 112 L (150-450) k/uL Neutrophils # 8.6 H (1.3-7.7) k/uL Lymphocytes # 0.2 L (1.0-4.8) k/uL D-Dimer (<0.60) mg/L FEU Chloride 108 H (98-107) mmol/L Carbon Dioxide 16 L (22-30) mmol/L BUN 31 H (9-20) mg/dL Creatinine 1.46 H (0.66-1.25) mg/dL Glucose 277 H (74-99) mg/dL POC Glucose (mg/dL) (70-110) mg/dL Plasma Lactic Acid Ludin 5.2 H* (0.7-2.0) mmol/L Alkaline Phosphatase 149 H (38-126) U/L Troponin I (0.000-0.034) ng/mL Albumin 3.4 L (3.5-5.0) g/dL Urine Protein (Negative) Urine Glucose (UA) (Negative) Urine Blood (Negative) Urine Mucus (None) /hpf 07/23/23 07/23/23 07/23/23 Range/Units 05:26 05:29 05:34 Hgb (13.0-17.5) gm/dL RDW (11.5-15.5) % Plt Count (150-450) k/uL Neutrophils # (1.3-7.7) k/uL Lymphocytes # (1.0-4.8) k/uL D-Dimer 2.27 H (<0.60) mg/L FEU Chloride (98-107) mmol/L Carbon Dioxide (22-30) mmol/L BUN (9-20) mg/dL Creatinine (0.66-1.25) mg/dL Glucose (74-99) mg/dL POC Glucose (mg/dL) 445 H (70-110) mg/dL Plasma Lactic Acid Ludin (0.7-2.0) mmol/L Alkaline Phosphatase (38-126) U/L Troponin I 0.105 H* (0.000-0.034) ng/mL Albumin (3.5-5.0) g/dL Urine Protein (Negative) Urine Glucose (UA) (Negative) Urine Blood (Negative) Urine Mucus (None) /hpf 07/23/23 07/23/23 07/23/23 Range/Units 06:46 08:44 09:09 Hgb (13.0-17.5) gm/dL RDW (11.5-15.5) % Plt Count (150-450) k/uL Neutrophils # (1.3-7.7) k/uL Lymphocytes # (1.0-4.8) k/uL D-Dimer (<0.60) mg/L FEU Chloride (98-107) mmol/L Carbon Dioxide (22-30) mmol/L BUN (9-20) mg/dL Creatinine (0.66-1.25) mg/dL Glucose (74-99) mg/dL POC Glucose (mg/dL) 296 H (70-110) mg/dL Plasma Lactic Acid Ludin 3.1 H* (0.7-2.0) mmol/L Alkaline Phosphatase (38-126) U/L Troponin I 0.363 H* (0.000-0.034) ng/mL Albumin (3.5-5.0) g/dL Urine Protein (Negative) Urine Glucose (UA) (Negative) Urine Blood (Negative) Urine Mucus (None) /hpf 07/23/23 07/23/23 07/23/23 Range/Units 11:32 12:02 14:13 Hgb (13.0-17.5) gm/dL RDW (11.5-15.5) % Plt Count (150-450) k/uL Neutrophils # (1.3-7.7) k/uL Lymphocytes # (1.0-4.8) k/uL D-Dimer (<0.60) mg/L FEU Chloride (98-107) mmol/L Carbon Dioxide (22-30) mmol/L BUN (9-20) mg/dL Creatinine (0.66-1.25) mg/dL Glucose (74-99) mg/dL POC Glucose (mg/dL) 372 H (70-110) mg/dL Plasma Lactic Acid Ludin (0.7-2.0) mmol/L Alkaline Phosphatase (38-126) U/L Troponin I 0.555 H* (0.000-0.034) ng/mL Albumin (3.5-5.0) g/dL Urine Protein Trace H (Negative) Urine Glucose (UA) 4+ H (Negative) Urine Blood Trace H (Negative) Urine Mucus Rare H (None) /hpf 07/23/23 07/23/23 Range/Units 16:37 20:16 Hgb (13.0-17.5) gm/dL RDW (11.5-15.5) % Plt Count (150-450) k/uL Neutrophils # (1.3-7.7) k/uL Lymphocytes # (1.0-4.8) k/uL D-Dimer (<0.60) mg/L FEU Chloride (98-107) mmol/L Carbon Dioxide (22-30) mmol/L BUN (9-20) mg/dL Creatinine (0.66-1.25) mg/dL Glucose (74-99) mg/dL POC Glucose (mg/dL) 125 H 153 H (70-110) mg/dL Plasma Lactic Acid Ludin (0.7-2.0) mmol/L Alkaline Phosphatase (38-126) U/L Troponin I (0.000-0.034) ng/mL Albumin (3.5-5.0) g/dL Urine Protein (Negative) Urine Glucose (UA) (Negative) Urine Blood (Negative) Urine Mucus (None) /hpf
[2023-07-25 08:49] LABS: Basophils % (A) 0 %; Eosinophils # (A) 0.1 k/uL (0-0.7); Eosinophils % (A) 1 %; HCT 33.9 % (39.0-53.0); HGB 10.4 gm/dL (13.0-17.5); Hypochromasia Moderate; Lymphocytes # (A) 0.7 k/uL (1.0-4.8); Lymphocytes % (A) 10 %; MCH 24.9 pg (25.0-35.0); MCHC 30.7 g/dL (31.0-37.0); MCV 81.1 fL (80.0-100.0); Mean Platelet Volume 8.4; Monocytes # (A) 0.5 k/uL (0-1.0); Monocytes % (A) 6 %; Neutrophils # (A) 6.3 k/uL (1.3-7.7); Neutrophils % (A) 81 %; Platelet Count 144 k/uL (150-450); RBC 4.18 m/uL (4.30-5.90); RDW 15.9 % (11.5-15.5); WBC 7.8 k/uL (3.8-10.6)
[2023-07-25 08:58] LABS: ALT 58 U/L (4-49); AST 92 U/L (17-59); African American GFR (CKD) 67 (>60 ml/min/1.73 sqM); Albumin 2.8 g/dL (3.5-5.0); Alkaline Phosphatase 117 U/L (38-126); Anion Gap 8 mmol/L; Blood Urea Nitrogen 34 mg/dL (9-20); Calcium 8.3 mg/dL (8.4-10.2); Carbon Dioxide 22 mmol/L (22-30); Chloride 110 mmol/L (98-107); Glucose 108 mg/dL (74-99); Non-African American GFR(CKD) 58 (>60 ml/min/1.73 sqM); Potassium 3.7 mmol/L (3.5-5.1); Sodium 140 mmol/L (137-145); Total Bilirubin 0.4 mg/dL (0.2-1.3); Total Protein 5.8 g/dL (6.3-8.2)
[2023-07-25 09:07] LABS: NT-Pro-B-Type Natriuretic Pept 10100 pg/mL
[2023-07-25 11:54] LABS: Glucose,Whole Blood 231 mg/dL (70-110)
--- NOTE | 2023-07-25 12:31 | P.PN ---
Subjective Progress Note Date: 07/25/23 Consult reason: congestive heart failure History of present illness: This is a 67-year-old male patient of Dr. Jean with past medical history of coronary artery disease status post CABG, ischemic cardiomyopathy with EF of 35%, chronic systolic heart failure, NYHA class III, hypertension, hyperlipidemia, obstructive sleep apnea, diabetes mellitus type 2, status post ICD biventricular device. We have been asked to evaluate the patient for CHF. Patient is poor historian. According to the ER note, patient was brought in by EMS due to dyspnea and fever and he was found to be hypoxic by EMS. Patient is seen today in the emergency center waiting for a bed on the cardiac stepdown unit. He is status post 1 dose of ceftriaxone and azithromycin. EKG #1 paced rhythm/sinus rhythm, #2 AVNRT Chest x-ray: Low lung volumes and cardiomegaly with central increased markings favoring edema. Correlate for CHF exacerbation fluid overload. Underlying acut e infiltrate less likely but not excluded. CTA of the chest no evidence of pulmonary embolism. WBC 9.2, hemoglobin 12.2, platelet count 112. D-dimer 2.27. Sodium 140, potassium 4.8, BUN 31 creatinine 1.46. Blood sugar 277. Alkaline phosphatase 149 otherwise liver function test are normal. Magnesium 2.1. Lactic acid initially 5.2 now 1.7. Troponin 0.105, 0.363, 0.555. proBNP 9490. TSH 4.190. Acetone negative. Influenza A, influenza B, RSV, COVID-19 not detected. Home cardiac medications: Aspirin 81 mg daily, atorvastatin 40 mg daily, Plavix 75 mg daily, Farxiga 10 mg daily, Proscar 5 mg daily, Lasix 80 mg every 12 hours, Toprol XL 25 mg daily, Nitrostat as needed, K. Dur 20 mill equivalents daily, Entresto 49 mg - 51 mg 1 tablet twice daily, Rybelsus 7 mg daily, Aldactone 25 mg daily. Cardiac catheterization performed on 07/04/2023 revealed 100% proximal LAD, 100% proximal circumflex, 90% RCA, patent VG to RCA, 100% VG to circumflex, patent MEJIA to LAD, right dominant. Echocardiogram performed 07/01/2023 revealed EF 17%, mild AR, mild MR, estimated RVSP 48 mmHg. 07/23 Patient is seen today in follow up. Blood pressure readings have been soft and heart rate has been running in the 120s and 130s but telemetry is currently 70, paced rhythm with occasional PVCs. Repeat blood work reveals hemoglobin 11.1, BUN 36 creatinine 1.37 potassium 4.1. Yesterday, we decreased Entresto to the 24-26 mg dose. 07/24 Patient denies having any chest pain. His breathing seems to be stable. Telemetry is sinus rhythm/paced rhythm. Blood pressure 131/77, heart rate is in the 60s to 80, pulse ox 99% on 4 L. Repeat blood work reveals hemoglobin 10.4. BUN 34 creatinine 1.28. We have decreased Entresto due to hypotension. Amio has been started with plan to continue patient on 400 mg daily until follow-up with Dr. Jean. Physical examination: Gen: This is a 67-year-old male in no acute distress. VS: reviewed HEENT: Head is atraumatic, normocephalic. Pupils equal, round. Sclerae is anicteric. NECK: Supple. No JVD. LUNGS: Clear to auscultation. No wheezes or rhonchi. No intercostal retractions. HEART: Regular rate and rhythm. No murmur. ABDOMEN: Soft No tenderness. EXTREMITIES: Erythema right lower extremity, 1+ pedal edema. No calf tenderness. NEUROLOGICAL: Patient is awake, alert and oriented x3. Assessment: Acute hypoxic respiratory failure secondary to acute on chronic systolic heart failure Chronically elevated troponins Acute kidney injury AVNRT Cellulitis of the right lower extremity Coronary artery disease with previous CABG Ischemic cardiomyopathy with EF of 35% Chronic systolic heart failure NYHA class III Hypertension Hyperlipidemia Obstructive sleep apnea Diabetes mellitus type 2 Status post AICD biventricular Plan: Continue patient's home cardiac medications Continue decreased Entresto 24 mg -26 mg twice daily Continue amiodarone 400 mg daily No change in beta-nicky Patient is on oral diuretics Cardiology will sign off this case and follow on an as-needed basis. Please reconsult for any new concerns. Patient may follow-up in the office in one to 2 weeks. Nurse practitioner note has been reviewed, I agree with documented findings and plan of care. Patient was seen and examined. Objective - Vital Signs Vital signs: Vital Signs Temp 98 F 07/25/23 00:00 Pulse 80 07/25/23 04:00 Resp 18 07/25/23 04:00 BP 128/71 07/25/23 04:00 Pulse Ox 98 07/25/23 04:00 FiO2 Intake & Output 07/24/23 07/25/23 07/25/23 18:59 06:59 18:59 Intake Total 777 237 180 Output Total 700 500 Balance 77 -263 180 Weight 85 kg 86 kg Intake: Oral 777 237 180 Output: Urine 700 500 Other: Voiding Method External Catheter External Catheter # Bowel Movements 1 1 - Labs CBC & Chem 7: 07/25/23 08:28 07/25/23 08:28 Labs: Abnormal Lab Results - Last 24 Hours (Table) 07/24/23 07/24/23 07/24/23 Range/Units 10:01 10:01 14:02 RBC (4.30-5.90) m/uL Hgb 11.1 L (13.0-17.5) gm/dL Hct 36.5 L (39.0-53.0) % MCH 24.9 L (25.0-35.0) pg MCHC 30.4 L (31.0-37.0) g/dL RDW 15.8 H (11.5-15.5) % Plt Count 128 L (150-450) k/uL Lymphocytes # (1.0-4.8) k/uL Chloride 110 H (98-107) mmol/L BUN 36 H (9-20) mg/dL Creatinine 1.37 H (0.66-1.25) mg/dL Glucose (74-99) mg/dL POC Glucose (mg/dL) 169 H (70-110) mg/dL Calcium 8.2 L (8.4-10.2) mg/dL AST 97 H (17-59) U/L ALT (4-49) U/L Total Protein 5.7 L (6.3-8.2) g/dL Albumin 2.8 L (3.5-5.0) g/dL 07/24/23 07/24/23 07/25/23 Range/Units 15:45 20:01 06:08 RBC (4.30-5.90) m/uL Hgb (13.0-17.5) gm/dL Hct (39.0-53.0) % MCH (25.0-35.0) pg MCHC (31.0-37.0) g/dL RDW (11.5-15.5) % Plt Count (150-450) k/uL Lymphocytes # (1.0-4.8) k/uL Chloride (98-107) mmol/L BUN (9-20) mg/dL Creatinine (0.66-1.25) mg/dL Glucose (74-99) mg/dL POC Glucose (mg/dL) 137 H 128 H 112 H (70-110) mg/dL Calcium (8.4-10.2) mg/dL AST (17-59) U/L ALT (4-49) U/L Total Protein (6.3-8.2) g/dL Albumin (3.5-5.0) g/dL 07/25/23 07/25/23 Range/Units 08:28 08:28 RBC 4.18 L (4.30-5.90) m/uL Hgb 10.4 L (13.0-17.5) gm/dL Hct 33.9 L (39.0-53.0) % MCH 24.9 L (25.0-35.0) pg MCHC 30.7 L (31.0-37.0) g/dL RDW 15.9 H (11.5-15.5) % Plt Count 144 L (150-450) k/uL Lymphocytes # 0.7 L (1.0-4.8) k/uL Chloride 110 H (98-107) mmol/L BUN 34 H (9-20) mg/dL Creatinine 1.28 H (0.66-1.25) mg/dL Glucose 108 H (74-99) mg/dL POC Glucose (mg/dL) (70-110) mg/dL Calcium 8.3 L (8.4-10.2) mg/dL AST 92 H (17-59) U/L ALT 58 H (4-49) U/L Total Protein 5.8 L (6.3-8.2) g/dL Albumin 2.8 L (3.5-5.0) g/dL Microbiology - Last 24 Hours (Table) 07/23/23 05:25 Blood Culture - Preliminary Blood 07/23/23 05:41 Blood Culture - Preliminary Blood
--- NOTE | 2023-07-25 14:58 | P.PN ---
Subjective Progress Note Date: 07/25/23 This is Carlos is a 67-year-old male patient was brought into the hospital following a recent discharge with chief complaints of worsening shortness of breath. The patient was found to be hypoxic by the paramedics and apparently his pulse ox was in the low 70s. For that reason, the patient was brought into the emergency department. He does have an large number of medical problems and comorbidities. He is currently on 4 L of oxygen by nasal cannula. Afebrile and hemodynamically stable. His blood work shows a white cell count of 9.2 with a hemoglobin 12 and a platelet count of 112. Sodium is at 140 with a potassium level of 4.8, serum bicarb is at 16 with a BUN of 31 and a creatinine of 1.46 with a baseline creatinine being essentially within normal limits. Glucose at 277, troponin was at 0.1 and 0.3 respectively with a proBNP level of 9490. The viral screen has been negative. Calcium level of 8.7. Initial lactic acid level was as high as 5.1 dropped down to 1.7. The patient underwent a chest x- ray that showed smaller lung volumes along with cardiomegaly increased pulm vessel markings consistent with CHF. This was followed by CT angiogram of the chest that showed no evidence of any pulmonary embolism. Lungs were essentially free of any acute pulmonary infiltrates and there is some dependent atelectatic change in the lung bases. No evidence of any pleural effusion. The patient was started on IV Lasix. I noted a patch of cellulitis in his right lower extremity. Going back to the history, the patient has history of severe cardiomyopathy with an ejection fraction of 15 to 20%. The patient has been maintained on a combination of Entresto, Lasix and Aldactone on outpatient basis. The patient also has coronary disease and he has sustained non-ST segment elevation myocardial infarction during his earlier hospitalization and the most recent cardiac catheterization that was done on this patient was done on 07/04/2023 and the patient was found to have chronic occluded proximal LAD and circumflex and diffuse disease involving the RCA. The patient had a patent SVG to PDA, chronically occluded SVG to the circumflex and patent MEJIA to LAD and elevated left ventricular end-diastolic pressure and pressure was in the order of 25 to 30 mmHg consistent with CHF. The patient also has diabetes mellitus type 2, hypertension hyperlipidemia and BPH and history of diabetic foot ulcers and chronic cellulitis of the right lower extremity. During his last admission, a CAT scan of the foot was done and the patient did not have any active osteomyelitis. The patient was treated with IV Unasyn with subsequent improvement in the right lower extremity cellulitis. He was discharged on doxycycline. He does have an underlying pacemaker. He also has peripheral vascular disease,. 07/24/2023, the patient is being seen for a follow-up. The patient is feeling better compared to yesterday. No significant shortness of breath. Started on diuretics and the patient is currently on Lasix producing adequate amount of urine output. The patient is on 80 mg of p.o. Lasix twice a day. He is also being treated for cellulitis of the right lower extremity. The patient is cur rently on IV Unasyn. The right lower extremity is improved compared to yesterday. Otherwise, no new complaints. The patient remains on oxygen at 4 L with a pulse ox of 99%. FiO2 can be obviously weaned off. WBC count is at 8.3 with a hemoglobin 11.1 and a platelet count of 128, BUN is 36 with a creatinine of 1.37 and a sodium levels of 140 with a potassium level of 4.1. Hemodynamically stable. Sitting up in a chair and is calm and comfortable. On today's evaluation of 07/25/2023, I am seeing the patient for a follow-up. Essentially unchanged on 4 L of oxygen by nasal cannula. Right lower extremity cellulitis is improving. BUN is at 34 with a creatinine 1.28 and a sodium level is at 140 WBC count at 7.8 with a hemoglobin of 10.4. Remains on IV Unasyn. No other significant changes in his medications otherwise. Oral intake is quite diminished. Blood cultures are negative thus far. Afebrile. Objective - Vital Signs Vital signs: Vital Signs Temp 98.5 F 07/25/23 09:15 Pulse 68 07/25/23 09:15 Resp 18 07/25/23 09:15 BP 114/65 07/25/23 09:15 Pulse Ox 100 07/25/23 09:15 FiO2 Intake & Output 07/24/23 07/25/23 07/25/23 18:59 06:59 18:59 Intake Total 777 237 180 Output Total 700 500 700 Balance 70 -089 -492 Weight 85 kg 86 kg Intake: Oral 777 237 180 Output: Urine 700 500 700 Other: Voiding Method External Catheter External Catheter External Catheter # Bowel Movements 1 1 - Exam General Appearance: Alert, slight respiratory distress. The patient is currently on 4 L of oxygen by nasal cannula. Not using accessory muscles of breathing. Neck HEENT: Supple, no lymphadenopathy, no thyroid enlargement, no carotid bruits. Lungs: Decreased breath sound bilaterally with fine rhonchi positive slight crackles and wheezes in the lower bases bilaterally. Chest Wall: Decreased expansion with deep inspiration no tenderness and no deformity was found on exam, no costochondral pain or discomfort. Heart: Irregular rate and rhythm, S1, S2 positive S3 positive gallop and slight systolic murmur. There is an ICD device in the left upper chest wall. Back: Symmetric, no curvature, ROM normal, no CVA tenderness. Abdomen: Soft positive bowel sounds slight discomfort lower abdominal region area no rebound or rigidity. Extremities: Extremities normal, atraumatic, no cyanosis 2+ edema of the lower extremity. The patient has cellulitis of the right lower extremity with poor circulation and multiple amputated toes Pulses: 2+ and symmetric. Skin: Skin color, texture, tugor normal, no rashes or lesions. Neurologic: Alert oriented x3 cranial nerves II through XII intact, no motor deficit, no abnormal balance or gait. - Labs CBC & Chem 7: 07/25/23 08:28 07/25/23 08:28 Labs: Abnormal Lab Results - Last 24 Hours (Table) 07/24/23 07/24/23 07/24/23 Range/Units 10:01 10:01 14:02 RBC (4.30-5.90) m/uL Hgb 11.1 L (13.0-17.5) gm/dL Hct 36.5 L (39.0-53.0) % MCH 24.9 L (25.0-35.0) pg MCHC 30.4 L (31.0-37.0) g/dL RDW 15.8 H (11.5-15.5) % Plt Count 128 L (150-450) k/uL Lymphocytes # (1.0-4.8) k/uL Chloride 110 H (98-107) mmol/L BUN 36 H (9-20) mg/dL Creatinine 1.37 H (0.66-1.25) mg/dL Glucose (74-99) mg/dL POC Glucose (mg/dL) 169 H (70-110) mg/dL Calcium 8.2 L (8.4-10.2) mg/dL AST 97 H (17-59) U/L ALT (4-49) U/L Total Protein 5.7 L (6.3-8.2) g/dL Albumin 2.8 L (3.5-5.0) g/dL 07/24/23 07/24/23 07/25/23 Range/Units 15:45 20:01 06:08 RBC (4.30-5.90) m/uL Hgb (13.0-17.5) gm/dL Hct (39.0-53.0) % MCH (25.0-35.0) pg MCHC (31.0-37.0) g/dL RDW (11.5-15.5) % Plt Count (150-450) k/uL Lymphocytes # (1.0-4.8) k/uL Chloride (98-107) mmol/L BUN (9-20) mg/dL Creatinine (0.66-1.25) mg/dL Glucose (74-99) mg/dL POC Glucose (mg/dL) 137 H 128 H 112 H (70-110) mg/dL Calcium (8.4-10.2) mg/dL AST (17-59) U/L ALT (4-49) U/L Total Protein (6.3-8.2) g/dL Albumin (3.5-5.0) g/dL 07/25/23 07/25/23 Range/Units 08:28 08:28 RBC 4.18 L (4.30-5.90) m/uL Hgb 10.4 L (13.0-17.5) gm/dL Hct 33.9 L (39.0-53.0) % MCH 24.9 L (25.0-35.0) pg MCHC 30.7 L (31.0-37.0) g/dL RDW 15.9 H (11.5-15.5) % Plt Count 144 L (150-450) k/uL Lymphocytes # 0.7 L (1.0-4.8) k/uL Chloride 110 H (98-107) mmol/L BUN 34 H (9-20) mg/dL Creatinine 1.28 H (0.66-1.25) mg/dL Glucose 108 H (74-99) mg/dL POC Glucose (mg/dL) (70-110) mg/dL Calcium 8.3 L (8.4-10.2) mg/dL AST 92 H (17-59) U/L ALT 58 H (4-49) U/L Total Protein 5.8 L (6.3-8.2) g/dL Albumin 2.8 L (3.5-5.0) g/dL Microbiology - Last 24 Hours (Table) 07/23/23 05:25 Blood Culture - Preliminary Blood 07/23/23 05:41 Blood Culture - Preliminary Blood Assessment and Plan Plan: Acute on chronic hypoxic respiratory failure and the patient is currently on 4 L of O2 nasal cannula. Reviewed the chest x-ray and the CT angiogram. No evidence of any pulm embolism. No evidence of pneumonia. The patient may have a component of mild CHF at this point in time. Started on Lasix. The patient is currently on oral Lasix 80 mg twice a day and the patient is feeling better and less short of breath compared to yesterday. Oxygenation is improved, remains on 4 L of O2 nasal cannula Acute kidney injury, likely secondary cardiorenal factors, creatinine is stable, slightly improved compared to yesterday Chronic cellulitis of the right lower extremity, improving on Unasyn Chronic dyspnea CHF with impaired LV function with an ejection fraction of 15 to 20% and the patient has been maintained on a combination of Entresto, Lasix, Aldactone and the patient has been also given an AICD/pacer Coronary disease with previous bypass surgery. Please refer to the most recent cardiac catheterization that showed a patent MEJIA to LAD. Medical management is being offered. Abnormal troponins, likely type II myocardial ischemia due to infection, CHF and comorbidities Diabetes mellitus type 2 Diabetic ulcers with previous amputation in the toes bilaterally Hypertension Hyperlipidemia Chronic atrial fibrillation Severe BPH a Acute leukocytosis, improving Plan No major change in his condition compared to yesterday. Will continue the same treatment for now. Titrate oxygen flow to maintain saturation above 90% currently on 4 L Continue p.o. Lasix 80 mg twice a day Restart IV Unasyn regarding right lower extremity cellulitis Resume aspirin and Plavix Resume metoprolol 25 mg p.o. daily Resume Entresto and Aldactone monitor the potassium level and renal function Resume Bobby Will continue to follow.
[2023-07-25 16:36] LABS: Glucose,Whole Blood 127 mg/dL (70-110)
[2023-07-25 19:55] LABS: Glucose,Whole Blood 143 mg/dL (70-110)
[2023-07-26 05:57] LABS: Glucose,Whole Blood 152 mg/dL (70-110)
--- NOTE | 2023-07-26 08:12 | P.PN ---
Subjective Progress Note Date: 07/25/23 HISTORY OF PRESENT ILLNESS: 67-year-old male one of our office practice who had recurrent cellulitis of the lower extremity, ischemic cardiomyopathy with advanced heart failure with ejection fraction of 10-15 percentile, also has recurrent cellulitis and diabetic foot on both sides worse on the right side than the left side. Patient is known to have history of CAD post CABG years ago done at [facility] he is followed with cardiology in town with his last admission with the significant decline in his ejection fraction ended up going for heart cath came back with chronic stenosis nothing require any intervention at the time. Patient was in the hospital for over 5 days and was discharged home upon his discharge communicate with his family apparently patient is not does not have any significant other and he has a brother and sister lives with him they were not aware of his condition when explaining to them that his advanced heart failure leave him with extremely high mortality and severe comorbidity at any time to put some more effort to help him out with transportation, diet, appointment and reminder family were willing to do the best he can. Patient presented to the emergency department yesterday complaining of slight nausea vomiting with low-grade temperature chest x-ray showed? 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 Was giving some furosemide started on updraft treatment troponin was mildly elevated at the time patient was started on 4 L of O2 to keep his pulse ox above 90 percentile will be hospitalized with worsening dyspnea shortness of breath and respiratory failure with worsening cardiomyopathy will be seeing cardiology and pulmonary. Shortly after his arrival to the emergency department seen him patient seems to be little bit more comfortable on 4 L of O2 and explained to him that the necessity of taking his medication on time not to skip any doses specially with his cardiomyopathy that can make his heart failure much worse in short period time. Also review his x-ray and testing seem like he might have an infiltrate in the bases bilaterally will be on IV antibiotics will be seen pulmonary as well. 07/24/2023: He is feeling little bit better with significant decrease shortness of breath compared to yesterday also having no chest pain. He is seen pulmonary and agree with the respiratory failure being secondary to fluid overload congestive heart failure along with cardiomyopathy along with acute kidney injury and to continue treatment and management for chronic cellulitis. Also patient had small sacral area may be stage I in the sacrum. Had diabetic ulcer and slight ulcerated area on the right foot. His impaired ejection fraction require use of any medication patient cannot tolerate for heart failure between Entresto, furosemide, and Aldactone. Also patient had an AICD and seeing cardiology on regular basis. Will continue titrating his oxygen flow down continue IV Lasix for another 24 hours resume his metoprolol IV along with Farxiga and Entresto while watching his kidney function and electrolyte imbalance carefully. Also patient will watch for any pneumonia will be treated for cellulitis with topical collagenous ointment and will continue Unasyn for now hoping to switch him eventually to Augmentin. 07/25/2023: He is doing slightly bit better stable vitals are under control pulse ox is 99% on 4 L hemoglobin is 10.4 his Entresto was decreased likely because of his hypotension patient was started on amiodarone will be continued on 20 cc set up worker. Sadly his ejection fraction is 17 percentile with pulmonary pressure of 48 and mild aortic and mild mitral regurgitation from his last echocardiogram and currently still on medical management which is now working great. His amiodarone was started and responded to the severe tachycardia he had with his A-fib and more like AVNRT. From pulmonary standpoint remain on 4 L of O2 which can be decreased at this point patient is not using any BiPAP for now and he does not need to be on any mechanical ventilation we will continue IV Unasyn for his pneumonia which patient required to be treated for the next few days and will be switched to oral antibiotic when he is ready to leave the hospital. REVIEW OF SYSTEMS: CONSTITUTIONAL: Well-developed in mild respiratory distress EYES: No icterus sclerae, no conjunctivitis. EARS, NOSE, MOUTH, THROAT, and FACE: No sore throat, lymphadenopathy, carotid bruits or deformity. RESPIRATORY: Slight shortness of breath cough wheezes. CARDIOVASCULAR: Mild palpitation positive PND orthopnea no angina. GASTROINTESTINAL: No Abd pain, Nausea or vomiting, no Diarrhea or constipation, No GI Bleed, no distention or masses. GENITOURINARY: Decreased urine output with no kidney stone. INTEGUMENT/BREAST: Negative for any muscular injury with mild osteoarthritis.. HEMATOLOGIC/LYMPHATIC: Negative for bleed or purpura. MUSCULOSKELTAL: Generalized myalgia and arthralgia. Slight swelling with cellulitis of the lower extremity worse on the right than the left side and quite bit edema. NEURLOGICAL: Slight slowness with no syncope or seizure. BEHAVIORAL/PSYCH: Negative. ENDOCRINE: Negative. PHYSICAL EXAMINATION: General Appearance: Alert, slight respiratory distress. Neck HEENT: Supple, no lymphadenopathy, no thyroid enlargement, no carotid b ruits. Lungs: Decreased breath sound bilaterally with fine rhonchi positive slight crackles and wheezes in the lower bases bilaterally. Chest Wall: Decreased expansion with deep inspiration no tenderness and no deformity was found on exam, no costochondral pain or discomfort. Heart: Irregular rate and rhythm, S1, S2 positive S3 positive gallop and slight systolic murmur. There is an ICD device in the left upper chest wall. Back: Symmetric, no curvature, ROM normal, no CVA tenderness. Abdomen: Soft positive bowel sounds slight discomfort lower abdominal region area no rebound or rigidity. Extremities: Extremities quite bit abnormal, atraumatic, no cyanosis 2+ edema of the lower extremity. Significant cellulitis worsening area of open sore on the medial aspect of the right leg the left side has 1+ edema as well. Pulses: 2+ and symmetric. Skin: Skin color, texture, tugor normal, no rashes or lesions. Neurologic: Alert oriented x3 cranial nerves II through XII intact, no motor deficit, no abnormal balance or gait. ASSESSMENT AND PLAN: _Acute respiratory failure combination of congestive heart failure, fluid overload, cardiomyopathy, A-fib along with bilateral pneumonia and COPD. Titrate O2 down little bit to keep his pulse ox above 92%. _Congestive heart failure exacerbation mostly systolic dysfunction with acute component most likely secondary to noncompliance to medication 30 patient back on his regular medication for cardiomyopathy and heart failure patient Entresto was decreased because of his hypotension, remain on furosemide and spironol actone. _Severe advanced ischemic cardiomyopathy with congestive heart failure stage V: Has been on adjusted medical management reviewed very carefully last time with cardiology and nephrology and agree on the current plan and management will keep watching his symptoms quite carefully may be one of the tackle to reduce the odds of coming to the emergency department that for the patient to be seen in the office between [place] [facility] at least every 2 weeks. _Elevated troponin with possible transmural DC: No new finding of DC at this point still seeing cardiology. No new onset of DC at this point. _Possible bilateral pneumonia: Continue Unasyn along with O2 to keep his pulse ox above 90 percentile and still seen pulmonary regularly. _A-fib with RVR: With a rapid pulse rate at this point patient was started on amiodarone which she is having slight side effects from but will continue amiodarone 400 mg to see cardiology as an outpatient does need to be reduced rapidly to 200 mg soon as possible. _Type 2 diabetes: Not well-controlled remain on Farxiga,Rybelsus and Lantus, Accu-Chek with sliding scale coverage will be done. _Acute kidney injury: Is down to stage II chronic kidney disease doing well repeat CMP tomorrow again. _Elevated D-dimer: With no sign of pulmonary embolism patient might require to go for CTA at some point. _Severe cellulitis of the lower extremity worsening on the right side and left side we will continue Unasyn along with topical collagenase dressing. _Sacral ulcer: Mostly stage I and early stage II mostly from pressure from laying on bed or sitting in the chair for longer time, continue topical care and continue her current turning in bed and having patient ambulate with physical therapy fast. _Recent diabetic foot was seen at the wound clinic regularly and doing better. _Hypertension: Remain on Norvasc 2.5 mg a day, Entresto dose was decreased to 24/26 mg twice a day. _Hyperlipidemia: Remain on atorvastatin 40 mg a day. _Severe BPH: Watch for any urinary retention. CODE STATUS: Full code. Prognosis: Poor. Discussion: Patient prognosis still guarded in bed, he will need more help than what is done patient still insist of having to go home not to go to any rehab place holistically patient can advance heart failure and cardiomyopathy require heart transplant which is not possible with his all other EXTR complicated medical problem. Objective - Vital Signs Vital signs: Vital Signs Temp 98 F 07/25/23 00:00 Pulse 84 07/25/23 02:00 Resp 16 07/25/23 02:00 BP 116/74 07/25/23 00:00 Pulse Ox 97 07/25/23 00:00 FiO2 Intake & Output 0407/24/23 07/25/23 06:59 18:59 06:59 Intake Total 333 777 237 Output Total 1725 700 500 Balance -1392 77 -263 Weight 85 kg 85 kg 86 kg Intake: Oral 333 777 237 Output: Urine 1725 700 500 Other: Voiding Method External Catheter External Catheter External Catheter # Bowel Movements 1 1 - Labs CBC & Chem 7: 07/25/23 08:28 07/25/23 08:28 Labs: Abnormal Lab Results - Last 24 Hours (Table) 07/24/23 07/24/23 07/24/23 Range/Units 10:01 10:01 14:02 Hgb 11.1 L (13.0-17.5) gm/dL Hct 36.5 L (39.0-53.0) % MCH 24.9 L (25.0-35.0) pg MCHC 30.4 L (31.0-37.0) g/dL RDW 15.8 H (11.5-15.5) % Plt Count 128 L (150-450) k/uL Chloride 110 H (98-107) mmol/L BUN 36 H (9-20) mg/dL Creatinine 1.37 H (0.66-1.25) mg/dL POC Glucose (mg/dL) 169 H (70-110) mg/dL Calcium 8.2 L (8.4-10.2) mg/dL AST 97 H (17-59) U/L Total Protein 5.7 L (6.3-8.2) g/dL Albumin 2.8 L (3.5-5.0) g/dL 07/24/23 07/24/23 07/25/23 Range/Units 15:45 20:01 06:08 Hgb (13.0-17.5) gm/dL Hct (39.0-53.0) % MCH (25.0-35.0) pg MCHC (31.0-37.0) g/dL RDW (11.5-15.5) % Plt Count (150-450) k/uL Chloride (98-107) mmol/L BUN (9-20) mg/dL Creatinine (0.66-1.25) mg/dL POC Glucose (mg/dL) 137 H 128 H 112 H (70-110) mg/dL Calcium (8.4-10.2) mg/dL AST (17-59) U/L Total Protein (6.3-8.2) g/dL Albumin (3.5-5.0) g/dL Microbiology - Last 24 Hours (Table) 07/23/23 05:25 Blood Culture - Preliminary Blood 07/23/23 05:41 Blood Culture - Preliminary Blood
--- NOTE | 2023-07-26 11:12 | P.PN ---
Subjective Progress Note Date: 07/26/23 HISTORY OF PRESENT ILLNESS: 67-year-old male one of our office practice who had recurrent cellulitis of the lower extremity, ischemic cardiomyopathy with advanced heart failure with ejection fraction of 10-15 percentile, also has recurrent cellulitis and diabetic foot on both sides worse on the right side than the left side. Patient is known to have history of CAD post CABG years ago done at [facility] he is followed with cardiology in town with his last admission with the significant decline in his ejection fraction ended up going for heart cath came back with chronic stenosis nothing require any intervention at the time. Patient was in the hospital for over 5 days and was discharged home upon his discharge communicate with his family apparently patient is not does not have any significant other and he has a brother and sister lives with him they were not aware of his condition when explaining to them that his advanced heart failure leave him with extremely high mortality and severe comorbidity at any time to put some more effort to help him out with transportation, diet, appointment and reminder family were willing to do the best he can. Patient presented to the emergency department yesterday complaining of slight nausea vomiting with low-grade temperature chest x-ray showed? 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 Was giving some furosemide started on updraft treatment troponin was mildly elevated at the time patient was started on 4 L of O2 to keep his pulse ox above 90 percentile will be hospitalized with worsening dyspnea shortness of breath and respiratory failure with worsening cardiomyopathy will be seeing cardiology and pulmonary. Shortly after his arrival to the emergency department seen him patient seems to be little bit more comfortable on 4 L of O2 and explained to him that the necessity of taking his medication on time not to skip any doses specially with his cardiomyopathy that can make his heart failure much worse in short period time. Also review his x-ray and testing seem like he might have an infiltrate in the bases bilaterally will be on IV antibiotics will be seen pulmonary as well. 07/24/2023: He is feeling little bit better with significant decrease shortness of breath compared to yesterday also having no chest pain. He is seen pulmonary and agree with the respiratory failure being secondary to fluid overload congestive heart failure along with cardiomyopathy along with acute kidney injury and to continue treatment and management for chronic cellulitis. Also patient had small sacral area may be stage I in the sacrum. Had diabetic ulcer and slight ulcerated area on the right foot. His impaired ejection fraction require use of any medication patient cannot tolerate for heart failure between Entresto, furosemide, and Aldactone. Also patient had an AICD and seeing cardiology on regular basis. Will continue titrating his oxygen flow down continue IV Lasix for another 24 hours resume his metoprolol IV along with Farxiga and Entresto while watching his kidney function and electrolyte imbalance carefully. Also patient will watch for any pneumonia will be treated for cellulitis with topical collagenous ointment and will continue Unasyn for now hoping to switch him eventually to Augmentin. 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 Sadly his ejection fraction is 17 percentile with pulmonary pressure of 48 and mild aortic and mild mitral regurgitation from his last echocardiogram and currently still on medical management which is now working great. His amiodarone was started and responded to the severe tachycardia he had with his A-fib and more like AVNRT. From pulmonary standpoint remain on 4 L of O2 which can be decreased at this point patient is not using any BiPAP for now and he does not need to be on any mechanical ventilation we will continue IV Unasyn for his pneumonia which patient required to be treated for the next few days and will be switched to oral antibiotic when he is ready to leave the hospital. July 28, 2023: Patient is feeling slightly better, weaning him down on O2 to keep his pulse ox above 90 percentile. His A-fib is still active he is doing well with amiodarone 400 mg daily, still on smaller dose of Entresto seems to do little bit better with it. Also still on antibiotic for complication of cellulitis with a small ulcerated area on the right leg along with sacral decub. Continue topical care as well. Titrate physical therapy nutritional therapy with increased mobility and activity. psychiatric social worker supervisor again to help patient to get to SNF patient is agreeable believe having him to be in controlled environment for his medication, diet and modification running blood work might avoid having declining and coming back to the hospital more often. If this is happened patient might be able to be transferred to SNF on Friday. REVIEW OF SYSTEMS: CONSTITUTIONAL: Well-developed in mild respiratory distress EYES: No icterus sclerae, no conjunctivitis. EARS, NOSE, MOUTH, THROAT, and FACE: No sore throat, lymphadenopathy, carotid bruits or deformity. RESPIRATORY: Slight shortness of breath cough wheezes. CARDIOVASCULAR: Mild palpitation positive PND orthopnea no angina. GASTROINTESTINAL: No Abd pain, Nausea or vomiting, no Diarrhea or constipation, No GI Bleed, no distention or masses. GENITOURINARY: Decreased urine output with no kidney stone. INTEGUMENT/BREAST: Negative for any muscular injury with mild osteoarthritis.. HEMATOLOGIC/LYMPHATIC: Negative for bleed or purpura. MUSCULOSKELTAL: Generalized myalgia and arthralgia. Slight swelling with cellulitis of the lower extremity worse on the right than the left side and quite bit edema. NEURLOGICAL: Slight slowness with no syncope or seizure. BEHAVIORAL/PSYCH: Negative. ENDOCRINE: Negative. PHYSICAL EXAMINATION: General Appearance: Alert, slight respiratory distress. Neck HEENT: Supple, no lymphadenopathy, no thyroid enlargement, no carotid bruits. Lungs: Decreased breath sound bilaterally with fine rhonchi positive slight crackles and wheezes in the lower bases bilaterally. Chest Wall: Decreased expansion with deep inspiration no tenderness and no deformity was found on exam, no costochondral pain or discomfort. Heart: Irregular rate and rhythm, S1, S2 positive S3 positive gallop and slight systolic murmur. There is an ICD device in the left upper chest wall. Back: Symmetric, no curvature, ROM normal, no CVA tenderness. Abdomen: Soft positive bowel sounds slight discomfort lower abdominal region area no rebound or rigidity. Extremities: Extremities quite bit abnormal, atraumatic, no cyanosis 2+ edema of the lower extremity. Significant cellulitis worsening area of open sore on the medial aspect of the right leg the left side has 1+ edema as well. Pulses: 2+ and symmetric. Skin: Skin color, texture, tugor normal, no rashes or lesions. Neurologic: Alert oriented x3 cranial nerves II through XII intact, no motor deficit, no abnormal balance or gait. ASSESSMENT AND PLAN: _Acute respiratory failure combination of congestive heart failure, fluid over load, cardiomyopathy, A-fib along with bilateral pneumonia and COPD. Titrate O2 down little bit to keep his pulse ox above 92%. _Congestive heart failure exacerbation mostly systolic dysfunction with acute component most likely secondary to noncompliance hopefully getting patient back to his medication for his heart failure and cardiomyopathy had to reduce his Entresto smaller dose continue beta-nicky along with amiodarone, spironolactone and furosemide will be helpful. _Severe advanced ischemic cardiomyopathy with congestive heart failure stage V: Has been on adjusted medical management reviewed very carefully last time with cardiology and nephrology and agree on the current plan and management will keep watching his symptoms quite carefully may be one of the tackle to reduce the odd s of coming to the emergency department that for the patient to be seen in the office between PCP and cardiology at least every 2 weeks. _Elevated troponin with possible transmural ID: No new finding of ID at this point still seeing cardiology. No new onset of ID at this point. _Possible bilateral pneumonia: Continue Unasyn along with O2 to keep his pulse ox above 90 percentile and still seen pulmonary regularly. _A-fib with RVR: With a rapid pulse rate at this point patient was started on a miodarone which she is having slight side effects from but will continue amiodarone 400 mg to see cardiology as an outpatient does need to be reduced rapidly to 200 mg soon as possible. _Type 2 diabetes: Not well-controlled remain on Farxiga,Rybelsus and Lantus, Accu-Chek with sliding scale coverage will be done. _Acute kidney injury: Is down to stage II chronic kidney disease doing well repeat CMP tomorrow again. _Elevated D-dimer: With no sign of pulmonary embolism patient might require to go for CTA at some point. _Severe cellulitis of the lower extremity worsening on the right side and left side we will continue Unasyn along with topical collagenase dressing. _Sacral ulcer: Mostly stage I and early stage II mostly from pressure from laying on bed or sitting in the chair for longer time, continue topical care and continue her current turning in bed and having patient ambulate with physical therapy fast. _Recent diabetic foot was seen at the wound clinic regularly and doing better. _Hypertension: Remain on Norvasc 2.5 mg a day, Entresto dose was decreased to 24/26 mg twice a day. _Hyperlipidemia: Remain on atorvastatin 40 mg a day. _Severe BPH: Watch for any urinary retention. CODE STATUS: Full code. Prognosis: Poor. Discussion: Continue adjusting his medication patient probably would benefit from going to SNF is agreeable to this point with medical social consultant for help to get him to rehab probably on Friday. Objective - Vital Signs Vital signs: Vital Signs Temp 98.9 F 07/25/23 19:21 Pulse 66 07/26/23 05:00 Resp 16 07/26/23 05:00 BP 133/76 07/26/23 05:00 Pulse Ox 94 L 07/26/23 05:00 FiO2 Intake & Output 07/25/23 07/26/23 07/26/23 18:59 06:59 18:59 Intake Total 600 540 Output Total 1250 1500 Balance -650 -960 Weight 85.9 kg Intake: Oral 600 540 Output: Urine 1250 1500 Other: Voiding Method External Catheter External Catheter # Bowel Movements 1 1 - Labs CBC & Chem 7: 07/25/23 08:28 07/25/23 08:28 Labs: Abnormal Lab Results - Last 24 Hours (Table) 07/25/23 07/25/23 07/25/23 Range/Units 08:28 08:28 11:52 RBC 4.18 L (4.30-5.90) m/uL Hgb 10.4 L (13.0-17.5) gm/dL Hct 33.9 L (39.0-53.0) % MCH 24.9 L (25.0-35.0) pg MCHC 30.7 L (31.0-37.0) g/dL RDW 15.9 H (11.5-15.5) % Plt Count 144 L (150-450) k/uL Lymphocytes # 0.7 L (1.0-4.8) k/uL Chloride 110 H (98-107) mmol/L BUN 34 H (9-20) mg/dL Creatinine 1.28 H (0.66-1.25) mg/dL Glucose 108 H (74-99) mg/dL POC Glucose (mg/dL) 231 H (70-110) mg/dL Calcium 8.3 L (8.4-10.2) mg/dL AST 92 H (17-59) U/L ALT 58 H (4-49) U/L Total Protein 5.8 L (6.3-8.2) g/dL Albumin 2.8 L (3.5-5.0) g/dL 07/25/23 07/25/23 07/26/23 Range/Units 16:35 19:54 05:55 RBC (4.30-5.90) m/uL Hgb (13.0-17.5) gm/dL Hct (39.0-53.0) % MCH (25.0-35.0) pg MCHC (31.0-37.0) g/dL RDW (11.5-15.5) % Plt Count (150-450) k/uL Lymphocytes # (1.0-4.8) k/uL Chloride (98-107) mmol/L BUN (9-20) mg/dL Creatinine (0.66-1.25) mg/dL Glucose (74-99) mg/dL POC Glucose (mg/dL) 127 H 143 H 152 H (70-110) mg/dL Calcium (8.4-10.2) mg/dL AST (17-59) U/L ALT (4-49) U/L Total Protein (6.3-8.2) g/dL Albumin (3.5-5.0) g/dL Microbiology - Last 24 Hours (Table) 07/23/23 05:25 Blood Culture - Preliminary Blood 07/23/23 05:41 Blood Culture - Preliminary Blood
[2023-07-26 11:23] LABS: Glucose,Whole Blood 189 mg/dL (70-110)
--- NOTE | 2023-07-26 15:21 | P.PN ---
Subjective Progress Note Date: 07/26/23 This lillian Gonzalez is a 67-year-old male patient was brought into the hospital following a recent discharge with chief complaints of worsening shortness of breath. The patient was found to be hypoxic by the paramedics and apparently his pulse ox was in the low 70s. For that reason, the patient was brought into the emergency department. He does have an large number of medical problems and comorbidities. He is currently on 4 L of oxygen by nasal cannula. Afebrile and hemodynamically stable. His blood work shows a white cell count of 9.2 with a hemoglobin 12 and a platelet count of 112. Sodium is at 140 with a potassium level of 4.8, serum bicarb is at 16 with a BUN of 31 and a creatinine of 1.46 with a baseline creatinine being essentially within normal limits. Glucose at 277, troponin was at 0.1 and 0.3 respectively with a proBNP level of 9490. The viral screen has been negative. Calcium level of 8.7. Initial lactic acid level was as high as 5.1 dropped down to 1.7. The patient underwent a chest x- ray that showed smaller lung volumes along with cardiomegaly increased pulm vessel markings consistent with CHF. This was followed by CT angiogram of the chest that showed no evidence of any pulmonary embolism. Lungs were essentially free of any acute pulmonary infiltrates and there is some dependent atelectatic change in the lung bases. No evidence of any pleural effusion. The patient was started on IV Lasix. I noted a patch of cellulitis in his right lower extremity. Going back to the history, the patient has history of severe cardiomyopathy with an ejection fraction of 15 to 20%. The patient has been maintained on a combination of Entresto, Lasix and Aldactone on outpatient basis. The patient also has coronary disease and he has sustained non-ST segment elevation myocardial infarction during his earlier hospitalization and the most recent cardiac catheterization that was done on this patient was done on 07/04/2023 and the patient was found to have chronic occluded proximal LAD and circumflex and diffuse disease involving the RCA. The patient had a patent SVG to PDA, chronically occluded SVG to the circumflex and patent MEJIA to LAD and elevated left ventricular end-diastolic pressure and pressure was in the order of 25 to 30 mmHg consistent with CHF. The patient also has diabetes mellitus type 2, hypertension hyperlipidemia and BPH and history of diabetic foot ulcers and chronic cellulitis of the right lower extremity. During his last admission, a CAT scan of the foot was done and the patient did not have any active osteomyelitis. The patient was treated with IV Unasyn with subsequent improvement in the right lower extremity cellulitis. He was discharged on doxycycline. He does have an underlying pacemaker. He also has peripheral vascular disease,. 07/24/2023, the patient is being seen for a follow-up. The patient is feeling better compared to yesterday. No significant shortness of breath. Started on diuretics and the patient is currently on Lasix producing adequate amount of urine output. The patient is on 80 mg of p.o. Lasix twice a day. He is also being treated for cellulitis of the right lower extremity. The patient is cur rently on IV Unasyn. The right lower extremity is improved compared to yesterday. Otherwise, no new complaints. The patient remains on oxygen at 4 L with a pulse ox of 99%. FiO2 can be obviously weaned off. WBC count is at 8.3 with a hemoglobin 11.1 and a platelet count of 128, BUN is 36 with a creatinine of 1.37 and a sodium levels of 140 with a potassium level of 4.1. Hemodynamically stable. Sitting up in a chair and is calm and comfortable. On today's evaluation of 07/25/2023, I am seeing the patient for a follow-up. Essentially unchanged on 4 L of oxygen by nasal cannula. Right lower extremity cellulitis is improving. BUN is at 34 with a creatinine 1.28 and a sodium level is at 140 WBC count at 7.8 with a hemoglobin of 10.4. Remains on IV Unasyn. No other significant changes in his medications otherwise. Oral intake is quite diminished. Blood cultures are negative thus far. Afebrile. On today's evaluation 07/26/2023, the patient is being seen for a follow-up. No specific complaints. He is currently on room air oxygen with a pulse ox of 94%. Sitting up in a chair. Calm and comfortable. He is still in atrial fibrillation. Remains on amiodarone 400 mg p.o. daily, metoprolol XL 25 mg p.o. daily and the patient is also on Entresto 24/26 1 tablet a day and Aldactone 25 mg p.o. daily. He remains on a combination of aspirin and Plavix. Patient also remains on Lasix 80 mg p.o. twice a day. He is on Levemir insulin 15 units daily along with 5 units of NovoLog with meals + scale coverage. Labs from today are still pending. Labs from yesterday was noted. The patient's creatinine was improving it was down to 1.28. Cellulitis of the right lower extremity is also improving. Oxygenation is improved. Objective - Vital Signs Vital signs: Vital Signs Temp 97.8 F 07/26/23 08:22 Pulse 64 07/26/23 08:22 Resp 16 07/26/23 08:22 BP 128/75 07/26/23 08:22 Pulse Ox 99 07/26/23 08:22 FiO2 Intake & Output 07/25/23 07/26/23 07/26/23 18:59 06:59 18:59 Intake Total 600 540 550 Output Total 1250 1500 300 Balance -650 -960 250 Weight 85.9 kg Intake: IV 10 Invasive Line 2 10 Oral 600 540 540 Output: Urine 1250 1500 300 Other: Voiding Method External Catheter External Catheter External Catheter # Bowel Movements 1 1 - Exam General Appearance: Alert, slight respiratory distress. The patient is currently on room air oxygen oxygen by nasal cannula. Not using accessory muscles of breathing. Neck HEENT: Supple, no lymphadenopathy, no thyroid enlargement, no carotid bruits. Lungs: Decreased breath sound bilaterally with fine rhonchi positive slight crackles and wheezes in the lower bases bilaterally. Chest Wall: Decreased expansion with deep inspiration no tenderness and no deformity was found on exam, no costochondral pain or discomfort. Heart: Irregular rate and rhythm, S1, S2 positive S3 positive gallop and slight systolic murmur. There is an ICD device in the left upper chest wall. Back: Symmetric, no curvature, ROM normal, no CVA tenderness. Abdomen: Soft positive bowel sounds slight discomfort lower abdominal region are a no rebound or rigidity. Extremities: Extremities normal, atraumatic, no cyanosis 2+ edema of the lower extremity. The patient has cellulitis of the right lower extremity with poor circulation and multiple amputated toes Pulses: 2+ and symmetric. Skin: Skin color, texture, tugor normal, no rashes or lesions. Neurologic: Alert oriented x3 cranial nerves II through XII intact, no motor deficit, no abnormal balance or gait. - Labs CBC & Chem 7: 07/25/23 08:28 07/25/23 08:28 Labs: Abnormal Lab Results - Last 24 Hours (Table) 07/25/23 07/25/23 07/25/23 Range/Units 11:52 16:35 19:54 POC Glucose (mg/dL) 231 H 127 H 143 H (70-110) mg/dL 07/26/23 Range/Units 05:55 POC Glucose (mg/dL) 152 H (70-110) mg/dL Microbiology - Last 24 Hours (Table) 07/23/23 05:25 Blood Culture - Preliminary Blood 07/23/23 05:41 Blood Culture - Preliminary Blood Assessment and Plan Plan: Acute on chronic hypoxic respiratory failure improved and the patient is currently on room air oxygen.. Reviewed the chest x-ray and the CT angiogram. No evidence of any pulm embolism. No evidence of pneumonia. The patient may have a component of mild CHF at this point in time. Started on Lasix. The patient is currently on oral Lasix 80 mg twice a day and the patient is feeling better and less short of breath compared to yesterday. Oxygenation is improved Acute kidney injury, likely secondary cardiorenal factors, creatinine is stable, slightly improved , awaiting labs from today Chronic cellulitis of the right lower extremity, improving on Unasyn, improved Chronic dyspnea CHF with impaired LV function with an ejection fraction of 15 to 20% and the patient has been maintained on a combination of Entresto, Lasix, Aldactone and the patient has been also given an AICD/pacer Coronary disease with previous bypass surgery. Please refer to the most recent cardiac catheterization that showed a patent MEJIA to LAD. Medical management is being offered. Abnormal troponins, likely type II myocardial ischemia due to infection, CHF and comorbidities Diabetes mellitus type 2 Diabetic ulcers with previous amputation in the toes bilaterally Hypertension Hyperlipidemia Chronic atrial fibrillation Severe BPH a Acute leukocytosis, improving Plan Clinically stable, oxygenation is also stable and the patient is currently on room air oxygen. Continue p.o. Lasix 80 mg twice a day Restart IV Unasyn regarding right lower extremity cellulitis Resume aspirin and Plavix Resume metoprolol 25 mg p.o. daily Resume Entresto and Aldactone monitor the potassium level and renal function Resume Bobby Will continue to follow.
[2023-07-26 16:31] LABS: Glucose,Whole Blood 135 mg/dL (70-110)
[2023-07-26 19:50] LABS: Glucose,Whole Blood 164 mg/dL (70-110)
[2023-07-27 06:01] LABS: Glucose,Whole Blood 114 mg/dL (70-110)
[2023-07-27 10:22] LABS: HCT 36.8 % (39.0-53.0); Hypochromasia Moderate; MCH 24.4 pg (25.0-35.0); MCHC 29.8 g/dL (31.0-37.0); MCV 81.9 fL (80.0-100.0); Mean Platelet Volume 8.5; Platelet Count 187 k/uL (150-450); RBC 4.49 m/uL (4.30-5.90); RDW 15.9 % (11.5-15.5); WBC 7.6 k/uL (3.8-10.6)
[2023-07-27 10:48] LABS: ALT 57 U/L (4-49); AST 74 U/L (17-59); African American GFR (CKD) 82 (>60 ml/min/1.73 sqM); Albumin 2.9 g/dL (3.5-5.0); Alkaline Phosphatase 119 U/L (38-126); Anion Gap 6 mmol/L; Blood Urea Nitrogen 28 mg/dL (9-20); Calcium 8.3 mg/dL (8.4-10.2); Carbon Dioxide 27 mmol/L (22-30); Chloride 109 mmol/L (98-107); Glucose 107 mg/dL (74-99); Non-African American GFR(CKD) 71 (>60 ml/min/1.73 sqM); Potassium 3.3 mmol/L (3.5-5.1); Sodium 142 mmol/L (137-145); Total Bilirubin 0.4 mg/dL (0.2-1.3)
--- NOTE | 2023-07-27 11:58 | P.PN ---
Subjective Progress Note Date: 07/27/23 HISTORY OF PRESENT ILLNESS: 67-year-old male one of our office practice who had recurrent cellulitis of the lower extremity, ischemic cardiomyopathy with advanced heart failure with ejection fraction of 10-15 percentile, also has recurrent cellulitis and diabetic foot on both sides worse on the right side than the left side. Patient is known to have history of CAD post CABG years ago done at [facility] he is followed with cardiology in town with his last admission with the significant decline in his ejection fraction ended up going for heart cath came back with chronic stenosis nothing require any intervention at the time. Patient was in the hospital for over 5 days and was discharged home upon his discharge communicate with his family apparently patient is not does not have any significant other and he has a brother and sister lives with him they were not aware of his condition when explaining to them that his advanced heart failure leave him with extremely high mortality and severe comorbidity at any time to put some more effort to help him out with transportation, diet, appointment and reminder family were willing to do the best he can. Patient presented to the emergency department yesterday complaining of slight nausea vomiting with low-grade temperature chest x-ray showed? 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 Was giving some furosemide started on updraft treatment troponin was mildly elevated at the time patient was started on 4 L of O2 to keep his pulse ox above 90 percentile will be hospitalized with worsening dyspnea shortness of breath and respiratory failure with worsening cardiomyopathy will be seeing cardiology and pulmonary. Shortly after his arrival to the emergency department seen him patient seems to be little bit more comfortable on 4 L of O2 and explained to him that the necessity of taking his medication on time not to skip any doses specially with his cardiomyopathy that can make his heart failure much worse in short period time. Also review his x-ray and testing seem like he might have an infiltrate in the bases bilaterally will be on IV antibiotics will be seen pulmonary as well. 07/24/2023: He is feeling little bit better with significant decrease shortness of breath compared to yesterday also having no chest pain. He is seen pulmonary and agree with the respiratory failure being secondary to fluid overload congestive heart failure along with cardiomyopathy along with acute kidney injury and to continue treatment and management for chronic cellulitis. Also patient had small sacral area may be stage I in the sacrum. Had diabetic ulcer and slight ulcerated area on the right foot. His impaired ejection fraction require use of any medication patient cannot tolerate for heart failure between Entresto, furosemide, and Aldactone. Also patient had an AICD and seeing cardiology on regular basis. Will continue titrating his oxygen flow down continue IV Lasix for another 24 hours resume his metoprolol IV along with Farxiga and Entresto while watching his kidney function and electrolyte imbalance carefully. Also patient will watch for any pneumonia will be treated for cellulitis with topical collagenous ointment and will continue Unasyn for now hoping to switch him eventually to Augmentin. 07/25/2023: He is doing slightly bit better stable vitals are under control pulse ox is 99% on 4 L hemoglobin is 10.4 his Entresto was decreased likely because of his hypotension patient was started on amiodarone will be continued on 20 cc conditioning coach. Sadly his ejection fraction is 17 percentile with pulmonary pressure of 48 and mild aortic and mild mitral regurgitation from his last echocardiogram and currently still on medical management which is now working great. His amiodarone was started and responded to the severe tachycardia he had with his A-fib and more like AVNRT. From pulmonary standpoint remain on 4 L of O2 which can be decreased at this point patient is not using any BiPAP for now and he does not need to be on any mechanical ventilation we will continue IV Unasyn for his pneumonia which patient required to be treated for the next few days and will be switched to oral antibiotic when he is ready to leave the hospital. July 26, 2023: Patient is feeling slightly better, weaning him down on O2 to keep his pulse ox above 90 percentile. His A-fib is still active he is doing well with amiodarone 400 mg daily, still on smaller dose of Entresto seems to do little bit better with it. Also still on antibiotic for complication of cellulitis with a small ulcerated area on the right leg along with sacral decub. Continue topical care as well. Titrate physical therapy nutritional therapy with increased mobility and activity. food counter worker again to help patient to get to SNF patient is agreeable believe having him to be in controlled environment for his medication, diet and modification running blood work might avoid having declining and coming back to the hospital more often. If this is happened patient might be able to be transferred to SNF on Friday. July 27, 2023: He is feeling slightly better have lost quite bit weight Since his admission continue treatment management with IV antibiotic for the cellulitis and the decubitus of the sacrum area of the cellulitis of the lower extremities much better at this point. Patient is debilitated not been able to ambulate without using walker doing physical therapy geriatric social work professor to help to get patient to rehab hopefully on Friday. When talking to patient about the possibility of rehab is more perceptive and open to it today compared to before. REVIEW OF SYSTEMS: CONSTITUTIONAL: Well-developed in mild respiratory distress EYES: No icterus sclerae, no conjunctivitis. EARS, NOSE, MOUTH, THROAT, and FACE: No sore throat, lymphadenopathy, carotid bruits or deformity. RESPIRATORY: Slight shortness of breath cough wheezes. CARDIOVASCULAR: Mild palpitation positive PND orthopnea no angina. GASTROINTESTINAL: No Abd pain, Nausea or vomiting, no Diarrhea or constipation, No GI Bleed, no distention or masses. GENITOURINARY: Decreased urine output with no kidney stone. INTEGUMENT/BREAST: Negative for any muscular injury with mild osteoarthritis.. HEMATOLOGIC/LYMPHATIC: Negative for bleed or purpura. MUSCULOSKELTAL: Generalized myalgia and arthralgia. Slight swelling with cellulitis of the lower extremity worse on the right than the left side and quite bit edema. NEURLOGICAL: Slight slowness with no syncope or seizure. BEHAVIORAL/PSYCH: Negative. ENDOCRINE: Negative. PHYSICAL EXAMINATION: General Appearance: Alert, slight respiratory distress. Neck HEENT: Supple, no lymphadenopathy, no thyroid enlargement, no carotid bruits. Lungs: Decreased breath sound bilaterally with fine rhonchi positive slight crackles and wheezes in the lower bases bilaterally. Chest Wall: Decreased expansion with deep inspiration no tenderness and no deformity was found on exam, no costochondral pain or discomfort. Heart: Irregular rate and rhythm, S1, S2 positive S3 positive gallop and slight systolic murmur. There is an ICD device in the left upper chest wall. Back: Symmetric, no curvature, ROM normal, no CVA tenderness. Abdomen: Soft positive bowel sounds slight discomfort lower abdominal region area no rebound or rigidity. Extremities: Extremities quite bit abnormal, atraumatic, no cyanosis 2+ edema of the lower extremity. Significant cellulitis worsening area of open sore on the medial aspect of the right leg the left side has 1+ edema as well. Pulses: 2+ and symmetric. Skin: Skin color, texture, tugor normal, no rashes or lesions. Neurologic: Alert oriented x3 cranial nerves II through XII intact, no motor deficit, no abnormal balance or gait. ASSESSMENT AND PLAN: _Acute respiratory failure combination of congestive heart failure, fluid overload, cardiomyopathy, A-fib along with bilateral pneumonia and COPD. Titrate O2 down little bit to keep his pulse ox above 92%. He is doing much better with no further respiratory failure _Congestive heart failure exacerbation mostly systolic dysfunction with acute component most likely secondary to noncompliance hopefully getting patient back to his medication for his heart failure and cardiomyopathy had to reduce his Entresto smaller dose continue beta-nicky along with amiodarone, spironolactone and furosemide will be helpful. Continue medical management and well adjusted so far. _Severe advanced ischemic cardiomyopathy with congestive heart failure stage V: Has been on adjusted medical management reviewed very carefully last time with cardiology and nephrology and agree on the current plan and management will keep watching his symptoms quite carefully may be one of the tackle to reduce the odds of coming to the emergency department that for the patient to be seen in the office between PCP and cardiology at least every 2 weeks. _Elevated troponin with possible transmural KS: No new finding of KS at this p oint still seeing cardiology. No new onset of KS at this point. _Possible bilateral pneumonia: Continue Unasyn along with O2 to keep his pulse ox above 90 percentile and still seen pulmonary regularly. Clinically is much better repeat another chest x-ray tomorrow. _A-fib with RVR: With a rapid pulse rate at this point patient was started on amiodarone which she is having slight side effects from but will continue amiodarone 400 mg to see cardiology as an outpatient does need to be reduced ra pidly to 200 mg soon as possible. _Type 2 diabetes: Not well-controlled remain on Farxiga,Rybelsus and Lantus, Accu-Chek with sliding scale coverage will be done. _Acute kidney injury: Is down to stage II chronic kidney disease doing well repeat CMP tomorrow again. _Elevated D-dimer: With no sign of pulmonary embolism patient might require to go for CTA at some point. _Severe cellulitis of the lower extremity worsening on the right side and left side we will continue Unasyn along with topical collagenase dressing. Continue Unasyn will switch patient to oral Augmentin on cephalexin when he goes to rehab. _Sacral ulcer: Mostly stage I and early stage II mostly from pressure from laying on bed or sitting in the chair for longer time, continue topical care and continue her current turning in bed and having patient ambulate with physical therapy fast. _Recent diabetic foot was seen at the wound clinic regularly and doing better. _Hypertension: Remain on Norvasc 2.5 mg a day, Entresto dose was decreased to 24/26 mg twice a day. _Hyperlipidemia: Remain on atorvastatin 40 mg a day. _Severe BPH: Watch for any urinary retention. CODE STATUS: Full code. Prognosis: Poor. Discussion: Clinically patient is feeling much better on repeat another chest x- ray, repeat lab within by tomorrow asking geriatric social work professor to help to get patient to rehab tomorrow. Objective - Vital Signs Vital signs: Vital Signs Temp 97.9 F 07/27/23 07:53 Pulse 64 07/27/23 07:53 Resp 16 07/27/23 07:53 BP 138/64 07/27/23 07:53 Pulse Ox 97 07/27/23 07:53 FiO2 Intake & Output 07/26/23 07/27/23 07/27/23 18:59 06:59 18:59 Intake Total 560 20 10 Output Total 800 2200 Balance -240 -2180 10 Weight 85.9 kg Intake: IV 20 20 10 Invasive Line 2 20 20 10 Oral 540 Output: Urine 800 2200 Other: Voiding Method External Catheter External Catheter External Catheter # Bowel Movements 1 1 - Labs CBC & Chem 7: 07/27/23 09:37 07/27/23 09:37 Labs: Abnormal Lab Results - Last 24 Hours (Table) 07/26/23 07/26/23 07/26/23 Range/Units 11:22 16:30 19:49 POC Glucose (mg/dL) 189 H 135 H 164 H (70-110) mg/dL 07/27/23 Range/Units 05:59 POC Glucose (mg/dL) 114 H (70-110) mg/dL Microbiology - Last 24 Hours (Table) 07/23/23 05:25 Blood Culture - Preliminary Blood 07/23/23 05:41 Blood Culture - Preliminary Blood
[2023-07-27 12:22] LABS: Glucose,Whole Blood 168 mg/dL (70-110)
--- NOTE | 2023-07-27 13:35 | XR ---
EXAMINATION TYPE: XR chest 2V DATE OF EXAM: 07/27/2023 12:16 PM CLINICAL INDICATION:Male, 67 years old with history of Pneumonia; COMPARISON: Chest radiographs from 07/23/2023 TECHNIQUE: XR chest 2V Frontal and lateral views of the chest. FINDINGS: Lungs/Pleura: Improved aeration of the lungs. There is no evidence of pleural effusion, focal consoli dation, or pneumothorax. Pulmonary vascularity: Unremarkable. Heart/mediastinum: Cardiomediastinal silhouette is enlarged and stable. Three lead cardiac conduction device overlying the left hemithorax with lead tips projecting over the right ventricle, right atriu m and coronary sinus. Musculoskeletal: No acute osseous pathology. IMPRESSION: Improved aeration the lungs.
--- NOTE | 2023-07-27 14:25 | P.PN ---
Subjective Progress Note Date: 07/27/23 This lillian Gonzalez is a 67-year-old male patient was brought into the hospital following a recent discharge with chief complaints of worsening shortness of breath. The patient was found to be hypoxic by the paramedics and apparently his pulse ox was in the low 70s. For that reason, the patient was brought into the emergency department. He does have an large number of medical problems and comorbidities. He is currently on 4 L of oxygen by nasal cannula. Afebrile and hemodynamically stable. His blood work shows a white cell count of 9.2 with a hemoglobin 12 and a platelet count of 112. Sodium is at 140 with a potassium level of 4.8, serum bicarb is at 16 with a BUN of 31 and a creatinine of 1.46 with a baseline creatinine being essentially within normal limits. Glucose at 277, troponin was at 0.1 and 0.3 respectively with a proBNP level of 9490. The viral screen has been negative. Calcium level of 8.7. Initial lactic acid level was as high as 5.1 dropped down to 1.7. The patient underwent a chest x- ray that showed smaller lung volumes along with cardiomegaly increased pulm vessel markings consistent with CHF. This was followed by CT angiogram of the chest that showed no evidence of any pulmonary embolism. Lungs were essentially free of any acute pulmonary infiltrates and there is some dependent atelectatic change in the lung bases. No evidence of any pleural effusion. The patient was started on IV Lasix. I noted a patch of cellulitis in his right lower extremity. Going back to the history, the patient has history of severe cardiomyopathy with an ejection fraction of 15 to 20%. The patient has been maintained on a combination of Entresto, Lasix and Aldactone on outpatient basis. The patient also has coronary disease and he has sustained non-ST segment elevation myocardial infarction during his earlier hospitalization and the most recent cardiac catheterization that was done on this patient was done on 07/04/2023 and the patient was found to have chronic occluded proximal LAD and circumflex and diffuse disease involving the RCA. The patient had a patent SVG to PDA, chronically occluded SVG to the circumflex and patent MEJIA to LAD and elevated left ventricular end-diastolic pressure and pressure was in the order of 25 to 30 mmHg consistent with CHF. The patient also has diabetes mellitus type 2, hypertension hyperlipidemia and BPH and history of diabetic foot ulcers and chronic cellulitis of the right lower extremity. During his last admission, a CAT scan of the foot was done and the patient did not have any active osteomyelitis. The patient was treated with IV Unasyn with subsequent improvement in the right lower extremity cellulitis. He was discharged on doxycycline. He does have an underlying pacemaker. He also has peripheral vascular disease,. 07/24/2023, the patient is being seen for a follow-up. The patient is feeling better compared to yesterday. No significant shortness of breath. Started on diuretics and the patient is currently on Lasix producing adequate amount of urine output. The patient is on 80 mg of p.o. Lasix twice a day. He is also being treated for cellulitis of the right lower extremity. The patient is cur rently on IV Unasyn. The right lower extremity is improved compared to yesterday. Otherwise, no new complaints. The patient remains on oxygen at 4 L with a pulse ox of 99%. FiO2 can be obviously weaned off. WBC count is at 8.3 with a hemoglobin 11.1 and a platelet count of 128, BUN is 36 with a creatinine of 1.37 and a sodium levels of 140 with a potassium level of 4.1. Hemodynamically stable. Sitting up in a chair and is calm and comfortable. On today's evaluation of 07/25/2023, I am seeing the patient for a follow-up. Essentially unchanged on 4 L of oxygen by nasal cannula. Right lower extremity cellulitis is improving. BUN is at 34 with a creatinine 1.28 and a sodium level is at 140 WBC count at 7.8 with a hemoglobin of 10.4. Remains on IV Unasyn. No other significant changes in his medications otherwise. Oral intake is quite diminished. Blood cultures are negative thus far. Afebrile. On today's evaluation 07/26/2023, the patient is being seen for a follow-up. No specific complaints. He is currently on room air oxygen with a pulse ox of 94%. Sitting up in a chair. Calm and comfortable. He is still in atrial fibrillation. Remains on amiodarone 400 mg p.o. daily, metoprolol XL 25 mg p.o. daily and the patient is also on Entresto 24/26 1 tablet a day and Aldactone 25 mg p.o. daily. He remains on a combination of aspirin and Plavix. Patient also remains on Lasix 80 mg p.o. twice a day. He is on Levemir insulin 15 units daily along with 5 units of NovoLog with meals + scale coverage. Labs from today are still pending. Labs from yesterday was noted. The patient's creatinine was improving it was down to 1.28. Cellulitis of the right lower extremity is also improving. Oxygenation is improved. On today's evaluation of 07/27/2023, the patient is being seen for a follow-up. The patient is currently on room air oxygen. Repeat chest x-ray was done today and showed improved aeration of the lungs. No evidence of any pleural effusion. No evidence of any focal consolidation. There is cardiomegaly. Cellulitis of the right lower extremity is also improved. No nausea. No vomiting. No chest pain. WBC count at 7.6 with a hemoglobin of 11 and a platelet count of 187. BUN is 28 with a creatinine of 1 and a sodium level is 142. Remains on IV Unasyn. Remains on Lasix 80 mg IV every 12 hours. Rest of the cardiac medications have been unchanged. The patient is currently on Entresto, Aldactone and metoprolol. The patient also on Farxiga. Patient is also on Levemir insulin 15 units along with a NovoLog 5 units with meal and sliding s robel coverage. Mentation is adequate. Objective - Vital Signs Vital signs: Vital Signs Temp 97.9 F 07/27/23 07:53 Pulse 64 07/27/23 07:53 Resp 16 07/27/23 07:53 BP 138/64 07/27/23 07:53 Pulse Ox 97 07/27/23 07:53 FiO2 Intake & Output 07/26/23 07/27/23 07/27/23 18:59 06:59 18:59 Intake Total 560 20 10 Output Total 800 2200 Balance -240 -2180 10 Weight 85.9 kg Intake: IV 20 20 10 Invasive Line 2 20 20 10 Oral 540 Output: Urine 800 2200 Other: Voiding Method External Catheter External Catheter External Catheter # Bowel Movements 1 1 - Exam General Appearance: Alert, slight respiratory distress. The patient is currently on room air oxygen oxygen by nasal cannula. Not using accessory muscles of breathing. Neck HEENT: Supple, no lymphadenopathy, no thyroid enlargement, no carotid bruits. Lungs: Decreased breath sound bilaterally with fine rhonchi positive slight crac kles and wheezes in the lower bases bilaterally. Chest Wall: Decreased expansion with deep inspiration no tenderness and no deformity was found on exam, no costochondral pain or discomfort. Heart: Irregular rate and rhythm, S1, S2 positive S3 positive gallop and slight systolic murmur. There is an ICD device in the left upper chest wall. Back: Symmetric, no curvature, ROM normal, no CVA tenderness. Abdomen: Soft positive bowel sounds slight discomfort lower abdominal region area no rebound or rigidity. Extremities: Extremities normal, atraumatic, no cyanosis 2+ edema of the lower extremity. The patient has cellulitis of the right lower extremity with poor circulation and multiple amputated toes Pulses: 2+ and symmetric. Skin: Skin color, texture, tugor normal, no rashes or lesions. Neurologic: Alert oriented x3 cranial nerves II through XII intact, no motor deficit, no abnormal balance or gait. - Labs CBC & Chem 7: 07/27/23 09:37 07/27/23 09:37 Labs: Abnormal Lab Results - Last 24 Hours (Table) 07/26/23 07/26/23 07/26/23 Range/Units 11:22 16:30 19:49 Hgb (13.0-17.5) gm/dL Hct (39.0-53.0) % MCH (25.0-35.0) pg MCHC (31.0-37.0) g/dL RDW (11.5-15.5) % POC Glucose (mg/dL) 189 H 135 H 164 H (70-110) mg/dL 07/27/23 07/27/23 Range/Units 05:59 09:37 Hgb 11.0 L (13.0-17.5) gm/dL Hct 36.8 L (39.0-53.0) % MCH 24.4 L (25.0-35.0) pg MCHC 29.8 L (31.0-37.0) g/dL RDW 15.9 H (11.5-15.5) % POC Glucose (mg/dL) 114 H (70-110) mg/dL Microbiology - Last 24 Hours (Table) 07/23/23 05:25 Blood Culture - Preliminary Blood 07/23/23 05:41 Blood Culture - Preliminary Blood Assessment and Plan Plan: Acute on chronic hypoxic respiratory failure improved and the patient is currently on room air oxygen.. Reviewed the chest x-ray and the CT angiogram. No evidence of any pulm embolism. No evidence of pneumonia. The patient may have a component of mild CHF at this point in time. Started on Lasix. The patient is currently on oral Lasix 80 mg IV. The follow-up chest x-ray from today shows improvement of the aeration. No evidence of any consolidation or pleural effusions. Twice a day and the patient is feeling better and less short of breath compared to yesterday. Oxygenation is improved Acute kidney injury, likely secondary cardiorenal factors, recovered and the creatinine is normal for now. Chronic cellulitis of the right lower extremity, improving on Unasyn, improved Chronic dyspnea CHF with impaired LV function with an ejection fraction of 15 to 20% and the patient has been maintained on a combination of Entresto, Lasix, Aldactone and the patient has been also given an AICD/pacer Coronary disease with previous bypass surgery. Please refer to the most recent cardiac catheterization that showed a patent MEJIA to LAD. Medical management is being offered. Abnormal troponins, likely type II myocardial ischemia due to infection, CHF and comorbidities Diabetes mellitus type 2 Diabetic ulcers with previous amputation in the toes bilaterally Hypertension Hyperlipidemia Chronic atrial fibrillation Severe BPH a Acute leukocytosis, improving Plan Patient is clinically stable on room air oxygen. Clinically stable, oxygenation is also stable and the patient is currently on room air oxygen. Continue IV Lasix 80 mg every 12 hours and switch the patient to oral Lasix for the next 1 to 4 hours. Chest x-ray findings are essentially stable and there is improved aeration of the lungs without any consolidation or pleural effusions. Restart IV Unasyn regarding right lower extremity cellulitis Resume aspirin and Plavix Resume metoprolol 25 mg p.o. daily Resume Entresto and Aldactone monitor the potassium level and renal function Resume Farxiga .
[2023-07-27 17:05] LABS: Glucose,Whole Blood 110 mg/dL (70-110)
[2023-07-27 20:09] LABS: Glucose,Whole Blood 145 mg/dL (70-110)
[2023-07-28 06:04] LABS: Glucose,Whole Blood 94 mg/dL (70-110)
[2023-07-28 09:22] LABS: HCT 38.8 % (39.0-53.0); HGB 11.4 gm/dL (13.0-17.5); Hypochromasia Marked; MCH 24.5 pg (25.0-35.0); MCHC 29.4 g/dL (31.0-37.0); MCV 83.3 fL (80.0-100.0); Platelet Count 218 k/uL (150-450); RBC 4.66 m/uL (4.30-5.90); RDW 15.6 % (11.5-15.5); WBC 7.7 k/uL (3.8-10.6)
[2023-07-28 09:34] LABS: ALT 53 U/L (4-49); AST 63 U/L (17-59); African American GFR (CKD) >90 (>60 ml/min/1.73 sqM); Albumin 2.9 g/dL (3.5-5.0); Alkaline Phosphatase 96 U/L (38-126); Anion Gap 10 mmol/L; Blood Urea Nitrogen 25 mg/dL (9-20); Calcium 8.5 mg/dL (8.4-10.2); Carbon Dioxide 23 mmol/L (22-30); Chloride 110 mmol/L (98-107); Glucose 112 mg/dL (74-99); Non-African American GFR(CKD) 83 (>60 ml/min/1.73 sqM); Sodium 143 mmol/L (137-145); Total Bilirubin 0.6 mg/dL (0.2-1.3); Total Protein 6.1 g/dL (6.3-8.2)
[2023-07-28 09:41] LABS: NT-Pro-B-Type Natriuretic Pept 6360 pg/mL
[2023-07-28 12:01] LABS: Glucose,Whole Blood 133 mg/dL (70-110)
[2023-07-28 14:49] VITALS: BMI 32.5
--- NOTE | 2023-07-28 16:48 | P.PN ---
Subjective Progress Note Date: 07/28/23 Principal diagnosis: Acute on chronic hypoxic respiratory failure secondary to mild congestive heart failure/systolic in nature. Ejection fraction of 15 to 20% This is Carlos is a 67-year-old male patient was brought into the hospital following a recent discharge with chief complaints of worsening shortness of breath. The patient was found to be hypoxic by the paramedics and apparently his pulse ox was in the low 70s. For that reason, the patient was brought into the emergency department. He does have an large number of medical problems and comorbidities. He is currently on 4 L of oxygen by nasal cannula. Afebrile and hemodynamically stable. His blood work shows a white cell count of 9.2 with a hemoglobin 12 and a platelet count of 112. Sodium is at 140 with a potassium level of 4.8, serum bicarb is at 16 with a BUN of 31 and a creatinine of 1.46 with a baseline creatinine being essentially within normal limits. Glucose at 277, troponin was at 0.1 and 0.3 respectively with a proBNP level of 9490. The viral screen has been negative. Calcium level of 8.7. Initial lactic acid level was as high as 5.1 dropped down to 1.7. The patient underwent a chest x- ray that showed smaller lung volumes along with cardiomegaly increased pulm vessel markings consistent with CHF. This was followed by CT angiogram of the chest that showed no evidence of any pulmonary embolism. Lungs were essentially free of any acute pulmonary infiltrates and there is some dependent atelectatic change in the lung bases. No evidence of any pleural effusion. The patient was started on IV Lasix. I noted a patch of cellulitis in his right lower extremity. Going back to the history, the patient has history of severe cardiomyopathy with an ejection fraction of 15 to 20%. The patient has been maintained on a combination of Entresto, Lasix and Aldactone on outpatient basis . The patient also has coronary disease and he has sustained non-ST segment elevation myocardial infarction during his earlier hospitalization and the most recent cardiac catheterization that was done on this patient was done on 07/04/2023 and the patient was found to have chronic occluded proximal LAD and circumflex and diffuse disease involving the RCA. The patient had a patent SVG to PDA, chronically occluded SVG to the circumflex and patent MEJIA to LAD and elevated left ventricular end-diastolic pressure and pressure was in the order of 25 to 30 mmHg consistent with CHF. The patient also has diabetes mellitus type 2, hypertension hyperlipidemia and BPH and history of diabetic foot ulcers and chronic cellulitis of the right lower extremity. During his last admission, a CAT scan of the foot was done and the patient did not have any active osteomyelitis. The patient was treated with IV Unasyn with subsequent improvement in the right lower extremity cellulitis. He was discharged on doxycycline. He does have an underlying pacemaker. He also has peripheral vascular disease,. 07/24/2023, the patient is being seen for a follow-up. The patient is feeling better compared to yesterday. No significant shortness of breath. Started on diuretics and the patient is currently on Lasix producing adequate amount of urine output. The patient is on 80 mg of p.o. Lasix twice a day. He is also being treated for cellulitis of the right lower extremity. The patient is currently on IV Unasyn. The right lower extremity is improved compared to yesterday. Otherwise, no new complaints. The patient remains on oxygen at 4 L with a pulse ox of 99%. FiO2 can be obviously weaned off. WBC count is at 8.3 with a hemoglobin 11.1 and a platelet count of 128, BUN is 36 with a creatinine of 1.37 and a sodium levels of 140 with a potassium level of 4.1. Hemodynamically stable. Sitting up in a chair and is calm and comfortable. On today's evaluation of 07/25/2023, I am seeing the patient for a follow-up. Essentially unchanged on 4 L of oxygen by nasal cannula. Right lower extremity cellulitis is improving. BUN is at 34 with a creatinine 1.28 and a sodium level is at 140 WBC count at 7.8 with a hemoglobin of 10.4. Remains on IV Unasyn. No other significant changes in his medications otherwise. Oral intake is quite diminished. Blood cultures are negative thus far. Afebrile. On today's evaluation 07/26/2023, the patient is being seen for a follow-up. No specific complaints. He is currently on room air oxygen with a pulse ox of 94%. Sitting up in a chair. Calm and comfortable. He is still in atrial fibrillation. Remains on amiodarone 400 mg p.o. daily, metoprolol XL 25 mg p.o. daily and the patient is also on Entresto 1 tablet a day and Aldactone 25 mg p.o. daily. He remains on a combination of aspirin and Plavix. Patient also remains on Lasix 80 mg p.o. twice a day. He is on Levemir insulin 15 units daily along with 5 units of NovoLog with meals + scale coverage. Labs from today are still pending. Labs from yesterday was noted. The patient's creatinine was improving it was down to 1.28. Cellulitis of the right lower extremity is also improving. Oxygenation is improved. On today's evaluation of 07/27/2023, the patient is being seen for a follow-up. The patient is currently on room air oxygen. Repeat chest x-ray was done today and showed improved aeration of the lungs. No evidence of any pleural effusion. No evidence of any focal consolidation. There is cardiomegaly. Cellulitis of the right lower extremity is also improved. No nausea. No vomiting. No chest pain. WBC count at 7.6 with a hemoglobin of 11 and a platelet count of 187. BUN is 28 with a creatinine of 1 and a sodium level is 142. Remains on IV Unasyn. Remains on Lasix 80 mg IV every 12 hours. Rest of the cardiac medications have been unchanged. The patient is currently on Entresto, Aldactone and metoprolol. The patient also on Farxiga. Patient is also on Levemir insulin 15 units along with a NovoLog 5 units with meal and sliding scale coverage. Mentation is adequate. Patient was reevaluated today on 07/28/2023, patient is doing well, relatively asymptomatic. Still responding to diuretics, chest x-ray showed no evidence of pulmonary edema. Patient is now on room air with O2 sats of 99%, he is hemodynamically stable. CBC and basic metabolic profile are normal. His last BNP level today was 6360 Objective - Vital Signs Vital signs: Vital Signs Temp 97.9 F 07/28/23 15:55 Pulse 57 L 07/28/23 15:55 Resp 20 07/28/23 15:55 BP 131/66 07/28/23 15:55 Pulse Ox 99 07/28/23 15:55 FiO2 Intake & Output 07/27/23 07/28/23 07/28/23 18:59 06:59 18:59 Intake Total 2852 20 238 Output Total 1300 1400 1150 Balance 1552 -1380 -916 Weight 86.1 kg 86.1 kg Intake: IV 20 20 20 Invasive Line 2 20 20 20 Intake, IV Titration 100 100 Amount Ampicillin-Sulbactam 3 gm 100 100 In Sodium Chloride 0.9% 100 ml @ 200 mls/hr IVPB Q6HR [facility] Rx#:[id number] Oral [id number] Output: Urine 1300 1400 1150 Other: Voiding Method External Catheter External Catheter External Catheter # Bowel Movements 2 - Exam General:: Revealed a 67-year-old white male in no distress, on room air. Head: Atraumatic, normocephalic Skin: Skin is warm and dry and no rashes or lesions are noted. Eye: Pupils are equal, round and reactive to light, extra-ocular movements are intact; there is normal conjunctiva bilaterally. Ears, nose, mouth and throat: There are moist mucous membranes and no oral lesions. Neck: The neck is supple, there is no tenderness or JVD. Cardiovascular: There is a regular rate and rhythm. No murmur, rub or gallop is appreciated. Respiratory: Clear bilaterally no rhonchi no wheezes, ICD device noted in the left upper chest wall area. Gastrointestinal: Soft, non-distended, non-tender abdomen without masses or o rganomegaly noted. There is no rebound or guarding present. Bowel sounds are unremarkable. Back: There is no tenderness to palpation in the midline. There is no obvious deformity. Musculoskeletal: Normal ROM, no tenderness, There is no pedal edema. There is no calf tenderness or swelling. No cords were appreciated. Neurological: CN II-XII intact, Cranial nerves III through XII are intact. Th ere are no obvious motor or sensory deficits. Coordination appears grossly intact. Speech is normal. Psychiatric: Cooperative, appropriate mood & affect, normal judgment. - Labs CBC & Chem 7: 07/28/23 08:34 07/28/23 08:34 Labs: Abnormal Lab Results - Last 24 Hours (Table) 07/27/23 07/28/23 07/28/23 Range/Units 20:08 08:34 08:34 Hgb 11.4 L (13.0-17.5) gm/dL Hct 38.8 L (39.0-53.0) % MCH 24.5 L (25.0-35.0) pg MCHC 29.4 L (31.0-37.0) g/dL RDW 15.6 H (11.5-15.5) % Chloride 110 H (98-107) mmol/L BUN 25 H (9-20) mg/dL Glucose 112 H (74-99) mg/dL POC Glucose (mg/dL) 145 H (70-110) mg/dL AST 63 H (17-59) U/L ALT 53 H (4-49) U/L Total Protein 6.1 L (6.3-8.2) g/dL Albumin 2.9 L (3.5-5.0) g/dL 07/28/23 Range/Units 11:59 Hgb (13.0-17.5) gm/dL Hct (39.0-53.0) % MCH (25.0-35.0) pg MCHC (31.0-37.0) g/dL RDW (11.5-15.5) % Chloride (98-107) mmol/L BUN (9-20) mg/dL Glucose (74-99) mg/dL POC Glucose (mg/dL) 133 H (70-110) mg/dL AST (17-59) U/L ALT (4-49) U/L Total Protein (6.3-8.2) g/dL Albumin (3.5-5.0) g/dL Microbiology - Last 24 Hours (Table) 07/23/23 05:25 Blood Culture - Final Blood 07/23/23 05:41 Blood Culture - Final Blood Assessment and Plan Assessment: Impression: Acute on chronic hypoxic respiratory failure Acute systolic congestive heart failure Acute kidney injury likely cardiorenal in nature Chronic right lower extremity cellulitis, on Unasyn Severe LV dysfunction with ejection fraction of 15 to 22% maintained on Lasix Aldactone and Giovanni and had previous AICD placement History of CABG Type 2 diabetes Diabetic ulcers with previous amputations/toes bilaterally Benign essential hypertension Chronic atrial fibrillation Recommendation: Continue present cardiac medications Continue diuretics patient is on Lasix 80 mg IV push twice daily and he will be transitioned to oral Lasix Continue antibiotics for his cellulitis of right lower extremity Continue aspirin and Plavix along with Entresto Aldactone and metoprolol Continue elva PEARCE Will continue to follow. Will clear the patient for discharge home once he is cleared by cardiology Time with Patient: Less than 30
[2023-07-28 16:57] LABS: Glucose,Whole Blood 124 mg/dL (70-110)
[2023-07-28 20:19] LABS: Glucose,Whole Blood 102 mg/dL (70-110)
--- NOTE | 2023-07-28 20:45 | P.PN ---
Subjective Progress Note Date: 07/28/23 HISTORY OF PRESENT ILLNESS: 67-year-old male one of our office practice who had recurrent cellulitis of the lower extremity, ischemic cardiomyopathy with advanced heart failure with ejection fraction of 10-15 percentile, also has recurrent cellulitis and diabetic foot on both sides worse on the right side than the left side. Patient is known to have history of CAD post CABG years ago done at [facility] he is followed with cardiology in town with his last admission with the significant decline in his ejection fraction ended up going for heart cath came back with chronic stenosis nothing require any intervention at the time. Patient was in the hospital for over 5 days and was discharged home upon his discharge communicate with his family apparently patient is not does not have any significant other and he has a brother and sister lives with him they were not aware of his condition when explaining to them that his advanced heart failure leave him with extremely high mortality and severe comorbidity at any time to put some more effort to help him out with transportation, diet, appointment and reminder family were willing to do the best he can. Patient presented to the emergency department yesterday complaining of slight nausea vomiting with low-grade temperature chest x-ray showed? 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 Was giving some furosemide started on updraft treatment troponin was mildly elevated at the time patient was started on 4 L of O2 to keep his pulse ox above 90 percentile will be hospitalized with worsening dyspnea shortness of breath and respiratory failure with worsening cardiomyopathy will be seeing cardiology and pulmonary. Shortly after his arrival to the emergency department seen him patient seems to be little bit more comfortable on 4 L of O2 and explained to him that the necessity of taking his medication on time not to skip any doses specially with his cardiomyopathy that can make his heart failure much worse in short period time. Also review his x-ray and testing seem like he might have an infiltrate in the bases bilaterally will be on IV antibiotics will be seen pulmonary as well. 07/24/2023: He is feeling little bit better with significant decrease shortness of breath compared to yesterday also having no chest pain. He is seen pulmonary and agree with the respiratory failure being secondary to fluid overload congestive heart failure along with cardiomyopathy along with acute kidney injury and to continue treatment and management for chronic cellulitis. Also patient had small sacral area may be stage I in the sacrum. Had diabetic ulcer and slight ulcerated area on the right foot. His impaired ejection fraction require use of any medication patient cannot tolerate for heart failure between Entresto, furosemide, and Aldactone. Also patient had an AICD and seeing cardiology on regular basis. Will continue titrating his oxygen flow down continue IV Lasix for another 24 hours resume his metoprolol IV along with Farxiga and Entresto while watching his kidney function and electrolyte imbalance carefully. Also patient will watch for any pneumonia will be treated for cellulitis with topical collagenous ointment and will continue Unasyn for now hoping to switch him eventually to Augmentin. 07/25/2023: He is doing slightly bit better stable vitals are under control pulse ox is 99% on 4 L hemoglobin is 10.4 his Entresto was decreased likely because of his hypotension patient was started on amiodarone will be continued on [address] [employer]man. Sadly his ejection fraction is 17 percentile with pulmonary pressure of 48 and mild aortic and mild mitral regurgitation from his last echocardiogram and currently still on medical management which is now working great. His amiodarone was started and responded to the severe tachycardia he had with his A-fib and more like AVNRT. From pulmonary standpoint remain on 4 L of O2 which can be decreased at this point patient is not using any BiPAP for now and he does not need to be on any mechanical ventilation we will continue IV Unasyn for his pneumonia which patient required to be treated for the next few days and will be switched to oral antibiotic when he is ready to leave the hospital. July 26, 2023: Patient is feeling slightly better, weaning him down on O2 to keep his pulse ox above 90 percentile. His A-fib is still active he is doing well with amiodarone 400 mg daily, still on smaller dose of Entresto seems to do little bit better with it. Also still on antibiotic for complication of cellulitis with a small ulcerated area on the right leg along with sacral decub. Continue topical care as well. Titrate physical therapy nutritional therapy with increased mobility and activity. social worker again to help patient to get to SNF patient is agreeable believe having him to be in controlled environment for his medication, diet and modification running blood work might avoid having declining and coming back to the hospital more often. If this is happened patient might be able to be transferred to SNF on Friday. July 27, 2023: He is feeling slightly better have lost quite bit weight Since his admission continue treatment management with IV antibiotic for the cellulitis and the decubitus of the sacrum area of the cellulitis of the lower extremities much better at this point. Patient is debilitated not been able to ambulate without using walker doing physical therapy case management social worker to help to get patient to rehab hopefully on Friday. When talking to patient about the possibility of rehab is more perceptive and open to it today compared to before. July 27/2024: He is feeling much better so far will be off IV antibiotics and off IV diuretics, patient is doing PT OT and prepare for going to SNF possibly today or tomorrow. This medication well adjusted blood pressure is not low anymore specially with adjustment of his Entresto. Still on diuretics patient had lost quite bit weight but also in his right lower extremity and to keep this area is much better so far. REVIEW OF SYSTEMS: CONSTITUTIONAL: Well-developed in mild respiratory distress EYES: No icterus sclerae, no conjunctivitis. EARS, NOSE, MOUTH, THROAT, and FACE: No sore throat, lymphadenopathy, carotid bruits or deformity. RESPIRATORY: Slight shortness of breath cough wheezes. CARDIOVASCULAR: Mild palpitation positive PND orthopnea no angina. GASTROINTESTINAL: No Abd pain, Nausea or vomiting, no Diarrhea or constipation, No GI Bleed, no distention or masses. GENITOURINARY: Decreased urine output with no kidney stone. INTEGUMENT/BREAST: Negative for any muscular injury with mild osteoarthritis.. HEMATOLOGIC/LYMPHATIC: Negative for bleed or purpura. MUSCULOSKELTAL: Generalized myalgia and arthralgia. Slight swelling with cellulitis of the lower extremity worse on the right than the left side and quite bit edema. NEURLOGICAL: Slight slowness with no syncope or seizure. BEHAVIORAL/PSYCH: Negative. ENDOCRINE: Negative. PHYSICAL EXAMINATION: General Appearance: Alert, slight respiratory distress. Neck HEENT: Supple, no lymphadenopathy, no thyroid enlargement, no carotid bruits. Lungs: Decreased breath sound bilaterally with fine rhonchi positive slight crackles and wheezes in the lower bases bilaterally. Chest Wall: Decreased expansion with deep inspiration no tenderness and no deformity was found on exam, no costochondral pain or discomfort. Heart: Irregular rate and rhythm, S1, S2 positive S3 positive gallop and slight systolic murmur. There is an ICD device in the left upper chest wall. Back: Symmetric, no curvature, ROM normal, no CVA tenderness. Abdomen: Soft positive bowel sounds slight discomfort lower abdominal region area no rebound or rigidity. Extremities: Extremities quite bit abnormal, atraumatic, no cyanosis 2+ edema of the lower extremity. Significant cellulitis worsening area of open sore on the medial aspect of the right leg the left side has 1+ edema as well. Pulses: 2+ and symmetric. Skin: Skin color, texture, tugor normal, no rashes or lesions. Neurologic: Alert oriented x3 cranial nerves II through XII intact, no motor deficit, no abnormal balance or gait. ASSESSMENT AND PLAN: _Acute respiratory failure combination of congestive heart failure, fluid overload, cardiomyopathy, A-fib along with bilateral pneumonia and COPD. Continue O2 along with updraft treatment has improved significantly we will continue O2 as an outpatient as well. _Congestive heart failure exacerbation mostly systolic dysfunction with acute component most likely secondary to noncompliance hopefully getting patient back to his medication for his heart failure and cardiomyopathy had to reduce his Entresto smaller dose continue beta-nicky, spironolactone and furosemide will be helpful. Continue medical management and well adjusted so far. _Severe advanced ischemic cardiomyopathy with congestive heart failure stage V: Has been on adjusted medical management reviewed very carefully last time with cardiology and nephrology and agree on the current plan and management will keep watching his symptoms quite carefully may be one of the tackle to reduce the odds of coming to the emergency department that for the patient to be seen in the office between PCP and cardiology at least every 2 weeks. _Elevated troponin with possible transmural IN: No new finding of IN at this point still seeing cardiology. No sign of IN at this point. _Possible bilateral pneumonia: Continue Unasyn along with O2 to keep his pulse ox above 90 percentile and still seen pulmonary regularly. Will be finished antibiotic orally as an outpatient. _A-fib with RVR: With a rapid pulse rate at this point patient was started on amiodarone which she is having slight side effects from but will continue amiodarone 400 mg daily for 3 more days then 200 mg daily thereafter. Still on anticoagulation. _Type 2 diabetes: Not well-controlled remain on Farxiga, Rybelsus and Lantus, Accu-Chek with sliding scale coverage will be done. _Acute kidney injury: Is down to stage II chronic kidney disease doing well repeat CMP tomorrow again. _Elevated D-dimer: With no sign of pulmonary embolism patient might require to go for CTA at some point. _Severe cellulitis of the lower extremity worsening on the right side and left side we will continue Unasyn along with topical collagenase dressing. Continue Unasyn will switch patient to oral Augmentin on cephalexin when he goes to rehab. _Sacral ulcer: Mostly stage I and early stage II mostly from pressure from laying on bed or sitting in the chair for longer time, continue topical care and continue her current turning in bed and having patient ambulate with physical therapy fast. _Recent diabetic foot was seen at the wound clinic regularly and doing better. _Hypertension: Remain on Norvasc 2.5 mg a day, Entresto dose was decreased to 24/26 mg twice a day. _Hyperlipidemia: Remain on atorvastatin 40 mg a day. _Severe BPH: Watch for any urinary retention. CODE STATUS: Full code. Prognosis: Poor. Discussion: Patient is doing very well continue to improve clinically still seen PT OT and prepare hopefully for SNF today or tomorrow. Objective - Vital Signs Vital signs: Vital Signs Temp 97.9 F 07/28/23 15:55 Pulse 57 L 07/28/23 15:55 Resp 20 07/28/23 15:55 BP 131/66 07/28/23 15:55 Pulse Ox 99 07/28/23 15:55 FiO2 Intake & Output 07/28/23 07/28/23 07/29/23 06:59 18:59 06:59 Intake Total 20 718 Output Total 1400 1150 Balance -1380 -432 Weight 86.1 kg 86.1 kg Intake: IV 20 20 Invasive Line 2 20 20 Intake, IV Titration 100 Amount Ampicillin-Sulbactam 3 gm 100 In Sodium Chloride 0.9% 100 ml @ 200 mls/hr IVPB Q6HR [facility] Rx#:[id number] Oral 598 Output: Urine 1400 1150 Other: Voiding Method External Catheter External Catheter # Bowel Movements 1 - Labs CBC & Chem 7: 07/28/23 08:34 07/28/23 08:34 Labs: Abnormal Lab Results - Last 24 Hours (Table) 07/28/23 07/28/23 07/28/23 Range/Units 08:34 08:34 11:59 Hgb 11.4 L (13.0-17.5) gm/dL Hct 38.8 L (39.0-53.0) % MCH 24.5 L (25.0-35.0) pg MCHC 29.4 L (31.0-37.0) g/dL RDW 15.6 H (11.5-15.5) % Chloride 110 H (98-107) mmol/L BUN 25 H (9-20) mg/dL Glucose 112 H (74-99) mg/dL POC Glucose (mg/dL) 133 H (70-110) mg/dL AST 63 H (17-59) U/L ALT 53 H (4-49) U/L Total Protein 6.1 L (6.3-8.2) g/dL Albumin 2.9 L (3.5-5.0) g/dL 07/28/23 Range/Units 16:55 Hgb (13.0-17.5) gm/dL Hct (39.0-53.0) % MCH (25.0-35.0) pg MCHC (31.0-37.0) g/dL RDW (11.5-15.5) % Chloride (98-107) mmol/L BUN (9-20) mg/dL Glucose (74-99) mg/dL POC Glucose (mg/dL) 124 H (70-110) mg/dL AST (17-59) U/L ALT (4-49) U/L Total Protein (6.3-8.2) g/dL Albumin (3.5-5.0) g/dL Microbiology - Last 24 Hours (Table) 07/23/23 05:25 Blood Culture - Final Blood 07/23/23 05:41 Blood Culture - Final Blood
[2023-07-29 06:15] LABS: Glucose,Whole Blood 101 mg/dL (70-110)
[2023-07-29 12:05] LABS: Glucose,Whole Blood 112 mg/dL (70-110)
[2023-07-29 13:12] VITALS: RESP 16
--- NOTE | 2023-07-29 14:23 | P.PN ---
Subjective Progress Note Date: 07/29/23 Principal diagnosis: Acute on chronic hypoxic respiratory failure secondary to mild congestive heart failure/systolic in nature. Ejection fraction of 15 to 20% This is Carlos is a 67-year-old male patient was brought into the hospital following a recent discharge with chief complaints of worsening shortness of breath. The patient was found to be hypoxic by the paramedics and apparently his pulse ox was in the low 70s. For that reason, the patient was brought into the emergency department. He does have an large number of medical problems and comorbidities. He is currently on 4 L of oxygen by nasal cannula. Afebrile and hemodynamically stable. His blood work shows a white cell count of 9.2 with a hemoglobin 12 and a platelet count of 112. Sodium is at 140 with a potassium level of 4.8, serum bicarb is at 16 with a BUN of 31 and a creatinine of 1.46 with a baseline creatinine being essentially within normal limits. Glucose at 277, troponin was at 0.1 and 0.3 respectively with a proBNP level of 9490. The viral screen has been negative. Calcium level of 8.7. Initial lactic acid level was as high as 5.1 dropped down to 1.7. The patient underwent a chest x- ray that showed smaller lung volumes along with cardiomegaly increased pulm vessel markings consistent with CHF. This was followed by CT angiogram of the chest that showed no evidence of any pulmonary embolism. Lungs were essentially free of any acute pulmonary infiltrates and there is some dependent atelectatic change in the lung bases. No evidence of any pleural effusion. The patient was started on IV Lasix. I noted a patch of cellulitis in his right lower extremity. Going back to the history, the patient has history of severe cardiomyopathy with an ejection fraction of 15 to 20%. The patient has been maintained on a combination of Entresto, Lasix and Aldactone on outpatient basis . The patient also has coronary disease and he has sustained non-ST segment elevation myocardial infarction during his earlier hospitalization and the most recent cardiac catheterization that was done on this patient was done on 07/04/2023 and the patient was found to have chronic occluded proximal LAD and circumflex and diffuse disease involving the RCA. The patient had a patent SVG to PDA, chronically occluded SVG to the circumflex and patent MEJIA to LAD and elevated left ventricular end-diastolic pressure and pressure was in the order of 25 to 30 mmHg consistent with CHF. The patient also has diabetes mellitus type 2, hypertension hyperlipidemia and BPH and history of diabetic foot ulcers and chronic cellulitis of the right lower extremity. During his last admission, a CAT scan of the foot was done and the patient did not have any active osteomyelitis. The patient was treated with IV Unasyn with subsequent improvement in the right lower extremity cellulitis. He was discharged on doxycycline. He does have an underlying pacemaker. He also has peripheral vascular disease,. 07/24/2023, the patient is being seen for a follow-up. The patient is feeling better compared to yesterday. No significant shortness of breath. Started on diuretics and the patient is currently on Lasix producing adequate amount of urine output. The patient is on 80 mg of p.o. Lasix twice a day. He is also being treated for cellulitis of the right lower extremity. The patient is currently on IV Unasyn. The right lower extremity is improved compared to yesterday. Otherwise, no new complaints. The patient remains on oxygen at 4 L with a pulse ox of 99%. FiO2 can be obviously weaned off. WBC count is at 8.3 with a hemoglobin 11.1 and a platelet count of 128, BUN is 36 with a creatinine of 1.37 and a sodium levels of 140 with a potassium level of 4.1. Hemodynamically stable. Sitting up in a chair and is calm and comfortable. On today's evaluation of 07/25/2023, I am seeing the patient for a follow-up. Essentially unchanged on 4 L of oxygen by nasal cannula. Right lower extremity cellulitis is improving. BUN is at 34 with a creatinine 1.28 and a sodium level is at 140 WBC count at 7.8 with a hemoglobin of 10.4. Remains on IV Unasyn. No other significant changes in his medications otherwise. Oral intake is quite diminished. Blood cultures are negative thus far. Afebrile. On today's evaluation 07/26/2023, the patient is being seen for a follow-up. No specific complaints. He is currently on room air oxygen with a pulse ox of 94%. Sitting up in a chair. Calm and comfortable. He is still in atrial fibrillation. Remains on amiodarone 400 mg p.o. daily, metoprolol XL 25 mg p.o. daily and the patient is also on Entresto 1 tablet a day and Aldactone 25 mg p.o. daily. He remains on a combination of aspirin and Plavix. Patient also remains on Lasix 80 mg p.o. twice a day. He is on Levemir insulin 15 units daily along with 5 units of NovoLog with meals + scale coverage. Labs from today are still pending. Labs from yesterday was noted. The patient's creatinine was improving it was down to 1.28. Cellulitis of the right lower extremity is also improving. Oxygenation is improved. On today's evaluation of 07/27/2023, the patient is being seen for a follow-up. The patient is currently on room air oxygen. Repeat chest x-ray was done today and showed improved aeration of the lungs. No evidence of any pleural effusion. No evidence of any focal consolidation. There is cardiomegaly. Cellulitis of the right lower extremity is also improved. No nausea. No vomiting. No chest pain. WBC count at 7.6 with a hemoglobin of 11 and a platelet count of 187. BUN is 28 with a creatinine of 1 and a sodium level is 142. Remains on IV Unasyn. Remains on Lasix 80 mg IV every 12 hours. Rest of the cardiac medications have been unchanged. The patient is currently on Entresto, Aldactone and metoprolol. The patient also on Farxiga. Patient is also on Levemir insulin 15 units along with a NovoLog 5 units with meal and sliding scale coverage. Mentation is adequate. Patient was reevaluated today on 07/28/2023, patient is doing well, relatively asymptomatic. Still responding to diuretics, chest x-ray showed no evidence of pulmonary edema. Patient is now on room air with O2 sats of 99%, he is hemodynamically stable. CBC and basic metabolic profile are normal. His last BNP level today was 6360 Patient was reevaluated today on 07/29/2023,Patient is now on room air with O2 sats of 98%, chest x-ray from 2 days ago showed significant improvement in his pulmonary edema and improved aeration in both lungs. Basic metabolic profile is relatively normal renal profile is normal CBC is relatively normal except for hemoglobin of 11.4. All in all the patient is doing great, and I will clear for discharge if cleared by other consultants. Objective - Vital Signs Vital signs: Vital Signs Temp 98.4 F 07/29/23 07:35 Pulse 70 07/29/23 12:34 Resp 16 07/29/23 12:34 BP 109/61 07/29/23 12:34 Pulse Ox 98 07/29/23 12:34 FiO2 Intake & Output 07/28/23 07/29/23 07/29/23 18:59 06:59 18:59 Intake Total 718 520 960 Output Total 1150 550 Balance -432 -30 960 Weight 86.1 kg Intake: IV 20 Invasive Line 2 20 Intake, IV Titration 100 Amount Ampicillin-Sulbactam 3 gm 100 In Sodium Chloride 0.9% 100 ml @ 200 mls/hr IVPB Q6HR [facility] Rx#:[id number] Oral 598 520 960 Output: Urine 1150 550 Other: Voiding Method External Catheter External Catheter External Catheter # Voids 1 # Bowel Movements 1 1 - Exam General:: Revealed a 67-year-old white male in no distress, on room air. Head: Atraumatic, normocephalic Skin: Skin is warm and dry and no rashes or lesions are noted. Eye: Pupils are equal, round and reactive to light, extra-ocular movements are intact; there is normal conjunctiva bilaterally. Ears, nose, mouth and throat: There are moist mucous membranes and no oral lesions. Neck: The neck is supple, there is no tenderness or JVD. Cardiovascular: There is a regular rate and rhythm. No murmur, rub or gallop is appreciated. Respiratory: Clear bilaterally no rhonchi no wheezes, ICD device noted in the left upper chest wall area. Gastrointestinal: Soft, non-distended, non-tender abdomen without masses or organomegaly noted. There is no rebound or guarding present. Bowel sounds are unremarkable. Back: There is no tenderness to palpation in the midline. There is no obvious deformity. Musculoskeletal: Normal ROM, no tenderness, There is no pedal edema. There is no calf tenderness or swelling. No cords were appreciated. Neurological: CN II-XII intact, Cranial nerves III through XII are intact. There are no obvious motor or sensory deficits. Coordination appears grossly intact. Speech is normal. Psychiatric: Cooperative, appropriate mood & affect, normal judgment. - Labs CBC & Chem 7: 07/28/23 08:34 07/28/23 08:34 Labs: Abnormal Lab Results - Last 24 Hours (Table) 07/28/23 07/29/23 Range/Units 16:55 12:03 POC Glucose (mg/dL) 124 H 112 H (70-110) mg/dL Microbiology - Last 24 Hours (Table) 07/23/23 05:25 Blood Culture - Final Blood 07/23/23 05:41 Blood Culture - Final Blood Assessment and Plan Assessment: Impression: Acute on chronic hypoxic respiratory failure Acute systolic congestive heart failure Acute kidney injury likely cardiorenal in nature, resolved Chronic right lower extremity cellulitis Severe LV dysfunction with ejection fraction of 15 to 22% maintained on Lasix Aldactone and Giovanni and had previous AICD placement History of CABG Type 2 diabetes Diabetic ulcers with previous amputations/toes bilaterally Benign essential hypertension Chronic atrial fibrillation Recommendation: Continue present cardiac medications Continue diuretics patient is on Lasix 80 mg IV push twice daily and he will be transitioned to oral Lasix Continue aspirin and Plavix along with Entresto Aldactone and metoprolol Continue farxiga Discharge planning is in progress Time with Patient: Less than 30 ([id number])
--- NOTE | 2023-07-29 15:13 | P.DS ---
Providers Date of admission: 07/23/23 06:28 Attending physician: Mauricio Ervin Consults: 07/23/23 06:28 Consult Physician Routine Consulting Provider: Aditya Jean Consult Reason/Comments: CHF Do you want consulting provider notified?: Yes 07/23/23 08:43 Consult Physician Routine Consulting Provider: Mickey Bustamante Consult Reason/Comments: Resp Failure Do you want consulting provider notified?: Yes Primary care physician: [facility] Course: HISTORY OF PRESENT ILLNESS: 67-year-old male one of our office practice who had recurrent cellulitis of the lower extremity, ischemic cardiomyopathy with advanced heart failure with ejection fraction of 10-15 percentile, also has recurrent cellulitis and diabetic foot on both sides worse on the right side than the left side. Patient is known to have history of CAD post CABG years ago done at [facility] he is followed with cardiology in [facility] with his last admission with the significant decline in his ejection fraction ended up going for heart cath came back with chronic stenosis nothing require any intervention at the time. Patient was in the hospital for over 5 days and was discharged home upon his discharge communicate with his family apparently patient is not does not have any significant other and he has a brother and sister lives with him they were not aware of his condition when explaining to them that his advanced heart failure leave him with extremely high mortality and severe comorbidity at any time to put some more effort to help him out with transportation, diet, appointment and reminder family were willing to do the best he can. Patient presented to the emergency department yesterday complaining of slight nausea vomiting with low-grade temperature chest x-ray showed? 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 Was giving some furosemide started on updraft treatment troponin was mildly elevated at the time patient was started on 4 L of O2 to keep his pulse ox above 90 percentile will be hospitalized with worsening dyspnea shortness of breath and respiratory failure with worsening cardiomyopathy will be seeing cardiology and pulmonary. Shortly after his arrival to the emergency department seen him patient seems to be little bit more comfortable on 4 L of O2 and explained to him that the necessity of taking his medication on time not to skip any doses specially with his cardiomyopathy that can make his heart failure much worse in short period time. Also review his x-ray and testing seem like he might have an infiltrate in the bases bilaterally will be on IV antibiotics will be seen pulmonary as well. 07/24/2023: He is feeling little bit better with significant decrease shortness of breath compared to yesterday also having no chest pain. He is seen pulmonary and agree with the respiratory failure being secondary to fluid overload congestive heart failure along with cardiomyopathy along with acute kidney injury and to continue treatment and management for chronic cellulitis. Also patient had small sacral area may be stage I in the sacrum. Had diabetic ulcer and slight ulcerated area on the right foot. His impaired ejection fraction require use of any medication patient cannot tolerate for heart failure between Entresto, furosemide, and Aldactone. Also patient had an AICD and seeing cardiology on regular basis. Will continue titrating his oxygen flow down continue IV Lasix for another 24 hours resume his metoprolol IV along with Farxiga and Entresto while watching his kidney function and electrolyte imbalance carefully. Also patient will watch for any pneumonia will be treated for cellulitis with topical collagenous ointment and will continue Unasyn for now hoping to switch him eventually to Augmentin. 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 Sadly his ejection fraction is 17 percentile with pulmonary pressure of 48 and mild aortic and mild mitral regurgitation from his last echocardiogram and currently still on medical management which is now working great. His amiodarone was started and responded to the severe tachycardia he had with his A-fib and more like AVNRT. From pulmonary standpoint remain on 4 L of O2 which can be decreased at this point patient is not using any BiPAP for now and he does not need to be on any mechanical ventilation we will continue IV Unasyn for his pneumonia which patient required to be treated for the next few days and will be switched to oral antibiotic when he is ready to leave the hospital. July 26, 2023: Patient is feeling slightly better, weaning him down on O2 to keep his pulse ox above 90 percentile. His A-fib is still active he is doing well with amiodarone 400 mg daily, still on smaller dose of Entresto seems to do little bit better with it. Also still on antibiotic for complication of cellulitis with a small ulcerated area on the right leg along with sacral decub. Continue topical care as well. Titrate physical therapy nutritional therapy with increased mobility and activity. community placement worker again to help patient to get to SNF patient is agreeable believe having him to be in controlled environment for his medication, diet and modification running blood work might avoid having declining and coming back to the hospital more often. If this is happened patient might be able to be transferred to SNF on Friday. July 27, 2023: He is feeling slightly better have lost quite bit weight Since his admission continue treatment management with IV antibiotic for the cellulitis and the decubitus of the sacrum area of the cellulitis of the lower extremities much better at this point. Patient is debilitated not been able to ambulate without using walker doing physical therapy director social to help to get patient to rehab hopefully on Friday. When talking to patient about the possibility of rehab is more perceptive and open to it today compared to before. July 27/2024: He is feeling much better so far will be off IV antibiotics and off IV diuretics, patient is doing PT OT and prepare for going to SNF possibly today or tomorrow. This medication well adjusted blood pressure is not low anymore specially with adjustment of his Entresto. Still on diuretics patient had lost quite bit weight but also in his right lower extremity and to keep this area is much better so far. July 29, 2023: Patient is feeling better, he is still on O2 try to keep his pulse ox above 90 percentile. Patient mobility slightly better with physical therapy, is well adjusted to his medication, his swelling in the lower extremity is much better and the cellulitis site the area on his right leg has improved significantly, also his decubitus on the sacrum area has improved on topical care. Patient is prepared for being transferred to SNF today. REVIEW OF SYSTEMS: CONSTITUTIONAL: Well-developed in mild respiratory distress EYES: No icterus sclerae, no conjunctivitis. EARS, NOSE, MOUTH, THROAT, and FACE: No sore throat, lymphadenopathy, carotid bruits or deformity. RESPIRATORY: Slight shortness of breath cough wheezes. CARDIOVASCULAR: Mild palpitation positive PND orthopnea no angina. GASTROINTESTINAL: No Abd pain, Nausea or vomiting, no Diarrhea or constipation, No GI Bleed, no distention or masses. GENITOURINARY: Decreased urine output with no kidney stone. INTEGUMENT/BREAST: Negative for any muscular injury with mild osteoarthritis.. HEMATOLOGIC/LYMPHATIC: Negative for bleed or purpura. MUSCULOSKELTAL: Generalized myalgia and arthralgia. Slight swelling with cellulitis of the lower extremity worse on the right than the left side and quite bit edema. NEURLOGICAL: Slight slowness with no syncope or seizure. BEHAVIORAL/PSYCH: Negative. ENDOCRINE: Negative. PHYSICAL EXAMINATION: General Appearance: Alert, slight respiratory distress. Neck HEENT: Supple, no lymphadenopathy, no thyroid enlargement, no carotid bruits. Lungs: Decreased breath sound bilaterally with fine rhonchi positive slight crackles and wheezes in the lower bases bilaterally. Chest Wall: Decreased expansion with deep inspiration no tenderness and no deformity was found on exam, no costochondral pain or discomfort. Heart: Irregular rate and rhythm, S1, S2 positive S3 positive gallop and slight systolic murmur. There is an ICD device in the left upper chest wall. Back: Symmetric, no curvature, ROM normal, no CVA tenderness. Abdomen: Soft positive bowel sounds slight discomfort lower abdominal region area no rebound or rigidity. Extremities: Extremities quite bit abnormal, atraumatic, no cyanosis 2+ edema of the lower extremity. Significant cellulitis worsening area of open sore on the medial aspect of the right leg the left side has 1+ edema as well. Pulses: 2+ and symmetric. Skin: Skin color, texture, tugor normal, no rashes or lesions. Neurologic: Alert oriented x3 cranial nerves II through XII intact, no motor deficit, no abnormal balance or gait. ASSESSMENT AND PLAN: _Acute respiratory failure combination of congestive heart failure, fluid overload, cardiomyopathy, A-fib along with bilateral pneumonia and COPD. Continue O2 along with updraft treatment has improved significantly we will continue O2 as an outpatient as well. _Congestive heart failure exacerbation mostly systolic dysfunction with acute component most likely secondary to noncompliance hopefully getting patient back to his medication for his heart failure and cardiomyopathy had to reduce his Entresto smaller dose continue beta-nicky, spironolactone and furosemide will be helpful. Continue medical management and well adjusted so far. _Severe advanced ischemic cardiomyopathy with congestive heart failure stage V: Has been on adjusted medical management reviewed very carefully last time with cardiology and nephrology and agree on the current plan and management will keep watching his symptoms quite carefully may be one of the tackle to reduce the odds of coming to the emergency department that for the patient to be seen in the office between PCP and cardiology at least every 2 weeks. _Elevated troponin with possible transmural OR: No new finding of OR at this point still seeing cardiology. No sign of OR at this point. _Possible bilateral pneumonia: Continue Unasyn along with O2 to keep his pulse ox above 90 percentile and still seen pulmonary regularly. Will be finished antibiotic orally as an outpatient. _A-fib with RVR: With a rapid pulse rate at this point patient was started on amiodarone which she is having slight side effects from but will continue amiodarone 400 mg daily for 3 more days then 200 mg daily thereafter. Still on anticoagulation. _Type 2 diabetes: Not well-controlled remain on Farxiga, Rybelsus and Lantus, Accu-Chek with sliding scale coverage will be done. _Acute kidney injury: Is down to stage II chronic kidney disease doing well repeat CMP tomorrow again. _Elevated D-dimer: With no sign of pulmonary embolism patient might require to go for CTA at some point. _Severe cellulitis of the lower extremity worsening on the right side and left side we will continue Unasyn along with topical collagenase dressing. Continue Unasyn will switch patient to oral Augmentin on cephalexin when he goes to rehab. _Sacral ulcer: Mostly stage I and early stage II mostly from pressure from laying on bed or sitting in the chair for longer time, continue topical care and continue her current turning in bed and having patient ambulate with physical therapy fast. _Recent diabetic foot was seen at the wound clinic regularly and doing better. _Hypertension: Remain on Norvasc 2.5 mg a day, Entresto dose was decreased to 24/26 mg twice a day. _Hyperlipidemia: Remain on atorvastatin 40 mg a day. _Severe BPH: Watch for any urinary retention. CODE STATUS: Full code. Prognosis: Poor. Discussion: Patient is doing very well continue to improve clinically still seen PT OT and prepare hopefully for SNF today. Hospital course: Patient was hospitalized with acute respiratory failure on 07/23/2023: He had severe episode of shortness of breath with dyspnea and flash pulmonary edema, patient also diagnosed with acute pneumonia at the time, he has known to have ischemic cardiomyopathy with ejection fraction of 15 percentile become really bad at that time. His troponin was quite elevated and was diagnosed with transmural myocardial infarction. Patient was seen pulmonary and cardiology was on BiPAP initially try to keep pulse ox above 90 percentile avoid to have him intubated going on mechanical ventilation. Patient started improving with IV diuretics cardiology exclude the possibility of myocardial infarction completely at this time. Patient A-fib was not well-controlled was started finally on amiodarone he was loaded with 400 mg and move into 200 mg daily. Patient blood sugars mildly elevated was treated and add Farxiga along with Rybelsus and his Accu-Chek with sliding scale coverage. Kidney function has slightly declined initially but improved with the current management. Also patient was treated for cellulitis of the lower extremity especially the right lower extremity along with decubitus stage II. With a significant improvement last few days patient started PT OT his blood pressure was slightly below his Entresto was taking down to 24/26 mg twice a day and was able to tolerate it well. Patient still on O2 will be transferred to SNF at this point to do physical therapy and to watch him liquid more carefully run probably blood count twice a week and watch his improvement fluid overload and both cellulitis and decubitus ulcer little bit more carefully. Patient is stable will be transferred today to SNF. Time spent on discharging patient was 45 minutes. Patient Condition at Discharge: Stable Plan - Discharge Summary Discharge Rx Participant: No New Discharge Prescriptions: New Sacubitril/Valsartan [Entresto 24 mg-26 mg Tablet] 1 each PO BID #60 tab INSULIN ASPART (NovoLOG) [NovoLOG (formulary)] 0 unit SQ ACHS each Amiodarone [Cordarone] 200 mg PO DAILY #60 tab Continue Atorvastatin Calcium [Lipitor] 40 mg PO DAILY #30 tab FLUoxetine HCL [PROzac] 40 mg PO DAILY Clopidogrel [Plavix] 75 mg PO DAILY Insulin Aspart [NovoLOG Flexpen] 5 units SQ AC-TID Collagenase [Santyl Ointment] 1 applic TOPICAL DAILY 30 Days #1 each Insulin Glargine,Hum.rec.anlog [Lantus Solostar Pen] 15 units SQ HS #0 Aspirin EC [Ecotrin Low Dose] 81 mg PO DAILY Spironolactone [Aldactone] 25 mg PO DAILY #30 tab Nitroglycerin Sl Tabs [Nitrostat] 0.4 mg SUBLINGUAL Q5M PRN #25 tab PRN Reason: Chest Pain Furosemide [Lasix] 80 mg PO Q12HR #180 tablet Doxycycline [Vibramycin] 100 mg PO BID 7 Days #14 capsule Semaglutide [Rybelsus] 7 mg PO DAILY ARIPiprazole [Abilify] 20 mg PO DAILY Finasteride [Proscar] 5 mg PO DAILY Dapagliflozin Propanediol [Farxiga] 10 mg PO DAILY #30 tab Metoprolol Succinate (ER) [Toprol XL] 25 mg PO DAILY #30 tab Potassium Chloride ER [K-Dur 20] 20 meq PO DAILY #0 Discontinued Sacubitril/Valsartan [Entresto 49 mg-51 mg Tablet] 1 tab PO BID Zolpidem [Ambien] 5 mg PO HS 3 Days #3 tab Discharge Medication List Atorvastatin Calcium [Lipitor] 40 mg PO DAILY #30 tab 06/19/19 [Rx] ARIPiprazole [Abilify] 20 mg PO DAILY 03/19/23 [History] Clopidogrel [Plavix] 75 mg PO DAILY 03/19/23 [History] FLUoxetine HCL [PROzac] 40 mg PO DAILY 03/19/23 [History] Finasteride [Proscar] 5 mg PO DAILY 03/19/23 [History] Insulin Aspart [NovoLOG Flexpen] 5 units SQ AC-TID 03/19/23 [History] Semaglutide [Rybelsus] 7 mg PO DAILY 03/19/23 [History] Collagenase [Santyl Ointment] 1 applic TOPICAL DAILY 30 Days #1 each 03/25/23 [Rx] Insulin Glargine,Hum.rec.anlog [Lantus Solostar Pen] 15 units SQ HS #0 03/25/23 [Rx] Aspirin EC [Ecotrin Low Dose] 81 mg PO DAILY 04/23/23 [History] Dapagliflozin Propanediol [Farxiga] 10 mg PO DAILY #30 tab 07/05/23 [Rx] Furosemide [Lasix] 80 mg PO Q12HR #180 tablet 07/05/23 [Rx] Metoprolol Succinate (ER) [Toprol XL] 25 mg PO DAILY #30 tab 07/05/23 [Rx] Nitroglycerin Sl Tabs [Nitrostat] 0.4 mg SUBLINGUAL Q5M PRN #25 tab 07/05/23 [Rx] Potassium Chloride ER [K-Dur 20] 20 meq PO DAILY #0 07/05/23 [Rx] Spironolactone [Aldactone] 25 mg PO DAILY #30 tab 07/05/23 [Rx] Amiodarone [Cordarone] 200 mg PO DAILY #60 tab 07/28/23 [Rx] Doxycycline [Vibramycin] 100 mg PO BID 7 Days #14 capsule 07/28/23 [Rx] INSULIN ASPART (NovoLOG) [NovoLOG (formulary)] 0 unit SQ ACHS each 07/28/23 [Rx] Sacubitril/Valsartan [Entresto 24 mg-26 mg Tablet] 1 each PO BID #60 tab 07/28/23 [Rx] Follow up Appointment(s)/Referral(s): Aditya Jean MD [STAFF PHYSICIAN] - 1 Week Mauricio Ervin MD [Primary Care Provider] - 1-2 days Discharge Disposition: TRANSFER TO SNF/ECF
[2023-07-29 16:04] VITALS: BP 124/69; PULSE 65; TEMP 97.4
--- NOTE | 2023-07-31 14:38 | CDI ---
Documentation Clarification Form Date: 07/31/2023 02:26:36 PM From: Misty Anderson RN, CCDS Phone: [phone] Admit Date: 07/23/2023 06:28:00 AM Patient Name: Eric Bean Visit Number: [id number] Discharge Date: 07/29/2023 04:36:00 PM ATTENTION: The Clinical Documentation Specialists (CDI) and [facility] Coding Staff appreciate your assistance in clarifying documentation. Please respond to the clarification below the line at the bottom and electronically sign. The CDI & [facility] Coding staff will review the response and follow-up if needed. Please note: Queries are made part of the Legal Health Record. If you have any questions, please contact the author of this message via ITS. Dr. Mauricio Ervin Your patient had elevated troponin levels. Please clarify if there is an additional diagnosis and/or clinical significance related to this value. Patient history/risk factors: recurrent cellulitis, ischemic cardiomyopathy with advanced heart failure EF 10-15%, CAD and CABG. Presented with nausea, vomiting, low grade temp and dyspnea. Admitted with CHF exacerbation. Clinical indicators: 07/22 Troponins: 0.105-0.363-0.555 07/22 EKG: Tachycardia ED: "Troponin is elevated 0.1 which does appear to be chronic troponin elevation in this patient." 07/22 H&P: "Elevated troponin with possible transmural MN: Will be seen cardiology. Check troponin x 3." 07/24 Cardiology: "chronically elevated troponins." 07/26 Pulmonary: "Abnormal troponins, likely type II myocardial ischemia due to infection, CHF and comorbidities." Discharge summary: "Elevated troponin with possible transmural MN: No new finding of MN at this point still seeing cardiology. Possible BL pneumonia." Treatment: IV Unasyn 3gm Q6H 07/22-07/28; IV Rocephin 2gm x1 on 07/22; IV Lasix 40mg x1 on 07/22; Lasix 80mg po Q12H 07/22-07/28; supplemental oxygen 4LNC Is there an additional diagnosis and/or clinical significance related to the above lab result/information: [ ] Type 2 MN due to CHF [XX ] Possible transmural MN [ ] Non-ischemic with acute myocardial injury [ ] Chronic elevated troponins only [ ] No additional diagnosis/Not clinically significant [ ] Other, please specify [ ] Unable to determine MTDD
== END 2023-07-29 16:36 | DRG 280 ==
LOC: EC 05:15 → 3SCARD 06:28
PROVIDERS: ADMIT Internal Medicine Geriatric Medicine; ATTEND Internal Medicine Geriatric Medicine
DX: I50.43 Acute on chronic combined systolic (congestive) and diastolic (congestive) heart failure (principal); J18.9 Pneumonia, unspecified organism; I21.3 ST elevation (STEMI) myocardial infarction of unspecified site; J96.21 Acute and chronic respiratory failure with hypoxia; N17.0 Acute kidney failure with tubular necrosis; J44.0 Chronic obstructive pulmonary disease with (acute) lower respiratory infection; I25.810 Atherosclerosis of coronary artery bypass graft(s) without angina pectoris; I47.19 Other supraventricular tachycardia; I13.0 Hypertensive heart and chronic kidney disease with heart failure and stage 1 through stage 4 chronic kidney disease, or unspecified chronic kidney disease; L03.115 Cellulitis of right lower limb; L03.116 Cellulitis of left lower limb; I48.20 Chronic atrial fibrillation, unspecified; I49.3 Ventricular premature depolarization; I25.5 Ischemic cardiomyopathy; I25.10 Atherosclerotic heart disease of native coronary artery without angina pectoris; L89.151 Pressure ulcer of sacral region, stage 1; E11.51 Type 2 diabetes mellitus with diabetic peripheral angiopathy without gangrene; E11.22 Type 2 diabetes mellitus with diabetic chronic kidney disease; F32.A Depression, unspecified; I95.9 Hypotension, unspecified; F41.9 Anxiety disorder, unspecified; G47.33 Obstructive sleep apnea (adult) (pediatric); I08.0 Rheumatic disorders of both mitral and aortic valves; E78.5 Hyperlipidemia, unspecified; N18.2 Chronic kidney disease, stage 2 (mild); N40.0 Benign prostatic hyperplasia without lower urinary tract symptoms; Z79.02 Long term (current) use of antithrombotics/antiplatelets; Z79.4 Long term (current) use of insulin; Z79.82 Long term (current) use of aspirin; Z79.84 Long term (current) use of oral hypoglycemic drugs; Z79.899 Other long term (current) drug therapy; Z82.49 Family history of ischemic heart disease and other diseases of the circulatory system; Z83.3 Family history of diabetes mellitus; Z89.422 Acquired absence of other left toe(s); Z89.421 Acquired absence of other right toe(s); Z91.148 Patient's other noncompliance with medication regimen for other reason; Z91.199 Patient's noncompliance with other medical treatment and regimen due to unspecified reason; Z95.810 Presence of automatic (implantable) cardiac defibrillator; Z88.5 Allergy status to narcotic agent
CPT/HCPCS: 36415; 71045; 71046; 71275; 80053; 81001; 82009; 83605; 83735; 83880; 84443; 84484; 85025; 85027; 85379; 87040; 87636; 93005; 94760; 96365; 96366; 96367; 96375; 99291

== ENCOUNTER → 2023-09-23 | Outpatient (CLI) | payer MEDICARE, OTHER ==
--- NOTE | 2023-09-27 18:58 | NM ---
EXAMINATION TYPE: NM bone 3 phase DATE OF EXAM: 09/23/2023 COMPARISON: 04/23/2023, 04/24/2023 CLINICAL INDICATION: Male, 68 years old with history of RLE wound; Triple phase bone scintigraphy was performed following the injection of 22.7 mCi Tc 99m MDP. Immedia te images and 3 hours post injection images acquired. FINDINGS: Increased radiotracer uptake on blood flow, blood pool and delayed imaging involving the right foot n ear the distal fifth metatarsal. There is increased radiotracer uptake in the soft tissues on blood p ool and delayed imaging of the soft tissues around this area. IMPRESSION: Findings suggestive of Osteomyelitis involving the right fifth digit near the metatarsophalangeal wali nt with associated cellulitis.
== END | disposition home or self-care (01) ==
LOC: RADNMMAIN 07:46
PROVIDERS: ATTEND Surgery
DX: M79.661 Pain in right lower leg (principal)
CPT/HCPCS: 78315; A9503

== ENCOUNTER → 2024-08-05 | Outpatient (CLI) | payer OTHER ==
--- NOTE | 2024-08-05 09:09 | US ---
EXAMINATION TYPE: US Aorta Screening DATE OF EXAM: 08/05/2024 COMPARISON: NONE CLINICAL INDICATION: Male, 68 years old with history of Z13.6 SCREEN FOR CARDIOVASCULAR DISEASE; AAA screening. TECHNIQUE: Multiple sonographic images of the abdominal aorta are obtained with grayscale and color D oppler imaging. FINDINGS: EXAM MEASUREMENTS: Abdominal Aorta: Proximal: 2.0 cm Mid: 1.5 x 1.9 cm Distal: 1.6 x 2.0 cm Bifurcation: Right Iliac: 1.0 cm Left Iliac: 1.4 cm COLLECTIONS OFFICER NOTES: IMPRESSION: 1. No ultrasound findings to suggest abdominal aortic aneurysm. [email or web address] [facility], , 08/05/2024 9:07 AM
--- NOTE | 2024-08-05 11:15 | BD ---
EXAMINATION TYPE: Axial Bone Density DATE OF EXAM: 08/05/2024 CLINICAL HISTORY: 68 years old Male. ICD-10 CODE: M85.9 DISORDER OF BONE DENSITY AND STRUCTURE , Add itional History: Height: 62 Weight: 202 FRAX RISK QUESTIONS: Secondary Osteoporosis: 1. Type 1 Diabetes: unknown RISK FACTORS HISTORY OF: MEDICATIONS: EXAM MEASUREMENTS: Bone mineral densitometry was performed using the [email or web address] System. Bone mineral density as measured about the Lumbar spine is: ----- L1-L4(G/cm2): 1.324 T Score Values are as follows: ----- L1: 1.0 ----- L2: 1.0 ----- L3: 1.5 ----- L4: 1.1 ----- L1-L4: 1.2 Z Score Values are as follows: ----- L1: 0.8 ----- L2: 0.8 ----- L3: 1.3 ----- L4: 0.8 ----- L1-L4: 0.9 First dexa at [facility] Bone mineral density about the R hip (g/cm2): 0.787 Bone mineral density about the L hip (g/cm2): 0.825 T Score values are as follows: -----R Neck: -2.4 -----L Neck: -1.9 -----R Total: -1.8 -----L Total: -1.4 Z Score values are as follows: -----R Neck: -2.0 -----L Neck: -1.4 -----R Total: -1.8 -----L Total: -1.5 First dexa at [facility] FRAX%s: The graph provided illustrates a 9.8% chance for a major osteoporotic fx and a 3.3% chance fo r the hips probability for fx in 10 years time. IMPRESSION: Osteopenia (T Score between -2.5 and -1). There is slightly increased risk of fracture and the patient may be considered for treatment. Re-Screen 2-5 years. NOTE: T-SCORE=SD OF THE YOUNG ADULT MEAN. [facility], , 08/05/2024 11:13 AM
== END | disposition home or self-care (01) ==
LOC: RADUSWWP 08:28
PROVIDERS: ATTEND Internal Medicine Hospice and Palliative Medicine
DX: Z13.6 Encounter for screening for cardiovascular disorders (principal); M85.89 Other specified disorders of bone density and structure, multiple sites
CPT/HCPCS: 76706; 77080

== ENCOUNTER → 2024-10-21 | Outpatient (CLI) | payer OTHER ==
--- NOTE | 2024-10-21 13:05 | US ---
EXAMINATION TYPE: US groin BILAT DATE OF EXAM: 10/21/2024 COMPARISON: NONE CLINICAL INDICATION: Male, 69 years old with history of R59.0 LOCALIZED ENLARGED LYMPH NODES; Enlarge d lymph nodes. TECHNIQUE: Multiple grayscale and color Doppler ultrasound images of both groins were identified. FINDINGS/IMPRESSION: Hypoechoic 2.0 x 0.9 cm lymph node within the right groin with cortex measuring 3 mm. Demonstrates ce ntral fatty hilum. Benign-appearing prominent right inguinal lymph node. May be reactive. [facility], , 10/21/2024 1:02 PM
== END | disposition home or self-care (01) ==
LOC: RADUSWWP 12:32
PROVIDERS: ATTEND Internal Medicine Hospice and Palliative Medicine
DX: R59.0 Localized enlarged lymph nodes (principal)
CPT/HCPCS: 76882

== ENCOUNTER 2024-11-10 19:32 | Outpatient (CLI) | payer OTHER ==
--- NOTE | 2024-11-12 18:09 | P.PCN ---
Description of Procedure: POLYSOMNOGRAPHY REPORT PROCEDURE(S)/DATE(S): Polysomnography 11/10/2024 CLINICAL: Patient has been seen in the sleep center for evaluation of obstructive sleep apnea-hypopnea syndrome. Please see my consultation. Sleep study has been done for evaluation of patient breathing during the sleep. PROCEDURE: The standard montage for clinical polysomnography included the electroencephalogram, the electrooculogram, the mentalis surface electromyography and Lead II cardiography. The respiratory battery consisted of measurements of nasal/buccal air flow, pressure transducer measurements from nose, thoracic and/or abdominal effort and intercostal surface electromyography. Video monitoring has been done to check for any parasomnia events. Nocturnal oxyhemoglobin saturations were obtained by finger oximetry. Step-horton titration with positive airway pressure was utilized to control the respiratory events, if necessary. RESULTS: During the diagnostic sleep study sleep efficiency was slightly decreased to 83.6%. Latency to sleep onset was in short range 6.0 min. Sleep architecture showed stage NI was significantly increased to 17.3%, Delta sleep was extremely short 0.8%, REM sleep was normal at 23.5%. Respiratory channel showed 0 obstructive apneas, 0 mixed apneas, 0 central apneas, 93 hypopneas with lowest oxygen level 85%. Total apnea hypopnea index was 15.8. Heart rate was in the range between 49 and 55, average 51. EMG showed 43.4 periodic limb movements per hour with 2.4 micro-arousals per hour. IMPRESSIONS: 1. Obstructive sleep apnea hypopnea syndrome. 2. Significant periodic limb movements have been documented. Please see other impressions from consultation PLAN: 1. The patient will have AutoPAP treatment for correction of respiratory abnormalities during the sleep. 2. Losing weight program. 3. Sleep hygiene with regular time in bed for at least 7-1/2 hours. 4. No driving if feeling sleepiness. 5. Please check iron profile including ferritin level. Low level of iron may increase the risk for periodic limb movements. Thank you very much for allowing me to participate in the management of your patient. Sincerely, Jean Cano MD, PhD, FAASM. Diplomat of [employer] [employer], Sleep Medicine Board by [employer] [employer] [facility] [place] cc: Tyson Velasco
== END 2024-11-11 07:12 | disposition home or self-care (01) ==
LOC: 3 N SLEEP 19:32
PROVIDERS: ATTEND Internal Medicine
DX: G47.33 Obstructive sleep apnea (adult) (pediatric) (principal); G47.61 Periodic limb movement disorder; Z88.5 Allergy status to narcotic agent
CPT/HCPCS: 95810